=== PATIENT | female | born 1980 | race Caucasian/White ===

== ENCOUNTER 2020-05-01 10:23 | Outpatient (REF) | payer OTHER, SELFPAY ==
[2020-05-01 11:05] LABS: Hematocrit 40.5 % (37-47); Hemoglobin 14.1 g/dl (12.0-16.0); Mean Corpuscular HGB Conc 34.8 g/dl (31.0-35.0); Mean Corpuscular Hemoglobin 31.5 pg (27.0-33.0); Mean Corpuscular Volume 90.4 fL (80-98); Mean Platelet Volume 9.5 fL (9.4-12.3); Platelet Count 272 X10*3/uL (160-400); Red Blood Count 4.48 X10*6/uL (4.20-5.50); Red Cell Distribution Width 12.5 % (11.0-16.0)
[2020-05-01 11:28] LABS: Anion Gap 12 (12-20); Blood Urea Nitrogen 13 mg/dL (9-16); Carbon Dioxide 26 mmol/L (22-29); Chloride 104 mmol/L (96-108); Cholesterol 209 mg/dL; Estimated Glomerular Filt Rate > 60; Glucose Fasting 100 mg/dL (60-99); HDL Cholesterol 49 mg/dL; LDL Cholesterol Calculated 112 mg/dl; Potassium 4.9 mmol/l (3.3-5.1); Sodium 137 mmol/L (135-145); Triglycerides 243 mg/dL
[2020-05-01 11:50] LABS: Free T4 (Free Thyroxine) 0.77 ng/dL (0.71-1.85); Thyroid Stimulating Hormone 3.79 mIU/mL (0.32-4.0)
[2020-05-03 09:00] LABS: Folate 16.2 ng/mL (> or = 4.0); Vitamin B12 476 pg/mL (200-900)
[2020-05-03 22:42] LABS: Thyroid Peroxidase Antibodies 368 IU/mL (<9)
== END 2020-05-01 10:24 | disposition home or self-care (01) ==
LOC: HO.LAB 10:23
PROVIDERS: PCP Internal Medicine; Visit Provider Internal Medicine
DX: R53.83 Other fatigue (principal); E03.9 Hypothyroidism, unspecified; E78.00 Pure hypercholesterolemia, unspecified; Z86.32 Personal history of gestational diabetes
CPT/HCPCS: 36415; 80048; 80061; 82607; 82746; 84439; 84443; 85027; 86376

== ENCOUNTER → 2020-07-07 07:26 | Outpatient (BNVA) | payer OTHER, SELFPAY | PROVIDERS: PCP Internal Medicine; Referring Provider Internal Medicine; Visit Provider Internal Medicine | DX: Z76.89 Persons encountering health services in other specified circumstances (principal) ==

== ENCOUNTER 2020-07-08 09:07 | Outpatient (REF) | payer OTHER, SELFPAY ==
[2020-07-08 16:45] LABS: Free T4 (Free Thyroxine) 0.87 ng/dL (0.71-1.85); Thyroid Stimulating Hormone 6.42 uIU/mL (0.32-4.0); Vitamin D 25-OH Total 32.4 ng/mL (>30)
[2020-07-09 07:26] LABS: Triiodothyronine T3 Total 136 ng/dL (76-181)
[2020-07-09 09:22] LABS: Thyroglobulin Antibodies 1 IU/mL (< or = 1); Thyroid Peroxidase Antibodies 535 IU/mL (<9)
[2020-07-13 15:23] LABS: Thyroid Stimulating Immunoglob <89 % baseline (<140)
[2020-07-14 19:48] LABS: Thyrotropin Receptor Antibody <1.00 IU/L (<=2.00)
== END 2020-07-08 09:08 | disposition home or self-care (01) ==
LOC: HO.LAB 09:07
PROVIDERS: PCP Internal Medicine; Referring Provider Internal Medicine; Visit Provider Internal Medicine
DX: E03.9 Hypothyroidism, unspecified (principal); E55.9 Vitamin D deficiency, unspecified
CPT/HCPCS: 36415; 82306; 83520; 84439; 84443; 84445; 84480; 86376; 86800

== ENCOUNTER 2020-07-22 15:26 | Outpatient (REF) | payer OTHER, SELFPAY ==
--- NOTE | 2020-07-22 15:29 | US_ITS ---
EXAMINATION: US THYROID CLINICAL INFORMATION: Hypothyroidism. COMPARISON: None TECHNIQUE: Linear transducer mosquera-scale and color Doppler examination with attention to the region of the thyroid. FINDINGS: SIZE: Measurements of the thyroid lobes and nodules are given in sagittal, anteroposterior and transverse dimensions respectively. Right Thyroid Lobe: 4.7 x 2.1 x 1.8 cm, volume 9.3 mL. Parenchyma: The gland echotexture is heterogeneous. Thyroid vascularity is mildly increased. Left Thyroid Lobe: 4.6 x 1.4 x 1.5 cm, volume 5.1 mL. Parenchyma: The gland echotexture is heterogeneous. Thyroid vascularity is normal. Isthmus: 0.5 cm in maximum AP dimension. RIGHT THYROID LOBE: No nodules. ISTHMUS: No nodules. LEFT THYROID LOBE: No nodules. NODES: Right neck lymph node measures 0.8 x 1.8 x 0.4 cm. Left neck lymph node measures 0.7 x 0.9 x 0.4 cm. US/US thyroid IMPRESSION: Diffusely heterogeneous lobulated thyroid gland with no obvious nodules visualized. There is mild thyromegaly, right slightly larger than left.
== END 2020-07-22 15:27 | disposition home or self-care (01) ==
LOC: HO.HMGCX 15:26
PROVIDERS: PCP Internal Medicine; Visit Provider Internal Medicine
DX: E03.9 Hypothyroidism, unspecified (principal)
CPT/HCPCS: 76536

== ENCOUNTER → 2020-08-11 11:53 | Outpatient (BNVA) | payer OTHER, SELFPAY | PROVIDERS: PCP Internal Medicine; Visit Provider Internal Medicine ==

== ENCOUNTER 2020-09-02 17:16 | Outpatient (REF) | payer OTHER, SELFPAY ==
[2020-09-02 18:37] LABS: Free T4 (Free Thyroxine) 0.92 ng/dL (0.71-1.85); Thyroid Stimulating Hormone 3.32 uIU/mL (0.32-4.0)
== END 2020-09-02 17:17 | disposition home or self-care (01) ==
LOC: HO.LAB 17:16
PROVIDERS: PCP Internal Medicine; Visit Provider Internal Medicine
DX: E03.9 Hypothyroidism, unspecified (principal)
CPT/HCPCS: 36415; 84439; 84443

== ENCOUNTER → 2020-09-29 13:15 | Outpatient (BNVA) | payer OTHER, SELFPAY | PROVIDERS: PCP Internal Medicine; Visit Provider Internal Medicine ==

== ENCOUNTER 2020-10-20 16:15 | Outpatient (REF) | payer OTHER, SELFPAY ==
[2020-10-20 17:31] LABS: Free T4 (Free Thyroxine) 0.95 ng/dL (0.71-1.85); Thyroid Stimulating Hormone 3.22 uIU/mL (0.32-4.0)
== END 2020-10-20 16:16 | disposition home or self-care (01) ==
LOC: HO.LAB 16:15
PROVIDERS: PCP Internal Medicine; Visit Provider Internal Medicine
DX: E03.9 Hypothyroidism, unspecified (principal)
CPT/HCPCS: 36415; 84439; 84443

== ENCOUNTER → 2020-12-20 12:00 | Outpatient (BNVA) | payer OTHER, SELFPAY | PROVIDERS: PCP Internal Medicine; Visit Provider Internal Medicine ==

== ENCOUNTER 2020-12-30 08:12 | Outpatient (REF) | payer OTHER, SELFPAY ==
--- NOTE | ~2020-12-30 | XR_ITS ---
EXAMINATION: XR AP KNEES STANDING XR RIGHT KNEE CLINICAL INFORMATION: Right knee pain. COMPARISON: None. TECHNIQUE: AP bilateral knees standing. Right knee 2 views. FINDINGS: AP Bilateral Knees: There is mild reduction in the medial compartment right knee joint space with periarticular spurring. The lateral compartment right knee and medial and lateral compartment left knee joint spaces are somewhat maintained. There is evidence of right ACL repair right knee with 2 screws along the medial tibia, likely stabilizing the graft. Right Knee: Lateral and sunrise view right knee reveals no fracture, bony erosive changes or loose bodies. The soft tissues are normal. XR/XR knee standing BI IMPRESSION: Mild degenerative changes medial compartment right knee. Evidence of right ACL repair with 2 medial screws along the proximal tibia. No visible acute fracture or dislocation right knee. No joint effusion. AP view left knee is unremarkable.
--- NOTE | ~2020-12-30 | XR_ITS ---
EXAMINATION: XR AP KNEES STANDING XR RIGHT KNEE CLINICAL INFORMATION: Right knee pain. COMPARISON: None. TECHNIQUE: AP bilateral knees standing. Right knee 2 views. FINDINGS: AP Bilateral Knees: There is mild reduction in the medial compartment right knee joint space with periarticular spurring. The lateral compartment right knee and medial and lateral compartment left knee joint spaces are somewhat maintained. There is evidence of right ACL repair right knee with 2 screws along the medial tibia, likely stabilizing the graft. Right Knee: Lateral and sunrise view right knee reveals no fracture, bony erosive changes or loose bodies. The soft tissues are normal. XR/XR knee RT 2V IMPRESSION: Mild degenerative changes medial compartment right knee. Evidence of right ACL repair with 2 medial screws along the proximal tibia. No visible acute fracture or dislocation right knee. No joint effusion. AP view left knee is unremarkable.
== END 2020-12-30 08:13 | disposition home or self-care (01) ==
LOC: HO.HOSX 08:12
PROVIDERS: Visit Provider Orthopaedic Surgery
DX: M25.561 Pain in right knee (principal)
CPT/HCPCS: 73560; 73565; 99202

== ENCOUNTER 2020-12-30 11:06 | Outpatient (REF) | payer OTHER, SELFPAY ==
[2020-12-30 11:52] LABS: MANUAL DIFF FLAG NO
[2020-12-30 11:55] LABS: Basophils Percent Auto 0.4 % (0-2); Eosinophils Absolute Auto 0.1 X10*3/uL (0.0-0.4); Eosinophils Percent Auto 1.9 % (0-4); Hematocrit 41.9 % (37-47); Hemoglobin 14.3 g/dl (12.0-16.0); Imm Gran Abs Auto 0.02 X10*3/uL (0.00-0.03); Imm Gran Pct Auto 0.3 % (0.0-0.4); Lymphocytes Absolute Auto 2.2 X10*3/uL (1.2-4.9); Lymphocytes Percent Auto 32.5 % (20-40); Mean Corpuscular HGB Conc 34.1 g/dl (31.0-35.0); Mean Corpuscular Hemoglobin 30.6 pg (27.0-33.0); Mean Corpuscular Volume 89.5 fL (80-98); Mean Platelet Volume 9.6 fL (9.4-12.3); Monocytes Absolute Auto 0.4 X10*3/uL (0.1-1.2); Monocytes Percent Auto 6.1 % (2-11); Neutrophils Percent Auto 58.8 % (45-73); Platelet Count 279 X10*3/uL (160-400); Red Blood Count 4.68 X10*6/uL (4.20-5.50); Red Cell Distribution Width 12.5 % (11.0-16.0); White Blood Count 6.8 X10*3/uL (4.8-10.8)
[2020-12-30 12:20] LABS: Cholesterol 188 mg/dL; Glucose Fasting 108 mg/dL (60-99); HDL Cholesterol 43 mg/dL; Iron 137 mcg/dL (30-160); LDL Cholesterol Calculated 72 mg/dl; Percent Iron Saturation 34 % (15-50); Total Iron Binding Capacity 401 mcg/dL (228-428); Triglycerides 369 mg/dL; Unsaturated Iron Binding 264 ug/dL
[2020-12-30 12:34] LABS: Thyroid Stimulating Hormone 2.76 uIU/mL (0.32-4.0); Vitamin D 25-OH Total 36.2 ng/mL (>30)
[2020-12-30 12:36] LABS: Free T4 (Free Thyroxine) 0.89 ng/dL (0.71-1.85)
== END 2020-12-30 11:07 | disposition home or self-care (01) ==
LOC: HO.LAB 11:06
PROVIDERS: Absent Provider Internal Medicine; PCP Internal Medicine; Visit Provider Internal Medicine
DX: E03.9 Hypothyroidism, unspecified (principal); E06.3 Autoimmune thyroiditis; E55.9 Vitamin D deficiency, unspecified; E66.9 Obesity, unspecified
CPT/HCPCS: 36415; 80061; 82306; 82947; 83540; 84439; 84443; 85025

== ENCOUNTER → 2021-03-07 11:21 | Outpatient (BNVA) | payer OTHER, SELFPAY | PROVIDERS: PCP Internal Medicine; Visit Provider Internal Medicine ==

== ENCOUNTER → 2021-03-28 12:45 | Outpatient (BNVA) | payer OTHER, SELFPAY | PROVIDERS: Visit Provider Orthopaedic Surgery | DX: M17.11 Unilateral primary osteoarthritis, right knee (principal); E03.9 Hypothyroidism, unspecified; E06.3 Autoimmune thyroiditis; E55.9 Vitamin D deficiency, unspecified; E66.9 Obesity, unspecified; Z68.37 Body mass index [BMI] 37.0-37.9, adult; Z98.890 Other specified postprocedural states; Z88.6 Allergy status to analgesic agent; Z88.8 Allergy status to other drugs, medicaments and biological substances | CPT/HCPCS: 20610; 99212; J1100 ==

== ENCOUNTER 2021-04-04 08:03 | Outpatient (REF) | payer OTHER, SELFPAY ==
[2021-04-04 11:44] LABS: Free T4 (Free Thyroxine) 1.02 ng/dL (0.71-1.85); Thyroid Stimulating Hormone 2.87 uIU/mL (0.32-4.0); Vitamin D 25-OH Total 38.5 ng/mL (>30)
== END 2021-04-04 08:04 | disposition home or self-care (01) ==
LOC: HO.LAB 08:03
PROVIDERS: PCP Internal Medicine; Visit Provider Internal Medicine
DX: E03.9 Hypothyroidism, unspecified (principal); E55.9 Vitamin D deficiency, unspecified; R76.8 Other specified abnormal immunological findings in serum
CPT/HCPCS: 36415; 82306; 84439; 84443

== ENCOUNTER → 2021-09-08 15:12 | Outpatient (BNVA) | payer OTHER, SELFPAY | PROVIDERS: PCP Internal Medicine; Visit Provider Orthopaedic Surgery | DX: M17.11 Unilateral primary osteoarthritis, right knee (principal); Z98.890 Other specified postprocedural states | CPT/HCPCS: 20610; 99212; J1100 ==

== ENCOUNTER 2021-12-02 11:13 | Outpatient (REF) | payer OTHER, SELFPAY ==
[2021-12-02 13:26] LABS: Free T4 (Free Thyroxine) 0.93 ng/dL (0.71-1.85); Vitamin D 25-OH Total 31.6 ng/mL (>30)
== END 2021-12-02 11:14 | disposition home or self-care (01) ==
LOC: HO.LAB 11:13
PROVIDERS: PCP Internal Medicine; Visit Provider Internal Medicine
DX: E03.9 Hypothyroidism, unspecified (principal); E55.9 Vitamin D deficiency, unspecified
CPT/HCPCS: 36415; 82306; 84439; 84443

== ENCOUNTER 2022-03-08 07:25 | Outpatient (REF) | payer OTHER, SELFPAY | END 2022-03-08 07:26 | disposition home or self-care (01) | LOC: HO.HOSX 07:25 | PROVIDERS: Visit Provider Physician Assistant | DX: S52.501A Unspecified fracture of the lower end of right radius, initial encounter for closed fracture (principal) | CPT/HCPCS: 29085; 99202 ==

== ENCOUNTER 2022-03-16 07:59 | Outpatient (REF) | payer OTHER, SELFPAY ==
--- NOTE | ~2022-03-16 | XR_ITS ---
EXAMINATION: XR WRIST, RIGHT CLINICAL INFORMATION: Right wrist pain. COMPARISON: No relevant images available for comparison at the time of interpretation. TECHNIQUE: PA, lateral, and oblique views of the right wrist. FINDINGS: The bones and soft tissues are normal. No fracture. Alignment is anatomic with normal joint spaces. No erosions or abnormal soft tissue calcifications. XR/XR wrist RT min 3V IMPRESSION: Unremarkable examination.
== END 2022-03-16 08:00 | disposition home or self-care (01) ==
LOC: HO.HOSX 07:59
PROVIDERS: Visit Provider Physician Assistant
DX: S52.501D Unspecified fracture of the lower end of right radius, subsequent encounter for closed fracture with routine healing (principal)
CPT/HCPCS: 29085; 73110; 99212

== ENCOUNTER → 2022-03-17 14:45 | Outpatient (BNVA) | payer OTHER, SELFPAY | PROVIDERS: PCP Internal Medicine; Visit Provider Physician Assistant | DX: S52.501D Unspecified fracture of the lower end of right radius, subsequent encounter for closed fracture with routine healing (principal) | CPT/HCPCS: 29085; 99212 ==

== ENCOUNTER 2022-04-13 07:54 | Outpatient (REF) | payer OTHER, SELFPAY ==
--- NOTE | ~2022-04-13 | XR_ITS ---
EXAMINATION: XR WRIST, RIGHT CLINICAL INFORMATION: Pain COMPARISON: Previous x-ray 03/16/2022 TECHNIQUE: PA, lateral, and oblique views of the right wrist. FINDINGS: There is increased transverse sclerosis of the distal radius questionable for healing nondisplaced fracture. Joint spaces are normal. Carpal bones are normal. Soft tissues are normal. XR/XR wrist RT min 3V IMPRESSION: Increased transverse sclerosis of the distal radius questionable for healing fracture.
== END 2022-04-13 07:55 | disposition home or self-care (01) ==
LOC: HO.HOSX 07:54
PROVIDERS: Visit Provider Physician Assistant
DX: S52.501A Unspecified fracture of the lower end of right radius, initial encounter for closed fracture (principal)
CPT/HCPCS: 73110; 99212

== ENCOUNTER 2022-05-09 08:30 | Outpatient (RCR) | payer OTHER, SELFPAY ==
--- NOTE | 2022-05-02 09:14 | MHC.OT.EP ---
[address] [phone] Occupational Therapy Plan of Care Date of Evaluation: 05/02/22 Diagnosis: Right distal radius fx Assessment: Tonia is a 41 yo female 8 wks s/p right DR fx due to a fall roller skating Her she is wearing a pre carrie wrist support and removing for Ther ex and light activity Today she presents with impairments in pain, wrist ROM and hand strength Her goal is to regain full use for daily activities and training for a fitness test at work Frequency and Duration: The patient will be seen 2x wk x 4 wks Short Term Goals: Inc wrist flexion to > 60 deg Inc ulnar dev to >25 deg Inc pot maker strength to >45 lb Quick DASH score to < 30 pts Assisted Goals: Inc wrist flex to >65 deg Wrist ulnar dev to 30 deg Tolerate partial wt bearing on right hand Right pot maker to >50 lb Quick DASH score to <15 pts Treatment Plan: Therapeutic Exercise Therapeutic Activity Home Exercise Program Patient Education Fluidotherapy MHP Electronically Signed By: Raven Bashir OT CHT CLT Please Sign and return to therapist. Thank you once again for your referral.
--- NOTE | 2022-06-05 15:20 | MHC.OT.DC ---
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
== END 2022-06-05 15:21 | disposition home or self-care (01) ==
LOC: HO.OT 08:30
PROVIDERS: PCP Internal Medicine; Visit Provider Physician Assistant
DX: S52.501A Unspecified fracture of the lower end of right radius, initial encounter for closed fracture (principal)
CPT/HCPCS: 97110; 97165

== ENCOUNTER 2022-06-13 | Outpatient (REF) | payer OTHER, SELFPAY ==
--- NOTE | ~2022-06-13 | XR_ITS ---
EXAMINATION: XR WRIST, RIGHT CLINICAL INFORMATION: M25.539 - Pain in unspecified wrist COMPARISON: Radiographs right wrist 04/13/2022, 03/16/2022 TECHNIQUE: Right wrist is imaged in 3 views. FINDINGS: There is no acute or healing fracture, dislocation, destructive process. The ulnar variance is neutral. The pronator quadratus fat pad appears normal. No callus formation or periostitis. No arthropathy. Small cortical cyst medial base fifth medical carpal stable. XR/XR wrist RT min 3V IMPRESSION: No acute or healing fracture, dislocation, or destructive process.
== END 2022-06-13 00:01 | disposition home or self-care (01) ==
LOC: HO.HOSX
PROVIDERS: Visit Provider Physician Assistant
DX: S52.501A Unspecified fracture of the lower end of right radius, initial encounter for closed fracture (principal)
CPT/HCPCS: 73110; 99212

== ENCOUNTER 2022-08-09 07:50 | Outpatient (REF) | payer OTHER, SELFPAY ==
[2022-08-09 08:02] LABS: MANUAL DIFF FLAG NO
[2022-08-09 08:36] LABS: Basophils Percent Auto 0.6 % (0-2); Eosinophils Absolute Auto 0.1 X10*3/uL (0.0-0.4); Eosinophils Percent Auto 2.2 % (0-4); Hematocrit 41.4 % (37.0-47.0); Hemoglobin 13.9 g/dl (12.0-16.0); Imm Gran Abs Auto 0.02 X10*3/uL (0.00-0.03); Imm Gran Pct Auto 0.3 % (0.0-0.4); Lymphocytes Absolute Auto 2.2 X10*3/uL (1.2-4.9); Lymphocytes Percent Auto 34.4 % (20-40); Mean Corpuscular HGB Conc 33.6 g/dl (31.0-35.0); Mean Corpuscular Hemoglobin 29.6 pg (27.0-33.0); Mean Corpuscular Volume 88.3 fL (80.0-98.0); Mean Platelet Volume 9.2 fL (9.4-12.3); Monocytes Absolute Auto 0.5 X10*3/uL (0.1-1.2); Monocytes Percent Auto 7.1 % (2-11); Neutrophils Absolute Auto 3.5 x10*3/uL (2.0-8.3); Neutrophils Percent Auto 55.4 % (45-73); Platelet Count 317 X10*3/uL (160-400); Red Blood Count 4.69 X10*6/uL (4.20-5.50); Red Cell Distribution Width 13.1 % (11.0-16.0); White Blood Count 6.3 X10*3/uL (4.8-10.8)
[2022-08-09 08:37] LABS: Estimated Average Glucose 154 mg/dL
[2022-08-09 08:55] LABS: Alanine Aminotransferase 153 U/L (0-31); Anion Gap 17 (12-20); Aspartate Amino Transferase 180 U/L (5-31); Blood Urea Nitrogen 9 mg/dL (9-16); Calcium 9.7 mg/dL (8.4-10.2); Carbon Dioxide 23 mmol/L (22-29); Chloride 104 mmol/L (96-108); Cholesterol 236 mg/dL; Estimated Glomerular Filt Rate > 60; Glucose Fasting 151 mg/dL (60-99); HDL Cholesterol 33 mg/dL; LDL Cholesterol Calculated 167 mg/dl; Potassium 4.5 mmol/L (3.3-5.1); Sodium 139 mmol/L (135-145); Triglycerides 184 mg/dL
== END 2022-08-09 07:51 | disposition home or self-care (01) ==
LOC: HO.LAB 07:50
PROVIDERS: Absent Provider Internal Medicine; PCP Internal Medicine; Visit Provider Internal Medicine
DX: Z00.01 Encounter for general adult medical examination with abnormal findings (principal); E78.1 Pure hyperglyceridemia; R73.01 Impaired fasting glucose; E66.9 Obesity, unspecified
CPT/HCPCS: 36415; 80048; 80061; 83036; 84450; 84460; 85025

== ENCOUNTER → 2022-09-15 10:25 | Outpatient (BNVA) | payer OTHER, SELFPAY | PROVIDERS: PCP Internal Medicine; Visit Provider Physician Assistant | DX: M17.11 Unilateral primary osteoarthritis, right knee (principal); Z98.890 Other specified postprocedural states | CPT/HCPCS: 20610; 99212; J1040 ==

== ENCOUNTER 2022-10-19 11:48 | Outpatient (REF) | payer OTHER, SELFPAY ==
--- NOTE | ~2022-10-19 | MR_ITS ---
EXAMINATION: MR KNEE WITHOUT CONTRAST, LEFT CLINICAL INFORMATION: Left knee pain. COMPARISON: Left knee radiograph dated 12/30/2020. TECHNIQUE: MRI of the knee without contrast was performed using routine sequences on a high-field scanner. FINDINGS: MENISCI: Medial Meniscus: Intact Lateral Meniscus: Intact LIGAMENTS: Cruciate: Complete tear of the anterior cruciate ligament with diffuse thickening and edema of the torn ligament fibers. Adjacent soft tissue edema. Intact posterior cruciate ligament. Collateral: Mild edema along the periphery of the posterior medial collateral ligament consistent with a grade 1 sprain. Intact fibular collateral ligament. EXTENSOR MECHANISM: Intact ARTICULAR CARTILAGE/BONE: Patellofemoral Compartment: Patellar median ridge articular cartilage signal heterogeneity and partial-thickness fissuring. Central trochlea signal heterogeneity. Tiny marginal osteophytes. Medial Compartment: Intact articular cartilage. Minimal cortical depression with subchondral linear low T1/low T2 signal and prominent adjacent marrow edema at the posterior aspect of the medial tibial plateau measuring 1.4 cm in AP dimension, consistent with a minimally depressed impaction fracture. Lateral Compartment: Intact articular cartilage. JOINT FLUID AND BURSAE: Small joint effusion and small Live's cyst. MR/MR knee LT wo con IMPRESSION: 1. Acute, complete tear of the anterior cruciate ligament. 2. Grade 1 sprain of the medial collateral ligament. 3. Minimally depressed impaction fracture at the posterior aspect of the medial tibial plateau with prominent adjacent marrow edema. 4. Mild patellofemoral arthrosis. Small joint effusion and small Live's cyst.
[2022-10-19 14:02] LABS: Free T4 (Free Thyroxine) 1.13 ng/dL (0.71-1.85); Vitamin D 25-OH Total 45.8 ng/mL (>30)
== END 2022-10-19 11:49 | disposition home or self-care (01) ==
LOC: HO.MRI 11:48
PROVIDERS: Internal Medicine; PCP Internal Medicine; Visit Provider Internal Medicine
DX: M25.562 Pain in left knee (principal); M25.362 Other instability, left knee; E03.9 Hypothyroidism, unspecified; E55.9 Vitamin D deficiency, unspecified
CPT/HCPCS: 36415; 73721; 82306; 84439; 84443

== ENCOUNTER → 2022-10-30 10:31 | Outpatient (BNVA) | payer OTHER, SELFPAY | PROVIDERS: PCP Internal Medicine; Visit Provider Physician Assistant | DX: S83.512A Sprain of anterior cruciate ligament of left knee, initial encounter (principal); S82.132A Displaced fracture of medial condyle of left tibia, initial encounter for closed fracture | CPT/HCPCS: 99212 ==

== ENCOUNTER → 2022-11-30 09:28 | Outpatient (BNVA) | payer OTHER, SELFPAY | PROVIDERS: Visit Provider Physician Assistant | DX: S83.512D Sprain of anterior cruciate ligament of left knee, subsequent encounter (principal); S82.132D Displaced fracture of medial condyle of left tibia, subsequent encounter for closed fracture with routine healing | CPT/HCPCS: 99212 ==

== ENCOUNTER 2022-12-18 08:14 | Outpatient (REF) | payer OTHER, SELFPAY ==
--- NOTE | ~2022-12-18 | XR_ITS ---
EXAMINATION: XR KNEE, RIGHT XR KNEE AP STANDING CLINICAL INFORMATION: Pain. COMPARISON: Radiographs dated 12/30/2020. TECHNIQUE: Lateral and axial views of the right knee are submitted. AP bilateral standing view of the knees was obtained. FINDINGS: There is mild asymmetric narrowing of the medial joint space compartment of the right knee, with peripheral osteophyte formation. The lateral and patellofemoral joint space compartment are well-maintained. There is trace peripheral osteophyte formation of the right patellofemoral compartment. There are postoperative changes consistent with a prior right ACL repair. No right knee fracture, dislocation or joint effusion is seen. The lateral and medial joint space compartments of the left knee are well-maintained. There is minimal peripheral osteophyte formation of the medial joint space compartment of the left knee. No left knee fracture or dislocation is seen. No significant varus or valgus configuration is seen bilaterally. XR/XR knee standing BI IMPRESSION: 1. There is mild osteoarthritic change of the medial joint space compartment of the right knee, and minimal osteoarthritic change is seen of the patellofemoral compartment. 2. There are postoperative changes consistent with a prior right ACL repair. 3. There is minimal osteoarthritic change of the medial joint space compartment of the left knee.
--- NOTE | ~2022-12-18 | XR_ITS ---
EXAMINATION: XR KNEE, RIGHT XR KNEE AP STANDING CLINICAL INFORMATION: Pain. COMPARISON: Radiographs dated 12/30/2020. TECHNIQUE: Lateral and axial views of the right knee are submitted. AP bilateral standing view of the knees was obtained. FINDINGS: There is mild asymmetric narrowing of the medial joint space compartment of the right knee, with peripheral osteophyte formation. The lateral and patellofemoral joint space compartment are well-maintained. There is trace peripheral osteophyte formation of the right patellofemoral compartment. There are postoperative changes consistent with a prior right ACL repair. No right knee fracture, dislocation or joint effusion is seen. The lateral and medial joint space compartments of the left knee are well-maintained. There is minimal peripheral osteophyte formation of the medial joint space compartment of the left knee. No left knee fracture or dislocation is seen. No significant varus or valgus configuration is seen bilaterally. XR/XR knee RT 2V IMPRESSION: 1. There is mild osteoarthritic change of the medial joint space compartment of the right knee, and minimal osteoarthritic change is seen of the patellofemoral compartment. 2. There are postoperative changes consistent with a prior right ACL repair. 3. There is minimal osteoarthritic change of the medial joint space compartment of the left knee.
== END 2022-12-18 08:15 | disposition home or self-care (01) ==
LOC: HO.HOSX 08:14
PROVIDERS: Visit Provider Physician Assistant
DX: M17.11 Unilateral primary osteoarthritis, right knee (principal); Z98.890 Other specified postprocedural states
CPT/HCPCS: 20610; 73560; 73565; 99212; J1040

== ENCOUNTER 2023-01-02 10:00 | Outpatient (RCR) | payer OTHER, SELFPAY ==
--- NOTE | 2022-12-06 15:11 | MHC.PT.EP ---
[facility] [place] Office [place] Office [place] Office [address] [phone] F: [phone] F: [phone] F: [phone] F: [phone] Physical Therapy Plan of Care Date of Evaluation: Date of Surgery: PRE-OP 01/24/23..L ACL RECONSTRUCTION Diagnosis: DISPLACED FX MEDIAL CONDYLE L TIBIA Assessment: Pt IS 42 YO F REFERRED TO PT FROM [facility] ([facility]) WITH TORN L ACL AND FX OF MEDIAL CONDYLE L TIBIA. TO HAVE ACL RECONSTRUCTION (ALLOGRAFT FROM CADAVER PER Pt) ON January. PRESENTS WITH GOOD OVERALL KNEE ROM L AND LE STRENGTH. Pt HAD R ACL SURGERY WHEN SHE WAS 16 YO. 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 REPORTS SWELLING HAS BEEN MINIMAL. SHOULD BENEFIT FROM SHORT TERM PT FOR ED RE PO PT AND ENSURE MAINTENANCE OF ROM AND STRENGTH PRE-OPERATIVELY Frequency and Duration: The patient will be seen 1X/WK X 4 WKS Short Term Goals: 1. INCREASED AWARENESS KNEE CARE AND POST OP ACL PROTOCOL Detention Goals: 1. I HEP WITH DC EX PLAN Treatment Plan: Modalities to reduce pain, spasms and effusion. Manual therapy to restore motion and function. Therapeutic exercise to improve strength and flexibility. Neuromuscular re-education for posture and balance. Therapeutic activities to return to functional activities of daily living. Electronically signed by: CAITY GUEVARA PT Please sign and return to therapist. Thank you for your referral.
--- NOTE | 2023-01-30 08:21 | MHC.PT.DC ---
[facility] [place] Office [place] Office [place] Office [address] Lizbet Paulino [address] [phone] F: [phone] F: [phone] F: [phone] F: [phone] Physical Therapy Discharge Report Diagnosis: DISPLACED FX MEDIAL CONDYLE L TIBIA Date of Surgery: PRE-OP 01/24/23..L ACL RECONSTRUCTION Date of Evaluation: 12/06/22 Date of Discharge: 01/30/23 Treatments to Date: 3 Cancellations to Date: No Shows to Date: Discharge Status: Achieved Goals Independent with HEP Discharge Summary: PER ASSESSMENT ON 01/02/23 BY ONEIL SHEFFIELD PT,DPT: 'AROM 0 degrees to 140 degrees of flexion. SLR into flexion good<>fair strength. Pt has met all prehab STG/LTG to date. Pt is scheduled for ACL surgery on 12/25/22.' 12/26/22 : Pt presents to PT after having not come since eval on 12/06/22. Today presents with full AROM of the L knee 0-130 degrees. Fair<>strength with SL. Pt issued 4 way SLR for home program today. Pt is booked for ACL reconstruction. We Pt IS 42 YO F REFERRED TO PT FROM [facility] ([facility]) WITH TORN L ACL AND FX OF MEDIAL CONDYLE L TIBIA. TO HAVE ACL RECONSTRUCTION (ALLOGRAFT FROM [facility] PER Pt) ON January. PRESENTS WITH GOOD OVERALL KNEE ROM L AND LE STRENGTH. Pt HAD R ACL SURGERY WHEN SHE WAS 16 YO. 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 REPORTS SWELLING HAS BEEN MINIMAL. SHOULD BENEFIT FROM SHORT TERM PT FOR ED RE PO PT AND ENSURE MAINTENANCE OF ROM AND STRENGTH PRE-OPERATIVELY Electronically signed by: CAITY GUEVARA PT Please sign and return to therapist. Thank you for your referral.
== END 2023-01-30 08:21 | disposition home or self-care (01) ==
LOC: HO.PTWFD 10:00
PROVIDERS: PCP Physician Assistant; Visit Provider Internal Medicine
DX: S82.132A Displaced fracture of medial condyle of left tibia, initial encounter for closed fracture (principal); S83.512A Sprain of anterior cruciate ligament of left knee, initial encounter
CPT/HCPCS: 97110; 97150; 97161; 97535

== ENCOUNTER → 2023-01-04 09:35 | Outpatient (BNVA) | payer OTHER, SELFPAY | PROVIDERS: Visit Provider Orthopaedic Surgery ==

== ENCOUNTER 2023-01-24 05:54 | Day surgery (SDC) | payer OTHER, SELFPAY ==
[2023-01-19 15:02] VITALS: BMI 36.8
--- NOTE | 2023-01-23 09:13 | HO.ANESPROP2 ---
Documented by User: Eryn Hudson NP 01/23/23 09:15 HPI - Anesthesia Eval Consult details Narrative: 42yo F for Left Knee ACL Allograft PMFSH Active Problems Active Problems: All Active Problems (Updated 12/22/22 @ 01:54 by Peggy Mcknight MD) Elevated liver enzymes (Acute) Dyslipidemia (Acute) Upper respiratory tract infection (Acute) Left medial tibial plateau fracture (Acute) Left ACL tear (Acute) Instability of left knee joint (Acute) Left knee pain (Acute) Chronic lower back pain (Acute) Impaired fasting glucose (Acute) Hypertriglyceridemia (Acute) Annual visit for general adult medical examination with abnormal findings (Acute) Tendinitis of ankle (Acute) Arthritis of right knee (Acute) Obesity (Acute) Hx of anterior cruciate ligament tear reconstruction (Acute) Chronic pain of right knee (Acute) Vitamin D deficiency (Acute) Hypothyroidism (Acute) 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) Past Medical History Medical History Annual visit for general adult medical examination with abnormal findings Anti-TPO antibodies present Chronic pain of right knee Concussion Dyslipidemia Elevated liver enzymes Jessica's disease History of gestational diabetes Hypertriglyceridemia Hypothyroidism Impaired fasting glucose Instability of left knee joint Left knee pain Obesity Vitamin D deficiency Family History Family History Father Unknown family medical history Mother Breast cancer Substance use disorder Sister Substance use disorder Maternal Aunt Substance use disorder Maternal Uncle Substance use disorder Paternal Uncle Substance use disorder Surgical History Surgical History Hx of anterior cruciate ligament tear reconstruction Hx of section Hx of cholecystectomy Hx of knee surgery Tubal ligation status Social History Social History Household Members: Children Housing: Condominium Alcohol intake: never Patient Tobacco Use Status: Never used Tobacco e-Cigarette/Vaping Use: Never Used Use of substances other than those prescribed or required for medical reasons: No Are you DNR?: No Advance Directives: No Advance Directives Information Provided: Yes Patient : No (Tubal ligation) service: Yes Current occupational status: employed 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 Cognitive needs: No Hearing needs: No Vision needs: Yes Meds Allergies Allergy/AdvReac Type Severity Reaction Status Date / Time acetaminophen [Percocet] Allergy Unknown cant see Verified 12/22/22 02:10 up close oxycodone [Percocet] Allergy Unknown blurred Verified 12/22/22 02:10 vision Pitocin Allergy Unknown Unknown Uncoded 12/22/22 02:10 Exam Exam Date and Time: January 23, [id number] Height,Weight and Vital Signs: Height 5 ft 7 in Weight 106.594 kg Pertinent Lab Results Pertinent Lab Results: Laboratory Tests 08/09/22 08/09/22 08:01 08:01 WBC 6.3 Hgb 13.9 Hct 41.4 Plt Count 317 Sodium 139 Potassium 4.5 Chloride 104 Carbon Dioxide 23 BUN 9 Creatinine 0.92 Assessment and Plan Assessment Anesthesia Assessment: Chart Reviewed Documented by User: Med Sagastume MD 01/24/23 07:17 PMFSH Past Medical History Medical History Annual visit for general adult medical examination with abnormal findings Anti-TPO antibodies present Chronic pain of right knee Concussion Dyslipidemia Elevated liver enzymes Jessica's disease History of gestational diabetes Hypertriglyceridemia Hypothyroidism Impaired fasting glucose Instability of left knee joint Left knee pain Obesity Vitamin D deficiency Family History Family History Father Unknown family medical history Mother Breast cancer Substance use disorder Sister Substance use disorder Maternal Aunt Substance use disorder Maternal Uncle Substance use disorder Paternal Uncle Substance use disorder Family history of problems with anesthesia: No Surgical History Surgical History Hx of anterior cruciate ligament tear reconstruction Hx of section Hx of cholecystectomy Hx of knee surgery Tubal ligation status History of Problems with Anesthesia: No Social History Social History Household Members: Children Housing: Condominium Alcohol intake: never Patient Tobacco Use Status: Never used Tobacco e-Cigarette/Vaping Use: Never Used Use of substances other than those prescribed or required for medical reasons: No Are you DNR?: No Advance Directives: No Advance Directives Information Provided: Yes Patient : No (Tubal ligation) service: Yes Current occupational status: employed 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 Cognitive needs: No Hearing needs: No Vision needs: Yes Meds Allergies Allergy/AdvReac Type Severity Reaction Status Date / Time acetaminophen [Percocet] Allergy Unknown cant see Verified 12/22/22 02:10 up close oxycodone [Percocet] Allergy Unknown blurred Verified 12/22/22 02:10 vision Pitocin Allergy Unknown Unknown Uncoded 12/22/22 02:10 Exam Airway Mallampati Class: II TM Dist: >3cm Neck ROM: Limited Heart: rrr Lungs: cta Assessment and Plan Assessment Anesthesia Assessment: Anesthesia Plan Discussed Final Anesthetic Review Family History of Problems with Anesthesia: No History of Problems with Anesthesia: No NPO: Yes ASA Class: II Final Preanesthetic Review: No Changes in Pt Med Stat, Meds/Allgs Chart Reviewed, Consent Obtained/Reviewed and Anes Risks/Benef Reviewed Patient Risk: Intermediate Procedure Risk: Intermediate Anesthetic Plan Anesthetic Plan: GA and Regional Block Disposition: Standard PACU
[2023-01-24] VITALS (10 sets, daily range): BP systolic 108–136; BP diastolic 59–76; PULSE 61–74; RESP 16–18; TEMP 36.4–36.7; O2SAT 97–100; BMI 37.6
[2023-01-24] MEDS: Lactated Ringers 1,000 ML 100 ML IVCONT (06:47)
--- NOTE | 2023-01-24 09:14 | P.BOP_ITS ---
Brief Operative Note Date of Service: 01/24/23 Pre-op diagnosis: ACL tear Post-op diagnosis: other (1)acl tear 2) MMT) Procedure: ACL reconstruction with allograft and partial medial meniscectomy Implants: House and Nephew ACL button with 10x25 Biocomposite interference screw Surgeon: Fran Arndt MD Anesthesia: GETA and regional Was an Stripping And Booking Machine Operator used for this Procedure?: Yes Stripping And Booking Machine Operator: Michelle Palacios Estimated blood loss (mL): 25 Tourniquet time (min): 45 IV fluids (mL): 1,000 Pathology: none sent Condition: stable Disposition: PACU
--- NOTE | 2023-01-24 09:14 | MHC.SHP ---
Pre-Procedural Eval Section A Date of Service: 01/24/23 The patient is an INPATIENT: No Changes since office visit: No Cold of Flu in the past 2 weeks, No New Medical Problems, No Changes in Medication and No Patient answered all questions The History & Physical has been completed within 30 days and I have reviewed it.: Yes Section B Chief Complaint: Sprain of anterior cruciate ligament of left knee Allergies: Allergies Allergy/AdvReac Type Severity Reaction Status Date / Time acetaminophen [Percocet] Allergy Unknown cant see Verified 12/22/22 02:10 up close oxycodone [Percocet] Allergy Unknown blurred Verified 12/22/22 02:10 vision Pitocin Allergy Unknown Unknown Uncoded 12/22/22 02:10 Plan I have reviewed the history and physical and performed a pertinent physical examination on my patient. No changes have occurred unless specified. Time Spent With Patient Time: Total time managing care of this patient today ____ minutes.
[2023-01-24] MEDS: ondansetron HCL 4 MG/2 ML VIAL IVPUSH (10:06)
[2023-01-24] MEDS: Ketorolac Tromethamine 30 MG/ML VIAL IVPUSH (10:06)
[2023-01-24] MEDS: oxyCODONE HCl Immed Release 5 MG TABLET PO (10:11)
[2023-01-24] MEDS: fentaNYL citrate/PF 100 MCG/2 ML VIAL 25 MCG IVPUSH (10:15)
--- NOTE | 2023-01-26 15:34 | P.OP_ITS ---
Operative Note Operative Note Date of Service: 01/24/23 Narrative: Date of Service: 01/24/23 Pre-op diagnosis: Left ACL tear Post-op diagnosis: other (1)left acl tear 2) left MMT) Procedure: ACL reconstruction with allograft and partial medial meniscectomy Implants: House and Nephew ACL button with 10x25 Biocomposite interference screw Surgeon: Fran Arndt MD Anesthesia: GETA and regional Was an Sound Engineering Technician used for this Procedure?: Yes Sound Engineering Technician: Michelle Palacios Estimated blood loss (mL): 25 Tourniquet time (min): 45 IV fluids (mL): 1,000 Pathology: none sent Condition: stable Disposition: PACU Procedure in detail: Patient was brought to the operating room placed supine on the arthroscopic table and prepped and draped in standard sterile fashion. A time-out was called to identify proper site proper procedure proper surgeon and IV antibiotics per weight were administered. Under anesthesia she had a + pivot shift. I began by exsanguinating the limb and insufflating tourniquet to 300 mm Hg. Then made a standard anterolateral stab incision. The knee was insufflated with water and 30 degree arthroscope was placed. There was grade 0 fibrillations of the patella but overall suprapatellar pouch and the gutters were clean. I descended into the medial compartment where I made my far medial portal under direct visualization. There was horizontal medial meniscus tear in the white zone. The root was intact and there were grade 1 changes of the MFC. I debrided the meniscus down to stable edges. The lateral compartment was examined and the meniscus and articular cartilage were normal. . I then examined the notch where there was a + empty wall sign and an intact PCL. I debrided the stump and acl footprint and performed a limited notchplasty. I then, through a far AM portal and a 7mm behind the back guide, drilled a k-wire through the LFC with the knee in hyper-flexion. I measured the tunnel as a 33 and then after sizing the allograft on the back table drilled a 25 mm tunnel with a 10 mm reamer. The final 8 mm was drilled iwth a 4.5 reamer. I then pulled a suture through the femoral tunnel and turned my attention to the tibia. I did examine the femoral tunnel and was satisfied with the posterior wall and its location low and medial at the anatomic footprint. I placed my tibial drill guide in 55 deg and, through a anteromedial inc just lateral to the tibial tubercle placed a k-wire into the notch exiting just medial to the anterior horn insertion of the lateral meniscus. I then over-reamed with a 10 reamer. I cleaned the tunnels up with a shaver. On the back table I whip-stitched the allograft to fit through an 10 aperture and attached the femoral button to the looped end. I placed the graft on 15lbs of tension for 10 minutes. I then passed the allograft through the tibial tunnel and femoral tunnel and flipped the button. I cycled the knee about 10-15 cycles and then placed a tibial interference screw (10x25) with the knee in hyper-extension while holding the graft taught. Once I was satisfied that the interference screw was buried I examined the ACL and the medial meniscus repair. The repair was stable and the ACL was not impinging and there was a negative pivot shift. I then removed all instrumentation and closed the incisions with nylon. Patient was then placed in sterile dressings and a hinged knee brace. She was then extubated brought recovery room stable condition. There were no known complications.
== END 2023-01-24 11:58 | disposition home or self-care (01) ==
PROVIDERS: PCP Internal Medicine; Visit Provider Orthopaedic Surgery
PROC: (CPT 27428; principal; 2023-01-24 07:30)
DX: S83.512A Sprain of anterior cruciate ligament of left knee, initial encounter (principal); S83.242A Other tear of medial meniscus, current injury, left knee, initial encounter; X58.XXXA Exposure to other specified factors, initial encounter; Y93.9 Activity, unspecified; Y92.9 Unspecified place or not applicable; Y99.9 Unspecified external cause status; Z88.5 Allergy status to narcotic agent
CPT/HCPCS: 29888; 29881; C1713; C1769; J0171; J0690; J1100; J1885; J2405; J2795; J3010

== ENCOUNTER → 2023-01-24 05:54 | Outpatient (BNV) | payer OTHER, SELFPAY | PROVIDERS: PCP Internal Medicine; Visit Provider Orthopaedic Surgery | DX: S83.232A Complex tear of medial meniscus, current injury, left knee, initial encounter (principal); S83.512A Sprain of anterior cruciate ligament of left knee, initial encounter | CPT/HCPCS: 29881; 29888 ==

== ENCOUNTER 2023-01-29 11:53 | Outpatient (AMB) | payer OTHER, SELFPAY ==
--- NOTE | 2023-01-29 11:54 | A.OFFVIS_ITS ---
Intake Intake Visit Reasons: PO LT ACL tear 01/24/23NE Intake Note: Tonia is a 42 year old female who presents today for a post operatiuve appointment s/p Left ACL repair 01/24/23. Pateint reports that she is doing well overall. She is no longer taking the percocet, she is taking Tylenol or motrin prn pain. She has not yet received Cryotherapy device Allergies acetaminophen [Percocet] Allergy (Unknown, Verified 12/22/22 02:10) cant see up close oxycodone [Percocet] Allergy (Unknown, Verified 12/22/22 02:10) blurred vision Pitocin Allergy (Unknown, Uncoded 12/22/22 02:10) Unknown HPI PO LT ACL tear 01/24/23NE HPI Details 42-year-old female who presents in the office today for 5 days status post left ACL reconstruction with allograft and partial medial meniscectomy, which was performed on 01/24/[address] Arndt. The patient reports she is doing well overall. She confirms that she is no longer taking the Percocet. She has been taking Tylenol or Motrin PRN for pain. Patient confirms she has not received a cryotherapy device. [facility] Medical History Annual visit for general adult medical examination with abnormal findings Anti-TPO antibodies present Chronic pain of right knee Concussion Dyslipidemia Elevated liver enzymes Jessica's disease History of gestational diabetes Hypertriglyceridemia Hypothyroidism Impaired fasting glucose Instability of left knee joint Left knee pain Obesity Vitamin D deficiency Surgical History (Updated 01/26/23 @ 08:26 by Michelle Palacios PA-C) Hx of anterior cruciate ligament tear reconstruction Hx of section Hx of cholecystectomy Hx of knee surgery Tubal ligation status Family History Father Unknown family medical history Mother Breast cancer Substance use disorder Sister Substance use disorder Maternal Aunt Substance use disorder Maternal Uncle Substance use disorder Paternal Uncle Substance use disorder Social History Household Members: Children Housing: Condominium Alcohol intake: never Patient Tobacco Use Status: Never used Tobacco e-Cigarette/Vaping Use: Never Used service: Yes Current occupational status: employed 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 Sutures intact. No signs of infection. Able to reach full extension. NVI. Psych Mental Status: mental status grossly normal Assessment & Plan Assessment & Plan (1) S/P reconstruction of anterior cruciate ligament: Code(s): Z98.890 - Other specified postprocedural states Plan Ms. Rush is a 42-year-old female who presents in the office today for 5 days status post left ACL reconstruction with allograft and partial medial meniscectomy, which was performed on 01/24/[address] Arndt. The patient reports she is doing well overall. She confirms that she is no longer taking the Percocet. She has been taking Tylenol or Motrin PRN for pain. Patient confirms she has not received a cryotherapy device. Sutures were removed and steri-stripes were applied. The patient will remain in the brace at all times. She will continue to work with physical therapy. She will remain out of work until her follow up. Follow up will be in 4 weeks, or sooner if needed. Patient Instructions: Scribed for Michelle Palacios PA-C by Roxann Jason medical driver, on 01/29/2023 at 11:55 am, EST. Your attestation Coding Level of Care Code Global (47100) Diagnoses S/P reconstruction of anterior cruciate ligament Z98.890
== END 2023-01-29 12:24 | disposition home or self-care (01) ==
PROVIDERS: Visit Provider Physician Assistant
DX: Z98.890 Other specified postprocedural states (principal)
CPT/HCPCS: 99024

== ENCOUNTER → 2023-01-29 11:53 | Outpatient (BNVA) | payer OTHER, SELFPAY | PROVIDERS: Visit Provider Physician Assistant ==

== ENCOUNTER 2023-02-26 08:39 | Outpatient (REF) | payer OTHER, SELFPAY ==
--- NOTE | ~2023-02-26 | XR_ITS ---
EXAMINATION: XR KNEE, LEFT XR KNEE AP STANDING CLINICAL INFORMATION: Pain. COMPARISON: 12/18/2022 radiographs of the knee. TECHNIQUE: Lateral and axial views of the left knee. AP bilateral standing view of the knees. FINDINGS: RIGHT KNEE: Mild medial joint space narrowing with medial marginal osteophytes. Redemonstration of postoperative changes characteristic of right ACL repair with 2 screws traversing the proximal tibia. LEFT KNEE: Small joint effusion. Interval surgery with expected changes characteristic of interval ACL repair. XR/XR knee LT 2V IMPRESSION: 1. Small joint effusion. Interval surgery with expected changes characteristic of interval ACL repair. 2. Redemonstration of postoperative changes characteristic of right ACL repair.
--- NOTE | ~2023-02-26 | XR_ITS ---
EXAMINATION: XR KNEE, LEFT XR KNEE AP STANDING CLINICAL INFORMATION: Pain. COMPARISON: 12/18/2022 radiographs of the knee. TECHNIQUE: Lateral and axial views of the left knee. AP bilateral standing view of the knees. FINDINGS: RIGHT KNEE: Mild medial joint space narrowing with medial marginal osteophytes. Redemonstration of postoperative changes characteristic of right ACL repair with 2 screws traversing the proximal tibia. LEFT KNEE: Small joint effusion. Interval surgery with expected changes characteristic of interval ACL repair. XR/XR knee standing BI IMPRESSION: 1. Small joint effusion. Interval surgery with expected changes characteristic of interval ACL repair. 2. Redemonstration of postoperative changes characteristic of right ACL repair.
== END 2023-02-26 08:40 | disposition home or self-care (01) ==
LOC: HO.HOSX 08:39
PROVIDERS: Visit Provider Orthopaedic Surgery
DX: M25.562 Pain in left knee (principal); Z98.890 Other specified postprocedural states
CPT/HCPCS: 73560; 73565

== ENCOUNTER 2023-02-26 11:36 | Outpatient (AMB) | payer OTHER, SELFPAY ==
--- NOTE | 2023-02-26 11:52 | MHC.OFFVIS ---
Intake Intake Visit Reasons: PO-LT ACL tear 01/24/23NE Intake Note: Tonia is a 43 year old female who presents today for a post operative appointment s/p Left ACL Repair 01/24/23. Patient reports that she is doing well, making improvements day by day. She has some mild instability. Continues to work with physical therapy. She is asking is she can go swimming. Allergies acetaminophen [Percocet] Allergy (Unknown, Verified 02/26/23 11:55) cant see up close oxycodone [Percocet] Allergy (Unknown, Verified 02/26/23 11:55) blurred vision Pitocin Allergy (Unknown, Uncoded 02/26/23 11:55) Unknown HPI PO-LT ACL tear 01/24/23NE HPI Details Celestino is a 42 year old woman ~4 weeks S/P ACL reconstruction with allograft and partial medial meniscectomy. She says she is doing well and has been working with PT. She feels she is making improvements but she complains of some mild instability. She continues to wear her knee brace. She would like to know if she can go swimming. [facility] Medical History Annual visit for general adult medical examination with abnormal findings Anti-TPO antibodies present Chronic pain of right knee Concussion Dyslipidemia Elevated liver enzymes Jessica's disease History of gestational diabetes Hypertriglyceridemia Hypothyroidism Impaired fasting glucose Instability of left knee joint Left knee pain Obesity Vitamin D deficiency Surgical History (Updated 01/26/23 @ 08:26 by Michelle Palacios PA-C) Hx of anterior cruciate ligament tear reconstruction Hx of section Hx of cholecystectomy Hx of knee surgery Tubal ligation status Family History Father Unknown family medical history Mother Breast cancer Substance use disorder Sister Substance use disorder Maternal Aunt Substance use disorder Maternal Uncle Substance use disorder Paternal Uncle Substance use disorder Social History Household Members: Children Housing: Condominium Alcohol intake: never Patient Tobacco Use Status: Never used Tobacco e-Cigarette/Vaping Use: Never Used service: Yes Current occupational status: employed 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 Cognitive needs: No Hearing needs: No Vision needs: Yes Review of Systems Const All systems reviewed & are unremarkable except as noted in HPI and below Physical Exam Const General: no acute distress, alert and awake Orientation/consciousness: patient oriented x3 HEENT Head: Yes normocephalic and Yes atraumatic Eyes EOM: EOMs intact bilaterally Resp Effort & Inspection: normal respiratory effort and able to speak in complete sentences Cardio Jugular venous distension: no JVD Skin General skin exam: turgor normal Rashes: no rashes Neuro General: patient oriented x3 Extrem Other: Left Knee: Well-healed incision 0-125 degrees ROM Stable Tonie's No effusion Psych Appearance: grossly normal Affect: normal affect Attitude: cooperative Results Reviewed Results Reviewed: I personally reviewed relevant radiographs. Tunnel alignement and femoral button in satisfactory position. Assessment & Plan Assessment & Plan (1) S/P reconstruction of anterior cruciate ligament: Code(s): Z98.890 - Other specified postprocedural states Plan: This is a 42 year old woman S/P ACL reconstruction with allograft and partial medial meniscectomy, DOS: 01/24/23. She is doing well, within expectation, with mild instability. She continues to work with PT and feels she is making improvement. I recommend she continue with PT and continue to wear her brace for at least the next 2 weeks. She will follow up in 2 months. She is able to resume swimming at this time. Plan Scribed for Fran Arndt MD by Aroldo García, durable medical equipment repairer, on 02/26/23 at 12:00 PM, EST. Orders: Orders XR knee LT 2V 02/26/23 M25.569 - Pain in unspecified knee XR knee standing BI 02/26/23 M25.569 - Pain in unspecified knee Coding Level of Care Code Global (04976) Diagnoses S/P reconstruction of anterior cruciate ligament Z98.890
== END 2023-02-26 12:08 | disposition home or self-care (01) ==
PROVIDERS: PCP Internal Medicine; Visit Provider Orthopaedic Surgery
DX: Z98.890 Other specified postprocedural states (principal)
CPT/HCPCS: 99024

== ENCOUNTER 2023-03-20 13:40 | Outpatient (AMB) | payer OTHER, SELFPAY ==
--- NOTE | 2023-03-20 13:43 | A.OFFVIS_ITS ---
Intake Intake Visit Reasons: OV-Right knee injection-last injection 12/18/22 Intake Note: Tonia is a 43 year old female who presents today for a post operative appointment s/p Left ACL Repair 01/24/23. Patient reports she would like to repeat the injection. She states that her last injection gave her about 2 months of relief. Allergies acetaminophen [Percocet] Allergy (Unknown, Verified 03/20/23 13:46) cant see up close oxycodone [Percocet] Allergy (Unknown, Verified 03/20/23 13:46) blurred vision Pitocin Allergy (Unknown, Uncoded 02/26/23 11:55) Unknown HPI OV-Right knee injection-last injection 12/18/22 HPI Details 42-year-old female who presents in the o ice today for a follow up of right knee pain. The patient had a cortisone injection in the right knee on 12/18/2022. She claims she has about 2 months of relief from the injection. She would like to repeat the injection in the office today. Patient is 2 months status post left ACL repair which was performed on 01/24/[address] Arndt. [facility] Medical History Elevated liver enzymes Dyslipidemia Instability of left knee joint Left knee pain Impaired fasting glucose Hypertriglyceridemia Annual visit for general adult medical examination with abnormal findings Concussion History of gestational diabetes Obesity Chronic pain of right knee Vitamin D deficiency Hypothyroidism Jessica's disease Anti-TPO antibodies present Surgical History (Updated 03/20/23 @ 13:58 by Roxann Jason) Tubal ligation status Hx of anterior cruciate ligament tear reconstruction Hx of section Hx of cholecystectomy Hx of knee surgery Family History Father Unknown family medical history Mother Breast cancer Substance use disorder Sister Substance use disorder Maternal Aunt Substance use disorder Maternal Uncle Substance use disorder Paternal Uncle Substance use disorder Social History Household Members: Children Housing: Condominium Alcohol intake: never Patient Tobacco Use Status: Never used Tobacco e-Cigarette/Vaping Use: Never Used service: Yes Current occupational status: employed 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 Laxity with anterior drawer. Negative Spencer's. Creptius felt with ROM. Able to perform full ROM. NVI. Office Procedures Joint Injection/Drain Joint Injection/Drain Primary Site: right knee Prep: site was prepped using aseptic technique, ethochloride spray was applied and injection warnings given Injected: 80 mg of, DepoMedrol, with 8 mL of (2% plain lido) and in the joint Approach Used: anterolateral Procedure: The patient tolerated the procedure well, but had some pain with the injection and there was some relief with the local anesthesia Coding 77691 - Large joint Procedure code (CPT) selection complete Results Reviewed Results Reviewed: 03/20/23 13:52 Lidocaine HCl 2 % MPF [Xylocaine 2 % MPF] 5 ml .ROUTE .STK-MED ONE methylPREDNISolone acetate [DEPO-MedroL] 80 mg .ROUTE .STK-MED ONE Assessment & Plan Assessment & Plan (1) Arthritis of right knee: Code(s): M17.11 - Unilateral primary osteoarthritis, right knee (2) Hx of anterior cruciate ligament tear reconstruction: Comment: Left knee 01/24/2023 DC Code(s): Z98.890 - Other specified postprocedural states Plan Ms. Rush is a 42-year-old female who presents in the office today for a follow up of right knee pain. The patient had a cortisone injection in the right knee on 12/18/2022. She claims she has about 2 months of relief from the injection. She would like to repeat the injection in the office today. Patient is 2 months status post left ACL repair which was performed on 01/24/[address] Arndt. The patient was offered a cortisone injection in the right knee with 80 mg of DepoMedrol. The patient was explained the risk, benefits, and alternatives to receiving this injection. After receiving consent for the injection, the patient had the procedure done while in office today. The patient tolerated the procedure well with no complications. Follow up will be PRN, or sooner if needed. Patient Instructions: Scribed for Michelle Palacios PA-C by shelly Cm scribe, on 03/20/2023 at 1:48 pm, EST. Coding Level of Care Code Est Pt Level 3 (14770) Diagnoses Arthritis of right knee M17.11 Hx of anterior cruciate ligament tear reconstruction Z98.890 CPT Codes Coding - 48215 Large joint: 31774 - Large joint ([id number])
== END 2023-03-20 14:22 | disposition home or self-care (01) ==
PROVIDERS: PCP Internal Medicine; Visit Provider Physician Assistant
DX: M17.11 Unilateral primary osteoarthritis, right knee (principal)
CPT/HCPCS: 20610

== ENCOUNTER → 2023-03-20 13:40 | Outpatient (BNVA) | payer OTHER, SELFPAY | PROVIDERS: PCP Internal Medicine; Visit Provider Physician Assistant | DX: Z47.89 Encounter for other orthopedic aftercare (principal); M17.11 Unilateral primary osteoarthritis, right knee | CPT/HCPCS: 20610; 99212; J1040 ==

== ENCOUNTER 2023-06-04 15:10 | Outpatient (AMB) | payer OTHER, SELFPAY ==
--- NOTE | 2023-06-04 15:12 | MHC.OFFVIS ---
Intake Intake Visit Reasons: OV-LT ACL tear 01/24/23NE-F/U Intake Note: Tonia is a 43 year old female who presents today for a follow up of her left knee s/p Left ACL Repair 01/24/23 Allergies acetaminophen [Percocet] Allergy (Unknown, Verified 03/20/23 13:46) cant see up close oxycodone [Percocet] Allergy (Unknown, Verified 03/20/23 13:46) blurred vision Pitocin Allergy (Unknown, Uncoded 02/26/23 11:55) Unknown HPI OV-LT ACL tear 01/24/23NE-F/U HPI Details Celestino is a 42 year old woman ~4 months S/P ACL reconstruction with allograft and partial medial meniscectomy. She says she is doing well and has been working with PT. She feels she is making improvements but she complains of some mild instability. She continues to wear her knee brace. She feels frustrated by her physical limitations as she wants to be more active and is not able to be. She is supposed to do a timed physical fitness test for the [employer] and wants to know when she can be expected to be cleared for her assessment. [facility] Medical History Elevated liver enzymes Dyslipidemia Instability of left knee joint Left knee pain Impaired fasting glucose Hypertriglyceridemia Annual visit for general adult medical examination with abnormal findings Concussion History of gestational diabetes Obesity Chronic pain of right knee Vitamin D deficiency Hypothyroidism Jessica's disease Anti-TPO antibodies present Surgical History (Updated 03/20/23 @ 13:58 by Roxann Jason) Tubal ligation status Hx of anterior cruciate ligament tear reconstruction Hx of section Hx of cholecystectomy Hx of knee surgery Family History Father Unknown family medical history Mother Breast cancer Substance use disorder Sister Substance use disorder Maternal Aunt Substance use disorder Maternal Uncle Substance use disorder Paternal Uncle Substance use disorder Household Members: Children Housing: Condominium Alcohol intake: never Patient Tobacco Use Status: Never used Tobacco e-Cigarette/Vaping Use: Never Used service: Yes Current occupational status: employed 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 Cognitive needs: No Hearing needs: No Vision needs: Yes Review of Systems Const All systems reviewed & are unremarkable except as noted in HPI and below Physical Exam Const General: no acute distress, alert and awake Orientation/consciousness: patient oriented x3 HEENT Head: Yes normocephalic and Yes atraumatic Eyes EOM: EOMs intact bilaterally Resp Effort & Inspection: normal respiratory effort and able to speak in complete sentences Cardio Jugular venous distension: no JVD Skin General skin exam: turgor normal Rashes: no rashes Neuro General: patient oriented x3 Extrem Other: Left Knee: Well-healed incision Full Range of motion Improving quad strength but still weak compared to the contralateral quad Stable Tonie's/anterior drawer Psych Appearance: grossly normal Affect: normal affect Attitude: cooperative Assessment & Plan Assessment & Plan (1) S/P reconstruction of anterior cruciate ligament: Code(s): Z98.890 - Other specified postprocedural states Plan: This is a 42 year old woman S/P ACL reconstruction with allograft and partial medial meniscectomy, DOS: 01/24/23. She is doing well, within expectation, with mild instability. She continues to work with PT and feels she is making improvement. She is frustrated by her limitations in physical activity and is eager to return to running and other exercises, as well as any physical fitness tests done by the [employer]. I explained that this would be at least another ~5 months before she can begin to return to more intense physical activities. I recommend she continue with PT and her at-home exercises. I completed a note for her and I will see her back in 2 months approximately at the 6 month time point. Plan Scribed for Fran Arndt MD by Aroldo García medical scientific officer, on 06/04/23 at 3:30 PM, EST. Coding Level of Care Code Est Pt Level 3 (83481) Diagnoses S/P reconstruction of anterior cruciate ligament Z98.890
== END 2023-06-04 15:31 | disposition home or self-care (01) ==
PROVIDERS: PCP Internal Medicine; Visit Provider Orthopaedic Surgery
DX: S83.512D Sprain of anterior cruciate ligament of left knee, subsequent encounter (principal)
CPT/HCPCS: 99213

== ENCOUNTER → 2023-06-04 15:10 | Outpatient (BNVA) | payer OTHER, SELFPAY | PROVIDERS: PCP Internal Medicine; Visit Provider Orthopaedic Surgery | DX: Z98.890 Other specified postprocedural states (principal) | CPT/HCPCS: 99212 ==

== ENCOUNTER 2023-06-18 08:00 | Outpatient (RCR) | payer OTHER, SELFPAY ==
--- NOTE | 2023-02-01 08:55 | MHC.PT.EP ---
[facility] [place] Office [place] Office [place] Office [address] Lizbet Paulino [address] [phone] F: [phone] F: [phone] F: [phone] F: [phone] Physical Therapy Plan of Care Date of Evaluation: Date of Surgery: 01/24/2023 Diagnosis: L ACL reconstruction with partial medial meniscectomy. Assessment: Pt is a 42 female employee with Hx of Jessica's is referred to PT s/p L ACL reconstruction with medial meniscectomy performed on 01/24/23 following traumatic mechanical injury resulting in decreased tolerance for walking, standing, performing HH chores, performing work tasks, fitness activities, and negotiating stairs secondary to decreased L knee and hips strength, decreased L knee ROM, impaired gait, surgical and traumatic haling process, and pain. Pt is deemed an appropriate candidate to receive skilled PT services to address their physical impairments in order to improve their functional ability. Frequency and Duration: The patient will be seen 2 x / wk x 12 wks. Short Term Goals: Initiate home program. DC brace as appropriate. > 124 degrees knee flexion AROM achieved. 0 degrees knee extension achieved; initial 2 degrees flexion. SLR w/o lag achieved. Circular Sawyer Stone Goals: Pt will be able to negotiate a fl of stairs with reciprocal fashion and good tolerance. Pt will be able to walk 1 mile with at most a little bit of difficulty. Pt will improve LEFI outcome measure by at least 20 points. L knee extension MMT to at least 4+/5. I with Home program. Treatment Plan: Modalities to reduce pain, spasms and effusion. Manual therapy to restore motion and function. Therapeutic exercise to improve strength and flexibility. Neuromuscular re-education for posture and balance. Therapeutic activities to return to functional activities of daily living. Electronically signed by: Tim Lee PT. Please sign and return to therapist. Thank you for your referral.
--- NOTE | 2023-06-18 12:53 | MHC.PT.RE ---
[facility] [place] Office [place] Office [place] Office [address] Lizbet Paulino [address] [phone] F: [phone] F: [phone] F: [phone] F: [phone] Physical Therapy Re-evaluation Diagnosis: L ACL reconstruction with partial medial meniscectomy. Date of Surgery: 01/24/2023 Date of Evaluation: 01/31/23 Treatments to Date: 25 Cancellations to Date: 0 No Shows to Date: 0 Subjective: Reports she has been sick this past week so hasn't done as much. Previously, she was walking 2-3x/week for 2 miles, working on balance exercises and single limb heel raises. SHe also saw ortho and he said no running for one year. Pain Score: 0-3 Pain Location: L knee ACL Objective Measures: 06/18: LE strength R LE grossly 5/5, L quad 4+/5, HS 4+/5, glut med 4/5, gastroc 4/5 (unable to move as high as double limb heel raise). Knee ROM 0-125. single limb balance R 48seconds, L 35 seconds. Eyes closed single limb balance R 9 seconds, L 2 seconds. (-) Lachmans and (-) Anterior drawer, no edema L knee ROM: 0-125 Gait: when she gets up from prolonged sitting, noted limp but dissapates after 5=10 steps. LEFI: 50/80 Assessment: Pt demonstrates improved knee ROM, strength and stability since ACL reconstruction, however L quad is still not as strong as R quad. Gait pattern has improved, however when she first stands up, she limps initially. Unable to perform hop test, as pt with poor power decreasing ability to perform single limb hop. At this time, pt demonstrates decreased power, decreased deceleration control, decreased endurance, and decreased jumping/ hopping mechanics and she would benefit from continued PT 1x/month for 3 more months. This would allow for monthly check-ins on HEP and we would be able to progress strength, plyometrics, and running in a safe, controlled manner that would allow for time for strength and power gains and progress safely with ACL protocol. Short Term Goals: Previous goals met. 1. Pt will demonstrate proper plyometric mechanics with double limb hopping side to side and forward-backward. 2. Pt will demonstrate proper single limb hop without valgus or pain 3. Pt will be able to complete hop test Quality Control Head Goals: New goals: Pt will be able to perform 10 8 step downs with good L knee control - still demonstrate valgus and poor eccentric control Pt will be able to jog on even ground >10minutes with good mechanics Pt will be able to demonstrate 3x30 single limb hops with proper mechanics Improve LEFS to 60/80 Frequency and Duration: The patient will be seen 1x/month for 3 months Treatment Plan: Therapeutic Exercise Dynamic Therapeutic Activities Neuromuscular Re-ed Taping Gait Home Exercise Program Patient Education Reviewed/ Agreed with Student Documentation: N/A Therapist: Tim Lee PT. Electronically signed by: Celestina Bowen PT Please sign and return to therapist. Thank you for your referral.
--- NOTE | 2023-10-12 13:38 | MHC.PT.DC ---
[facility] [place] Office [address] Lizbet Paulino 140 [facility] [phone] F: [phone] F: [phone] F: [phone] F: [phone] Physical Therapy Discharge Report Diagnosis: L ACL reconstruction with partial medial meniscectomy. Date of Surgery: 01/24/2023 Date of Evaluation: 01/31/23 Date of Discharge: 10/12/23 Treatments to Date: 25 Cancellations to Date: 0 No Shows to Date: 0 Discharge Status: Improved Function Independent with HEP Discharge Summary: Pt was re-assessed and recommend 1x/month for 3 additional month to focus on HEP and power progression, however pt did not f/u with appointments and is now d/c. Electronically signed by: Celestina Bowen PT Please sign and return to therapist. Thank you for your referral.
== END 2023-10-12 13:38 | disposition home or self-care (01) ==
LOC: HO.PTCHIC 08:00
PROVIDERS: PCP Internal Medicine; Visit Provider Orthopaedic Surgery
DX: Z98.890 Other specified postprocedural states (principal)
CPT/HCPCS: 97110; 97112; 97116; 97140; 97161; 97164; 97530

== ENCOUNTER 2023-08-13 08:48 | Outpatient (AMB) | payer OTHER, SELFPAY ==
--- NOTE | 2023-08-13 07:55 | MHC.OFFVIS ---
Intake Intake Visit Reasons: OV-LT ACL tear 01/24/23NE-F/U Intake Note: Tonia is a 43 year old female who presents today for a follow up of her left knee S/P Left ACL reconstruction with allograft and partial medial meniscectomy, DOS: 01/24/23. Patient reprots that she is doing well with some soreness. She is interested in having the right knee injected today, it was last injected on 03/20/23 Allergies acetaminophen [Percocet] Allergy (Unknown, Verified 03/20/23 13:46) cant see up close oxycodone [Percocet] Allergy (Unknown, Verified 03/20/23 13:46) blurred vision Pitocin Allergy (Unknown, Uncoded 02/26/23 11:55) Unknown HPI OV-LT ACL tear 01/24/23NE-F/U HPI Details 6 months s/p left ACL reconstruction with allograft She says she is doing well overall and is happy with the results of her surgery. She reports some mild soreness after prolonged activity. She also has right knee pain 2/2 OA and has received injections in the past with good relief. Last injection was ~4 months ago. [facility] Medical History Elevated liver enzymes Dyslipidemia Instability of left knee joint Left knee pain Impaired fasting glucose Hypertriglyceridemia Annual visit for general adult medical examination with abnormal findings Concussion History of gestational diabetes Obesity Chronic pain of right knee Vitamin D deficiency Hypothyroidism Jessica's disease Anti-TPO antibodies present Surgical History (Updated 03/20/23 @ 13:58 by Roxann Jason) Tubal ligation status Hx of anterior cruciate ligament tear reconstruction Hx of section Hx of cholecystectomy Hx of knee surgery Family History Father Unknown family medical history Mother Breast cancer Substance use disorder Sister Substance use disorder Maternal Aunt Substance use disorder Maternal Uncle Substance use disorder Paternal Uncle Substance use disorder Social History Household Members: Children Housing: Condominium Alcohol intake: never Patient Tobacco Use Status: Never used Tobacco e-Cigarette/Vaping Use: Never Used service: Yes Current occupational status: employed 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 Cognitive needs: No Hearing needs: No Vision needs: Yes Review of Systems Const All systems reviewed & are unremarkable except as noted in HPI and below Physical Exam Const General: no acute distress, alert and awake Orientation/consciousness: patient oriented x3 HEENT Head: Yes normocephalic and Yes atraumatic Eyes EOM: EOMs intact bilaterally Resp Effort & Inspection: normal respiratory effort and able to speak in complete sentences Cardio Jugular venous distension: no JVD Skin General skin exam: turgor normal Rashes: no rashes Neuro General: patient oriented x3 Extrem Other: Right knee: retropatellar TTP. No effusion. Mild medial comaprtment ttp. Left knee: Portals c/d/i stable alexey/ant drawer. full rom. good quad strength Psych Appearance: grossly normal Affect: normal affect Attitude: cooperative Office Procedures Joint Injection/Drain Joint Injection/Drain Details: Injected 1 mL of Decadron and 3 mL 1% lidocaine and 3 mL of 0.25% Marcaine. Site was prepped using aseptic technique. Patient tolerated the procedure well. Primary Site: right knee Approach Used: anterolateral Coding - Large joint Procedure code (CPT) selection complete Assessment & Plan Assessment & Plan (1) S/P reconstruction of anterior cruciate ligament: Code(s): Z98.890 - Other specified postprocedural states Plan: PT for dynamic exercises (2) Arthritis of right knee: Code(s): M17.11 - Unilateral primary osteoarthritis, right knee Plan: Injected right knee Plan Prepared for Fran Arndt MD by Aroldo García, medical claims manager, on 08/13/23 at 9:02 AM, EST. Orders: Orders PT Evaluation and Treatment Today Z98.890 - Other specified postprocedural states Coding Level of Care Code Est Pt Level 3 (97149) Diagnoses S/P reconstruction of anterior cruciate ligament Z98.890 Arthritis of right knee M17.11 CPT Codes Coding - Large joint: - Large joint ([id number])
== END 2023-08-13 09:08 | disposition home or self-care (01) ==
PROVIDERS: PCP Internal Medicine; Visit Provider Orthopaedic Surgery
DX: S83.512D Sprain of anterior cruciate ligament of left knee, subsequent encounter (principal); M17.11 Unilateral primary osteoarthritis, right knee
CPT/HCPCS: 20610; 99213

== ENCOUNTER → 2023-08-13 08:48 | Outpatient (BNVA) | payer OTHER, SELFPAY | PROVIDERS: PCP Internal Medicine; Visit Provider Orthopaedic Surgery | DX: Z47.89 Encounter for other orthopedic aftercare (principal); M17.11 Unilateral primary osteoarthritis, right knee | CPT/HCPCS: 20610; 99212; J0665; J1100 ==

== ENCOUNTER 2023-11-16 13:01 | Outpatient (AMB) | payer OTHER, SELFPAY ==
--- NOTE | 2023-11-16 13:03 | MHC.PC.OV ---
Vital Signs 11/16/23 13:04 Height 5 ft 6.5 in Weight 243 lb BMI 38.6 BP 122/80 Blood Pressure Location Rt brachial Position Sitting Pulse 80 Pulse Source Pulse Oximeter Pulse Oximetry (%) 98 Oxygen Delivery Method Room Air Intake Visit Reasons: lab review Intake Note: Pt is here today for her lab results Allergies acetaminophen [Percocet] Allergy (Unknown, Verified 12/07/23 09:14) cant see up close oxycodone [Percocet] Allergy (Unknown, Verified 12/07/23 09:14) blurred vision Pitocin Allergy (Unknown, Uncoded 12/07/23 08:30) Unknown Medication List - Last Reconciled 11/16/23 by Peggy Mcknight MD [Knee cooling device As directed Breg: Vpulse with Knee Pad Prod numbers #[id number], #[id number]] levothyroxine 75 mcg PO DAILY 30 days Tobacco use date assessed: 11/16/23 Dental Screening Dental Screen Date: 11/16/23 Did you have a dental visit in the last 12 months?: Yes Did you have a dental problem in the last 6 months where you did not have access to dental care?: Yes Was dental information given to patient?: Patient has dentist HPI lab review HPI Details 43-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 She has not been following healthy diet, no regular exercise, and has not been taking medications as directed, has not taken thyroid medicine now for the last several months. Last labs showed marked elevations in her liver enzymes, and her hemoglobin A1c has gone up to the diabetic range now at 7% [facility] Medical History (Updated 12/22/23 @ 01:18 by Peggy Mcknight MD) Diabetes mellitus with hyperglycemia, with long-term current use of insulin Arthritis of right knee Left ACL tear Elevated liver enzymes Dyslipidemia Hypertriglyceridemia Annual visit for general adult medical examination with abnormal findings History of gestational diabetes Obesity Vitamin D deficiency Hypothyroidism Jessica's disease Anti-TPO antibodies present Surgical History (Updated 11/16/23 @ 13:18 by Peggy Mcknight MD) Tubal ligation status Hx of anterior cruciate ligament tear reconstruction Hx of section Hx of cholecystectomy Hx of knee surgery Family History (Updated 12/07/23 @ 14:56 by Peggy Mcknight MD) Father Colon cancer Mother Breast cancer Substance use disorder Sister Substance use disorder Maternal Aunt Substance use disorder Maternal Uncle Substance use disorder Paternal Uncle Substance use disorder Social History Household Members: Children Housing: Condominium Alcohol intake: never Patient Tobacco Use Status: Never used Tobacco e-Cigarette/Vaping Use: Never Used service: Yes Current occupational status: employed 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 1. Little interest or pleasure in doing things: not at all 2. Feeling down, depressed, or hopeless: not at all 3. Trouble falling or staying asleep, or sleeping too much: not at all 4. Feeling tired or having little energy: not at all 5. Poor appetite or overeating: not at all 6. Feeling bad about yourself - or that you are a failure or have let yourself or your family down: not at all 7. Trouble concentrating on things, such as reading the newspaper or watching television: not at all 8. Moving or speaking so slowly that other people could have noticed. Or the opposite - being so fidgety or restless that you have been moving around a lot more than usual: not at all 9. Thoughts that you would be better off or of hurting yourself in some way: not at all Total score: 0 Depression Screening Interpretation: Negative Depression Screening Done: Yes 79313 - PHQ-9 Billing: Yes Source: Developed by Drs. Blayne Wilks, Maddi Laws, Tom Hobson and colleagues, with an educational erika from [employer]. Thrive Questionnaire Date Thrive assessed: 11/16/23 I am a: Patient What is your living situation today?: I have a steady place to live Within the past 12 months, did the food you bought not last and you didn't have the money to get more?: Never true Within the past 12 months, did you worry whether your food would run out before you got money to buy more?: Never true Do you have trouble paying for medicines?: No Do you have trouble getting transportation to medical appointments?: No Do you have trouble paying your heating and electricity bill?: No Do you have trouble taking care of your child, family member or friend?: No Do you have trouble with day-to-day activities such as bathing, preparing meals, shopping, managing finances, etc.?: No Are you currently unemployed and looking for a job?: No Are you interested in more education?: No THRIVE Score: 0 AUDIT C Alcohol Use Questionnaire (AUDIT-C) 1. How often do you have a drink containing alcohol?: Monthly or less 2. How many drinks containing alcohol do you have on a typical day when you are drinking?: 1 or 2 3. How often do you have six or more drinks on one occasion?: Never Total Score: 1 KANCHAN-7 AMB Questionnaire KANCHAN-7 Date KANCHAN - 7 assessed: 11/16/23 Feeling nervous, anxious, or on edge: 0 = Not at all Not being able to stop or control worryin = Not at all Worrying too much about different things: 0 = Not at all Trouble relaxin = Not at all Being so restless that it is hard to sit still: 0 = Not at all Becoming easily annoyed or irritable: 0 = Not at all Feeling afraid as if something awful might happen: 0 = Not at all Total KANCHAN-7 score (0-4 normal; 5-9 mild; 10-14 moderate; 15-21 severe): 0 Source: Developed by Drs. Blayne Wilks, Maddi Laws, Tom Hobson and colleagues, with an educational erika from [employer]. KANCHAN-7 Assessment Billing KANCHAN-7 Assessment Tool: KANCHAN-7 Assessment 19274 Review of Systems Const Denies fever(s), Denies headache(s) and Denies weakness Eyes Denies change in vision ENT Denies dizziness, Denies headache(s) and Denies nasal congestion Card Denies chest pain, Denies lightheadedness, Denies palpitations and Denies dyspnea Resp Denies chest congestion, Denies cough, Denies dyspnea and Denies wheezing GI Denies abdominal pain, Denies change in bowel habits and Denies heartburn Denies hematuria, Denies urinary frequency, Denies dysuria and Denies urinary urgency Musc Reports no additional complaints Skin/Breast Denies breast pain, Denies breast mass, Denies lesions and Denies rash Neuro Denies dizziness, Denies headache(s) and Denies weakness Psych Reports no additional complaints Endo Denies polydipsia, Denies polyuria and Denies palpitations Brian/Lymph Denies easy bruising Aller/Immun Denies seasonal rhinorrhea and Denies wheezing Physical exam (Primary Care) Vital Signs: Last Vital Signs Pulse 80 11/16/23 13:04 BP 122/80 11/16/23 13:04 Pulse Ox 98 11/16/23 13:04 Oxygen Delivery Method Room Air 11/16/23 13:04 BMI result Body Mass Index 38.6 Tobacco/Smoking Status: Tobacco use Status Tobacco use date assessed 11/16/23 11/16/23 13:11 Patient Tobacco Use Status Never used Tobacco 11/16/23 13:05 e-Cigarette/Vaping Use Never Used 11/16/23 13:05 PHQ-9: PHQ-9 Score PHQ-9: Total score 0 12/22/23 01:10 Depression Screening Interpretation: Negative Thrive Assessment: Date of Thrive Assessment Date Thrive assessed 11/16/23 11/16/23 13:11 Const Other: Alert oriented x3, no acute cardiorespiratory distress noted ambulatory with normal gait HENMT Head: Yes normocephalic Ears: external ears normal, TM's normal bilaterally and EAC's normal General nose exam: Normal external nose present Face and sinus: Yes face symmetric Mouth: Normal oral and palatal mucosa present and moist mucous membranes Eyes General: appearance normal, both eyes and all related structures Pupils: Equal, round and reactive pupils present EOM: EOMs intact bilaterally Neck Neck: Yes full ROM, Yes no lymphadenopathy, Yes no meningeal signs and Yes supple Chest Breast/axilla palpation: normal palpation of the breasts Resp Auscultation: clear to auscultation bilaterally Cardio Other: S1-S2 present regular rate and rhythm GI Palpation (GI): Soft to palpation, nontender, no guarding and no masses Auscultation: normal bowel sounds General: Yes deferred (Sees OBGYN at [facility],) Back/Spine/Pelvis Back: No back tenderness Skin General skin exam: no rashes or lesions noted Neuro General: gait normal, moves all extremities, Normal light touch and pain sensation, no meningeal signs, no focal motor deficits and CN's II-XI intact bilaterally Cranial nerves: Yes Equal, round and reactive pupils present Gait exam (Neuro): Normal gait present Extrem General: Yes full ROM, Yes no joint enlargement, Yes no clubbing, cyanosis or edema, Yes no calf tenderness and Yes normal gait Psych Appearance: grossly normal Mental Status: mental status grossly normal Speech and movement: Normal speech and movement present Affect: normal affect Attitude: cooperative Thought process: Normal thought process present Assessment and Plan Assessment & Plan (1) Elevated liver enzymes: Code(s): R74.8 - Abnormal levels of other serum enzymes Plan: Previous labs showed elevated liver transaminase, will check GGT, basic metabolic panel (2) Hypertriglyceridemia: Code(s): E78.1 - Pure hyperglyceridemia Plan: Patient education given regarding ways to lower triglycerides levels. (3) Dyslipidemia: Code(s): E78.5 - Hyperlipidemia, unspecified Plan: Reviewed recent fasting lipid profile with patient with levels . Continue with , in addition to adherence to low-cholesterol diet and regular exercise, at least 30 minutes 3 to 4 times a week. Advised patient to make healthy food choices, eat more fruits, vegetables, whole grains, wild caught fish and low-fat dairy. Limit amount of meat and fried or fatty food products, as well as processed foods and fast foods. Follow-up scheduled with repeat fasting lipid panel in months. (4) Diabetes mellitus with hyperglycemia, with long-term current use of insulin: Code(s): E11.65 - Type 2 diabetes mellitus with hyperglycemia; Z79.4 - bed bug exterminator (current) use of insulin Plan: Patient would like to try lowering blood sugar level through diet and exercise. Reinforced importance of following recommended diet, getting at least 30 minutes of regular exercise daily. Needs yearly diabetes retinopathy screening, will repeat another hemoglobin A1c Orders: Orders Gamma Glutamyl Transpeptidase 11/16/23 R74.8 - Abnormal levels of other serum enzymes Hemoglobin A1c 11/16/23 E78.1 - Pure hyperglyceridemia, R73.01 - Impaired fasting glucose, E78.5 - Hyperlipidemia, unspecified, R74.8 - Abnormal levels of other serum enzymes Basic Metabolic Panel Fasting 11/16/23 E78.1 - Pure hyperglyceridemia, R73.01 - Impaired fasting glucose, E78.5 - Hyperlipidemia, unspecified, R74.8 - Abnormal levels of other serum enzymes Coding Level of Care Code Est Pt Level 4 (83201) Complex EM visit Add On G2211 Diagnoses Elevated liver enzymes R74.8 Hypertriglyceridemia E78.1 Dyslipidemia E78.5 Diabetes mellitus with hyperglycemia, with long-term current use of insulin E11.65; Z79.4 Additional Codes KANCHAN-7 Assessment Billing - KANCHAN-7 Assessment Tool: KANCHAN-7 Assessment 60290 ([id number])
[2023-11-16 13:04] VITALS: BP 122/80; PULSE 80; O2SAT 98; BMI 38.6
== END 2023-11-16 15:38 | disposition home or self-care (01) ==
PROVIDERS: PCP Internal Medicine; Visit Provider Internal Medicine
DX: E11.65 Type 2 diabetes mellitus with hyperglycemia (principal); Z79.4 Long term (current) use of insulin; R74.8 Abnormal levels of other serum enzymes; E78.1 Pure hyperglyceridemia; E78.5 Hyperlipidemia, unspecified
CPT/HCPCS: 99214; G2211

== ENCOUNTER 2023-11-26 09:21 | Outpatient (REF) | payer OTHER, SELFPAY ==
[2023-11-26 10:49] LABS: Estimated Average Glucose 237 mg/dL; Hemoglobin A1c % 9.9 % (<6.0)
[2023-11-26 11:05] LABS: Alanine Aminotransferase 142 U/L (0-31); Albumin Level 4.2 g/dL (3.5-5.0); Alkaline Phosphatase 100 U/L (39-117); Anion Gap 16 (12-20); Aspartate Amino Transferase 205 U/L (5-31); Bilirubin Direct 0.3 mg/dL (0.0-0.5); Bilirubin Total 0.8 mg/dL (0.0-1.0); Blood Urea Nitrogen 7 mg/dL (9-16); Calcium 9.5 mg/dL (8.4-10.2); Carbon Dioxide 25 mmol/L (22-29); Chloride 100 mmol/L (96-108); Cholesterol 207 mg/dL (<200); Estimated Glomerular Filt Rate > 60; Gamma Glutamyl Transpeptidase 120 U/L (7-33); Glucose Fasting 277 mg/dL (60-99); HDL Cholesterol 33 mg/dL (>40); LDL Cholesterol Calculated 110 mg/dL (<100); Potassium 5.2 mmol/L (3.3-5.1); Sodium 136 mmol/L (135-145); Total Protein 7.3 g/dL (6.5-8.0); Triglycerides 322 mg/dL (<150)
[2023-11-26 11:18] LABS: HBS Num1 418.05 mIU/mL (0-7.99); HBc Num1 0.27 S/CO (0.00-0.79); Hepatitis B Core Antibody Nonreactive (Nonreactive); ~HepC Num1 2.14 S/CO (0.00-0.79); ~Hepatitis B Surface Antibody REACTIVE (Nonreactive); ~Hepatitis C Antibody Reactive (Nonreactive)
[2023-11-26 11:19] LABS: Hepatitis B Surface Antigen Negative (Negative)
== END 2023-11-26 09:22 | disposition home or self-care (01) ==
LOC: HO.HMGCLDS 09:21
PROVIDERS: PCP Internal Medicine; Visit Provider Internal Medicine
DX: R74.8 Abnormal levels of other serum enzymes (principal); E06.3 Autoimmune thyroiditis; E66.9 Obesity, unspecified; E78.5 Hyperlipidemia, unspecified; E78.1 Pure hyperglyceridemia; R73.01 Impaired fasting glucose
CPT/HCPCS: 36415; 80048; 80061; 80076; 82977; 83036; 86704; 86706; 86803; 87340

== ENCOUNTER 2023-12-07 06:56 | Outpatient (AMB) | payer OTHER, SELFPAY ==
--- NOTE | 2023-12-07 08:30 | A.OFFPC_ITS ---
Intake Visit Reasons: f/u labs Intake Note: Pt is having a TH visit to discuss recent lab results Allergies acetaminophen [Percocet] Allergy (Unknown, Verified 12/07/23 09:14) cant see up close oxycodone [Percocet] Allergy (Unknown, Verified 12/07/23 09:14) blurred vision Pitocin Allergy (Unknown, Uncoded 12/07/23 08:30) Unknown Medication List - Last Reconciled 12/07/23 by Peggy Mcknight MD [Knee cooling device As directed Breg: Vpulse with Knee Pad Prod numbers #[id number], #[id number]] Tobacco use date assessed: 12/07/23 Dental Screening Dental Screen Date: 12/07/23 Did you have a dental visit in the last 12 months?: Yes Did you have a dental problem in the last 6 months where you did not have access to dental care?: No Was dental information given to patient?: Patient has dentist HPI f/u labs HPI Details 43-year-old lady with dyslipidemia, diab etes mellitus, elevated liver transaminases, Jessica's disease with hypothyroidism, and hypertriglyceridemia, here today for follow-up. She has been poorly compliant with her medication, stopped taking her thyroid medicine approximately 5 months ago , has not been paying attention to her health, skipping meals and eating the wrong kind of food. She states that she still stressed out working 2 jobs that she has neglected herself. Latest fasting labs showed elevated liver enzymes, and a hemoglobin A1c at 9.9%, up from 7% on last visit, elevated GGT and reactive hepatitis-C antibody and reactive hepatitis-B surface antibody. Marked elevation in triglycerides noted on latest labs as compared to last check. Complains of feeling tired all the time but denies any jaundice, no abdominal pain, no nausea vomiting. [facility] Medical History (Updated 12/07/23 @ 14:57 by Peggy Mcknight MD) Diabetes mellitus with hyperglycemia, with long-term current use of insulin Elevated serum GGT level Hepatitis C antibody test positive Arthritis of right knee Left ACL tear Elevated liver enzymes Dyslipidemia Hypertriglyceridemia Annual visit for general adult medical examination with abnormal findings History of gestational diabetes Obesity Vitamin D deficiency Hypothyroidism Jessica's disease Anti-TPO antibodies present Surgical History (Updated 11/16/23 @ 13:18 by Peggy Mcknight MD) Tubal ligation status Hx of anterior cruciate ligament tear reconstruction Hx of section Hx of cholecystectomy Hx of knee surgery Family History (Updated 12/07/23 @ 14:56 by Peggy Mcknight MD) Father Colon cancer Mother Breast cancer Substance use disorder Sister Substance use disorder Maternal Aunt Substance use disorder Maternal Uncle Substance use disorder Paternal Uncle Substance use disorder Social History Household Members: Children Housing: Condominium Alcohol intake: never Patient Tobacco Use Status: Never used Tobacco e-Cigarette/Vaping Use: Never Used service: Yes Current occupational status: employed 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 Blayne Wilks, Maddi Laws, Tom Hobson and colleagues, with an educational erika from [employer]. Review of Systems Const Denies fever(s), Denies headache(s) and Denies weakness Eyes Denies change in vision ENT Denies dizziness, Denies headache(s), Denies nasal congestion and Denies sore throat Card Denies chest pain, Denies lightheadedness, Denies palpitations and Denies dyspnea Resp Denies chest congestion, Denies cough, Denies dyspnea and Denies wheezing GI Denies abdominal pain, Denies change in bowel habits and Denies heartburn Denies hematuria, Denies urinary frequency, Denies dysuria and Denies urinary urgency Musc Reports no additional complaints Skin/Breast Denies breast pain, Denies breast mass, Denies lesions and Denies rash Neuro Denies dizziness, Denies headache(s) and Denies weakness Psych Reports no additional complaints Endo Denies polydipsia, Denies polyuria and Denies palpitations Brian/Lymph Denies easy bruising Aller/Immun Denies seasonal rhinorrhea and Denies wheezing Physical exam (Primary Care) Tobacco/Smoking Status: Tobacco use Status Tobacco use date assessed 12/07/23 12/07/23 08:31 Patient Tobacco Use Status Never used Tobacco 12/07/23 08:31 e-Cigarette/Vaping Use Never Used 12/07/23 08:31 Thrive Assessment: Date of Thrive Assessment Date Thrive assessed 11/16/23 12/07/23 08:31 Telehealth Telehealth Telehealth Platform: [employer] Location of provider rendering services: practice address Location of patient: address on file Patient Identification confirmed using: Name, : Yes Telehealth method: video Patient verbally consented to treatment: Yes Patient verbally consented to billing insurance company: Yes Patient informed of any privacy concerns related to visit: Yes Minutes spent on Phone/Video with Pt.: 15 Results Reviewed Results Reviewed: Laboratory Tests 11/26/23 09:27 Estimat Average Glucose 237 Hemoglobin A1c % 9.9 H jessica: Celestino Rushn Age/Sex: 43/F : 1980 Unit#: [id number] Attend Dr: Peggy Mcknight MD Re11/26/23 Status: DEP REF Location: [facility] Disch: SPEC : [id number] MAEVE: 11/26/23 STATUS: COMP REQ : [id number] RECD: 11/26/23-[address]: Peggy Mcknight MD COMP: 11/26/23-5 ENTERED: 11/26/[address]: ORDERED: Liver Panel, Met Prof Fast, GGT, Lipid Panel Test Result Flag Reference Sodium 136 135-145 mmol/L Potassium 5.2 H 3.3-5.1 mmol/L CL 100 96-108 mmol/L CO2 25 22-29 mmol/L Gap 16 12-20 BUN 7 L 9-16 mg/dL Creat 0.78 0.5-1.4 mg/dL EGFR > 60 NOTE: For -Burmese individuals, multiply the result by 1.210. Chronic Kidney Disease: Estimated GFR < 60 mL/min/1.73m2 Severe Kidney Disease: Estimated GFR < 15 mL/min/1.73m2 FBS 277 H 60-99 mg/dL A fasting glucose of 126 mg/dl or greater on more than one occasion is considered diagnostic of diabetes. CA 9.5 8.4-10.2 mg/dL Total Bili 0.8 0.0-1.0 mg/dL Direct Bili 0.3 0.0-0.5 mg/dL GGT 120 H 7-33 U/L AST (GOT) 205 H 5-31 U/L ALT (GPT) 142 H 0-31 U/L Protein, Total 7.3 6.5-8.0 g/dL Alb 4.2 3.5-5.0 g/dL Triglyceride 322 H <150 mg/dL Desirable Triglyceride: less than 150 mg/dL Borderline High Triglyceride 150-199 mg/dL High Triglyceride: 200-499 mg/dL Very High Triglyceride: greater than or equal to 5OO mg/dL Cholesterol 207 H <200 mg/dL Desirable Cholesterol: less than 200 mg/dL Borderline High Cholesterol: 200-239 mg/dL High Cholesterol: greater than 239 mg/dL LDL Calculated 110 H <100 mg/dL Desirable LDL: less than 100 mg/dL Near Optimal/Above Optimal LDL: 110-129 mg/dL Borderline High LDL: 130-159 mg/dL High LDL: 160-189 mg/dL Very High LDL: greater than or equal to 190 mg/dL HDL 33 L >40 mg/dL Desirable HDL: greater than 40 mg/dL Note: This HDL assay may give artificially low results in patients with liver disease. Alk Phos 100 39-117 U/L Laboratory Tests 11/26/23 09:27 Hep Bs Antigen Negative Hep Bs Antibody REACTIVE Hep B Core Total Ab Nonreactive Hepatitis C Ab (EIA) Reactive H Laboratory Tests 11/26/23 09:27 Estimat Average Glucose 237 Hemoglobin A1c % 9.9 H reactive hepatitis-C antibody Assessment and Plan Assessment & Plan (1) Elevated liver enzymes: Code(s): R74.8 - Abnormal levels of other serum enzymes Plan: Ordered abdominal ultrasound complete. 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 Prescription also sent for Zootcard Karl and reader so as to be able to monitor blood sugar better. Referred to wellness educator for further teaching. Will see her back for follow-up in a month Orders: Orders US abdomen complete 12/07/23 R74.8 - Abnormal levels of other serum enzymes, R76.8 - Other specified abnormal immunological findings in serum Thyroid Peroxidase Antibodies 12/07/23 E03.9 - Hypothyroidism, unspecified, E06.3 - Autoimmune thyroiditis Potassium 12/07/23 E03.9 - Hypothyroidism, unspecified, E06.3 - Autoimmune thyroiditis, E87.5 - Hyperkalemia, K75.2 - Nonspecific reactive hepatitis Hepatitis C Viral Load 12/07/23 R76.8 - Other specified abnormal immunological findings in serum Thyroid Stimulating Hormone 12/07/23 E03.9 - Hypothyroidism, unspecified, E06.3 - Autoimmune thyroiditis, E87.5 - Hyperkalemia, K75.2 - Nonspecific reactive hepatitis Free T4 (Free Thyroxine) 12/07/23 E03.9 - Hypothyroidism, unspecified, E06.3 - Autoimmune thyroiditis, E87.5 - Hyperkalemia, K75.2 - Nonspecific reactive hepatitis Referrals Gastroenterology Referral R74.8 - Abnormal levels of other serum enzymes, R76.8 - Other specified abnormal immunological findings in serum Medications: New insulin glargine (Lantus Solostar U-100 Insulin) In checked subcutaneously 10 units at bedtime, and increase dose by 1 unit every 2 days until you get a get a fasting blood sugar less than 130 mg in the morning 10 units (0.1 mL) subcut QPM 3 mL 1RF 30 days FreeStyle Karl 3 Sensor (blood-glucose sensor) As directed 1 ea 0RF NS E11.65 - Type 2 diabetes mellitus with hyperglycemia, 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
== END 2023-12-07 12:23 | disposition home or self-care (01) ==
PROVIDERS: PCP Internal Medicine; Visit Provider Internal Medicine
DX: R74.8 Abnormal levels of other serum enzymes (principal); R76.8 Other specified abnormal immunological findings in serum; E11.65 Type 2 diabetes mellitus with hyperglycemia; Z79.4 Long term (current) use of insulin
CPT/HCPCS: 99214; G2211

== ENCOUNTER 2023-12-12 10:00 | Outpatient (REF) | payer OTHER, SELFPAY ==
--- NOTE | ~2023-12-12 | US_ITS ---
EXAMINATION: US ABDOMEN COMPLETE CLINICAL INFORMATION: Reactive hepatitis. COMPARISON: None available. TECHNIQUE: Real-time imaging of the abdominal viscera. FINDINGS: PANCREAS: Normal. ABDOMINAL AORTA: The proximal, mid, and distal segments are normal in caliber. INFERIOR VENA CAVA: Visualized portions are normal. LIVER: The liver is normal in size. The liver contour is normal. Increased parenchymal echogenicity. No focal hepatic lesion. There is no intrahepatic biliary duct dilatation seen. GALLBLADDER: Cholecystectomy. COMMON BILE DUCT: Normal in caliber measuring 0.5 cm in diameter. RIGHT KIDNEY: Normal. No hydronephrosis. No renal calculi or focal parenchymal lesions. The kidney measures 12.2 cm in maximum dimension. LEFT KIDNEY: Simple appearing cyst in the upper pole measuring 1 cm for which no imaging follow-up is recommended. No hydronephrosis or renal calculi. The kidney measures 13.4 cm in maximum dimension. SPLEEN: Upper limits of normal in size measuring 12.4 cm in length. FREE FLUID: None. US/US abdomen complete IMPRESSION: 1. Increased parenchymal echogenicity of the liver which is nonspecific but most commonly on the basis of diffuse hepatocellular disease such as hepatic steatosis. 2. Spleen is at the upper limits of normal in size. 3. Simple appearing cyst in the upper pole of the left kidney for which no imaging follow-up is recommended.
[2023-12-12 12:11] LABS: Potassium 4.8 mmol/L (3.3-5.1)
[2023-12-12 12:39] LABS: Free T4 (Free Thyroxine) 1.04 ng/dL (0.71-1.85); Thyroid Stimulating Hormone 4.12 uIU/mL (0.32-4.0)
[2023-12-13 18:44] LABS: Thyroid Peroxidase Antibodies 480 IU/mL (<9)
[2023-12-14 14:28] LABS: HCV Log PCR <1.18 NOT DETECTED Log IU/mL (NOT DETECTED); HepC Viral Load <15 NOT DETECTED IU/mL (NOT DETECTED)
== END 2023-12-12 10:01 | disposition home or self-care (01) ==
LOC: HO.US 10:00
PROVIDERS: Visit Provider Internal Medicine
DX: R76.8 Other specified abnormal immunological findings in serum (principal); R74.8 Abnormal levels of other serum enzymes; E06.3 Autoimmune thyroiditis; E03.9 Hypothyroidism, unspecified; K75.2 Nonspecific reactive hepatitis; E87.5 Hyperkalemia
CPT/HCPCS: 36415; 76700; 84132; 84439; 84443; 86376; 87522

== ENCOUNTER 2024-01-07 15:19 | Outpatient (AMB) | payer OTHER, SELFPAY ==
--- NOTE | 2024-01-07 15:20 | MHC.OFFVIS ---
Intake Visit Reasons: OV-LT ACL tear 01/24/23NE-F/U LVM Intake Note: Tonia is a 43 year old male who presents today for a follow up s/p Left ACL tear 01/26/23. Patient would like to be cleared. Allergies acetaminophen [Percocet] Allergy (Unknown, Verified 01/07/24 15:21) cant see up close oxycodone [Percocet] Allergy (Unknown, Verified 01/07/24 15:21) blurred vision Pitocin Allergy (Unknown, Uncoded 01/07/24 15:21) Unknown HPI HPI OV-LT ACL tear 01/24/23NE-F/U LVM: Details: Tonia is a 43 year old male who presents today for a follow up s/p Left ACL tear 01/26/23. Patient would like to be cleared to return to work. SHe has had no giving way or mechanical symptoms. She has not been going to the gym regularly. [facility] Medical History Diabetes mellitus with hyperglycemia, with long-term current use of insulin Arthritis of right knee Left ACL tear Elevated liver enzymes Dyslipidemia Hypertriglyceridemia Annual visit for general adult medical examination with abnormal findings History of gestational diabetes Obesity Vitamin D deficiency Hypothyroidism Jessica's disease Anti-TPO antibodies present Surgical History (Updated 01/11/24 @ 06:52 by Fran Arndt MD) Hx of anterior cruciate ligament tear reconstruction Tubal ligation status Hx of section Hx of cholecystectomy Hx of knee surgery Family History Father Colon cancer Mother Breast cancer Substance use disorder Sister Substance use disorder Maternal Aunt Substance use disorder Maternal Uncle Substance use disorder Paternal Uncle Substance use disorder Social History Household Members: Children Housing: Condominium Alcohol intake: never Patient Tobacco Use Status: Never used Tobacco e-Cigarette/Vaping Use: Never Used service: Yes Current occupational status: employed 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 No ttp. Stable alexey's with no pivot shift. No effusion. Full ROM. Assessment & Plan Assessment & Plan (1) Hx of anterior cruciate ligament tear reconstruction: Comment: Left knee 01/24/2023 NE Code(s): Z98.890 - Other specified postprocedural states Category: Surgical Plan: 43 yo F with left knee ACL reconstruction almost 12 months ago. She is doing well. She is able to return to regular duties. I encouraged her to start her training regimen back up. I reviewed exercises and cautions,. I ordered a functional ACL brace. Coding Level of Care Code Est Pt Level 3 (10647) Diagnoses Hx of anterior cruciate ligament tear reconstruction Z98.890
== END 2024-01-07 15:35 | disposition home or self-care (01) ==
LOC: HO.HOS 15:19
PROVIDERS: PCP Internal Medicine; Visit Provider Orthopaedic Surgery
DX: S83.512D Sprain of anterior cruciate ligament of left knee, subsequent encounter (principal)
CPT/HCPCS: 99212

== ENCOUNTER → 2024-01-07 15:19 | Outpatient (BNVA) | payer OTHER, SELFPAY | PROVIDERS: PCP Internal Medicine; Visit Provider Orthopaedic Surgery | DX: Z09 Encounter for follow-up examination after completed treatment for conditions other than malignant neoplasm (principal) | CPT/HCPCS: 99212 ==

== ENCOUNTER 2024-01-28 11:38 | Outpatient (REF) | payer OTHER, SELFPAY ==
[2024-01-28 13:26] LABS: Bilirubin Direct 0.2 mg/dL (0.0-0.5); Bilirubin Total 0.6 mg/dL (0.0-1.0); C Reactive Protein 0.57 mg/dL (< or = 0.50); Iron 94 mcg/dL (30-160); Percent Iron Saturation 27 % (15-50); Total Iron Binding Capacity 342 mcg/dL (228-428); Unsaturated Iron Binding 248 ug/dL
[2024-01-28 13:40] LABS: Ferritin 78 ng/mL (10-250)
[2024-01-28 20:37] LABS: Alanine Aminotransferase 85 U/L (0-31); Albumin Level 4.4 g/dL (3.5-5.0); Alkaline Phosphatase 85 U/L (39-117); Aspartate Amino Transferase 59 U/L (5-31); Total Protein 7.4 g/dL (6.5-8.0)
[2024-01-29 09:34] LABS: Ceruloplasmin 27 mg/dL (14-48)
[2024-01-29 12:47] LABS: Alpha Fetoprotein 3.9 ng/mL
[2024-01-30 13:07] LABS: Mitochondrial Antibodies NEGATIVE (NEGATIVE)
[2024-02-04 04:33] LABS: Smooth Muscle Antibody <20 U (<20)
== END 2024-01-28 11:39 | disposition home or self-care (01) ==
LOC: HO.LAB 11:38
PROVIDERS: PCP Internal Medicine; Visit Provider Nurse Practitioner Family
DX: D64.9 Anemia, unspecified (principal); R79.89 Other specified abnormal findings of blood chemistry; K58.9 Irritable bowel syndrome, unspecified; R74.8 Abnormal levels of other serum enzymes; E78.1 Pure hyperglyceridemia; E78.5 Hyperlipidemia, unspecified; Z86.19 Personal history of other infectious and parasitic diseases
CPT/HCPCS: 36415; 80076; 81256; 82105; 82247; 82248; 82390; 82728; 83540; 86015; 86140; 86381; 99202

== ENCOUNTER 2024-01-28 11:38 | Outpatient (AMB) | payer OTHER, SELFPAY ==
--- NOTE | 2024-01-28 11:42 | MHC.OFFVIS ---
Vital Signs 01/28/24 11:44 Height 5 ft 6.5 in Weight 238 lb 8.642 oz BMI 37.9 BP 128/74 Blood Pressure Location Rt brachial Position Sitting Pulse 64 Pulse Source Pulse Oximeter Pulse Oximetry (%) 98 Oxygen Delivery Method Room Air Intake Visit Reasons: Elevated LFTs Intake Note: Tonia presents in office today for an initial assessment. CC; Pt is here per their PCP based on elevated lab values. Pt reports that they also have digestion related concerns, including but not limited to; bloating, diarrhea, GERD related sx. Prepared Foods Associate Required: No Allergies acetaminophen [Percocet] Allergy (Unknown, Verified 01/28/24 11:49) cant see up close oxycodone [Percocet] Allergy (Unknown, Verified 01/28/24 11:49) blurred vision Pitocin Allergy (Unknown, Uncoded 01/07/24 15:21) Unknown HPI HPI Elevated LFTs: Details: 43-year-old female with past medical history of diabetes anterior cruciate ligament tear reconstruction, chronic back pain, elevated enzymes, dyslipidemia, hypertriglyceridemia, hypothyroid dose, Jessica disease, transaminitis is here today for initial consultation. Patient had elevated liver enzymes back in November of 2023, patient also had positive hep C antibody with negative viral load. Patient does not remember ever being tested or ever being treated for hep C. Patient admits to family history of liver cirrhosis. Patient reports that for the most part is due to alcoholism. However patient reports that herself she does not drink any alcohol. Patient also tries to eat better. She did gain quite a bit of weight in the last couple years. Patient denies any abdominal pain or discomfort. Reports occasional abdominal bloating depending on what she eats. Reports that she is moving her bowels well without any issues. Patient denies any dyspepsia, dysphagia or odynophagia. It [facility] Medical History Diabetes mellitus with hyperglycemia, with long-term current use of insulin Arthritis of right knee Left ACL tear Elevated liver enzymes Dyslipidemia Hypertriglyceridemia Annual visit for general adult medical examination with abnormal findings History of gestational diabetes Obesity Vitamin D deficiency Hypothyroidism Jessica's disease Anti-TPO antibodies present Surgical History Hx of anterior cruciate ligament tear reconstruction Tubal ligation status Hx of section Hx of cholecystectomy Hx of knee surgery Family History Father Colon cancer Mother Breast cancer Substance use disorder Sister Substance use disorder Maternal Aunt Substance use disorder Maternal Uncle Substance use disorder Paternal Uncle Substance use disorder Social History Household Members: Children Housing: Condominium Alcohol intake: never Patient Tobacco Use Status: Never used Tobacco e-Cigarette/Vaping Use: Never Used service: Yes Current occupational status: employed 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 Cognitive needs: No Hearing needs: No Vision needs: Yes Review of Systems Const Denies weight gain and Denies weight loss ENT Reports no additional complaints, Denies dysphagia and Denies odynophagia Card Reports no additional complaints Resp Reports no additional complaints GI Denies abdominal pain, Denies belching, Denies melena, Reports bloating, Denies change in bowel habits, Denies dysphagia, Denies excessive flatus, Denies dyspepsia, Denies heartburn, Denies diarrhea, Reports loose stools (Postprandial), Denies nausea, Denies odynophagia and Denies vomiting Musc Reports no additional complaints Neuro Reports no additional complaints Psych Reports no additional complaints Endo Reports no additional complaints Physical Exam Vital Signs: Last Vital Signs Pulse 64 01/28/24 11:44 BP 128/74 01/28/24 11:44 Pulse Ox 98 01/28/24 11:44 Oxygen Delivery Method Room Air 01/28/24 11:44 BMI result Body Mass Index 37.9 Const General: healthy appearing and no acute distress Nutritional Appearance: obese Orientation/consciousness: patient oriented x3 Resp Effort & Inspection: normal respiratory effort, able to speak in complete sentences, no tracheal deviation and symmetric chest movement Auscultation: clear to auscultation bilaterally Cardio Rate: regular rate GI Inspection: Yes normal to inspection, No distended and Yes obesity Palpation (GI): Soft to palpation, not firm, nontender and No hepatosplenomegaly present Auscultation: normal bowel sounds General: Yes no CVA tenderness Back/Spine/Pelvis Back: no CVA tenderness Skin General skin exam: elasticity normal, turgor normal and dry skin Neuro General: patient oriented x3 Psych Appearance: grossly normal Mental Status: mental status grossly normal Results Reviewed Results Reviewed: Laboratory Tests 11/26/23 12/12/23 09:29 10:57 GGT 120 H AST 205 H ALT 142 H Alkaline Phosphatase 100 Triglycerides 322 H Cholesterol 207 H LDL Cholesterol, Calc 110 H HDL Cholesterol 33 L TSH 4.12 H Free T4 1.04 Laboratory Tests 11/26/23 12/12/23 09:27 10:57 Hep Bs Antigen Negative Hep Bs Antibody REACTIVE Hep B Core Total Ab Nonreactive Hepatitis C Ab (EIA) Reactive H Hep C Viral Load <15 NOT DETECTED Hep C Viral Load Log <1.18 NOT DETECTED ABDOMINAL ULTRASOUND LIVER: The liver is normal in size. The liver contour is normal. Increased parenchymal echogenicity. No focal hepatic lesion. There is no intrahepatic biliary duct dilatation seen. IMPRESSION: 1. Increased parenchymal echogenicity of the liver which is nonspecific but most commonly on the basis of diffuse hepatocellular disease such as hepatic steatosis. 2. Spleen is at the upper limits of normal in size. 3. Simple appearing cyst in the upper pole of the left kidney for which no imaging follow-up is recommended. Assessment & Plan Assessment & Plan (1) Elevated liver enzymes: Code(s): R74.8 - Abnormal levels of other serum enzymes Category: Medical (2) Hypertriglyceridemia: Code(s): E78.1 - Pure hyperglyceridemia Category: Medical (3) Dyslipidemia: Code(s): E78.5 - Hyperlipidemia, unspecified Category: Medical (4) History of hepatitis C: Code(s): Z86.19 - Personal history of other infectious and parasitic diseases Plan Patient was very shocked when she was told by her PCP that she had hep C in the past. Patient was never treated for hep C. Patient never used drugs and was always in monogamous relationship. Patient reports having surgery last year where they had to use a cadaver replacing ligament in her knee. Will send patient for more blood work to rule out any autoimmune disorders. Will send patient for abdominal ultrasound with elastography. Discussed with patient avoiding certain food. Patient has a history of cholecystectomy and might have occasional postprandial loose stools if eating food that is high in fat. Patient will try to eat food high in protein and low-salt, low carb diet. Patient will return to the office in 3 months, sooner on as needed basis. Patient is agreeable to this plan and verbalizes understanding of instructions. She was given the opportunity to ask questions and all questions answered. Thank you for allowing me to participate in her care Orders: Orders C Reactive Protein Today K58.9 - Irritable bowel syndrome without diarrhea Bilirubin Total Today R10.9 - Unspecified abdominal pain Smooth Muscle Antibody Today R79.89 - Other specified abnormal findings of blood chemistry IRON PROFILE Today D64.9 - Anemia, unspecified Ferritin Today R74.8 - Abnormal levels of other serum enzymes US abdomen esquivel w elastography Today R74.01 - Elevation of levels of liver transaminase levels Liver Panel Today R74.01 - Elevation of levels of liver transaminase levels Alpha Fetoprotein Today R79.89 - Other specified abnormal findings of blood chemistry Bilirubin Direct Today R17 - Unspecified jaundice Ceruloplasmin Today R79.89 - Other specified abnormal findings of blood chemistry Mitochondrial Antibody Today R79.89 - Other specified abnormal findings of blood chemistry DNA Analysis Hemochromatosis Today R79.89 - Other specified abnormal findings of blood chemistry Add Laboratory Test Today R74.8 - Abnormal levels of other serum enzymes Coding Level of Care Code New Pt Level 4 (50336) Diagnoses Elevated liver enzymes R74.8 Hypertriglyceridemia E78.1 Dyslipidemia E78.5 History of hepatitis C Z86.19 Time Spent (min) 45 Comment 30 minutes spent with patient and additional 15 minutes spent reviewing her records
[2024-01-28 11:44] VITALS: BP 128/74; PULSE 64; O2SAT 98; BMI 37.9
== END 2024-01-28 12:42 | disposition home or self-care (01) ==
PROVIDERS: PCP Internal Medicine; Visit Provider Nurse Practitioner Family
DX: R74.8 Abnormal levels of other serum enzymes (principal); E78.1 Pure hyperglyceridemia; E78.5 Hyperlipidemia, unspecified; Z86.19 Personal history of other infectious and parasitic diseases
CPT/HCPCS: 99204

== ENCOUNTER 2024-02-15 10:01 | Outpatient (REF) | payer OTHER, SELFPAY ==
--- NOTE | ~2024-02-15 | US_ITS ---
EXAMINATION: US ABDOMEN LIMITED WITH LIVER ELASTOGRAPHY CLINICAL INFORMATION: Elevated serum AST and ALT levels. COMPARISON: None available. TECHNIQUE: Real-time imaging of the abdominal viscera. Noninvasive ultrasound liver fibrosis assessment is performed using Syd ElastPQ point quantification shear wave elastography (pSWE) with a 5 MHz transducer. Multiple elastography samples are obtained. FINDINGS: PANCREAS: Normal. The visualized pancreatic head and body are normal in appearance. The remainder of the pancreas is obscured from visualization by the overlying bowel gas. LIVER: The liver demonstrates increased size, normal contour and increased echogenicity. No focal lesion or intrahepatic biliary duct dilatation. The right lobe measures 19.0 cm in length. The left lobe measures 15.5 cm in length. There is hepatopedal portal venous flow. Shear wave elastography provides a median stiffness of 1.96 m/s (reference: normal median stiffness is 0.81 - 1.22 m/s). The IQR/median stiffness to assess sampling precision is 0.05 (reference: optimal IQR/median stiffness is under 0.3). GALLBLADDER: Surgically absent. COMMON BILE DUCT: Normal in caliber measuring 0.5 cm in diameter. RIGHT KIDNEY: Normal. No hydronephrosis. No renal calculi or focal parenchymal lesions. The kidney measures 12.9 cm in maximum dimension. FREE FLUID: None. US/US abdomen esquivel w elastography IMPRESSION: 1. There is generalized increase in hepatic echotexture, consistent with fatty infiltration or hepatocellular disease. Please correlate clinically. No focal hepatic mass or intrahepatic biliary dilatation is seen. 2. There is hepatomegaly, and the spleen is upper normal in size. 3. Elastography: Liver elastography measurements are consistent with a moderate risk for clinically significant liver fibrosis (METAVIR Stage F2-F3). 4. The gallbladder is surgically absent. Electronically signed by: Rik Batista MD 03/06/2024 09:36 AM EDT
== END 2024-02-15 10:02 | disposition home or self-care (01) ==
LOC: HO.US 10:01
PROVIDERS: PCP Internal Medicine; Visit Provider Nurse Practitioner Family
DX: R74.01 Elevation of levels of liver transaminase levels (principal)
CPT/HCPCS: 76705; 76981

== ENCOUNTER 2024-04-16 15:21 | Outpatient (AMB) | payer OTHER, SELFPAY ==
--- NOTE | 2024-04-16 15:23 | MHC.OFFVIS ---
Vital Signs 04/16/24 15:24 Height 5 ft 6 in Weight 227 lb BMI 36.6 BP 130/72 Blood Pressure Location Rt brachial Position Sitting Pulse 78 Pulse Source Pulse Oximeter Pulse Oximetry (%) 98 Oxygen Delivery Method Room Air Intake Visit Reasons: zee requested this appointment Intake Note: Tonia presents in office today for a requested FUV to discuss recent imaging results. CC; Pt reports that she is also looking to speak with Zee regarding ordering more lab work. [employer] Required: No Allergies acetaminophen [Percocet] Allergy (Unknown, Verified 04/28/24 12:41) cant see up close oxycodone [Percocet] Allergy (Unknown, Verified 04/28/24 12:41) blurred vision Pitocin Allergy (Unknown, Uncoded 04/28/24 12:41) Unknown HPI HPI zee requested this appointment: Details: LAST VISIT: Elevated liver enzymes Hypertriglyceridemia Dyslipidemia History of hepatitis C Plan Patient was very shocked when she was told by her PCP that she had hep C in the past. Patient was never treated for hep C. Patient never used drugs and was always in monogamous relationship. Patient reports having surgery last year where they had to use a cadaver replacing ligament in her knee. Will send patient for more blood work to rule out any autoimmune disorders. Will send patient for abdominal ultrasound with elastography. Discussed with patient avoiding certain food. Patient has a history of cholecystectomy and might have occasional postprandial loose stools if eating food that is high in fat. Patient will try to eat food high in protein and low-salt, low carb diet. Patient will return to the office in 3 months, sooner on as needed basis. Patient is agreeable to this plan and verbalizes understanding of instructions. She was given the opportunity to ask questions and all questions answered. ? Thank you for allowing me to participate in her care Orders Orders C Reactive Protein Today K58.9 Bilirubin Total Today R10.9 Smooth Muscle Antibody Today R79.89 IRON PROFILE Today D64.9 Ferritin Today R74.8 US abdomen esquivel w elastography Today R74.01 Liver Panel Today R74.01 Alpha Fetoprotein Today R79.89 Bilirubin Direct Today R17 Ceruloplasmin Today R79.89 Mitochondrial Antibody Today R79.89 DNA Analysis Hemochromatosis Today R79.89 Add Laboratory Test Today R74.8 TODAY'S VISIT Patient is here today for follow-up and to discuss lab results. Lab results discussed with patient. All results negative except for still elevated liver enzymes. Ultrasound done and elastography showed increased echogenicity with possible Metavir score F2 to F3. Unsure if this is correct so we will do liver fibrosis panel. Patient is nervous as she has a sister who develop liver cancer. Patient reports that her sister was drinking alcohol heavy and continues to drink alcohol. Patient does not drink any alcohol. She is trying to lose weight and eat healthier. Patient denies any abdominal pain or discomfort. Occasional postprandial loose stools. Denies any dyspepsia, dysphagia or odynophagia. Denies melena, hematochezia, unintentional weight loss or ribbon like stools. [facility] Medical History Arthritis of right knee Diabetes mellitus with hyperglycemia, without long-term current use of insulin Mixed dyslipidemia Left ACL tear Elevated liver enzymes Annual visit for general adult medical examination with abnormal findings History of gestational diabetes Obesity Vitamin D deficiency Hypothyroidism Jessica's disease Anti-TPO antibodies present Surgical History Hx of anterior cruciate ligament tear reconstruction Tubal ligation status Hx of section Hx of cholecystectomy Hx of knee surgery Family History Father Colon cancer Mother Breast cancer Substance use disorder Sister Substance use disorder Maternal Aunt Substance use disorder Maternal Uncle Substance use disorder Paternal Uncle Substance use disorder Social History Household Members: Children Housing: Condominium Alcohol intake: never Patient Tobacco Use Status: Never used Tobacco e-Cigarette/Vaping Use: Never Used service: Yes Current occupational status: employed 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 Cognitive needs: No Hearing needs: No Vision needs: Yes Review of Systems Const Denies weight gain and Denies weight loss ENT Reports no additional complaints, Denies dysphagia and Denies odynophagia Card Reports no additional complaints Resp Reports no additional complaints GI Denies abdominal pain, Denies belching, Denies melena, Reports bloating, Denies change in bowel habits, Denies dysphagia, Denies excessive flatus, Denies dyspepsia, Denies heartburn, Denies diarrhea, Reports loose stools (Postprandial), Denies nausea, Denies odynophagia and Denies vomiting Reports no additional complaints Musc Reports no additional complaints Neuro Reports no additional complaints Psych Reports no additional complaints Endo Reports no additional complaints Physical Exam Vital Signs: Last Vital Signs Pulse 78 04/16/24 15:24 BP 130/72 04/16/24 15:24 Pulse Ox 98 04/16/24 15:24 Oxygen Delivery Method Room Air 04/16/24 15:24 BMI result Body Mass Index 36.6 Const General: healthy appearing and no acute distress Nutritional Appearance: obese Orientation/consciousness: patient oriented x3 Resp Effort & Inspection: normal respiratory effort, able to speak in complete sentences, no tracheal deviation and symmetric chest movement Auscultation: clear to auscultation bilaterally Cardio Rate: regular rate GI Inspection: Yes normal to inspection, No distended and Yes obesity Palpation (GI): Soft to palpation, not firm, nontender and No hepatosplenomegaly present Auscultation: normal bowel sounds General: Yes no CVA tenderness Back/Spine/Pelvis Back: no CVA tenderness Skin General skin exam: elasticity normal, turgor normal and dry skin Neuro General: patient oriented x3 Psych Appearance: grossly normal Mental Status: mental status grossly normal Results Reviewed Results Reviewed: LIVER ULTRASOUND WITH ELASTOGRAPHY FINDINGS: PANCREAS: Normal. The visualized pancreatic head and body are normal in appearance. The remainder of the pancreas is obscured from visualization by the overlying bowel gas. LIVER: The liver demonstrates increased size, normal contour and increased echogenicity. No focal lesion or intrahepatic biliary duct dilatation. The right lobe measures 19.0 cm in length. The left lobe measures 15.5 cm in length. There is hepatopedal portal venous flow. Shear wave elastography provides a median stiffness of 1.96 m/s (reference: normal median stiffness is 0.81 - 1.22 m/s). The IQR/median stiffness to assess sampling precision is 0.05 (reference: optimal IQR/median stiffness is under 0.3). GALLBLADDER: Surgically absent. COMMON BILE DUCT: Normal in caliber measuring 0.5 cm in diameter. RIGHT KIDNEY: Normal. No hydronephrosis. No renal calculi or focal parenchymal lesions. The kidney measures 12.9 cm in maximum dimension. FREE FLUID: None. US/US abdomen esquivel w elastography IMPRESSION: 1. There is generalized increase in hepatic echotexture, consistent with fatty infiltration or hepatocellular disease. Please correlate clinically. No focal hepatic mass or intrahepatic biliary dilatation is seen. 2. There is hepatomegaly, and the spleen is upper normal in size. 3. Elastography: Liver elastography measurements are consistent with a moderate risk for clinically significant liver fibrosis (METAVIR Stage F2-F3). 4. The gallbladder is surgically absent. Laboratory Tests 01/28/24 12:32 Iron 94 TIBC 342 AST 59 H ALT 85 H C-Reactive Protein 0.57 H Alpha Fetoprotein 3.9 Anti-Mitochondrial Ab NEGATIVE Anti-Smooth Muscle Ab <20 Assessment & Plan Assessment & Plan (1) Elevated liver enzymes: Code(s): R74.8 - Abnormal levels of other serum enzymes Category: Medical (2) Hypertriglyceridemia: Code(s): E78.1 - Pure hyperglyceridemia Category: Medical (3) Dyslipidemia: Code(s): E78.5 - Hyperlipidemia, unspecified Category: Medical (4) History of hepatitis C: Code(s): Z86.19 - Personal history of other infectious and parasitic diseases Plan Will repeat lipid profile, liver enzymes and will add fibrosis panel. Will repeat thyroid study. Patient will follow-up in the office in 6 months, sooner on as needed basis. Encouraged patient to follow low fat, low salt, low carb and high-protein diet. Patient will follow-up in the office in 6 months, sooner on as needed basis. She is agreeable to this plan and verbalizes understanding of instructions. She was given the opportunity to ask questions and all questions answered. Thank you for allowing me to participate in her care Orders: Orders TSH reflex Free T4 04/17/24 E06.3 - Autoimmune thyroiditis Lipid Panel 04/17/24 E78.1 - Pure hyperglyceridemia Liver Fibrosis Pnl 04/17/24 K76.0 - Fatty (change of) liver, not elsewhere classified Liver Panel 04/17/24 R74.01 - Elevation of levels of liver transaminase levels Coding Level of Care Code Est Pt Level 4 (08087) Diagnoses Elevated liver enzymes R74.8 Hypertriglyceridemia E78.1 Dyslipidemia E78.5 History of hepatitis C Z86.19 Time Spent (min) 35 Comment 20 minutes spent with patient and additional 15 minutes spent reviewing her records
[2024-04-16 15:24] VITALS: BP 130/72; PULSE 78; O2SAT 98; BMI 36.6
== END 2024-04-16 15:56 | disposition home or self-care (01) ==
PROVIDERS: PCP Internal Medicine; Visit Provider Nurse Practitioner Family
DX: R74.8 Abnormal levels of other serum enzymes (principal); E78.1 Pure hyperglyceridemia; E78.5 Hyperlipidemia, unspecified; Z86.19 Personal history of other infectious and parasitic diseases
CPT/HCPCS: 99214

== ENCOUNTER → 2024-04-16 15:21 | Outpatient (BNVA) | payer OTHER, SELFPAY | PROVIDERS: PCP Internal Medicine; Visit Provider Nurse Practitioner Family | DX: R74.8 Abnormal levels of other serum enzymes (principal); E78.5 Hyperlipidemia, unspecified; E06.3 Autoimmune thyroiditis; E78.1 Pure hyperglyceridemia; K76.0 Fatty (change of) liver, not elsewhere classified; R74.01 Elevation of levels of liver transaminase levels; Z71.2 Person consulting for explanation of examination or test findings; Z86.19 Personal history of other infectious and parasitic diseases | CPT/HCPCS: 99212 ==

== ENCOUNTER 2024-04-17 08:03 | Outpatient (REF) | payer OTHER, SELFPAY ==
[2024-04-17 09:36] LABS: TSH reflex Free T4 2.65 uIU/mL (0.32-4.0)
[2024-04-17 09:41] LABS: Alanine Aminotransferase 73 U/L (0-31); Albumin Level 4.2 g/dL (3.5-5.0); Alkaline Phosphatase 82 U/L (39-117); Aspartate Amino Transferase 52 U/L (5-31); Bilirubin Direct 0.2 mg/dL (0.0-0.5); Bilirubin Total 0.7 mg/dL (0.0-1.0); Cholesterol 184 mg/dL (<200); HDL Cholesterol 39 mg/dL (>40); LDL Cholesterol Calculated 104 mg/dL (<100); Total Protein 7.3 g/dL (6.5-8.0); Triglycerides 209 mg/dL (<150)
[2024-04-23 17:09] LABS: FIB-ALT 64 U/L (6-29); FIB-Alpha-2-Macroglobulin 119 mg/dL (106-279); FIB-Apolipoprotein A1 144 mg/dL (101-198); FIB-GGT 44 U/L (3-55); FIB-Haptoglobin 77 mg/dL (43-212); FIB-Total Bilirubin 0.6 mg/dL (0.2-1.2); Liver Fibrosis Score 0.11; Liver Fibrosis Stage F0; Nec Inflam Act Grade A1; Nec Inflam Act Score 0.32; Reference ID 5155496
== END 2024-04-17 08:04 | disposition home or self-care (01) ==
LOC: HO.LAB 08:03
PROVIDERS: PCP Internal Medicine; Visit Provider Nurse Practitioner Family
DX: R74.01 Elevation of levels of liver transaminase levels (principal); E78.1 Pure hyperglyceridemia; E06.3 Autoimmune thyroiditis; K76.0 Fatty (change of) liver, not elsewhere classified
CPT/HCPCS: 36415; 80061; 80076; 81596; 84443

== ENCOUNTER 2024-04-26 10:36 | Outpatient (REF) | payer OTHER, SELFPAY ==
[2024-04-26 11:11] LABS: Estimated Average Glucose 160 mg/dL; Hemoglobin A1C 185.9367 umol/L; Hemoglobin A1c % 7.2 % (<6.0); Total Hemoglobin (HGBA1C) 3374.4182 umol/L
[2024-04-26 11:26] LABS: Alanine Aminotransferase 76 U/L (0-31); Albumin Level 4.5 g/dL (3.5-5.0); Alkaline Phosphatase 81 U/L (39-117); Anion Gap 13 (12-20); Aspartate Amino Transferase 52 U/L (5-31); Bilirubin Direct 0.2 mg/dL (0.0-0.5); Bilirubin Total 0.8 mg/dL (0.0-1.0); Blood Urea Nitrogen 10 mg/dL (9-16); Carbon Dioxide 27 mmol/L (22-29); Chloride 103 mmol/L (96-108); Cholesterol 204 mg/dL (<200); Estimated Glomerular Filt Rate > 60; Glucose Fasting 146 mg/dL (60-99); HDL Cholesterol 40 mg/dL (>40); LDL Cholesterol Calculated 119 mg/dL (<100); Potassium 4.5 mmol/L (3.3-5.1); Sodium 138 mmol/L (135-145); Total Protein 7.6 g/dL (6.5-8.0); Triglycerides 228 mg/dL (<150)
[2024-04-26 11:40] LABS: Free T4 (Free Thyroxine) 1.22 ng/dL (0.71-1.85)
[2024-04-28 18:08] LABS: Thyroid Peroxidase Antibodies 489 IU/mL (<9)
== END 2024-04-26 10:37 | disposition home or self-care (01) ==
LOC: HO.LAB 10:36
PROVIDERS: PCP Internal Medicine; Visit Provider Internal Medicine
DX: E11.65 Type 2 diabetes mellitus with hyperglycemia (principal); Z79.4 Long term (current) use of insulin; E78.5 Hyperlipidemia, unspecified; E78.1 Pure hyperglyceridemia; E66.9 Obesity, unspecified; E03.9 Hypothyroidism, unspecified; E06.3 Autoimmune thyroiditis; R74.01 Elevation of levels of liver transaminase levels
CPT/HCPCS: 36415; 80053; 80061; 80076; 82248; 83036; 84439; 84443; 86376

== ENCOUNTER 2024-04-28 12:19 | Outpatient (AMB) | payer OTHER, SELFPAY ==
[2024-04-28 12:24] VITALS: BP 130/88; PULSE 71; BMI 37.9
--- NOTE | 2024-04-28 12:24 | MHC.PC.OV ---
Vital Signs 04/28/24 12:24 Height 5 ft 6 in Weight 235 lb BMI 37.9 BP 130/88 Blood Pressure Location Lt brachial Position Sitting Pulse 71 Pulse Source Pulse Oximeter Intake Visit Reasons: f/u labs Intake Note: Pt is here today to f/u labs Allergies acetaminophen [Percocet] Allergy (Unknown, Verified 04/28/24 12:41) cant see up close oxycodone [Percocet] Allergy (Unknown, Verified 04/28/24 12:41) blurred vision Pitocin Allergy (Unknown, Uncoded 04/28/24 12:41) Unknown Medication List - Last Reconciled 04/28/24 by Peggy Mcknight MD blood sugar diagnostic (FreeStyle Lite Strips) Test blood sugar once per day blood-glucose meter (FreeStyle Lite Meter kit) Check blood sugar daily FreeStyle Karl 3 [place] (blood-glucose meter,continuous) As directed NS FreeStyle Karl 3 Sensor (blood-glucose sensor) As directed NS [Knee cooling device As directed Breg: Vpulse with Knee Pad Prod numbers #[id number], #[id number]] lancets (FreeStyle Lancets) Test blood sugar once per day levothyroxine 75 mcg PO DAILY 30 days Tobacco use date assessed: 04/28/24 Dental Screening Dental Screen Date: 04/28/24 Did you have a dental visit in the last 12 months?: Yes Did you have a dental problem in the last 6 months where you did not have access to dental care?: No Was dental information given to patient?: Patient has dentist HPI f/u labs HPI Details 43-year-old lady with dyslipidemia, diabetes mellitus, elevated liver transaminases, Jessica's disease with hypothyroidism, and hypertriglyceridemia, here today for follow-up. He has been compliant with taking her medications as directed and has been trying to follow recommended diet. Latest hemoglobin A1c now has dropped to 7.2%, and fasting lipids showed some improvement in her triglycerides but LDL cholesterol still not at goal of less than 100 mg/dL, HDL cholesterol however has improved to 40 mg/dL. Latest thyroid levels are within normal limits [facility] Medical History Arthritis of right knee Diabetes mellitus with hyperglycemia, without long-term current use of insulin Mixed dyslipidemia Left ACL tear Elevated liver enzymes Annual visit for general adult medical examination with abnormal findings History of gestational diabetes Obesity Vitamin D deficiency Hypothyroidism Jessica's disease Anti-TPO antibodies present Surgical History Hx of anterior cruciate ligament tear reconstruction Tubal ligation status Hx of section Hx of cholecystectomy Hx of knee surgery Family History Father Colon cancer Mother Breast cancer Substance use disorder Sister Substance use disorder Maternal Aunt Substance use disorder Maternal Uncle Substance use disorder Paternal Uncle Substance use disorder Social History Household Members: Children Housing: Condominium Alcohol intake: never Patient Tobacco Use Status: Never used Tobacco e-Cigarette/Vaping Use: Never Used service: Yes Current occupational status: employed 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 Depression Screening Interpretation: Negative Depression Screening Done: Yes Source: Developed by Drs. Blayne Wilks, Maddi Laws, Tom Hobson and colleagues, with an educational erika from [employer]. Thrive Questionnaire Date Thrive assessed: 11/16/23 I am a: Patient What is your living situation today?: I have a steady place to live Within the past 12 months, did the food you bought not last and you didn't have the money to get more?: Never true Within the past 12 months, did you worry whether your food would run out before you got money to buy more?: Never true Do you have trouble paying for medicines?: No Do you have trouble getting transportation to medical appointments?: No Do you have trouble paying your heating and electricity bill?: No Do you have trouble taking care of your child, family member or friend?: No Do you have trouble with day-to-day activities such as bathing, preparing meals, shopping, managing finances, etc.?: No Are you currently unemployed and looking for a job?: No Are you interested in more education?: No Please select the resources that you would like help with: None Currently or been in a relationship where the following occur: I choose not to answer THRIVE Score: 0 AUDIT C Alcohol Use Questionnaire (AUDIT-C) 1. How often do you have a drink containing alcohol?: Never Total Score: 0 KANCHAN-7 AMB Questionnaire KANCHAN-7 Date KANCHAN - 7 assessed: 11/16/23 Feeling nervous, anxious, or on edge: 0 = Not at all Not being able to stop or control worryin = Not at all Worrying too much about different things: 0 = Not at all Trouble relaxin = Not at all Being so restless that it is hard to sit still: 0 = Not at all Becoming easily annoyed or irritable: 0 = Not at all Feeling afraid as if something awful might happen: 0 = Not at all Total KANCHAN-7 score (0-4 normal; 5-9 mild; 10-14 moderate; 15-21 severe): 0 Source: Developed by Drs. Blayne Wilks, Maddi Laws, Tom Hobson and colleagues, with an educational erika from [employer]. Review of Systems Const Denies headache(s), Denies weight gain and Denies weight loss Eyes Reports no additional complaints ENT Reports no additional complaints, Denies dysphagia, Denies headache(s) and Denies odynophagia Card Denies chest pain, Denies rapid heart rate, Denies irregular heart rhythm, Denies lightheadedness and Denies dyspnea Resp Denies dyspnea GI Denies abdominal pain, Denies belching, Denies melena, Reports bloating, Denies change in bowel habits, Denies dysphagia, Denies heartburn, Reports loose stools (Postprandial), Denies nausea, Denies odynophagia and Denies vomiting Reports no additional complaints Musc Reports no additional complaints Skin/Breast Denies rash Neuro Reports no additional complaints and Denies headache(s) Psych Reports no additional complaints Endo Reports no additional complaints Brian/Lymph Reports no additional complaints Aller/Immun Reports no additional complaints Physical exam (Primary Care) Vital Signs: Last Vital Signs Pulse 71 04/28/24 12:24 BP 130/88 04/28/24 12:24 BMI result Body Mass Index 37.9 Tobacco/Smoking Status: Tobacco use Status Tobacco use date assessed 04/28/24 04/28/24 12:29 Patient Tobacco Use Status Never used Tobacco 04/28/24 12:27 e-Cigarette/Vaping Use Never Used 04/28/24 12:27 Depression Screening Interpretation: Negative Thrive Assessment: Date of Thrive Assessment Date Thrive assessed 11/16/23 04/28/24 12:27 Currently or been in a relationship where the following occur: I choose not to answer Const Other: Alert oriented x3, no acute cardiorespiratory distress noted ambulatory with normal gait HENMT Head: Yes normocephalic Ears: external ears normal, TM's normal bilaterally and EAC's normal General nose exam: Normal external nose present Face and sinus: Yes face symmetric Mouth: Normal oral and palatal mucosa present and moist mucous membranes Eyes General: appearance normal, both eyes and all related structures Pupils: Equal, round and reactive pupils present EOM: EOMs intact bilaterally Neck Neck: Yes full ROM, Yes no lymphadenopathy, Yes no meningeal signs and Yes supple Resp Auscultation: clear to auscultation bilaterally Cardio Other: S1-S2 present regular rate and rhythm GI Palpation (GI): Soft to palpation, nontender, no guarding and no masses Auscultation: normal bowel sounds General: Yes deferred (Sees OBGYN at [facility],) Back/Spine/Pelvis Back: No back tenderness Skin General skin exam: no rashes or lesions noted Neuro General: gait normal, moves all extremities, Normal light touch and pain sensation, no meningeal signs, no focal motor deficits and CN's II-XI intact bilaterally Cranial nerves: Yes Equal, round and reactive pupils present Gait exam (Neuro): Normal gait present Extrem General: Yes full ROM, Yes no joint enlargement, Yes no clubbing, cyanosis or edema, Yes no calf tenderness and Yes normal gait Immunizations pneumoc 20-aji conj-dip cr(PF) 0.5 mL IM syringe Performing Provider: Peggy Mcknight MD Performing Location: [facility] Administered by: Linda Arevalo CMA on 04/28/24 13:10 Dose Route Admin Location Dispensed Lot Number Expiration Date [facility] [place] Satellite Installation Technician 0.5 mL IM Left Deltoid 0.5 mL [id number] 07/08/25 7904-8637-15 [employer] VIS Given Date VIS Provided VIS Publication Date 04/28/24 Single Vaccine 21 Eligibility Eligibility Date Funding Source Not [facility] Eligible 04/28/24 Private Results Reviewed Results Reviewed: Laboratory Tests 11/26/23 04/26/24 09:27 10:48 Estimat Average Glucose 237 160 Hemoglobin A1c % 9.9 H 7.2 H Name: Tonia Rush Age/Sex: 43/F : 1980 Unit#: [id number] Attend Dr: Peggy Mcknight MD Re04/26/24 Status: DEP [facility] SPEC : [id number] MAEVE: 04/26/24 STATUS: COMP REQ : [id number] RECD: 04/26/[address]: Peggy Mcknight MD COMP: 04/26/24 ENTERED: 04/26/[address]: Frieda Matthews [employer]- ORDERED: CMP Fast, Liver Panel, Lipid Panel, Free T4, TSH Test Result Flag Reference Sodium 138 135-145 mmol/L Potassium 4.5 3.3-5.1 mmol/L CL 103 96-108 mmol/L CO2 27 22-29 mmol/L Gap 13 12-20 BUN 10 9-16 mg/dL Creat 0.72 0.5-1.4 mg/dL EGFR > 60 NOTE: For -Dominican individuals, multiply the result by 1.210. Chronic Kidney Disease: Estimated GFR < 60 mL/min/1.73m2 Severe Kidney Disease: Estimated GFR < 15 mL/min/1.73m2 FBS 146 H 60-99 mg/dL A fasting glucose of 126 mg/dl or greater on more than one occasion is considered diagnostic of diabetes. CA 9.0 8.4-10.2 mg/dL Total Bili 0.8 0.0-1.0 mg/dL Direct Bili 0.2 0.0-0.5 mg/dL AST (GOT) 52 H 5-31 U/L ALT (GPT) 76 H 0-31 U/L Protein, Total 7.6 6.5-8.0 g/dL Alb 4.5 3.5-5.0 g/dL Triglyceride 228 H <150 mg/dL Desirable Triglyceride: less than 150 mg/dL Borderline High Triglyceride 150-199 mg/dL High Triglyceride: 200-499 mg/dL Very High Triglyceride: greater than or equal to 5OO mg/dL Cholesterol 204 H <200 mg/dL Desirable Cholesterol: less than 200 mg/dL Borderline High Cholesterol: 200-239 mg/dL High Cholesterol: greater than 239 mg/dL LDL Calculated 119 H <100 mg/dL Desirable LDL: less than 100 mg/dL Near Optimal/Above Optimal LDL: 110-129 mg/dL Borderline High LDL: 130-159 mg/dL High LDL: 160-189 mg/dL Very High LDL: greater than or equal to 190 mg/dL HDL 40 L >40 mg/dL Desirable HDL: greater than 40 mg/dL Note: This HDL assay may give artificially low results in patients with liver disease. Alk Phos 81 39-117 U/L Free T4 1.22 0.71-1.85 ng/dL TSH 3rd Gen. 1.80 0.32-4.0 uIU/mL TSH 3rd Generation ([facility]) Coding Level of Care Code Est Pt Level 4 (85144) Complex EM visit Add On G2211 Diagnoses Diabetes mellitus with hyperglycemia, with long-term current use of insulin E11.65; Z79.4 Dyslipidemia E78.5 Hypothyroidism, unspecified type E03.9 Hypothyroidism type: unspecified Mixed dyslipidemia E78.2 Need for pneumococcal 20-valent conjugate vaccination Z23 Assessment & Plan Assessment & Plan (1) Diabetes mellitus with hyperglycemia, with long-term current use of insulin: Code(s): E11.65 - Type 2 diabetes mellitus with hyperglycemia; Z79.4 - director long term care (current) use of insulin Category: Medical Plan: Marked improvement in diabetes control, but A1c in still not at goal of less than 6.5%. Patient still does not want to start on any medication, advised to continue with adherence to diabetic diet and getting regular exercise, Counseled regarding importance of yearly diabetes retinopathy screening. Patient advised to inspect feet daily, for any signs of injury, callus or infection. Compliance with diet and regular exercise again stressed. Blood pressure goal is less than 130/80, goal LDL is less than 100 and goal hemoglobin A1c is less than 7% follow-up appointment made in---months, after fasting labs done. (2) Dyslipidemia: Code(s): E78.5 - Hyperlipidemia, unspecified Category: Medical Plan: Discuss recent lipid results with patient still with elevated triglycerides, and LDL cholesterol not at goal, reinforced importance of following low-cholesterol diet and getting regular exercise, does not want to be started on a statin at this point in time, wants to try lowering cholesterol levels all through lifestyle changes. Prevnar 20 given today. Reminded to get her flu vaccine and COVID booster (3) Hypothyroidism: Code(s): E03.9 - Hypothyroidism, unspecified Category: Medical Qualifiers: Hypothyroidism type: unspecified Qualified Code(s): E03.9 - Hypothyroidism, unspecified Plan: Currently on levothyroxine 75 mcg daily patient requesting referral to endocrine for further evaluation, of her Jessica's thyroiditis, here (4) Mixed dyslipidemia: Code(s): E78.2 - Mixed hyperlipidemia Category: Medical Plan: Discussed recent lipid results with patient still with elevated triglycerides, and LDL cholesterol not at goal, reinforced importance of following low-cholesterol diet and getting regular exercise, does not want to be started on a statin at this point in time, wants to try lowering cholesterol levels all through lifestyle changes. (5) Need for pneumococcal 20-valent conjugate vaccination: Code(s): Z23 - Encounter for immunization Plan: Prevnar 20 given today Orders: Orders Pneumococcal 20 Immunization 04/28/24 Z23 - Encounter for immunization Referrals Endocrinology Referral E03.9 - Hypothyroidism, unspecified, E06.3 - Autoimmune thyroiditis, E11.65 - Type 2 diabetes mellitus with hyperglycemia, E78.2 - Mixed hyperlipidemia, Z79.4 - director long term care (current) use of insulin
== END 2024-04-28 13:16 | disposition home or self-care (01) ==
PROVIDERS: PCP Internal Medicine; Visit Provider Internal Medicine
DX: E11.65 Type 2 diabetes mellitus with hyperglycemia (principal); Z79.4 Long term (current) use of insulin; E78.5 Hyperlipidemia, unspecified; E03.9 Hypothyroidism, unspecified; E78.2 Mixed hyperlipidemia; Z23 Encounter for immunization

== ENCOUNTER → 2024-04-28 12:19 | Outpatient (BNVA) | payer OTHER, SELFPAY | PROVIDERS: PCP Internal Medicine; Visit Provider Internal Medicine | DX: E11.65 Type 2 diabetes mellitus with hyperglycemia (principal); E78.5 Hyperlipidemia, unspecified; E03.9 Hypothyroidism, unspecified; E78.2 Mixed hyperlipidemia; Z79.4 Long term (current) use of insulin; Z79.899 Other long term (current) drug therapy; Z23 Encounter for immunization | CPT/HCPCS: 90471; 90677; 99212 ==

== ENCOUNTER 2024-05-01 11:16 | Outpatient (AMB) | payer OTHER, SELFPAY ==
--- NOTE | 2024-05-01 11:17 | A.OFFVIS_ITS ---
Intake Visit Reasons: Right Knee Injection Intake Note: Tonia is a 43 year old female who presents today for a follow up her Right Knee OA. Hx of Right knee injection 08/13/23. She reports that she continues to get adequate relief with the injections. She has started to run again which is causing a significant abount of pain and inflammation. Hx of Left ACL Reconstruction 01/26/23 Allergies acetaminophen [Percocet] Allergy (Unknown, Verified 04/28/24 12:41) cant see up close oxycodone [Percocet] Allergy (Unknown, Verified 04/28/24 12:41) blurred vision Pitocin Allergy (Unknown, Uncoded 04/28/24 12:41) Unknown HPI HPI Right Knee Injection: Details: Tonia is a 43 year old female who presents today for a follow up her Right Knee OA. Hx of Right knee injection 08/13/23. She reports that she continues to get adequate relief with the injections. She has started to run again which is causing a significant amount of pain and inflammation. Hx of Left ACL Reconstruction 01/26/23 [facility] Medical History (Updated 05/01/24 @ 11:55 by Fran Arndt MD) Arthritis of right knee Diabetes mellitus with hyperglycemia, without long-term current use of insulin Mixed dyslipidemia Left ACL tear Elevated liver enzymes Annual visit for general adult medical examination with abnormal findings History of gestational diabetes Obesity Vitamin D deficiency Hypothyroidism Jessica's disease Anti-TPO antibodies present Surgical History Hx of anterior cruciate ligament tear reconstruction Tubal ligation status Hx of section Hx of cholecystectomy Hx of knee surgery Family History Father Colon cancer Mother Breast cancer Substance use disorder Sister Substance use disorder Maternal Aunt Substance use disorder Maternal Uncle Substance use disorder Paternal Uncle Substance use disorder Social History Household Members: Children Housing: Condominium Alcohol intake: never Patient Tobacco Use Status: Never used Tobacco e-Cigarette/Vaping Use: Never Used service: Yes Current occupational status: employed 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 No ttp. Stable alexey's with no pivot shift. No effusion. Full ROM. Office Procedures Joint Injection/Aspiration Joint Injection/Aspiration Details: Injected 1 mL of Decadron and 3 mL 1% lidocaine and 3 mL of 0.25% Marcaine. Site was prepped using aseptic technique. Patient tolerated the procedure well. Primary Site: right knee Approach Used: anterolateral Coding - Large joint Procedure code (CPT) selection complete Assessment & Plan Assessment & Plan (1) Diabetes mellitus with hyperglycemia, without long-term current use of insulin: Code(s): E11.65 - Type 2 diabetes mellitus with hyperglycemia Category: Medical Plan: Informed her of the hyperglycemic effects of steroids. (2) Arthritis of right knee: Code(s): M17.11 - Unilateral primary osteoarthritis, right knee Category: Medical Plan: I injected her right knee. I recommend she does walking for her physical f itness test. Coding Level of Care Code Est Pt Level 4 (65950) Diagnoses Diabetes mellitus with hyperglycemia, without long-term current use of insulin E11.65 Arthritis of right knee M17.11 CPT Codes Coding - Large joint: 92295 - Large joint ([id number])
== END 2024-05-01 11:42 | disposition home or self-care (01) ==
PROVIDERS: PCP Internal Medicine; Visit Provider Orthopaedic Surgery
DX: M17.11 Unilateral primary osteoarthritis, right knee (principal); E11.65 Type 2 diabetes mellitus with hyperglycemia
CPT/HCPCS: 20610; 99214

== ENCOUNTER → 2024-05-01 11:16 | Outpatient (BNVA) | payer OTHER, SELFPAY | PROVIDERS: PCP Internal Medicine; Visit Provider Orthopaedic Surgery | DX: M17.11 Unilateral primary osteoarthritis, right knee (principal); E11.65 Type 2 diabetes mellitus with hyperglycemia | CPT/HCPCS: 20610; 99212; J0665; J1100; J2003 ==

== ENCOUNTER 2024-05-12 09:00 | Outpatient (AMB) | payer OTHER, SELFPAY ==
[2024-05-12 09:06] VITALS: BP 120/76; PULSE 67; BMI 37.5
--- NOTE | 2024-05-12 09:06 | A.OFFVIS_ITS ---
Vital Signs 05/12/24 09:06 Height 5 ft 6 in Weight 232 lb 9.403 oz BMI 37.5 BP 120/76 Blood Pressure Location Lt brachial Position Sitting Pulse 67 Pulse Source Pulse Oximeter Intake Visit Reasons: Hypothyroidism, T2DM, autoimmune thyroiditis Intake Note: New patient presents today for D2MT, Hypothyroidism and autoimmune thyroiditis office visit. Last Diabetic Eye exam: 01/2024 Last Podiatry Visit: Doesn't have one Random Glucose: 151 mg/dl HgA1c: 7.2% 04/26/24 Senior Environmental Engineer Required: No Accompanied by: Self / Same As Patient Allergies acetaminophen [Percocet] Allergy (Unknown, Verified 05/12/24 09:10) cant see up close oxycodone [Percocet] Allergy (Unknown, Verified 05/12/24 09:10) blurred vision Pitocin Allergy (Unknown, Uncoded 05/12/24 09:10) Unknown Medication List - Last Reconciled 05/12/24 by Nano Knapp MD blood sugar diagnostic (FreeStyle Lite Strips) Test blood sugar once per day blood-glucose meter (FreeStyle Lite Meter kit) Check blood sugar daily FreeStyle Karl 3 [place] (blood-glucose meter,continuous) As directed NS FreeStyle Karl 3 Sensor (blood-glucose sensor) As directed NS [Knee cooling device As directed Breg: Vpulse with Knee Pad Prod numbers #[id number], #[id number]] lancets (FreeStyle Lancets) Test blood sugar once per day levothyroxine 75 mcg PO DAILY 30 days HPI Comments Details: 43-year-old female coming in today for initial evaluation of type 2 diabetes mellitus and reestablishing care for hypothyroidism/Jessica's thyroiditis. She has been seen at our practice back in 2020 when she was seeing Dr. Gloria for hypothyroidism. Type 2 diabetes mellitus History of diabetes 2 pregnancies 2012 and 2015 both had GDM controlled with diet A1c 7 % Aug 2022 diagnosed with DM type 2 Prior therapy: none Current regimen: none she brought down a1c 9.15 Nov 2023 to 7.2 % in Apr 2024 with diet chnages Denies any symptoms of hyperglycemia including polyphagia, polyuria, polydipsia. Denies any hypoglycemic symptoms. SMBGs Fasting 150s when she checks, checks one a week Random glucose today 151 mg/dl Random Glucose: mg/dl HgA1c: 7.2% 04/26/24 Maternal side : lots of relatives uncles and aunts had Type 1 DM Paternal aunt had type 2 DM Complications Last Diabetic Eye exam: 01/2024, no retinopathy Last Podiatry Visit: Doesn't have one, neuropathy : none Kidney disease: no history of kidney disease Macrovascular complications: No history of macrovascular complications. Statin: none FRIDA/ARB: none Exercise: walks 3 or 4 times a week , 40 mins to 1 hr brisk walking , at a desk otherwise Diet control: eats from outside on days she is working too much Meals yesterday Breakfast : breakfast sandwich from [employer] Lunch:6 inch rotissier chicken from [employer] Dinner: wrap from outside and beans Saw a instant print operator virtually but she would like to see our instant print operator. s/p cholecystectomy no episodes of pancreatitis, no alcohol use No family history of thyroid cancer has never had any hospitalizations for hyperglycemia/hypoglycemia. Hypothyroidism diagnosed with hypothyroidism during her and was on Levothyroxine during her pregnancies and continued on this for a few months , but then this was stopped. She then remained off levothyroxine for approximately 3 years. She had labs checked by her PCP 05/01/2020 which revealed a TSH high normal, and positive TPO antibodies. She was subsequently referred to Endocrinology. Labs were repeated, confirming Jessica's hypothyroidism with elevated TPO antibodies and elevated TSH. She was started on Levothyroxine again, and is on Levothyroxine 50 mcg PO daily at this time. She takes this correctly and reports good compliance. She does report persistent fatigue. She did have a tubal-ligation. She does mention fatigue. She denies any swelling in the neck or difficulty swallowing. 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 Paternal aunt has thyroid disease but no family history of thyroid cancer. Review of systems Constitutional: no fevers, chills or weight loss HEENT: no changes in vision Cardiac: No chest pain, discomfort or palpitations. Pulmonary: No SOB GI:No abdominal pain, no nausea or vomiting, no anorexia, no blood in stool : no burning micturition, dysuria or increase in urinary frequency Physical exam General: sitting comfortably in no acute distress HEENT: normocephalic/atraumatic, moist oral mucosa Neck: supple, symmetrical, no thyromegaly , no dorsocervical or supraclavicular fat pads Cardiac: normal heart sounds Pulm: normal breath sounds B/L, no added breath sounds Abd: not distended, no tenderness Extremities: no edema, no signs of myxedema Neuro: AAO x3, Speech: normal, no facial droop, moving all 4 extremities Skin: no rash Foot exam: intact sensation to monofilament, intact pulses, intact vibration Laboratory Tests 07/08/20 08/09/22 11/26/23 15:40 08:01 09:27 Plt Count 317 Creatinine Estimated GFR Hemoglobin A1c % 7.0 9.9 H AST ALT Triglycerides Cholesterol LDL Cholesterol, Calc HDL Cholesterol TSH Free T4 TSH Receptor Ab <1.00 Thyroid Peroxidase Ab 11/26/23 12/12/23 04/17/24 09:29 10:57 08:16 Plt Count Creatinine Estimated GFR Hemoglobin A1c % AST ALT Triglycerides 322 H 209 H Cholesterol 207 H 184 LDL Cholesterol, Calc 110 H 104 H HDL Cholesterol 33 L 39 L TSH 4.12 H 2.65 Free T4 1.04 TSH Receptor Ab Thyroid Peroxidase Ab 04/26/24 10:48 Plt Count Creatinine 0.72 Estimated GFR > 60 Hemoglobin A1c % 7.2 H AST 52 H ALT 76 H Triglycerides 228 H Cholesterol 204 H LDL Cholesterol, Calc 119 H HDL Cholesterol 40 L TSH 1.80 Free T4 1.22 TSH Receptor Ab Thyroid Peroxidase Ab 489 H Imaging Thyroid US: 07/22/2020 Right Thyroid Lobe: 4.7 x 2.1 x 1.8 cm, volume 9.3 mL. Parenchyma: The gland echotexture is heterogeneous. Thyroid vascularity is mildly increased. Left Thyroid Lobe: 4.6 x 1.4 x 1.5 cm, volume 5.1 mL. Parenchyma: The gland echotexture is heterogeneous. Thyroid vascularity is normal. Isthmus: 0.5 cm in maximum AP dimension. RIGHT THYROID LOBE: No nodules. ISTHMUS: No nodules. LEFT THYROID LOBE: No nodules. NODES: Right neck lymph node measures 0.8 x 1.8 x 0.4 cm. Left neck lymph node measures 0.7 x 0.9 x 0.4 cm. [facility] Medical History (Updated 05/12/24 @ 10:07 by Nano Knapp MD) Obesity (BMI 30-39.9) Arthritis of right knee Diabetes mellitus with hyperglycemia, without long-term current use of insulin Mixed dyslipidemia Left ACL tear Elevated liver enzymes Annual visit for general adult medical examination with abnormal findings History of gestational diabetes Obesity Vitamin D deficiency Hypothyroidism Jessica's disease Anti-TPO antibodies present Surgical History Hx of anterior cruciate ligament tear reconstruction Tubal ligation status Hx of section Hx of cholecystectomy Hx of knee surgery Family History Father Colon cancer Mother Breast cancer Substance use disorder Sister Substance use disorder Maternal Aunt Substance use disorder Maternal Uncle Substance use disorder Paternal Uncle Substance use disorder Social History Household Members: Children Housing: Condominium Alcohol intake: never Patient Tobacco Use Status: Never used Tobacco e-Cigarette/Vaping Use: Never Used service: Yes Current occupational status: employed 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 Cognitive needs: No Hearing needs: No Vision needs: Yes Physical Exam Vital Signs: Last Vital Signs Pulse 67 05/12/24 09:06 BP 120/76 05/12/24 09:06 BMI result Body Mass Index 37.5 Results Reviewed Results Reviewed: Laboratory Last Values Glucose (Clinic) 151 mg/dL (60-115) H 05/12/24 09:12 Assessment & Plan Assessment & Plan (1) Hypothyroidism: Code(s): E03.9 - Hypothyroidism, unspecified Category: Medical Qualifiers: Hypothyroidism type: unspecified Qualified Code(s): E03.9 - Hypothyroidism, unspecified Plan: Patient with a history of hypothyroidism, biochemically euthyroid from labs in April 2024. Continue levothyroxine 75 mcg daily. Plan: -continue levothyroxine 75 mcg (2) Diabetes mellitus with hyperglycemia, without long-term current use of insulin: Code(s): E11.65 - Type 2 diabetes mellitus with hyperglycemia Category: Medical Qualifiers: Diabetes mellitus type: type 2 Qualified Code(s): E11.65 - Type 2 diabetes mellitus with hyperglycemia Plan: Patient diagnosed with type 2 diabetes in November of 2022, she has not been on any medications. Her A1c was at 9.9% from November 2023, she has brought it down to 7.2% with lifestyle modifications most recently checked on April 2024. She checks her blood sugars fasting once a week and mostly they have been around 140s. Her A1c still above target of 7%. Her BMI is 37.5 kg per m2. She would be a good candidate for GLP 1 agonist. No family history of thyroid cancer. No history of pancreatitis, she does not drink alcohol, is status post cholecystectomy. Plan: -start Trulicity 0.75 mg weekly -monitor blood sugars fasting 2 to 3 times a week -up-to-date with eye visit, no history of retinopathy -foot exam done today, unremarkable -lifestyle modification advised with 150 minutes of exercise in a week, 500 calorie deficit daily -follow up in 3 months with repeat labs (3) Mixed dyslipidemia: Code(s): E78.2 - Mixed hyperlipidemia Category: Medical Plan: LDL at 119 mg/dL. Goal LDL less than 90 mg/dL Plan: -start atorvastatin 40 mg daily -discussed side effects of muscle aches and to let us know if that happens. Also discussed possible elevation of liver enzymes, especially given transaminitis, however likely we will have improvement in liver function due to improvement in metabolic liver disease, we will have her repeat lipid panel in 3 months (4) Obesity (BMI 30-39.9): Code(s): E66.9 - Obesity, unspecified Category: Medical Plan: BMI 37.5 kg per m2. She has lost 10 lb over the past year due to lifestyle modification. Lifestyle modification advised with 150 minutes exercise of per week, 500 calorie deficit daily. We will also start Trulicity 0.75 mg weekly. We will plan to titrate up in the near future. Plan: -start Trulicity 0.75 mg weekly. Plan I spent 45 minutes in reviewing the record, seeing the patient and documenting in the medical record. Orders: Orders Lipid Panel 3 Months E03.9 - Hypothyroidism, unspecified, E11.65 - Type 2 diabetes mellitus with hyperglycemia, E78.2 - Mixed hyperlipidemia C Peptide 3 Months E03.9 - Hypothyroidism, unspecified, E11.65 - Type 2 diabetes mellitus with hyperglycemia, E78.2 - Mixed hyperlipidemia Microalbumin, Random (w Creat) 3 Months E03.9 - Hypothyroidism, unspecified, E11.65 - Type 2 diabetes mellitus with hyperglycemia, E78.2 - Mixed hyperlipidemia Glutamic acid decarboxylase Ab 3 Months E03.9 - Hypothyroidism, unspecified, E11.65 - Type 2 diabetes mellitus with hyperglycemia, E78.2 - Mixed hyperlipidemia Hemoglobin A1c 3 Months E03.9 - Hypothyroidism, unspecified, E11.65 - Type 2 diabetes mellitus with hyperglycemia, E78.2 - Mixed hyperlipidemia Islet Cell Antibody Scrn/Titer 3 Months E03.9 - Hypothyroidism, unspecified, E11.65 - Type 2 diabetes mellitus with hyperglycemia, E78.2 - Mixed hyperlipidemia Basic Metabolic Panel 3 Months E03.9 - Hypothyroidism, unspecified, E11.65 - Type 2 diabetes mellitus with hyperglycemia, E78.2 - Mixed hyperlipidemia Liver Panel 3 Months E03.9 - Hypothyroidism, unspecified, E11.65 - Type 2 diabetes mellitus with hyperglycemia, E78.2 - Mixed hyperlipidemia Referrals Printing Plate Clerk Nutrition Referral E11.65 - Type 2 diabetes mellitus with hyperglyce sahara Medications: New dulaglutide (Trulicity) 0.75 mg (0.5 mL) subcut QWEEK 2 mL 4RF atorvastatin 40 mg PO BEDTIME 30 tabs 6RF Refilled levothyroxine 75 mcg PO DAILY 30 days 30 tabs 3RF Patient Instructions: Start atorvastatin 40 mg daily at bedtime Start Trulicity 0.75 mg weekly Do labs prior to next appointment in 3 months Weight loss counselling ? Limit added sugars to less than 25 grams daily. There are 4.2 grams of sugar per teaspoon of sugar. A teaspoon of honey has 6 grams of sugar! Bread also can have more sugar than you think-check labels ? No soda or juices. Drink water, unsweetened iced tea or seltzer ? Limit eating out/take out or prepared meals to twice weekly at most ? Avoid red meat, hot dogs, jernigan and deli meat. Substitute plant protein for animal protein as much as you can. Beans, nuts, tofu, soy milk ? Limit cheese to 1 ounce a few times weekly ? Eat high fiber foods like beans, apples and green veggies, salsa is a great snack with whole grain cracker like [place]a ? Look for the whole grain stamp when choosing bread etc. Aim for 48 grams of whole grains daily. Whole wheat does not equal whole grains! ? Don't keep tempting treats in the house. Go out once in a while for a treat. ? Don't eat anything deep fried or cream based-no sour cream Coding Level of Care Code New Pt Level 4 (38289) Diagnoses Hypothyroidism, unspecified type E03.9 Hypothyroidism type: unspecified Type 2 diabetes mellitus with hyperglycemia, without long-term current use of insulin E11.65 Diabetes mellitus type: type 2 Mixed dyslipidemia E78.2 Obesity (BMI 30-39.9) E66.9 Time Spent (min) 45
[2024-05-12 09:16] LABS: Glucose, Whole Blood 151 mg/dL (60-115)
== END 2024-05-12 10:00 | disposition home or self-care (01) ==
LOC: HO.ENCR 09:01
PROVIDERS: PCP Internal Medicine; Visit Provider Student in an Organized Health Care Education/Training Program
DX: E03.9 Hypothyroidism, unspecified (principal); E11.65 Type 2 diabetes mellitus with hyperglycemia; E78.2 Mixed hyperlipidemia; E66.9 Obesity, unspecified
CPT/HCPCS: 99204

== ENCOUNTER → 2024-05-12 09:00 | Outpatient (BNVA) | payer OTHER, SELFPAY | PROVIDERS: PCP Internal Medicine; Visit Provider Student in an Organized Health Care Education/Training Program | DX: E11.65 Type 2 diabetes mellitus with hyperglycemia (principal); E03.9 Hypothyroidism, unspecified; E06.3 Autoimmune thyroiditis; E78.2 Mixed hyperlipidemia; E66.9 Obesity, unspecified; Z68.37 Body mass index [BMI] 37.0-37.9, adult | CPT/HCPCS: 82947; 99202 ==

== ENCOUNTER 2024-05-27 10:29 | Outpatient (AMB) | payer OTHER, SELFPAY ==
--- NOTE | 2024-05-27 10:40 | A.OFFVIS_ITS ---
VS Expanded 05/27/24 10:42 05/27/24 10:56 Height 5 ft 6 in 5 ft 6 in Weight 228 lb 2.855 oz 228 lb BMI 36.8 36.8 Intake Visit Reasons: Hypothyroidism/CONFIRMED Allergies acetaminophen [Percocet] Allergy (Unknown, Verified 05/12/24 09:10) cant see up close oxycodone [Percocet] Allergy (Unknown, Verified 05/12/24 09:10) blurred vision Pitocin Allergy (Unknown, Uncoded 05/12/24 09:10) Unknown Nutrition Presentation Details: Pt presents for MNT for T2DM. BS Monitoring Most Recent Diabetes Results: Cholesterol 204 mg/dL (<200) H 04/26/24 HDL Cholesterol 40 mg/dL (>40) L 04/26/24 Triglycerides 228 mg/dL (<150) H 04/26/24 Creatinine 0.72 mg/dL (0.5-1.4) 04/26/24 Blood Urea Nitrogen 10 mg/dL (9-16) 04/26/24 Sodium 138 mmol/L (135-145) 04/26/24 Potassium 4.5 mmol/L (3.3-5.1) 04/26/24 Chloride 103 mmol/L (96-108) 04/26/24 Carbon Dioxide 27 mmol/L (22-29) 04/26/24 Calcium 9.0 mg/dL (8.4-10.2) 04/26/24 AST 52 U/L (5-31) H 04/26/24 ALT 76 U/L (0-31) H 04/26/24 Total Protein 7.6 g/dL (6.5-8.0) 04/26/24 Albumin 4.5 g/dL (3.5-5.0) 04/26/24 RCU-[id number]-Ec.Jeor Equation Height: 5 ft 6 in Weight: 228 lb Resting Metabolic Rate: 1708.35 Calculated Activity Level: Sedentary Calories Needed to Maintain Weight: 2049.02 Diagnosis Nutrition problem #1: food nutri know defi As related to (etiology) #1: diagnosis As evidenced by (sign/symptom) #1: knowledge deficit of diet [facility] Medical History (Updated 05/12/24 @ 10:07 by Nano Knapp MD) Obesity (BMI 30-39.9) Arthritis of right knee Diabetes mellitus with hyperglycemia, without long-term current use of insulin Mixed dyslipidemia Left ACL tear Elevated liver enzymes Annual visit for general adult medical examination with abnormal findings History of gestational diabetes Obesity Vitamin D deficiency Hypothyroidism Jessica's disease Anti-TPO antibodies present Surgical History Hx of anterior cruciate ligament tear reconstruction Tubal ligation status Hx of section Hx of cholecystectomy Hx of knee surgery Family History Father Colon cancer Mother Breast cancer Substance use disorder Sister Substance use disorder Maternal Aunt Substance use disorder Maternal Uncle Substance use disorder Paternal Uncle Substance use disorder Social History Household Members: Children Housing: Condominium Alcohol intake: never Patient Tobacco Use Status: Never used Tobacco e-Cigarette/Vaping Use: Never Used service: Yes Current occupational status: employed 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 Cognitive needs: No Hearing needs: No Vision needs: Yes Assessment & Plan Assessment & Plan (1) Diabetes mellitus with hyperglycemia, without long-term current use of insulin: Code(s): E11.65 - Type 2 diabetes mellitus with hyperglycemia Category: Medical Qualifiers: Diabetes mellitus type: type 2 Qualified Code(s): E11.65 - Type 2 diabetes mellitus with hyperglycemia Plan: Wt: 104 Kg (06/01 ) Est kcal needs as per MSJ: 2100 (40% carb, 30% protein/fat) Est fluid needs as per 25-30 ml/d: 3100 Est prot per day as per 1 g/kg bw: 104 Recommend fiber intake : 8-10 g per day and gradually increase to 25-28 g per day for women and 35-38 g for men or as tolerated Recommend sodium intake per day : less than 2300 mg Educated patient on: ( R = reviewed V = verbalizes understanding N/R = needs review N/A = not applicable * Food sources of carbohydrate, adequate serving sizes and its role in various health conditions: R * Differences between complex carbohydrates a simple carbohydrates, role of fiber in diet: R * Lean protein sources of foods: R V NR * Differences between types of fats and role in diet (mono on saturated fat fatty acids, saturated fatty acids, trans fats): R V N/R * Food sources of sodium in salt and healthy modifications for heart health in kidney health: R V R/V * Vitamins and minerals: R V N/R * Healthy plate method concept: R * Physical activity: Benefits a precaution: R V N/R * Hypoglycemia protocol (rule of 15): R * Dietary prevention of Hyperglycemia: R Patient Instructions: Continue working on diet modifications, reducing total carb to 70 g or less per meal Work on choosing high fiber low fat snacks (carrots, celery as example) Coding Level of Care Code Nutr Indiv Intake (76431) Diagnoses Type 2 diabetes mellitus with hyperglycemia, without long-term current use of insulin E11.65 Diabetes mellitus type: type 2 Time Spent (min) 30
[2024-05-27 10:42] VITALS: BMI 36.8
[2024-05-27 10:56] VITALS: BMI 36.8
== END 2024-05-27 11:18 | disposition home or self-care (01) ==
PROVIDERS: PCP Internal Medicine; Visit Provider Dietitian, Registered
DX: E11.65 Type 2 diabetes mellitus with hyperglycemia (principal)

== ENCOUNTER → 2024-05-27 10:29 | Outpatient (BNVA) | payer OTHER, SELFPAY | PROVIDERS: PCP Internal Medicine; Visit Provider Dietitian, Registered | DX: E11.65 Type 2 diabetes mellitus with hyperglycemia (principal) | CPT/HCPCS: 97802 ==

== ENCOUNTER 2024-05-30 09:34 | Outpatient (AMB) | payer OTHER, SELFPAY ==
[2024-05-30 09:35] VITALS: BP 130/76; PULSE 64; BMI 37.5
--- NOTE | 2024-05-30 09:35 | A.OFFVIS_ITS ---
Vital Signs 05/30/24 09:35 Height 5 ft 6 in Weight 232 lb 9.403 oz BMI 37.5 BP 130/76 Blood Pressure Location Rt brachial Position Sitting Pulse 64 Pulse Source Pulse Oximeter Intake Visit Reasons: T2DM/Hypothyroidism-lvm Intake Note: Patient presents today for D2MT/ Hypothyroidism follow up visit. Last Diabetic Eye exam: 12/2023 Last Podiatry Visit: Doesn't have one Random Glucose: 133 mg/dl HgA1c: 7.2% 04/26/24 Buggyman Required: No Accompanied by: Self / Same As Patient Allergies acetaminophen [Percocet] Allergy (Unknown, Verified 05/30/24 09:43) cant see up close oxycodone [Percocet] Allergy (Unknown, Verified 05/30/24 09:43) blurred vision Pitocin Allergy (Unknown, Uncoded 05/30/24 09:43) Unknown Medication List - Last Reconciled 05/30/24 by Nano Knapp MD atorvastatin 40 mg PO BEDTIME blood sugar diagnostic (FreeStyle Lite Strips) Test blood sugar once per day blood-glucose meter (FreeStyle Lite Meter kit) Check blood sugar daily FreeStyle Karl 3 Plus Sensor (blood-glucose sensor) Check blood sugar 3 times per day, change sensor every 14 days NS FreeStyle Karl 3 [place] (blood-glucose meter,continuous) As directed NS [Knee cooling device As directed Breg: Vpulse with Knee Pad Prod numbers #[id number], #[id number]] lancets (FreeStyle Lancets) Test blood sugar once per day levothyroxine 75 mcg PO DAILY 30 days metformin ER 500 mg PO BID HPI Comments Details: 43-year-old female coming in today for follow up of type 2 diabetes mellitus and hypothyroidism/Jessica's thyroiditis. Type 2 diabetes mellitus History of diabetes 2 pregnancies 2012 and 2015 both had GDM controlled with diet A1c 7 % Aug 2022 diagnosed with DM type 2 Prior therapy: none Current regimen: none she brought down a1c 9.15 Nov 2023 to 7.2 % in Apr 2024 with diet chnages Denies any symptoms of hyperglycemia including polyphagia, polyuria, polydipsia. Denies any hypoglycemic symptoms. SMBGs Fasting 100-130 Post meals 140s Dropped to 50s and 60s, feels symptoms Random Glucose: mg/dl HgA1c: 7.2% 04/26/24 Maternal side : lots of relatives uncles and aunts had Type 1 DM Paternal aunt had type 2 DM Complications Last Diabetic Eye exam: 01/2024, no retinopathy Last Podiatry Visit: Doesn't have one, neuropathy : none Kidney disease: no history of kidney disease Macrovascular complications: No history of macrovascular complications. Statin: none FRIDA/ARB: none Exercise: walks 3 or 4 times a week , 40 mins to 1 hr brisk walking , at a desk otherwise Diet control: eats from outside on days she is working too much Meals discussed last visit Breakfast : breakfast sandwich from [employer] Lunch:6 inch rotissier chicken from [employer] Dinner: wrap from outside and beans s/p cholecystectomy no episodes of pancreatitis, no alcohol use No family history of thyroid cancer has never had any hospitalizations for hyperglycemia/hypoglycemia. Interval history Saw nutirtionist 05/27/24, endorses she is eating low carb, high-fiber meals avoiding fats. Started metformin 500 mg BID Start atrovastatin 40 mg daily, reporting some muscle aches Dropped to 50s and 60s, feels symptoms Hypothyroidism diagnosed with hypothyroidism during her and was on Levothyroxine during her pregnancies and continued on this for a few months , but then this was stopped. She then remained off levothyroxine for approximately 3 years. She had labs checked by her PCP 05/01/2020 which revealed a TSH high normal, and positive TPO antibodies. She was subsequently referred to Endocrinology. Labs were repeated, confirming Jessica's hypothyroidism with elevated TPO antibodies and elevated TSH. She was started on Levothyroxine again, and is on Levothyroxine 50 mcg PO daily at this time. She takes this correctly and reports good compliance. She does report persistent fatigue. She did have a tubal-ligation. She does mention fatigue. She denies any swelling in the neck or difficulty swallowing. 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 Paternal aunt has thyroid disease but no family history of thyroid cancer. Review of systems Constitutional: no fevers, chills or weight loss HEENT: no changes in vision Cardiac: No chest pain, discomfort or palpitations. Pulmonary: No SOB GI:No abdominal pain, no nausea or vomiting, no anorexia, no blood in stool : no burning micturition, dysuria or increase in urinary frequency Physical exam General: sitting comfortably in no acute distress HEENT: normocephalic/atraumatic, moist oral mucosa Neck: supple, symmetrical, no thyromegaly , no dorsocervical or supraclavicular fat pads Cardiac: normal heart sounds Pulm: normal breath sounds B/L, no added breath sounds Abd: not distended, no tenderness Extremities: no edema, no signs of myxedema Neuro: AAO x3, Speech: normal, no facial droop, moving all 4 extremities Skin: no rash Foot exam: intact sensation to monofilament, intact pulses, intact vibration Laboratory Tests 07/08/20 08/09/22 11/26/23 15:40 08:01 09:27 Plt Count 317 Creatinine Estimated GFR Hemoglobin A1c % 7.0 9.9 H AST ALT Triglycerides Cholesterol LDL Cholesterol, Calc HDL Cholesterol TSH Free T4 TSH Receptor Ab <1.00 Thyroid Peroxidase Ab 11/26/23 12/12/23 04/17/24 09:29 10:57 08:16 Plt Count Creatinine Estimated GFR Hemoglobin A1c % AST ALT Triglycerides 322 H 209 H Cholesterol 207 H 184 LDL Cholesterol, Calc 110 H 104 H HDL Cholesterol 33 L 39 L TSH 4.12 H 2.65 Free T4 1.04 TSH Receptor Ab Thyroid Peroxidase Ab 04/26/24 10:48 Plt Count Creatinine 0.72 Estimated GFR > 60 Hemoglobin A1c % 7.2 H AST 52 H ALT 76 H Triglycerides 228 H Cholesterol 204 H LDL Cholesterol, Calc 119 H HDL Cholesterol 40 L TSH 1.80 Free T4 1.22 TSH Receptor Ab Thyroid Peroxidase Ab 489 H Imaging Thyroid US: 07/22/2020 Right Thyroid Lobe: 4.7 x 2.1 x 1.8 cm, volume 9.3 mL. Parenchyma: The gland echotexture is heterogeneous. Thyroid vascularity is mildly increased. Left Thyroid Lobe: 4.6 x 1.4 x 1.5 cm, volume 5.1 mL. Parenchyma: The gland echotexture is heterogeneous. Thyroid vascularity is normal. Isthmus: 0.5 cm in maximum AP dimension. RIGHT THYROID LOBE: No nodules. ISTHMUS: No nodules. LEFT THYROID LOBE: No nodules. NODES: Right neck lymph node measures 0.8 x 1.8 x 0.4 cm. Left neck lymph node measures 0.7 x 0.9 x 0.4 cm. [facility] Medical History (Updated 05/12/24 @ 10:07 by Nano Knapp MD) Obesity (BMI 30-39.9) Arthritis of right knee Diabetes mellitus with hyperglycemia, without long-term current use of insulin Mixed dyslipidemia Left ACL tear Elevated liver enzymes Annual visit for general adult medical examination with abnormal findings History of gestational diabetes Obesity Vitamin D deficiency Hypothyroidism Jessica's disease Anti-TPO antibodies present Surgical History Hx of anterior cruciate ligament tear reconstruction Tubal ligation status Hx of section Hx of cholecystectomy Hx of knee surgery Family History Father Colon cancer Mother Breast cancer Substance use disorder Sister Substance use disorder Maternal Aunt Substance use disorder Maternal Uncle Substance use disorder Paternal Uncle Substance use disorder Social History Household Members: Children Housing: Condominium Alcohol intake: never Patient Tobacco Use Status: Never used Tobacco e-Cigarette/Vaping Use: Never Used service: Yes Current occupational status: employed 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 Continue levothyroxine 75 mcg daily. Plan: -continue levothyroxine 75 mcg (2) Diabetes mellitus with hyperglycemia, without long-term current use of insulin: Code(s): E11.65 - Type 2 diabetes mellitus with hyperglycemia Category: Medical Qualifiers: Diabetes mellitus type: type 2 Qualified Code(s): E11.65 - Type 2 diabetes mellitus with hyperglycemia Plan: Patient diagnosed with type 2 diabetes in November of 2022, she has not been on any medications. Her A1c was at 9.9% from November 2023, she has brought it down to 7.2% with lifestyle modifications most recently checked on April 2024. Last visit I had plan to start Trulicity in her given BMI of 37.5 kg per m2 as she would benefit from weight loss in addition to diabetes management. However unfortunately her insurance did not cover Trulicity before trying metformin. Started metformin 500 mg b.i.d. 05/20/2024. She is checking blood sugars more frequently, fastings have been anywhere from 100-130. Post meals 150s. Her A1c still above target of 7%. We will plan to recheck in 3 months. Her BMI is 37.5 kg per m2. She would be a good candidate for GLP 1 agonist. No family history of thyroid cancer. No history of pancreatitis, she does not drink alcohol, is status post cholecystectomy. I will plan to start her on a GLP 1 agonist next visit. She does report 2 episodes where her blood sugars dropped to 50s and 60s, metformin does not cause hypoglycemia but if she continues to have these episodes I might reduce her metformin to 500 mg once a day. Plan: -continue metformin 500 mg b.i.d. -monitor blood sugars fasting 2 to 3 times a week -up-to-date with eye visit, no history of retinopathy -foot exam done may 01 -lifestyle modification advised with 150 minutes of exercise in a week, 500 calorie deficit daily -follow up in 3 months with repeat labs (3) Mixed dyslipidemia: Code(s): E78.2 - Mixed hyperlipidemia Category: Medical Plan: LDL at 119 mg/dL. Goal LDL less than 90 mg/dL Started atorvastatin 40 mg daily. She is reporting some intermittent muscle aches. I have asked her to monitor these and if they get worse to let us know to consider switching atorvastatin to rosuvastatin or making atorvastatin every other day. Plan: -continue atorvastatin 40 mg daily we will have her repeat lipid panel in 3 months (4) Obesity (BMI 30-39.9): Code(s): E66.9 - Obesity, unspecified Category: Medical Plan: BMI 37.5 kg per m2. She has lost 10 lb over the past year due to lifestyle modification. Lifestyle modification advised with 150 minutes exercise of per week, 500 calorie deficit daily. We will plan to start her on a GLP 1 agonist for weight loss at next visit. Trulicity was prescribed previously for diabetes management plus weight loss however was refused by insurance unless she was started on metformin. Now she has been on metformin for 2 weeks. Plan: -lifestyle modification advised -plan to start GLP 1 agonist in the near future -we also briefly talked about bariatric surgery today, that she would qualify for bariatric surgery with her current BMI, she is more interested in possibly pursuing a tummy tuck/liposuction. She is going to think about it and let me k now but I have let her know that we can refer her to bariatric surgery if she is interested. Briefly discussed resolution of diabetes seen in bariatric surgery. Plan I spent 30 minutes in reviewing the record, seeing the patient and documenting in the medical record. Patient Instructions: Continue metformin 500 mg twice daily If you notice more episodes of blood sugars less than 70, please let us know through portal and we will decrease metformin If you have muscle aches , inform me Rule of 15 Treatment for Hypoglycemia (Low blood sugar) If your blood glucose is low (70 and below)*, follow the steps below to treat: Eat or drink something from the list below equal to 15 grams of carbohydrate (carb). Rest for 15 minutes Re-check your blood glucose. If it is still low, (below 70), repeat step 1 above. ? If your next meal is more than an hour away, you will need to eat one carbohydrate choice as a snack to keep your blood glucose from going low again. ?If you can't figure out why you have low blood glucose, call your healthcare provider, as your medicine may need to be adjusted. ?Always carry something with you to treat an insulin reaction. Use food from the list below. ? Foods equal to One Carbohydrate Choice (15 grams of carbohydrate): 3 Glucose ?tablets or 4 Dextrose tablets 4 ounces of fruit juice 5-6 ounces (about 1/2 can) of regular soda such as Coke or Pepsi ? 7-8 gummy or regular Life Savers ? 1 Tbsp. of sugar or jelly NOTE: If your blood sugar is less than 50, double the portion above for a total of 30 gm. ?Carbohydrate. ? Follow meal plan of 45-60 g of consistent carbohydrates at 3 meals each day and 15 g of carbohydrate at 1-2 snacks each day. Do labs a week prior to your visit with me fasting blood and urine Weight loss counselling ? Limit added sugars to less than 25 grams daily. There are 4.2 grams of sugar per teaspoon of sugar. A teaspoon of honey has 6 grams of sugar! Bread also can have more sugar than you think-check labels ? No soda or juices. Drink water, unsweetened iced tea or seltzer ? Limit eating out/take out or prepared meals to twice weekly at most ? Avoid red meat, hot dogs, jernigan and deli meat. Substitute plant protein for animal protein as much as you can. Beans, nuts, tofu, soy milk ? Limit cheese to 1 ounce a few times weekly ? Eat high fiber foods like beans, apples and green veggies, salsa is a great snack with whole grain cracker like Wasa ? Look for the whole grain stamp when choosing bread etc. Aim for 48 grams of whole grains daily. Whole wheat does not equal whole grains! ? Don't keep tempting treats in the house. Go out once in a while for a treat. ? Don't eat anything deep fried or cream based-no sour cream Coding Level of Care Code Est Pt Level 4 (09153) Complex EM visit Add On G2211 Diagnoses Hypothyroidism, unspecified type E03.9 Hypothyroidism type: unspecified Type 2 diabetes mellitus with hyperglycemia, without long-term current use of insulin E11.65 Diabetes mellitus type: type 2 Mixed dyslipidemia E78.2 Obesity (BMI 30-39.9) E66.9 Time Spent (min) 30
[2024-05-30 09:49] LABS: Glucose, Whole Blood 133 mg/dL (60-115)
== END 2024-05-30 10:05 | disposition home or self-care (01) ==
PROVIDERS: PCP Internal Medicine; Visit Provider Student in an Organized Health Care Education/Training Program
DX: E03.9 Hypothyroidism, unspecified (principal); E11.65 Type 2 diabetes mellitus with hyperglycemia; E78.2 Mixed hyperlipidemia; E66.9 Obesity, unspecified
CPT/HCPCS: 99214; G2211

== ENCOUNTER → 2024-05-30 09:34 | Outpatient (BNVA) | payer OTHER, SELFPAY | PROVIDERS: PCP Internal Medicine; Visit Provider Student in an Organized Health Care Education/Training Program | DX: E11.65 Type 2 diabetes mellitus with hyperglycemia (principal); E03.9 Hypothyroidism, unspecified; E78.2 Mixed hyperlipidemia; E66.9 Obesity, unspecified; Z79.84 Long term (current) use of oral hypoglycemic drugs; Z68.37 Body mass index [BMI] 37.0-37.9, adult | CPT/HCPCS: 82947; 99212 ==

== ENCOUNTER 2024-07-17 10:18 | Outpatient (REF) | payer OTHER, SELFPAY ==
--- OUTSIDE RECORDS SUMMARY | 2024-07-17 10:53 | XMS_ITS | Continuity of Care Document ---
Author Name [facility] Organization [facility] Care Team Providers Care Quality Director Name Role Phone [facility] Unavailable Unavailable Problems Combined list of problems from Department of Defense and Veterans Affairs facilities. It does not include entries that were removed or entered in error. Problem Status Onset Date Problem Type Date of Resolution Comments Source visit for: administrative purpose Inactive 12/22/2010 Condition DoD foot pain (soft tissue) Active Condition [facility] Brace Inactive Condition [facility] visit for: services physical accession Active Condition DoD Medications Combined list of outpatient medications from Department of Defense and Veterans Affairs facilities.Medications provided include 1) outpatient medications from the last 15 months, and 2) patient-reported medications. Medication Details Route Status Patient Instructions Prescription Expires Prescription Number Last Dispense Date Ordering Provider Order Date Order Qty Source diclofenac 1% topical gel diclofen ac 1% topical gel Start Date: 12/09/20 Status: Ordered Ordered No Facilit y Access FREESTYLE LANCETS (lancets), 28 GAUGE, EACH, MISCELL, HERRERA DIABETES, 100 ea. PACKET Cancele d [id number] : 2023 0 Pharmac y Data Transac tion Service Facilit y FREESTYLE LANCETS (lancets), 28 GAUGE, EACH, MISCELL, HERRERA DIABETES, 100 ea. PACKET Active [id number] 4 2023 100 Pharmac y Data Transac tion Service Facilit y FREESTYLE LITE TEST STRIP (blood sugar diagnostic) , STRIP, MISCELL, HERRERA DIABETES, 100 ea. BOX Cancele d [id number] : 2023 0 Pharmac y Data Transac tion Service Facilit y FREESTYLE LITE TEST STRIP (blood sugar diagnostic) , STRIP, MISCELL, HERRERA DIABETES, 100 ea. BOX Active [id number] 12/12/19 2 4 2023 100 Pharmac y Data Transac tion Service Facilit y levothyroxi ne 50 mcg oral tablet levothyr oxine 50 mcg oral tablet Start Date: 02/28/21 Status: Ordered Ordered No Facilit y Access levothyroxi ne 75 mcg oral tablet levothyr oxine 75 mcg oral tablet Start Date: 04/06/21 Status: Ordered Ordered No Facilit y Access LEVOTHYROXI NE SODIUM (levothyrox ine sodium), 75 MCG, TABLET, ORAL, AMNEAL PHARMACE, 1000 ea. BOTTLE Active [id number] 4 2023 90 Pharmac y Data Transac tion Service Facilit y LEVOTHYROXI NE SODIUM (levothyrox ine sodium), 75 MCG, TABLET, ORAL, AMNEAL PHARMACE, 1000 ea. BOTTLE Cancele d [id number] : 2023 0 Pharmac y Data Transac tion Service Facilit y lidocaine 2% topical gel with applicator lidocain e 2% topical gel with applicat or Start Date: 05/29/21 Status: Ordered Ordered No Facilit y Access Allergies, Adverse Reactions, Alerts Combined list of allergies from Department of Defense and Veterans Affairs facilities. It does not include entries that were removed or entered in error. Substance Category Reaction Severity Reaction type Status Date Reported Comments Source No Known Allergies Drug allergy (disorder) active 12/22/2010 [place] [address] Immunizations Combined list of available immunizations from the Department of Defense and Veterans Affairs facilities. Immunization Series Date Given Administered By Site Reaction Lot Number CVX Code Drug Vegetable Buncher Status Comments Source influenza virus vaccine, inactivated 2023 MEIR Cardenas tammi, left (delt oid) [id number] [facility] [employer] complet ed influenza virus vaccine, inactivat ed 05/11/24 Given 8203R-1 04 MDG influenza, injectable, quadrivalent- pf 2020 [id number] 150 GlaxoSmithKli ne complet ed influenza , injectabl e, quadrival ent-pf 04/01/21 Given Ambulat ory Pharmac y Influenza, injectable, quadrivalent, preservative free 1 2020 [id number] 150 SmithKline (SKB) complet ed Influenza , injectabl e, quadrival ent, preservat stuart free DoD tetanus, diphtheria, acellular pertu is 2020 [id number] sanofi pasteur complet ed tetanus, diphtheri a, acellular pertussis 03/24/21 Given Ambulat ory Pharmac y tetanus toxoid, reduced diphtheria toxoid, and acellular pertu is vaccine, adsorbed 1 2020 [id number] 115 Sanofi Pasteur ([facility]) complet ed tetanus toxoid, reduced diphtheri a toxoid, and acellular pertussis vaccine, adsorbed DoD COVID Vaccine Moderna 2020 [id number] complet ed COVID Vaccine Moderna 10/16/20 Given Ambulat ory Pharmac y SARS-COV-2 (COVID-19) vaccine, mRNA, spike protein, LNP, preservative free, 100 mcg or 50 mcg dose 2 2020 [id number] 207 Moderna Mobeon, Inc. (MOD) complet ed SARS-COV- 2 (COVID-19 ) vaccine, mRNA, spike protein, LNP, preservat stuart free, 100 mcg or 50 mcg dose DoD COVID Vaccine Moderna 2020 [id number] complet ed COVID Vaccine Moderna 09/18/20 Given Ambulat ory Pharmac y SARS-COV-2 (COVID-19) vaccine, mRNA, spike protein, LNP, preservative free, 100 mcg or 50 mcg dose 1 2020 [id number] 207 Moderna Mobeon, Inc. (MOD) complet ed SARS-COV- 2 (COVID-19 ) vaccine, mRNA, spike protein, LNP, preservat stuart free, 100 mcg or 50 mcg dose DoD influenza, injectable, quadrivalent- pf 2019 [id number] 150 Seqirus complet ed influenza , injectabl e, quadrival ent-pf 06/19/20 Given Ambulat ory Pharmac y Influenza, injectable, quadrivalent, preservative free 1 2019 [id number] 150 Seqirus (SEQ) complet ed Influenza , injectabl e, quadrival ent, preservat stuart free DoD influenza, injectable, quadrivalent- pf 2018 150 complet ed influenza , injectabl e, quadrival ent-pf 05/07/19 Given Ambulat ory Pharmac y influenza, injectable, quadrivalent, preservative free 2018 ANGELICA, () Not Given influenza , injectabl e, quadrival ent, preservat stuart free DoD Influenza, injectable, quadrivalent, preservative free 0 2018 150 (MVX) complet ed Influenza , injectabl e, quadrival ent, preservat stuart free DoD influenza, injectable, quadrivalent- pf 2017 150 complet ed influenza , injectabl e, quadrival ent-pf 06/28/18 Given Ambulat ory Pharmac y Influenza, injectable, quadrivalent, preservative free 0 2017 150 (MVX) complet ed Influenza , injectabl e, quadrival ent, preservat stuart free DoD Influenza, inj, MDCK, quadrivalent- pf [id number] 171 Seqirus complet ed Influenza , inj, MDCK, quadrival ent-pf 05/13/17 Given Ambulat ory Pharmac y Influenza, injectable, Madin [place] Canine Kidney, preservative free, quadrivalent 9 [id number] 171 Seqirus (SEQ) comple t ed Influenza , injectabl e, Madin [place] Canine Kidney, preservat stuart free, quadrival ent DoD influenza, seasonal, injectable-pf 2015 [id number] 140 GlaxoSmithKli ne complet ed influenza , seasonal, injectabl e-pf 04/22/16 Given Ambulat ory Pharmac y Influenza, seasonal, injectable, preservative free 1 2015 [id number] 140 SmithKline (SKB) complet ed Influenza , seasonal, injectabl e, preservat stuart free DoD influenza, seasonal, injectable-pf 2014 [id number] 140 GlaxoSmithKli ne complet ed influenza , seasonal, injectabl e-pf 06/22/15 Given Ambulat ory Pharmac y Influenza, seasonal, injectable, preservative free 1 2014 140 SmithKline (SKB) complet ed Influenza , seasonal, injectabl e, preservat stuart free DoD influenza, live, intranasal,qu adrivalent 2013 [id number] 149 Medimmune Inc comple t ed influenza , live, intranasa l,quadriv alent 04/12/14 Given Ambulat ory Pharmac y influenza, live, intranasal, quadrivalent 7 2013 [id number] 149 MedImmune, Inc. (MED) complet ed influenza , live, intranasa l, quadrival ent DoD influenza, seasonal, injectable-pf 2012 140 complet ed influenza , seasonal, injectabl e-pf 04/26/13 Given Ambulat ory Pharmac y influenza, seasonal, injectable 2012 [id number] 141 Unknown complet ed influenza , seasonal, injectabl e 04/26/13 Given Ambulat ory Pharmac y Influenza, seasonal, injectable, preservative free 0 2012 140 (MVX) complet ed Influenza , seasonal, injectabl e, preservat stuart free DoD Influenza, seasonal, injectable 1 2012 [id number] 141 Unknown (UNK) comple t ed Influenza , seasonal, injectabl e DoD measles virus vaccine 0 2012 05 () Not Given measles virus vaccine DoD rubella virus vaccine 0 2012 06 () Not Given rubella virus vaccine DoD influenza, seasonal, injectable 2011 [id number] 1A 141 CSL Behring complet ed influenza , seasonal, injectabl e 04/20/12 Given Ambulat ory Pharmac y hepatitis B adult vaccine 2011 [id number] [id number] 43 GlaxoSmithKli ne complet ed hepatitis B adult vaccine 04/20/12 Given Ambulat ory Pharmac y hepatitis A adult vaccine 2011 [id number] 2AA 52 GlaxoSmithKli ne complet ed hepatitis A adult vaccine 04/20/12 Given Ambulat ory Pharmac y hepatitis B vaccine, adult dosage 3 2011 [id number] 0AB 43 SmithKline (SKB) complet ed hepatitis B vaccine, adult dosage DoD hepatitis A vaccine, adult dosage 3 2011 [id number] 2AA 52 SmithKline (SKB) complet ed hepatitis A vaccine, adult dosage DoD Influenza, seasonal, injectable 4 2011 [id number] 1A 141 CSMaximum Balance FoundationaptheRightAPI, Inc. (CSL) complet ed Influenza , seasonal, injectabl e DoD influenza virus vaccine, live 2010 [id number] 111 Drikune Inc comple t ed influenza virus vaccine, live 04/13/11 Given Ambulat ory Pharmac y influenza virus vaccine, live, attenuated, for intranasal use 1 2010 [id number] 111 Codenomicon, Inc. (MED) complet ed influenza virus vaccine, live, attenuate d, for intranasa l use DoD hepatitis A-hepatitis B vaccine 2010 [id number] 3CA 104 GlaxoSmithKli ne complet ed hepatitis A-hepatit is B vaccine 02/07/11 Given Ambulat ory Pharmac y hepatitis A and hepatitis B vaccine 2 2010 [id number] 3CA 104 SmithKline (SKB) complet ed hepatitis A and hepatitis B vaccine DoD hepatitis A-hepatitis B vaccine 2010 [id number] 1BA 104 GlaxoSmithKli ne complet ed hepatitis A-hepatit is B vaccine 12/21/10 Given Ambulat ory Pharmac y measles, mumps and rubella virus vaccine 1 2010 03 () Not Given measles, mumps and rubella virus vaccine DoD varicella virus vaccine 1 2010 21 () Not Given varicella virus vaccine DoD hepatitis A and hepatitis B vaccine 1 2010 [id number] 1BA 104 SmithKline (SKB) complet ed hepatitis A and hepatitis B vaccine DoD tuberculin purified protein derivative 2010 [id number] 96 sanofi pasteur complet ed tuberculi n purified protein derivativ e 12/18/10 Given Ambulat ory Pharmac y influenza virus vaccine,split 2010 [id number] 15 CSL Behring complet ed influenza virus vaccine,s plit 12/15/10 Given Ambulat ory Pharmac y tetanus, diphtheria, acellular pertu is 2010 [id number] 115 GlaxoSmithKli ne complet ed tetanus, diphtheri a, acellular pertussis 12/15/10 Given Ambulat ory Pharmac y meningococcal A,C,Y,W-135 (MCV4P) 2010 [id number] 114 sanofi pasteur complet ed meningoco ccal A,C,Y,W-1 35 (MCV4P) 12/15/10 Given Ambulat ory Pharmac y poliovirus vaccine, inactivated 2010 [id number] 10 sanofi pasteur complet ed polioviru s vaccine, inactivat ed 12/15/10 Given Ambulat ory Pharmac y poliovirus vaccine, inactivated 1 2010 [id number] 10 Sanofi Pasteur ([facility]) complet ed polioviru s vaccine, inactivat ed DoD influenza virus vaccine, split virus (incl. purified surface antigen)-reti red CODE 1 2010 [id number] 15 CSMaximum Balance Foundationapies, Inc. (CSL) complet ed influenza virus vaccine, split virus (incl. purified surface antigen)- retired CODE DoD meningococcal polysaccharid e (groups A, C, Y and W-135) diphtheria toxoid conjugate vaccine (MCV4P) 1 2010 [id number] 114 Sanofi Pasteur ([facility]) complet ed meningoco ccal polysacch aride (groups A, C, Y and W-135) diphtheri a toxoid conjugate vaccine (MCV4P) DoD tetanus toxoid, reduced diphtheria toxoid, and acellular pertu is vaccine, adsorbed 1 2010 [id number] [id number] 115 [employer] (SKB) complet ed tetanus toxoid, reduced diphtheri a toxoid, and acellular pertussis vaccine, adsorbed DoD influenza, seasonal, injectable 2010 141 Novartis Pharmaceutica ls complet ed influenza , seasonal, injectabl e 07/13/10 Given Ambulat ory Pharmac y Influenza, seasonal, injectable 0 2010 141 Novartis Palatin [employer] Julio. (NOV) complet ed Influenza , seasonal, injectabl e DoD Results Combined list of recent chemistry, hematology and other laboratory results from Department of Defense and Veterans Affairs, ranging from 15 months to all on record, depending upon the facility. Order Name Results Value Reference Range Date Interpretation Specimen Comments Source Infectio us Disease HIV-1/O/2 Non-Reac tive 1 (09/20/23 10:32 AM) 09/19 N Interpretiv e Data: INTERPRETAT ION: This method is a screening procedure for the detection of HIV p24 Antigen and Antibodies to HIV-1, including Group O, and/or HIV-2. NON-REACTIV E: HIV-1 antigen and HIV-1 / HIV-2 antibodies were not detected. No laboratory evidence of HIV infection. A negative test result does not exclude the possibility of exposure to or infection with HIV. HIV antibodies and/or p24 antigen may be undetectabl e in some stages of the infection and in some clinical conditions. If acute HIV infection is suspected, consider submitting another specimen to a reference laboratory for HIV-1 RNA. SCREEN REACTIVE - CONFIRMATIO N TO FOLLOW: Possible presence of HIV-1antibo dies, HIV-2 antibodies and/or HIV-1 p24 antigen. Specimen will reflex to the confirmatio n testing that fulfills the Center for Disease Control and Prevention' s HIV diagnostic algorithm. Refer to [facility] Lab Guide for additional information : [email or web address]/ [email or web address] x Testing performed by Clint reilly. [facility] Rafael gonzalez [facility] Repository Sample Received (09/20/23 10:32 AM) 09/19 N [facility] Vital Signs Combined list of inpatient and outpatient Vital Signs from Department of Defense and Veterans [facility], ranging from 12 months to all on record, depending upon the facility. Vital Sign Value Date Comments Source No data available for this section Ambulatory Pharmacy Encounters Combined list of: 1) Encounters from Department of Veterans Affairs facilities going back up to thelast 18 months. 2) Encounters from the Department of [employer] facilities going back up to 280 months. Location Location Details Encounter Type Encounter Number Reason For Visit Attending Provider ADM Date DC Date Status Disposition Source [facility] [address](Opt ometry Clinic [facility]) OUTPATIENT [id number] JOANN MARTINEZ 12/19 Released w/o Limitations [facility] [place] [address](O ptometr y Clinic [facility]MT [facility]) [facility] [address](MAS Norris) OUTPATIENT [id number] pain pack SHERWIN CLIFTON 12/21 Released w/o Limitations [facility] [place] [address](M Norris) [place] [address](MAS [facility]) OUTPATIENT [id number] pain pack YESSENIA MIRAMONTES 01/04 Released w/o Limitations [facility] [place] [address](M [place]) [place] [address](Ort hotic Svcs, [facility]) OUTPATIENT [id number] HERBER WOODS 01/05 Released w/o Limitations [facility] [place] [address](O rthotic Svcs, [facility]) [place] [address](MAS Norris) OUTPATIENT [id number] Pain Pack SUSIE NUNEZ 01/13 Released w/o Limitations [facility] [place] [address](M [place]) [place] [address](MAS [facility]) OUTPATIENT [id number] pain/bl ister OMER Mckeon 01/19 Released w/o Limitations [facility] [place] [address](M Norris) [place] [address](MAS Beast) OUTPATIENT [id number] Cold Pk/Pain Pk ROSE MARIE HAMILTON Marylin 01/25 Released w/o Limitations [facility] [place] [address](M Beast) [facility] [address](MAS Norris) OUTPATIENT [id number] pain KULWINDER YESSENIA Héctor 01/31 Released w/o Limitations [facility] [place] [address](M Norris) [facility] [address](MAS Norris) OUTPATIENT [id number] pain hang CLIFTONTRISTANKatie Wilson 02/09 Released w/o Limitations [facility] [place] [address](M [place]) [facility] [address](AFN G 104 Med Sq-FM) OUTPATIENT [id number] Notes Entered by: JUAN M GODFREY 07 Aug 2017 0823 ------- ------- ------- ------- -- JUAN M SULLIVAN 08/07 Released w/o Limitations [facility] [place] [address](A FNG 104 Med Sq-FM) [facility] [address](AFN G 104 Med Sq-FM) OUTPATIENT [id number] Notes Entered by: JUAN M GODFREY 10 Jul 2019 0847 ------- ------- ------- ------- -- JUAN M SULLIVAN 07/10 Released w/o Limitations [facility] [place] [address](A FNG 104 Med Sq-FM) [place] [address](AFN G 104 Med Sq-FM) OUTPATIENT [id number] Notes Entered by: EPIFANIOJUAN M CARNES ARELIS 25 Aug 2020 1559 ------- ------- ------- ------- -- DORINDA GODFREYMANUELJUAN MENDER INFANTE 08/25 Released w/o Limitations [facility] [place] [address](A FNG 104 Med Sq-FM) [address] [place] [address](Opt ometry [facility] [place]) OUTPATIENT [id number] Pre-PRK appt ELENA SIBLEY 04/22 Released w/o Limitations [address] [place] [address](O ptometr y [facility] [place]) [place] [address](AFN G 104 Med Sq-FM) TELE CONSULT [id number] EPIFANIOMANUELJUAN MENDER INFANTE 05/17 [facility] [place] [address](A FNG 104 Med Sq-FM) [place] [address](AFN G 104 Med Sq-FM) OUTPATIENT [id number] Notes Entered by: Maurice LYON 22 Sep 2021 1607 ------- ------- ------- ------- -- SANTO MILLAN 09/22 Released w/o Limitations [facility] [place] [address](A FNG 104 Med Sq-FM) [address] [place] [address](Opt ometry Cl [place]) OUTPATIENT [id number] PRK consult ELENA SIBLEY 11/24 Released w/o Limitations [address] [place] [address](O ptometr y [facility] [place]) [facility] [address](AFN G 104 Med Sq-FM) TELE CONSULT [id number] EPIFANIOMANUEL CARNESENDER INFANTE 03/17 [facility] [place] [address](A FNG 104 Med Sq-FM) [facility], [facility](AFN G 104 Med Sq-FM) TELE CONSULT [id number] JUAN M GODFREY [facility] [address](A FNG 104 Med Sq-FM) 8203R-104 MDG Care Not Rendered [id number] 01/31 Discharge Disposition: Home or Self Care 8203R-1 04 MDG 8203R-104 MDG Mass Vaccine [id number] 05/11 Discharge Disposition: Home or Self Care 8203R-1 04 MDG 8203R-104 MDG Mass Vaccine [id number] 05/13 8203R-1 04 MDG 8203R-104 MDG Care Not Rendered [id number] 05/16 Discharge Disposition: Home or Self Care 8203R-1 04 MDG 8203R-104 MDG Care Not Rendered [id number] 06/10 Discharge Disposition: Home or Self Care 8203R-1 04 MDG Procedures Combined list of: 1) Procedures from Department of Veterans Affairs facilities going back up to thelast 18 months, not all VA non-surgical procedures are included; 2) All procedures from the Department of Defense facilities. Procedure Procedure Type Code Date Perfomer Comments Sourc e No data available for this section Ambulato ry Pharmacy Physical Therapy Education Orthotics Training Initial 15 Min 011 HERBER WOODS DoD Foot, arch support, removable, premolded, longitudinal, each 011 HERBER WOODS Screening Test Of Visual Acuity, Quantitative, Bilateral Screening Test Of Visual Acuity, Quantitative, Bilateral [id number] 011 ELONU, FRANCISCO U DoD Spectacles Services Fitting Monofocal Except For Aphakia Spectacles Services Fitting Monofocal Except For Aphakia 09329 011 ELONU, FRANCISCO U DoD Ophthalmological New Patient Start Comprehensive Care Ophthalmological New Patient Start Comprehensive Care [address] ELENA SIBLEY Determination Of Refractive State Determination Of Refractive State [address] ELENA SIBLEY Spectacles Services Fitting Monofocal Except For Aphakia Spectacles Services Fitting Monofocal Except For Aphakia 82359 ELENA SIBLEY. [facility] Ophthalmological Prior Patient Start Comprehensive Care Ophthalmological Prior Patient Start Comprehensive Care 51996 ELENA SIBLEY. Lydia Computerized Corneal Topography Computerized Corneal Topography 88208 ELENA SIBLEY Corneal Pachymetry Corneal Pachymetry 15953 ELENA SIBLEY OPHTHALMIC ULTRASOUND, ECHOGRAPHY, DIAGNOSTIC; CORNEAL PACHYMETRY, UNILATERAL OR BILATERAL (DETERMINATION OF CORNEAL THICKNESS) 022 [facility] FITTING OF SPECTACLES, EXCEPT FOR APHAKIA; MONOFOCAL 021 [facility] ORTHOTIC(S) MANAGEMENT AND TRAINING (INCLUDING ASSESSMENT AND FITTING WHEN NOT OTHERWISE REPORTED),UPPER EXTREMITY(IES),LOWER EXTREMITY(IES) AND/OR TRUNK,INITIAL ORTHOTIC(S) ENCOUNTER,EACH 15 MINUTES 011 [facility] THERAPEUTIC, PROPHYLACTIC, OR DIAGNOSTIC INJECTION (SPECIFY SUBSTANCE OR DRUG); SUBCUTANEOUS OR INTRAMUSCULAR 011 [facility] SCREENING TEST OF VISUAL ACUITY, QUANTITATIVE, BILATERAL 011 [facility] Social History Combined list of available smoking, tobacco, and other social history from Department of Defense and Veterans Affairs facilities. Social History Type Response Date Comment Sourc e This section is an empty social history section. DoD Assessment and Plan Combined list of future care activities from Department of Defense and Veterans Affairs facilities (e.g., assessment and plan notes, appointments, orders, and referrals). Additional future care activities may be listed in the Plan of Care section. Result Assessment and Plan Date Source Assessment and Plan No data available for this section 07/17/2024 Ambulatory Pharmacy Functional Status Combined list of recent functional and cognitive assessments recorded at Department of Defense and Veterans Affairs ([place] Functional Whitney Measurement (FIM) Scale: 1 = Total Assistance (Subject = 0% +), 2 = Maximal Assistance (Subject = 25% +), 3 = Moderate Assistance (Subject = 50% +), 4 = Minimal Assistance (Subject = 75% +), 5 = Supervision, 6 = Modified Whitney (Device), 7 = Complete Whitney (Timely, Safely). Assessment Date/Time Source Assessment Type Assessment Skill Assessment Score Assessment Details No data available for this section
[2024-07-17 10:59] LABS: Estimated Average Glucose 126 mg/dL; Hemoglobin A1C 151.6962 umol/L
[2024-07-17 11:33] LABS: Creatinine Urine 239.42 mg/dL; Microalbum/Creatinine Ratio Ur 10.8 ug/mg cr (<30)
[2024-07-17 11:39] LABS: Alanine Aminotransferase 23 U/L (0-31); Albumin Level 4.2 g/dL (3.5-5.0); Anion Gap 11 (12-20); Aspartate Amino Transferase 26 U/L (5-31); Bilirubin Direct 0.4 mg/dL (0.0-0.5); Bilirubin Total 1.1 mg/dL (0.0-1.0); Blood Urea Nitrogen 11 mg/dL (9-16); Calcium 9.3 mg/dL (8.4-10.2); Carbon Dioxide 24 mmol/L (22-29); Chloride 108 mmol/L (96-108); Cholesterol 123 mg/dL (<200); Estimated Glomerular Filt Rate > 60; Glucose Random 147 mg/dL (60-115); HDL Cholesterol 38 mg/dL (>40); LDL Cholesterol Calculated 56 mg/dL (<100); Potassium 4.3 mmol/L (3.3-5.1); Sodium 139 mmol/L (135-145); Total Protein 7.3 g/dL (6.5-8.0); Triglycerides 145 mg/dL (<150)
[2024-07-17 12:27] LABS: Alkaline Phosphatase 70 U/L (39-117)
[2024-07-19 08:27] LABS: C Peptide 3.92 ng/mL (0.80-3.85)
[2024-07-21 20:37] LABS: Glutamic acid decarboxylase Ab <5 IU/mL (<5)
[2024-07-21 22:03] LABS: Islet Cell Antibody Screen NEGATIVE (NEGATIVE)
== END 2024-07-17 10:19 | disposition home or self-care (01) ==
LOC: HO.LAB 10:18
PROVIDERS: PCP Internal Medicine; Visit Provider Student in an Organized Health Care Education/Training Program
DX: E11.65 Type 2 diabetes mellitus with hyperglycemia (principal); E78.2 Mixed hyperlipidemia; E03.9 Hypothyroidism, unspecified
CPT/HCPCS: 36415; 80048; 80061; 80076; 82043; 82570; 83036; 84681; 86341

== ENCOUNTER 2024-07-21 09:00 | Outpatient (AMB) | payer OTHER, SELFPAY ==
[2024-07-21 09:10] VITALS: BMI 35.7
--- NOTE | 2024-07-21 09:10 | A.OFFVIS_ITS ---
VS Expanded 07/21/24 09:10 Height 5 ft 6 in Weight 220 lb 14.451 oz BMI 35.7 Intake Visit Reasons: T2DM/Confirmed Allergies acetaminophen [Percocet] Allergy (Unknown, Verified 05/30/24 09:43) cant see up close oxycodone [Percocet] Allergy (Unknown, Verified 05/30/24 09:43) blurred vision Pitocin Allergy (Unknown, Uncoded 05/30/24 09:43) Unknown Nutrition Presentation Details: Pt presents for MMT f/u for T2DM Pt reports doing well, working on diet modifications BS Monitoring Most Recent Diabetes Results: Microalb/Creat Ratio 10.8 ug/mg cr (<30) 07/17/24 Cholesterol 123 mg/dL (<200) 07/17/24 HDL Cholesterol 38 mg/dL (>40) L 07/17/24 Triglycerides 145 mg/dL (<150) 07/17/24 Creatinine 0.79 mg/dL (0.5-1.4) 07/17/24 Blood Urea Nitrogen 11 mg/dL (9-16) 07/17/24 Sodium 139 mmol/L (135-145) 07/17/24 Potassium 4.3 mmol/L (3.3-5.1) 07/17/24 Chloride 108 mmol/L (96-108) 07/17/24 Carbon Dioxide 24 mmol/L (22-29) 07/17/24 Calcium 9.3 mg/dL (8.4-10.2) 07/17/24 AST 26 U/L (5-31) 07/17/24 ALT 23 U/L (0-31) 07/17/24 Total Protein 7.3 g/dL (6.5-8.0) 07/17/24 Albumin 4.2 g/dL (3.5-5.0) 07/17/24 [facility] [place] Medical History (Updated 05/12/24 @ 10:07 by Nano Knapp MD) Obesity (BMI 30-39.9) Arthritis of right knee Diabetes mellitus with hyperglycemia, without long-term current use of insulin Mixed dyslipidemia Left ACL tear Elevated liver enzymes Annual visit for general adult medical examination with abnormal findings History of gestational diabetes Obesity Vitamin D deficiency Hypothyroidism Jessica's disease Anti-TPO antibodies present Surgical History Hx of anterior cruciate ligament tear reconstruction Tubal ligation status Hx of section Hx of cholecystectomy Hx of knee surgery Family History Father Colon cancer Mother Breast cancer Substance use disorder Sister Substance use disorder Maternal Aunt Substance use disorder Maternal Uncle Substance use disorder Paternal Uncle Substance use disorder Social History Household Members: Children Housing: Condominium Alcohol intake: never Patient Tobacco Use Status: Never used Tobacco e-Cigarette/Vaping Use: Never Used service: Yes Current occupational status: employed 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 Cognitive needs: No Hearing needs: No Vision needs: Yes Assessment & Plan Assessment & Plan (1) Diabetes mellitus with hyperglycemia, without long-term current use of insulin: Code(s): E11.65 - Type 2 diabetes mellitus with hyperglycemia Category: Medical Qualifiers: Diabetes mellitus type: type 2 Qualified Code(s): E11.65 - Type 2 diabetes mellitus with hyperglycemia Plan: Wt: 104 Kg (06/01 ), 100 kg (07/2024) Est kcal needs as per MSJ: 2100 (40% carb, 30% protein/fat) Est fluid needs as per 25-30 ml/d: 3100 Est prot per day as per 1 g/kg bw: 104 Recommend fiber intake : 8-10 g per day and gradually increase to 25-28 g per day for women and 35-38 g for men or as tolerated Recommend sodium intake per day : less than 2300 mg Educated patient on: ( R = reviewed V = verbalizes understanding N/R = needs review N/A = not applicable * Food sources of carbohydrate, adequate serving sizes and its role in various health conditions: R * Differences between complex carbohydrates a simple carbohydrates, role of fiber in diet: R * Lean protein sources of foods: R V NR * Differences between types of fats and role in diet (mono on saturated fat fatty acids, saturated fatty acids, trans fats): R * Food sources of sodium in salt and healthy modifications for heart health in kidney health: R V R/V * Healthy plate method concept: R * Physical activity: Benefits a precaution: R * Hypoglycemia protocol (rule of 15): R * Dietary prevention of Hyperglycemia: R Patient Instructions: Continue working on choosing fiber rich foods/whole grains and less refined carbohydrates include omega 3 source sof foods (fish oil, flaxseed as example) Keep physically active goal 150 minues per week or as tolerated Coding Level of Care Code Nutr Indiv Subseq (83679) Diagnoses Type 2 diabetes mellitus with hyperglycemia, without long-term current use of insulin E11.65 Diabetes mellitus type: type 2 Time Spent (min) 25
== END 2024-07-21 11:27 | disposition home or self-care (01) ==
PROVIDERS: PCP Internal Medicine; Visit Provider Dietitian, Registered
DX: E11.65 Type 2 diabetes mellitus with hyperglycemia (principal)

== ENCOUNTER → 2024-07-21 09:00 | Outpatient (BNVA) | payer OTHER, SELFPAY | PROVIDERS: PCP Internal Medicine; Visit Provider Dietitian, Registered | DX: E11.65 Type 2 diabetes mellitus with hyperglycemia (principal) | CPT/HCPCS: 97803 ==

== ENCOUNTER 2024-07-31 08:21 | Outpatient (AMB) | payer OTHER, SELFPAY ==
--- NOTE | 2024-07-31 09:37 | AM.OFFWIN_ITS ---
Intake Vital Signs 3 07/31/24 09:39 Weight 220 lb BP 130/84 Blood Pressure Location Lt brachial Position Sitting Pulse 72 Pulse Source Pulse Oximeter Pulse Oximetry (%) 98 Oxygen Delivery Method Room Air Intake Visit Reasons: EP-lower back rt side lump Intake Note: Patient here for lower right sided quad lump that has been present for a couple of weeks. Patient Tobacco Use Status: Never used Tobacco Allergies acetaminophen [Percocet] Allergy (Unknown, Verified 07/31/24 09:40) cant see up close oxycodone [Percocet] Allergy (Unknown, Verified 07/31/24 09:40) blurred vision Pitocin Allergy (Unknown, Uncoded 07/31/24 09:40) Unknown Do you need a note to return to daycare/school/sports/work: No HPI HPI Comments 2 History of Present Illness0 Details 44 y/o female patient who presents to [facility] walk in clinic with c/o right sided torso/back lump for weeks now. Reports tenderness with palpation. Denies any other symptoms. She does endorse some weight loss. [facility] Medical History (Updated 07/31/24 @ 10:33 by Sherry Alvarez NP) Lump of skin of back Obesity (BMI 30-39.9) Arthritis of right knee Diabetes mellitus with hyperglycemia, without long-term current use of insulin Mixed dyslipidemia Left ACL tear Elevated liver enzymes Annual visit for general adult medical examination with abnormal findings History of gestational diabetes Obesity Vitamin D deficiency Hypothyroidism Jessica's disease Anti-TPO antibodies present Surgical History Hx of anterior cruciate ligament tear reconstruction Tubal ligation status Hx of section Hx of cholecystectomy Hx of knee surgery Family History Father Colon cancer Mother Breast cancer Substance use disorder Sister Substance use disorder Maternal Aunt Substance use disorder Maternal Uncle Substance use disorder Paternal Uncle Substance use disorder Social History Household Members: Children Housing: Condominium Alcohol intake: never Patient Tobacco Use Status: Never used Tobacco e-Cigarette/Vaping Use: Never Used service: Yes Current occupational status: employed 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 Small lump size of Grape fruit, round and soft, non mobile. Mild tenderness. Lump superficial. Neuro General: patient oriented x3, gait normal and moves all extremities Psych Speech and movement: Normal speech and movement present Assessment & Plan Assessment & Plan (1) Lump of skin of back: Code(s): R22.2 - Localized swelling, mass and lump, trunk Plan: Suspect Lipoma vs Cyst. Advised to f/u with PCP for Soft tissue U/S Coding Level of Care Code Est Pt Level 3 (57805) Diagnoses Lump of skin of back R22.2 Time Spent (min) 15
[2024-07-31 09:39] VITALS: BP 130/84; PULSE 72; O2SAT 98
== END 2024-07-31 10:36 | disposition home or self-care (01) ==
PROVIDERS: PCP Internal Medicine; Visit Provider Nurse Practitioner Family
DX: R22.2 Localized swelling, mass and lump, trunk (principal)

== ENCOUNTER → 2024-07-31 08:21 | Outpatient (BNVA) | payer OTHER, SELFPAY | PROVIDERS: PCP Internal Medicine; Visit Provider Nurse Practitioner Family | DX: R22.2 Localized swelling, mass and lump, trunk (principal) | CPT/HCPCS: 99212 ==

== ENCOUNTER 2024-08-12 08:25 | Outpatient (AMB) | payer OTHER, SELFPAY ==
[2024-08-12 08:31] VITALS: BP 130/68; PULSE 53; O2SAT 94; BMI 35.7
--- NOTE | 2024-08-12 08:31 | A.OFFVIS_ITS ---
Vital Signs 08/12/24 08:31 Height 5 ft 6 in Weight 221 lb 5.506 oz BMI 35.7 BP 130/68 Blood Pressure Location Rt brachial Position Sitting Pulse 53 Pulse Source Pulse Oximeter Pulse Oximetry (%) 94 Oxygen Delivery Method Room Air Intake Visit Reasons: Hypothyroidism, T2DM, autoimmune thyroiditis Intake Note: Patient present today for Type 2 Diabetes Mellitus, Hypothyroidism and autoimmune thyroiditis. Last Diabetic eye exam: 12/2023 Last Podiatry Visit: Doesn't have one Random Glucose: 153 mg/dl HgA1C: 6.0% 07/17/24 [employer] Required: No Accompanied by: Self / Same As Patient Allergies acetaminophen [Percocet] Allergy (Unknown, Verified 08/12/24 08:38) cant see up close oxycodone [Percocet] Allergy (Unknown, Verified 08/12/24 08:38) blurred vision Pitocin Allergy (Unknown, Uncoded 08/12/24 08:38) Unknown Medication List - Last Reconciled 08/12/24 by Nano Knapp MD atorvastatin 40 mg PO BEDTIME blood sugar diagnostic (FreeStyle Lite Strips) Test blood sugar once per day blood-glucose meter (FreeStyle Lite Meter kit) Check blood sugar daily diclofenac sodium 1% (Arthritis Pain (diclofenac)) 2 grams topical QID FreeStyle Karl 3 Plus Sensor (blood-glucose sensor) Check blood sugar 3 times per day, change sensor every 14 days NS FreeStyle Karl 3 Sultana (blood-glucose meter,continuous) As directed NS [Knee cooling device As directed Breg: Vpulse with Knee Pad Prod numbers #[id number], #[id number]] lancets (FreeStyle Lancets) Test blood sugar once per day levothyroxine 75 mcg PO DAILY 30 days metformin ER 500 mg PO BID HPI Comments Details: 43-year-old female coming in today for follow up of type 2 diabetes mellitus and hypothyroidism/Jessica's thyroiditis. Type 2 diabetes mellitus History of diabetes 2 pregnancies 2012 and 2015 both had GDM controlled with diet A1c 7 % Aug 2022 diagnosed with DM type 2 Prior therapy: none Current regimen: none she brought down a1c 9.15 Nov 2023 to 7.2 % in Apr 2024 with diet chnages Denies any symptoms of hyperglycemia including polyphagia, polyuria, polydipsia. Denies any hypoglycemic symptoms. HgA1c: 7.2% 04/26/24 HgA1C: 6.0% 07/17/24 SMBGs Fasting 90 to 150 mg/dl didnt bring meter today but this from recall post meals never above 190 , mostly 160s Random Glucose: 153 mg/dl just had almonds this morning Maternal side : lots of relatives uncles and aunts had Type 1 DM Paternal aunt had type 2 DM Complications Last Diabetic Eye exam: 01/2024, no retinopathy Last Podiatry Visit: Doesn't have one, neuropathy : none Kidney disease: no history of kidney disease Macrovascular complications: No history of macrovascular complications. Statin: atorvastatin 40 mg daily started May 2024, tolerating it better FRIDA/ARB: none Exercise: walks 3 or 4 times a week , 40 mins to 1 hr brisk walking , at a desk otherwise Diet control: eats from outside on days she is working too much s/p cholecystectomy no episodes of pancreatitis, no alcohol use No family history of thyroid cancer has never had any hospitalizations for hyperglycemia/hypoglycemia. Interval history no more hypoglycemic episdoes Eating better somewhat Hypothyroidism diagnosed with hypothyroidism during her and was on Levothyroxine during her pregnancies and continued on this for a few months , but then this was stopped. She then remained off levothyroxine for approximately 3 years. She had labs checked by her PCP 05/01/2020 which revealed a TSH high normal, and positive TPO antibodies. She was subsequently referred to Endocrinology. Labs were repeated, confirming Jessica's hypothyroidism with elevated TPO antibodies and elevated TSH. She was started on Levothyroxine again, and is on Levothyroxine 75 mcg PO daily at this time. She takes this correctly and reports good compliance. She does report persistent fatigue. She did have a tubal-ligation. She does mention fatigue. She denies any swelling in the neck or difficulty swallowing. 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 Paternal aunt has thyroid disease but no family history of thyroid cancer. Review of systems Constitutional: no fevers, chills or weight loss HEENT: no changes in vision Cardiac: No chest pain, discomfort or palpitations. Pulmonary: No SOB GI:No abdominal pain, no nausea or vomiting, no anorexia, no blood in stool : no burning micturition, dysuria or increase in urinary frequency Physical exam General: sitting comfortably in no acute distress HEENT: normocephalic/atraumatic, moist oral mucosa Neck: supple, symmetrical, no thyromegaly , no dorsocervical or supraclavicular fat pads Cardiac: normal heart sounds Pulm: normal breath sounds B/L, no added breath sounds Abd: not distended, no tenderness Extremities: no edema, no signs of myxedema Neuro: AAO x3, Speech: normal, no facial droop, moving all 4 extremities Skin: no rash Foot exam: Warm and well-perfused, intact sensation to monofilament, intact DP pulses, intact vibration Laboratory Tests 07/08/20 08/09/22 11/26/23 15:40 08:01 09:27 Plt Count 317 Creatinine Estimated GFR Hemoglobin A1c % 7.0 9.9 H AST ALT Triglycerides Cholesterol LDL Cholesterol, Calc HDL Cholesterol TSH Free T4 TSH Receptor Ab <1.00 Thyroid Peroxidase Ab 11/26/23 12/12/23 04/17/24 09:29 10:57 08:16 Plt Count Creatinine Estimated GFR Hemoglobin A1c % AST ALT Triglycerides 322 H 209 H Cholesterol 207 H 184 LDL Cholesterol, Calc 110 H 104 H HDL Cholesterol 33 L 39 L TSH 4.12 H 2.65 Free T4 1.04 TSH Receptor Ab Thyroid Peroxidase Ab 04/26/24 10:48 Plt Count Creatinine 0.72 Estimated GFR > 60 Hemoglobin A1c % 7.2 H AST 52 H ALT 76 H Triglycerides 228 H Cholesterol 204 H LDL Cholesterol, Calc 119 H HDL Cholesterol 40 L TSH 1.80 Free T4 1.22 TSH Receptor Ab Thyroid Peroxidase Ab 489 H Laboratory Tests 07/17/24 07/17/24 08/12/24 10:27 10:30 08:40 Creatinine 0.79 Estimated GFR > 60 Glucose (Clinic) 153 H C-Peptide 3.92 H Triglycerides 145 Cholesterol 123 LDL Cholesterol, Calc 56 HDL Cholesterol 38 L Urine Creatinine 239.42 Urine Microalbumin 26.0 Microalb/Creat Ratio 10.8 Imaging Thyroid US: 07/22/2020 Right Thyroid Lobe: 4.7 x 2.1 x 1.8 cm, volume 9.3 mL. Parenchyma: The gland echotexture is heterogeneous. Thyroid vascularity is mildly increased. Left Thyroid Lobe: 4.6 x 1.4 x 1.5 cm, volume 5.1 mL. Parenchyma: The gland echotexture is heterogeneous. Thyroid vascularity is normal. Isthmus: 0.5 cm in maximum AP dimension. RIGHT THYROID LOBE: No nodules. ISTHMUS: No nodules. LEFT THYROID LOBE: No nodules. NODES: Right neck lymph node measures 0.8 x 1.8 x 0.4 cm. Left neck lymph node measures 0.7 x 0.9 x 0.4 cm. [facility] Medical History (Updated 07/31/24 @ 10:33 by Sherry Alvarez NP) Lump of skin of back Obesity (BMI 30-39.9) Arthritis of right knee Diabetes mellitus with hyperglycemia, without long-term current use of insulin Mixed dyslipidemia Left ACL tear Elevated liver enzymes Annual visit for general adult medical examination with abnormal findings History of gestational diabetes Obesity Vitamin D deficiency Hypothyroidism Jessica's disease Anti-TPO antibodies present Surgical History Hx of anterior cruciate ligament tear reconstruction Tubal ligation status Hx of section Hx of cholecystectomy Hx of knee surgery Family History Father Colon cancer Mother Breast cancer Substance use disorder Sister Substance use disorder Maternal Aunt Substance use disorder Maternal Uncle Substance use disorder Paternal Uncle Substance use disorder Social History Household Members: Children Housing: Condominium Alcohol intake: never Patient Tobacco Use Status: Never used Tobacco e-Cigarette/Vaping Use: Never Used service: Yes Current occupational status: employed 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 Cognitive needs: No Hearing needs: No Vision needs: Yes Physical Exam Vital Signs: Last Vital Signs Pulse 53 08/12/24 08:31 BP 130/68 08/12/24 08:31 Pulse Ox 94 08/12/24 08:31 Oxygen Delivery Method Room Air 08/12/24 08:31 BMI result Body Mass Index 35.7 Results Reviewed Results Reviewed: Laboratory Last Values Glucose (Clinic) 153 mg/dL (60-115) H 08/12/24 08:40 Assessment & Plan Assessment & Plan (1) Hypothyroidism: Code(s): E03.9 - Hypothyroidism, unspecified Category: Medical Qualifiers: Hypothyroidism type: unspecified Qualified Code(s): E03.9 - Hypothyroidism, unspecified Plan: Patient with a history of hypothyroidism, biochemically euthyroid from labs in April 2024. Continue levothyroxine 75 mcg daily. Plan: -continue levothyroxine 75 mcg (2) Diabetes mellitus with hyperglycemia, without long-term current use of insulin: Code(s): E11.65 - Type 2 diabetes mellitus with hyperglycemia Category: Medical Qualifiers: Diabetes mellitus type: type 2 Qualified Code(s): E11.65 - Type 2 diabetes mellitus with hyperglycemia Plan: Patient diagnosed with type 2 diabetes in November of 2022, Her A1c was at 9.9% from November 2023, now down to 6% August 2024, however she is still having fasting blood sugars up to 150s.. Given her BMI is 35.7 kg per m2, Trulicity we will also help with a weight loss and sensitizing her to her own insulin. No family history of thyroid cancer. No history of pancreatitis, she does not drink alcohol, is status post cholecystectomy. I will plan to start her on a GLP 1 agonist Plan: -continue metformin 500 mg b.i.d. -monitor blood sugars fasting 2 to 3 times a week -up-to-date with eye visit, no history of retinopathy -foot exam done today, unremarkable -lifestyle modification advised with 150 minutes of exercise in a week, 500 calorie deficit daily -follow up in 3 months with repeat labs (3) Mixed dyslipidemia: Code(s): E78.2 - Mixed hyperlipidemia Category: Medical Plan: LDL down to 56 in July 2024 from 119 mg/dL. At goal Goal LDL less than 90 mg/dL . Plan: -continue atorvastatin 40 mg daily (4) Obesity (BMI 30-39.9): Code(s): E66.9 - Obesity, unspecified Category: Medical Plan: BMI 35. 7 kg per m2. She had lost 10 lb over the past year due to lifestyle modification. We will start her on a GLP 1 agonist she is also having some elevated fasting blood sugar readings, this will also help with blood sugar control for her diabetes. Plan: -lifestyle modification advised -start Trulicity 0.75 mg weekly injection, side effects discussed- Plan I spent 30 minutes in reviewing the record, seeing the patient and documenting in the medical record. Medications: New dulaglutide (Trulicity) 0.75 mg (0.25 mL) subcut QWEEK 6 mL 3RF Patient Instructions: Start Tulicity 0.75 mg weekly injection Continue metformin Continue atorvastatin Coding Level of Care Code Est Pt Level 4 (59820) Diagnoses Hypothyroidism, unspecified type E03.9 Hypothyroidism type: unspecified Type 2 diabetes mellitus with hyperglycemia, without long-term current use of insulin E11.65 Diabetes mellitus type: type 2 Mixed dyslipidemia E78.2 Obesity (BMI 30-39.9) E66.9 Time Spent (min) 30
--- OUTSIDE RECORDS SUMMARY | 2024-08-12 08:41 | XMS_ITS | Continuity of Care Document ---
Author Name [facility] Organization [facility] Care Team Providers Care Visitor Services Technician Name Role Phone [facility] Unavailable Unavailable Problems Combined list of problems from Department of Defense and Veterans Affairs facilities. It does not include entries that were removed or entered in error. Problem Status Onset Date Problem Type Date of Resolution Comments Source visit for: administrative purpose Inactive 12/22/2010 Condition DoD foot pain (soft tissue) Active Condition [facility] Brace Inactive Condition [facility] visit for: services physical accession Active Condition [...] HERRERA DIABETES, 100 ea. PACKET Cancele d [id number] : 2023 0 Pharmac y Data Transac tion Service Facilit y FREESTYLE LANCETS (lancets), 28 GAUGE, EACH, MISCELL, HERRERA DIABETES, 100 ea. PACKET Active [id number] 4 2023 100 Pharmac y Data Transac tion Service Facilit y FREESTYLE LITE TEST STRIP (blood sugar diagnostic) , STRIP, MISCELL, HERRERA DIABETES, 100 ea. BOX Cancele d [id number] : 2023 0 Pharmac y Data Transac tion Service Facilit y FREESTYLE LITE TEST STRIP (blood sugar diagnostic) , STRIP, MISCELL, HERRERA DIABETES, 100 ea. BOX Active [id number] 12/12/19 2 4 2023 100 Pharmac y [...] ORAL, AMNEAL PHARMACE, 1000 ea. BOTTLE Active [id number] 4 2023 90 Pharmac y Data Transac tion Service Facilit y LEVOTHYROXI NE SODIUM (levothyrox ine sodium), 75 MCG, TABLET, ORAL, AMNEAL PHARMACE, 1000 ea. BOTTLE Cancele d [id number] : 2023 0 Pharmac y Data Transac [...] Known Allergies Drug allergy (disorder) active 12/22/2010 [place] [address] Immunizations Combined list of available immunizations from the Department of Defense and Veterans Affairs facilities. Immunization Series Date Given Administered By Site Reaction Lot Number CVX Code Drug Skid Road Man Status Comments Source influenza virus vaccine, inactivated 2023 MEIR Cardenas tammi, left (delt oid) [id number] [employer] complet ed influenza virus vaccine, inactivat [...] DoD tetanus, diphtheria, acellular pertu is 2020 [id number] sanofi pasteur complet ed tetanus, diphtheri a, acellular pertussis 03/24/21 Given Ambulat ory Pharmac y tetanus toxoid, reduced diphtheria toxoid, and acellular pertu is vaccine, adsorbed 1 2020 [id number] 115 Sanofi Pasteur ([facility]) complet ed tetanus toxoid, reduced diphtheri a toxoid, and acellular pertussis vaccine, adsorbed DoD COVID Vaccine Moderna 2020 [id number] complet ed COVID Vaccine Moderna 10/16/20 Given Ambulat ory Pharmac y SARS-COV-2 (COVID-19) vaccine, mRNA, spike protein, LNP, preservative free, 100 mcg or 50 mcg dose 2 2020 [id number] 207 Moderna Oncoscope, Inc. (MOD) complet ed SARS-COV- 2 (COVID-19 ) vaccine, mRNA, spike protein, LNP, preservat stuart free, 100 mcg or 50 mcg dose DoD COVID Vaccine Moderna 2020 [id number] 207 complet ed COVID Vaccine Moderna 09/18/20 Given Ambulat ory Pharmac y SARS-COV-2 (COVID-19) vaccine, mRNA, spike protein, LNP, preservative free, 100 mcg or 50 mcg dose 1 2020 [id number] 207 Moderna [employer]cos[employer], Inc. (MOD) complet ed SARS-COV- 2 (COVID-19 ) vaccine, mRNA, spike protein, LNP, preservat stuart free, 100 mcg or 50 mcg dose DoD influenza, injectable, quadrivalent- pf 2019 [id number] 077 150 Seqirus complet ed influenza , injectabl e, quadrival ent-pf 06/19/20 Given Ambulat ory Pharmac y Influenza, injectable, quadrivalent, preservative free 1 2019 [id number] 077 150 Seqirus (SEQ) complet ed Influenza [...] Ambulat ory Pharmac y Influenza, injectable, Madin [place] Canine Kidney, preservative free, quadrivalent 9 [id number] 171 Seqirus (SEQ) comple t ed Influenza , injectabl e, Madin Milagros Canine Kidney, preservat stuart free, quadrival ent [...] free DoD influenza, live, intranasal,qu adrivalent 2013 [id number] 149 Medimmune Inc comple t ed influenza , live, intranasa l,quadriv alent 04/12/14 Given Ambulat ory Pharmac y influenza, live, intranasal, quadrivalent 7 2013 [id number] 149 MedImmune, Inc. (MED) complet ed influenza , live, intranasa l, quadrival ent DoD influenza, seasonal, injectable-pf 2012 140 complet ed influenza , seasonal, injectabl e-pf 04/26/13 Given Ambulat ory Pharmac y influenza, seasonal, injectable 2012 [id number] 141 Unknown complet ed influenza , seasonal, injectabl e 04/26/13 Given Ambulat ory Pharmac y Influenza, seasonal, injectable, preservative free 0 2012 140 (MVX) complet ed Influenza , seasonal, injectabl e, preservat stuart free DoD Influenza, seasonal, injectable 1 2012 [id number] 141 Unknown (UNK) comple t ed Influenza , seasonal, injectabl e DoD measles virus vaccine 0 2012 05 () Not Given measles virus vaccine DoD rubella virus vaccine 0 2012 06 () Not Given rubella virus vaccine DoD influenza, seasonal, injectable 2011 [id number] 141 CSL Behring complet ed influenza [...] dosage DoD Influenza, seasonal, injectable 4 2011 [id number] 141 CSNanoStatics CorporationapTrue Sol Innovations, Inc. (CSL) complet ed Influenza , seasonal, injectabl e DoD influenza virus vaccine, live 2010 [id number] 111 [employer] Inc comple t ed influenza virus vaccine, live 04/13/11 Given Ambulat ory Pharmac y influenza virus vaccine, live, attenuated, for intranasal use 1 2010 [id number] 111 [employer] Inc. (MED) complet ed influenza virus vaccine, [...] vaccine DoD tuberculin purified protein derivative 2010 [id number] 96 sanofi pasteur complet ed tuberculi n purified protein derivativ e 12/18/10 Given Ambulat ory Pharmac y influenza virus vaccine,split 2010 [id number] 15 CSL Behring complet ed influenza virus vaccine,s plit 12/15/10 Given Ambulat ory Pharmac y tetanus, diphtheria, acellular pertu is 2010 [id number] 115 GlaxoSmithKli ne complet ed tetanus, diphtheri a, acellular pertussis 12/15/10 Given Ambulat ory Pharmac y meningococcal A,C,Y,W-135 (MCV4P) 2010 [id number] 114 sanofi pasteur complet ed meningoco ccal A,C,Y,W-1 35 (MCV4P) 12/15/10 Given Ambulat ory Pharmac y poliovirus vaccine, inactivated 2010 [id number] 10 sanofi pasteur complet ed polioviru s vaccine, inactivat ed 12/15/10 Given Ambulat ory Pharmac y poliovirus vaccine, inactivated 1 2010 [id number] 10 Sanofi Pasteur ([facility]) complet ed polioviru s vaccine, inactivat ed DoD influenza virus vaccine, split virus (incl. purified surface antigen)-reti red CODE 1 2010 [id number] 15 CSNanoStatics Corporationapies, Inc. (CSL) complet ed influenza virus vaccine, split virus (incl. purified surface antigen)- retired CODE DoD meningococcal polysaccharid e (groups A, C, Y and W-135) diphtheria toxoid conjugate vaccine (MCV4P) 1 2010 [id number] 114 Sanofi Pasteur ([facility]) complet ed meningoco ccal polysacch aride (groups A, C, Y and W-135) diphtheri a toxoid conjugate vaccine (MCV4P) DoD tetanus toxoid, reduced diphtheria toxoid, and acellular pertu is vaccine, adsorbed 1 2010 [id number] 115 Sabesim (SKB) complet ed tetanus toxoid, reduced diphtheri a toxoid, and acellular pertussis vaccine, adsorbed DoD influenza, seasonal, injectable 2010 141 Novartis Pharmaceutica ls complet ed influenza , seasonal, injectabl e 07/13/10 Given Ambulat ory Pharmac y Influenza, seasonal, injectable 0 2010 141 Novartis CAD [employer] Julio. (NOV) complet ed Influenza , seasonal, [...] Prevention' s HIV diagnostic algorithm. Refer to [facility] Lab Guide for additional information : [email or web address] x Testing performed by Clint reilly. [facility] aRfael gonzalez [facility] Repository Sample Received (09/20/23 10:32 AM) 09/19 N [facility] Vital Signs Combined list of inpatient and outpatient Vital Signs from Department of Defense and Veterans [facility], ranging from 12 months to all on record, depending upon the facility. Vital Sign Value Date Comments Source No data available for this section Ambulatory Pharmacy Encounters Combined list of: 1) Encounters from Department of Veterans Affairs facilities going back up to thelast 18 months. 2) Encounters from the Department of [facility] facilities going back up to 280 months. Location Location Details Encounter Type Encounter Number Reason For Visit Attending Provider ADM Date DC Date Status Disposition [place] [address](Opt ometry Clinic [facility]MT [facility]) OUTPATIENT [id number] JOANN MARTINEZ 12/19 Released w/o Limitations [facility] [place] [address](O ptometr y Clinic [facility]) [place] [address](MAS Norris) OUTPATIENT [id number] pain pack SHERWIN CLIFTON 12/21 Released w/o Limitations [facility] [place] [address](M Norris) [place] [address](MAS Norris) OUTPATIENT [id number] pain pack YESSENIA MIRAMONTES 01/04 Released w/o Limitations [facility] [place] [address](M Norris) [place] [address](Ort hotic Svcs, [facility]) OUTPATIENT [id number] HERBER WOODS 01/05 Released w/o Limitations [facility] [place] [address](O rthotic Svcs, [facility]) [place] [address](MAS Norris) OUTPATIENT [id number] Pain Pack SUSIE NUNEZ 01/13 Released w/o Limitations [facility] [place] [address](M [place]) [place] [address](MAS Norris) OUTPATIENT [id number] pain/bl ister OMER Mckeon 01/19 Released w/o Limitations [facility] [place] [address](M Norris) [place] [address](MAS Beast) OUTPATIENT [id number] Cold Pk/Pain Pk ROSE MARIE HAMILTON Marylin 01/25 Released w/o Limitations [facility] [place] [address](M Beast) [place] [address](MAS Norris) OUTPATIENT [id number] pain KULWINDER YESSENIA Héctor 01/31 Released w/o Limitations [facility] [place] [address](M Norris) [place] [address](MAS Norris) OUTPATIENT [id number] pain hang CLIFTONTRISTANKatie Wilson 02/09 Released w/o Limitations [facility] [place] [address](M Norris) [place] [address](AFN G 104 Med Sq-FM) OUTPATIENT [id number] Notes Entered by: JUAN M GODFREY 07 Aug 2017 0823 ------- ------- ------- ------- -- JUAN M SULLIVAN 08/07 Released w/o Limitations [facility] [place] [address](A FNG 104 Med Sq-FM) [place] [address](AFN G 104 Med Sq-FM) OUTPATIENT [id number] Notes Entered by: JUAN M GODFREY 10 Jul 2019 0847 ------- ------- ------- ------- -- JUAN M SULLIVAN 07/10 Released w/o Limitations [facility] [place] [address](A FNG 104 Med Sq-FM) [place] [address](AFN G 104 Med Sq-FM) OUTPATIENT [id number] Notes Entered by: EPIFANIOJUAN M CARNES ARELIS 25 Aug 2020 1559 ------- ------- ------- ------- -- DORINDA GODFREYMANUELJUAN MENDER INFANTE 08/25 Released w/o Limitations [facility] [place] [address](A FNG 104 Med Sq-FM) [address] [place] [address](Opt ometry Cl [place]) OUTPATIENT [id number] Pre-PRK appt ELENA SIBLEY 04/22 Released w/o Limitations [address] [place] [address](O ptometr y [facility] [place]) [place] [address](AFN G 104 Med Sq-FM) TELE CONSULT [id number] EPIFANIOMANUELJUAN MENDER INFANTE 05/17 [facility] [place] [address](A FNG 104 Med Sq-FM) [place] [address](AFN G 104 Med Sq-FM) OUTPATIENT [id number] Notes Entered by: Maurice LYON 22 Sep 2021 1607 ------- ------- ------- ------- -- SANTO MILLAN 09/22 Released w/o Limitations [facility] [place] [address](A FNG 104 Med Sq-FM) [address] [place] [address](Opt ometry Cl [place]) OUTPATIENT [id number] PRK consult ELENA SIBLEY 11/24 Released w/o Limitations [address] [place] [address](O ptometr y [facility] [place]) [place] [address](AFN G 104 Med Sq-FM) TELE CONSULT [id number] EPIFANIOMANUEL CARNESENDER INFANTE 03/17 [facility] [place] [address](A FNG 104 Med Sq-FM) [facility], [facility](AFN G 104 Med Sq-FM) TELE CONSULT [id number] JUAN M GODFREY 05[facility] [place] [address](A FNG 104 Med Sq-FM) 8203R-104 MDG Care Not Rendered [id number] 01/31 Discharge Disposition: Home or Self Care 8203R-1 04 MDG 8203R-104 MDG Mass Vaccine [id number] 05/11 Discharge Disposition: Home or Self Care 8203R-1 04 MDG 8203R-104 MDG Mass Vaccine [id number] 05/13 8203R-1 04 MDG 8203R-104 MDG Care Not Rendered [id number] 05/16 Discharge Disposition: Home or Self Care 8203R-1 04 MDG 8203R-104 MDG Care Not Rendered [id number] 06/10 Discharge Disposition: Home or Self Care 8203R-1 04 MDG Procedures Combined list of: 1) Procedures from Department of Veterans Affairs facilities going back up to thelast 18 months, not all VA non-surgical procedures are included; 2) All procedures from the Department of Defense facilities. Procedure Procedure Type Code Date Perfomer Comments Sourc e No data available for this section [facility] OPHTHALMIC ULTRASOUND, ECHOGRAPHY, DIAGNOSTIC; CORNEAL PACHYMETRY, UNILATERAL OR BILATERAL (DETERMINATION OF CORNEAL THICKNESS) 022 [facility] FITTING OF SPECTACLES, EXCEPT FOR APHAKIA; MONOFOCAL 021 [facility] ORTHOTIC(S) MANAGEMENT AND TRAINING (INCLUDING ASSESSMENT AND FITTING WHEN NOT OTHERWISE REPORTED),UPPER EXTREMITY(IES),LOWER EXTREMITY(IES) AND/OR TRUNK,INITIAL ORTHOTIC(S) ENCOUNTER,EACH 15 MINUTES 011 [facility] THERAPEUTIC, PROPHYLACTIC, OR DIAGNOSTIC INJECTION (SPECIFY SUBSTANCE OR DRUG); SUBCUTANEOUS OR INTRAMUSCULAR 011 [facility] SCREENING TEST OF VISUAL ACUITY, QUANTITATIVE, BILATERAL 011 [facility] Physical Therapy Education Orthotics Training Initial 15 Min 011 HERBER WOODS [facility] Foot, arch support, removable, premolded, longitudinal, each 011 HERBER WOODS [facility] Screening Test Of Visual Acuity, Quantitative, Bilateral Screening Test Of Visual Acuity, Quantitative, Bilateral [id number] 011 ELONU FRANCISCO U [facility] Spectacles Services Fitting Monofocal Except For Aphakia Spectacles Services Fitting Monofocal Except For Aphakia 46213 011 ELONU, FRANCISCO U [facility] Ophthalmological New Patient Start Comprehensive Care Ophthalmological New Patient Start Comprehensive Care 05209 ELENA SIBLEY Determination Of Refractive State Determination Of Refractive State [address]1242 ELENA SIBLEY Spectacles Services Fitting Monofocal Except For Aphakia Spectacles Services Fitting Monofocal Except For Aphakia 02875 ELENA SIBLYE Ophthalmological Prior Patient Start Comprehensive Care Ophthalmological Prior Patient Start Comprehensive Care 94994 ELENA SIBLEY Computerized Corneal Topography Computerized Corneal Topography 59956 ELENA SIBLEY Corneal Pachymetry Corneal Pachymetry 32495 ELENA SIBLEY Social History Combined list of available smoking, tobacco, and other social history from Department of Defense and Veterans Affairs facilities. Social History Type Response Date Comment Sourc e This section is an empty social history section. [facility] Assessment and Plan Combined list of future care activities from Department of Defense and Veterans Affairs facilities (e.g., assessment and plan notes, appointments, orders, and referrals). Additional future care activities may be listed in the Plan of Care section. Result Assessment and Plan Date Source Assessment and Plan No data available for this section 08/12/2024 Ambulatory Pharmacy Functional Status Combined list of recent functional and cognitive assessments recorded at Department of Defense and Veterans Affairs (VA).VA Functional [place] Measurement (FIM) Scale: 1 = Total Assistance (Subject = 0% +), 2 = Maximal Assistance (Subject = 25% +), 3 = Moderate Assistance (Subject = 50% +), 4 = Minimal Assistance (Subject = 75% +), 5 = Supervision, 6 = Modified [place] (Device), 7 = Complete [place] (Timely, Safely). Assessment Date/Time Source Assessment Type Assessment Skill Assessment Score Assessment Details No data available for this section
[2024-08-12 08:45] LABS: Glucose, Whole Blood 153 mg/dL (60-115)
== END 2024-08-12 09:12 | disposition home or self-care (01) ==
PROVIDERS: PCP Internal Medicine; Visit Provider Student in an Organized Health Care Education/Training Program
DX: E03.9 Hypothyroidism, unspecified (principal); E11.65 Type 2 diabetes mellitus with hyperglycemia; E78.2 Mixed hyperlipidemia; E66.9 Obesity, unspecified
CPT/HCPCS: 99214

== ENCOUNTER → 2024-08-12 08:25 | Outpatient (BNVA) | payer OTHER, SELFPAY | PROVIDERS: PCP Internal Medicine; Visit Provider Student in an Organized Health Care Education/Training Program | DX: E03.9 Hypothyroidism, unspecified (principal); E11.65 Type 2 diabetes mellitus with hyperglycemia; E78.2 Mixed hyperlipidemia; E66.9 Obesity, unspecified; Z68.35 Body mass index [BMI] 35.0-35.9, adult | CPT/HCPCS: 82947; 99212 ==

== ENCOUNTER 2024-10-13 11:08 | Outpatient (REF) | payer OTHER, SELFPAY ==
--- OUTSIDE RECORDS SUMMARY | 2024-10-13 13:22 | XMS_ITS | Continuity of Care Document ---
Author Name [facility] Organization [facility] Care Team Providers Care Communications Manager Name Role Phone [facility] Unavailable Unavailable Medications Combined list of outpatient medications from Department of Defense and Veterans Affairs facilities.Medications provided include 1) outpatient medications from the last 15 months, and 2) patient-reported medications. Medication Details Route Status Patient Instructions Prescription Expires Prescription Number Last Dispense Date Ordering Provider Order Date Order Qty Source diclofenac 1% topical gel diclofen ac 1% topical gel Start Date: 12/09/20 Status: Ordered Repeat number: 1 Ordered 2021 No Facilit y Access diclofenac 1% topical gel diclofen ac 1% topical gel Start Date: 12/11/20 Status: Ordered Repeat number: 1 Ordered 2021 No Facilit y Access levothyroxi ne 50 mcg oral tablet levothyr oxine 50 mcg oral tablet Start Date: 02/28/21 Status: Ordered Repeat number: 1 Ordered 2021 No Facilit y Access levothyroxi ne 50 mcg oral tablet levothyr oxine 50 mcg oral tablet Start Date: 11/24/20 Status: Ordered Repeat number: 1 Ordered 2021 No Facilit y Access levothyroxi ne 50 mcg oral tablet levothyr oxine 50 mcg oral tablet Start Date: 12/19/20 Status: Ordered Repeat number: 1 Ordered 2021 No Facilit y Access levothyroxi ne 75 mcg oral tablet levothyr oxine 75 mcg oral tablet Start Date: 04/06/21 Status: Ordered Repeat number: 1 Ordered 2021 No Facilit y Access levothyroxi ne 75 mcg oral tablet levothyr oxine 75 mcg oral tablet Start Date: 08/23/21 Status: Ordered Repeat number: 1 Ordered 2021 No Facilit y Access lidocaine 2% topical gel with applicator lidocain e 2% topical gel with applicat or Start Date: 05/29/21 Status: Ordered Repeat number: 1 Ordered 2021 No Facilit y Access Immunizations Combined list of available immunizations from the Department of Defense and Veterans Affairs facilities. Immunization Series Date Given Administered By Site Reaction Lot Number CVX Code Drug Wallpaperer Status Comments Source influenza virus vaccine, inactivated 2023 MEIR cadena, left (delt oid) [id number] Seqirus, A [employer] complet ed influenza virus vaccine, inactivat ed 05/11/24 Given 8203R-1 04 MDG influenza, injectable, quadrivalent- pf 2020 [id number] 150 GlaxoSmithKli ne complet ed influenza , injectabl e, quadrival ent-pf 04/01/21 Given Ambulat ory Pharmac y tetanus, diphtheria, acellular pertu is 2020 [id number] 115 sanofi pasteur complet ed tetanus, diphtheri a, acellular pertussis 03/24/21 Given Ambulat ory Pharmac y COVID Vaccine Moderna 2020 [id number] 207 complet ed COVID Vaccine Moderna 10/16/20 Given Ambulat ory Pharmac y COVID Vaccine Moderna 2020 [id number] 207 complet ed COVID Vaccine Moderna 09/18/20 Given Ambulat ory Pharmac y influenza, injectable, quadrivalent- pf 2019 [id number] 150 Seqirus complet ed influenza , injectabl e, quadrival ent-pf 06/19/20 Given Ambulat ory Pharmac y influenza, injectable, quadrivalent- pf 2018 150 complet ed influenza , injectabl e, quadrival ent-pf 05/07/19 Given Ambulat ory Pharmac y influenza, injectable, quadrivalent- pf 2017 150 complet ed influenza , injectabl e, quadrival ent-pf 06/28/18 Given Ambulat ory Pharmac y Influenza, inj, MDCK, quadrivalent- pf 2016 [id number] Seqirus complet ed Influenza , inj, MDCK, quadrival ent-pf 05/13/17 Given Ambulat ory Pharmac y influenza, seasonal, injectable-pf 2015 [id number] GlaxoSmithKli ne complet ed influenza , seasonal, injectabl e-pf 04/22/16 Given Ambulat ory Pharmac y influenza, seasonal, injectable-pf 2014 [id number] 140 GlaxoSmithKli ne complet ed influenza , seasonal, injectabl e-pf 06/22/15 Given Ambulat ory Pharmac y influenza, live, intranasal,qu adrivalent 2013 [id number] 149 Mediune Inc comple t ed influenza , live, intranasa l,quadriv alent 04/12/14 Given Ambulat ory Pharmac y influenza, seasonal, injectable-pf 2012 140 complet ed influenza , seasonal, injectabl e-pf 04/26/13 Given Ambulat ory Pharmac y influenza, seasonal, injectable 2012 [id number] 141 Unknown complet ed influenza , seasonal, injectabl e 04/26/13 Given Ambulat ory Pharmac y influenza, seasonal, injectable 2011 [id number] 141 CSL Behring complet ed influenza , seasonal, injectabl e 04/20/12 Given Ambulat ory Pharmac y hepatitis B adult vaccine 2011 [id number] 43 GlaxoSmithKli ne complet ed hepatitis B adult vaccine 04/20/12 Given Ambulat ory Pharmac y hepatitis A adult vaccine 2011 [id number] 52 GlaxoSmithKli ne complet ed hepatitis A adult vaccine 04/20/12 Given Ambulat ory Pharmac y influenza virus vaccine, live 2010 [id number] MedimmModoPay[employer] Inc comple t ed influenza virus vaccine, live 04/13/11 Given Ambulat ory Pharmac y hepatitis A-hepatitis B vaccine 2010 [id number] 104 GlaxoSmithKli ne complet ed hepatitis A-hepatit is B vaccine 02/07/11 Given Ambulat ory Pharmac y hepatitis A-hepatitis B vaccine 2010 [id number] 104 GlaxoSmithKli ne complet ed hepatitis A-hepatit is B vaccine 12/21/10 Given Ambulat ory Pharmac y tuberculin purified protein derivative 2010 [id number] 96 sanofi pasteur complet ed tuberculi n purified protein derivativ e 12/18/10 Given Ambulat ory Pharmac y influenza virus vaccine,split 2010 [id number] 15 CSL Behring complet ed influenza virus vaccine,s plit 12/15/10 Given Ambulat ory Pharmac y tetanus, diphtheria, acellular pertu is 2010 [id number] 115 GlaxoSmithKli ne complet ed tetanus, diphtheri a, acellular pertussis 12/15/10 Given Ambulat ory Pharmac y meningococcal A,C,Y,W-135 (MCV4P) 2010 [id number] 114 sanofi pasteur complet ed meningoco ccal A,C,Y,W-1 35 (MCV4P) 12/15/10 Given Ambulat ory Pharmac y poliovirus vaccine, inactivated 2010 [id number] 10 sanofi pasteur complet ed polioviru s vaccine, inactivat ed 12/15/10 Given Ambulat ory Pharmac y influenza, seasonal, injectable 2010 141 Novartis Pharmaceutica ls complet ed influenza , seasonal, injectabl e 07/13/10 Given Ambulat ory Pharmac y Results Combined list of recent chemistry, hematology and other laboratory results from Department of Defense and Veterans Affairs, ranging from 15 months to all on record, depending upon the facility. Order Name Results Value Reference Range Date Interpretation Specimen Comments Source Infectiou s Disease HIV-1/O/2 Non-Reac tive 1 (09/20/23 10:32 [...] Prevention' s HIV diagnostic algorithm. Refer to [facility] Lab Guide for additional information : [email or web address]/ [email or web address] x Testing performed by [employer] Rob[employer] ce. [employer]U [employer] [facility] Sendouts Repository Sample Received (09/20/23 10:32 AM) 09/19 N 5600A-U JERRODM EPILAB Encounters Combined list of: 1) Encounters from Department of [facility] facilities going backup to the last 18 months, not all [place] inpatient encounters are included; 2) Encounters from the Department [facility] facilities going backup to 280 months. Location Location Details Encounter Type Encounter Number Reason For Visit Attending Provider ADM Date DC Date Status Disposition Source 8203R-104 MDG Mass Vaccine [id number] 05/11 Discharge Disposition: Home or Self Care 8203R-1 04 MDG 8203R-104 MDG Mass Vaccine [id number] 05/13 8203R-1 04 MDG 8203R-104 MDG Care Not Rendered [id number] 05/16 Discharge Disposition: Home or Self Care 8203R-1 04 MDG 8203R-104 MDG Care Not Rendered [id number] 06/10 Discharge Disposition: Home or Self Care 8203R-1 04 MDG 8203R-104 MDG Care Not Rendered [id number] 09/10 Discharge Disposition: Home or Self Care 8203R-1 04 MDG Procedures Combined list of: 1) Procedures from [facility] facilities going back up to thelast 18 months, not all [place] non-surgical procedures are included; 2) All procedures from the Department [facility] facilities. Procedure Procedure Type Code Date Perfomer Comments Sourc e No data available for this section Ambulatory P harmacy Assessment and Plan Combined list of future care activities from Department of [facility] and Veterans Affairs facilities (e.g., assessment and plan notes, appointments, orders, and referrals). Additional future care activities may be listed in the Plan of Care section. Result Assessment and Plan Date Source Assessment and Plan No data available for this section 10/13/2024 Ambulatory Pharmacy Functional Status Combined list of recent functional and cognitive assessments recorded at [facility] ([place] Functional [place] Measurement (FIM) Scale: 1 = Total Assistance (Subject = 0% +), 2 = Maximal Assistance (Subject = 25% +), 3 = Moderate Assistance (Subject = 50% +), 4 = Minimal Assistance (Subject = 75% +), 5 = Supervision, 6 = Modified [place] (Device), 7 = Complete [place] (Timely, Safely). Assessment Date/Time Source Assessment Type Assessment Skill Assessment Score Assessment Details No data available for this section
== END 2024-10-13 11:09 | disposition home or self-care (01) ==
LOC: HO.LAB 11:08
PROVIDERS: PCP Internal Medicine; Visit Provider Nurse Practitioner Family
DX: Z13.89 Encounter for screening for other disorder (principal)

== ENCOUNTER 2024-10-15 09:55 | Outpatient (AMB) | payer OTHER, SELFPAY ==
--- NOTE | 2024-10-15 09:58 | MHC.OFFVIS ---
Vital Signs 10/15/24 09:59 Height 5 ft 6 in Weight 216 lb 7.903 oz BMI 34.9 BP 114/68 Blood Pressure Location Rt brachial Position Sitting Pulse 68 Pulse Source Pulse Oximeter Pulse Oximetry (%) 97 Oxygen Delivery Method Room Air Intake Visit Reasons: 6 month follow up Intake Note: ESTABLISHED PATIENT for mgmt abn LFTs. Chief Complaint; Pt denies any GI sx or concerns at this time. Pt does have a question regarding revisit/discuss colo. Pt reports pertinent FMHx. Initial colo [place] [employer] Technician Required: No Accompanied by: Self / Same As Patient Allergies acetaminophen [Percocet] Allergy (Unknown, Verified 10/15/24 10:12) cant see up close oxycodone [Percocet] Allergy (Unknown, Verified 10/15/24 10:12) blurred vision oxytocin [From Pitocin] Adverse Reaction (Severe, Verified 10/15/24 10:12) Blurry Vision HPI HPI 6 month follow up: Details: LAST VISIT: Elevated liver enzymes Hypertriglyceridemia Dyslipidemia History of hepatitis C Plan Will repeat lipid profile, liver enzymes and will add fibrosis panel. Will repeat thyroid study. Patient will follow-up in the office in 6 months, sooner on as needed basis. Encouraged patient to follow low fat, low salt, low carb and high-protein diet. Patient will follow-up in the office in 6 months, sooner on as needed basis. She is agreeable to this plan and verbalizes understanding of instructions. She was given the opportunity to ask questions and all questions answered. ? Thank you for allowing me to participate in her care Orders Orders TSH reflex Free T4 04/17/24 E06.3 Lipid Panel 04/17/24 E78.1 Liver Fibrosis Pnl 04/17/24 K76.0 Liver Panel 04/17/24 R74.01 TODAY'S VISIT: Patient is here today for follow-up. Patient reports that she has been feeling fairly well. Diagnosed with diabetes back in April and started Trulicity. Reports to be tolerating it well. Lost few lb not as much as she would like. Patient was also started on statin and her cholesterol improved as well as her A1c. Patient overall is feeling quite well. Discussed with her lab results. Liver fibrosis panel F0. Normal liver enzymes. Patient will be sent for colonoscopy. Family history of CRC. Patient denies any melena, hematochezia, unintentional weight loss or ribbon like stools. Denies any dyspepsia, dysphagia or odynophagia. No issues with anesthesia in the past. No history of sleep apnea. Not on any anticoagulation medication. [facility] Medical History (Updated 10/15/24 @ 19:34 by Frieda Matthews [facility]) Family history of colon cancer Lump of skin of back Obesity (BMI 30-39.9) Arthritis of right knee Diabetes mellitus with hyperglycemia, without long-term current use of insulin Mixed dyslipidemia Left ACL tear Elevated liver enzymes Annual visit for general adult medical examination with abnormal findings History of gestational diabetes Obesity Vitamin D deficiency Hypothyroidism Jessica's disease Anti-TPO antibodies present Surgical History Hx of anterior cruciate ligament tear reconstruction Tubal ligation status Hx of section Hx of cholecystectomy Hx of knee surgery Family History Father Colon cancer Mother Breast cancer Substance use disorder Sister Substance use disorder Maternal Aunt Substance use disorder Maternal Uncle Substance use disorder Paternal Uncle Substance use disorder Social History Household Members: Children Housing: Condominium Alcohol intake: never Patient Tobacco Use Status: Never used Tobacco e-Cigarette/Vaping Use: Never Used service: Yes Current occupational status: employed 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 Cognitive needs: No Hearing needs: No Vision needs: Yes Review of Systems Const Denies weight gain and Denies weight loss ENT Reports no additional complaints, Denies dysphagia and Denies odynophagia Card Reports no additional complaints Resp Reports no additional complaints GI Denies abdominal pain, Denies belching, Denies melena, Reports bloating, Denies change in bowel habits, Denies dysphagia, Denies excessive flatus, Denies dyspepsia, Denies heartburn, Denies diarrhea, Reports loose stools (Postprandial), Denies nausea, Denies odynophagia and Denies vomiting Reports no additional complaints Musc Reports no additional complaints Neuro Reports no additional complaints Psych Reports no additional complaints Endo Reports no additional complaints Physical Exam Vital Signs: Last Vital Signs Pulse 68 10/15/24 09:59 BP 114/68 10/15/24 09:59 Pulse Ox 97 10/15/24 09:59 Oxygen Delivery Method Room Air 10/15/24 09:59 BMI result Body Mass Index 34.9 Const General: healthy appearing and no acute distress Nutritional Appearance: obese Orientation/consciousness: patient oriented x3 Resp Effort & Inspection: normal respiratory effort, able to speak in complete sentences, no tracheal deviation and symmetric chest movement Auscultation: clear to auscultation bilaterally Cardio Rate: regular rate GI Inspection: Yes normal to inspection, No distended and Yes obesity Palpation (GI): Soft to palpation, not firm, nontender and No hepatosplenomegaly present Auscultation: normal bowel sounds General: Yes no CVA tenderness Back/Spine/Pelvis Back: no CVA tenderness Skin General skin exam: elasticity normal, turgor normal and dry skin Neuro General: patient oriented x3 Psych Appearance: grossly normal Mental Status: mental status grossly normal Assessment & Plan Assessment & Plan (1) Elevated liver enzymes: Code(s): R74.8 - Abnormal levels of other serum enzymes Category: Medical (2) Hypertriglyceridemia: Code(s): E78.1 - Pure hyperglyceridemia Category: Medical (3) Dyslipidemia: Code(s): E78.5 - Hyperlipidemia, unspecified Category: Medical (4) Family history of colon cancer: Code(s): Z80.0 - Family history of malignant neoplasm of digestive organs Category: Medical (5) History of hepatitis C: Code(s): Z86.19 - Personal history of other infectious and parasitic diseases (6) Screen for colon cancer: Code(s): Z12.11 - Encounter for screening for malignant neoplasm of colon Plan Patient will continue weight loss. Avoid dietary triggers in late night snacking. So far her liver enzymes have normalized. Great improvement in her cholesterol and triglycerides. Continue low-fat diet. Increase exercise. Patient currently has a athletic trainer that she is exercising with. Will repeat ultrasound. Labs will be repeat again in a few months. With expect before during and after procedure discussed with patient. She is stressed the importance of clear liquid diet as well as good bowel prep day before procedure. No issues with anesthesia in the past. No history of sleep apnea. Not on any anticoagulation medication. I will see her after the procedure, sooner on as needed basis. She is agreeable to this plan and verbalizes understanding of instructions. She was given the opportunity to ask questions and all questions answered. 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 Referral N92.0 - Excessive and frequent menstruation with regular cycle Medications: New bisacodyl (Dulcolax (bisacodyl)) take 4 tabs at noon the day before your colonoscopy 20 mg (4 x 5 mg) PO ONCE 1 day 4 tabs 0RF Z12.11 - Encounter for screening for malignant neoplasm of colon polyethylene glycol 3350 (Miralax) As directed by gastroenterology department at [facility] 238 grams PO ONCE 238 grams 0RF Z12.11 - Encounter for screening for malignant neoplasm of colon Coding Level of Care Code Est Pt Level 4 (71459) Complex EM visit Add On G2211 Diagnoses Elevated liver enzymes R74.8 Hypertriglyceridemia E78.1 Dyslipidemia E78.5 Family history of colon cancer Z80.0 History of hepatitis C Z86.19 Screen for colon cancer Z12.11 Time Spent (min) 35 Comment 25 minutes spent with patient and additional 10 minutes spent reviewing her records
[2024-10-15 09:59] VITALS: BP 114/68; PULSE 68; O2SAT 97; BMI 34.9
--- OUTSIDE RECORDS SUMMARY | 2024-10-15 10:59 | XMS_ITS | Continuity of Care Document ---
Author Name [facility] Organization [facility] Care Team Providers Care Juvenile Court Liaison Name Role Phone [facility] Unavailable Unavailable Medications Combined list of outpatient [...] Site Reaction Lot Number CVX Code Drug Manager Business Intelligence Status Comments Source influenza virus vaccine, inactivated 2023 MEIR cadena, left (delt oid) [id number] 140 Seqirus, A [employer] complet ed influenza virus vaccine, inactivat ed 05/11/24 Given 8203R-1 04 MDG influenza, injectable, quadrivalent- pf 2020 [id number] 150 GlaxoSmithKli ne complet ed influenza , injectabl e, quadrival ent-pf 04/01/21 Given Ambulat ory Pharmac y tetanus, diphtheria, acellular pertu is 2020 [id number] 115 sanofi pasteur complet ed tetanus, diphtheri a, acellular pertussis 03/24/21 Given Ambulat ory Pharmac y COVID Vaccine Moderna 2020 [id number] 207 complet ed COVID Vaccine Moderna 10/16/20 Given Ambulat ory Pharmac y COVID Vaccine Moderna 2020 [id number] 207 complet ed COVID Vaccine Moderna 09/18/20 Given Ambulat ory Pharmac y influenza, injectable, quadrivalent- pf 2019 [id number] 150 Seqirus complet ed influenza , injectabl e, quadrival ent-pf 06/19/20 Given Ambulat ory Pharmac y influenza, injectable, quadrivalent- pf 2018 150 complet ed influenza , injectabl e, quadrival ent-pf 05/07/19 Given Ambulat ory Pharmac y influenza, injectable, quadrivalent- pf 2017 150 complet ed influenza , injectabl e, quadrival ent-pf 06/28/18 Given Ambulat ory Pharmac y Influenza, inj, MDCK, quadrivalent- pf 2016 [id number] 171 Seqirus complet ed Influenza , inj, [...] Pharmac y influenza, live, intranasal,qu adrivalent 2013 [id number] 149 Mediune Inc comple t ed influenza , live, intranasa l,quadriv alent 04/12/14 Given Ambulat ory Pharmac y influenza, seasonal, injectable-pf 2012 140 complet ed influenza , seasonal, injectabl e-pf 04/26/13 Given Ambulat ory Pharmac y influenza, seasonal, injectable 2012 [id number] 141 Unknown complet ed influenza , seasonal, injectabl e 04/26/13 Given Ambulat ory Pharmac y influenza, seasonal, injectable 2011 [id number] 141 CSL Behring complet ed influenza [...] Pharmac y influenza virus vaccine, live 2010 [id number] 111 MedimmSing[employer] Inc comple t ed influenza virus vaccine, [...] Pharmac y tuberculin purified protein derivative 2010 [id number] 96 sanofi pasteur complet ed tuberculi n purified protein derivativ e 12/18/10 Given Ambulat ory Pharmac y influenza virus vaccine,split 2010 [id number] 15 CSL Behring complet ed influenza virus vaccine,s plit 12/15/10 Given Ambulat ory Pharmac y tetanus, diphtheria, acellular pertu is 2010 [id number] 115 GlaxoSmithKli ne complet ed tetanus, diphtheri a, acellular pertussis 12/15/10 Given Ambulat ory Pharmac y meningococcal A,C,Y,W-135 (MCV4P) 2010 [id number] 114 sanofi pasteur complet ed meningoco ccal [...] Prevention' s HIV diagnostic algorithm. Refer to [facility] Lab Guide for additional information : [email or web address]/ [email or web address] x Testing performed by [employer] pattJelastickanwal ce. 5600A[facility]U [facility] Sendouts Repository Sample Received (09/20/23 10:32 AM) 09/19 N 5600A-U JERRODM EPILAB Encounters Combined list of: 1) Encounters from Department of [facility] facilities going backup to the last 18 months, not all [place] inpatient encounters are included; 2) Encounters from the Department [facility] facilities going backup to 280 months. Location Location Details Encounter Type Encounter Number Reason For Visit Attending Provider ADM Date DC Date Status Disposition Source 8203R-104 MDG Mass Vaccine [id number] 05/11 Discharge Disposition: Home or Self Care 8203R-1 04 MDG 8203R-104 MDG Mass Vaccine [id number] 05/13 8203R-1 04 MDG 8203R-104 MDG Care Not Rendered [id number] 05/16 Discharge Disposition: Home or Self Care 8203R-1 04 MDG 8203R-104 MDG Care Not Rendered [id number] 06/10 Discharge Disposition: Home or Self Care 8203R-1 04 MDG 8203R-104 MDG Care Not Rendered [id number] 09/10 Discharge Disposition: Home or Self Care 8203R-1 04 MDG Procedures Combined list of: 1) Procedures from [facility] facilities going back up to thelast 18 months, not all [place] non-surgical procedures are included; 2) All procedures from the Department [facility] facilities. Procedure Procedure Type Code Date Perfomer Comments Sourc e No data available for this section Ambulatory P harmacy Assessment and Plan Combined list of future care activities from Department of [facility] and Veterans Affairs facilities (e.g., assessment and plan notes, appointments, orders, and referrals). Additional future care activities may be listed in the Plan of Care section. Result Assessment and Plan Date Source Assessment and Plan No data available for this section 10/15/2024 Ambulatory Pharmacy Functional Status Combined list of recent functional and cognitive assessments recorded at [facility] [place] Functional [place] Measurement (FIM) Scale: 1 = Total Assistance (Subject = 0% +), 2 = Maximal Assistance (Subject = 25% +), 3 = Moderate Assistance (Subject = 50% +), 4 = Minimal Assistance (Subject = 75% +), 5 = Supervision, 6 = Modified [place] (Device), 7 = Complete [place] (Timely, Safely). Assessment Date/Time Source Assessment Type Assessment Skill Assessment Score Assessment Details No data available for this section
== END 2024-10-15 11:01 | disposition home or self-care (01) ==
LOC: HO.HGI 09:56
PROVIDERS: PCP Internal Medicine; Visit Provider Nurse Practitioner Family
DX: R74.01 Elevation of levels of liver transaminase levels (principal); Z80.0 Family history of malignant neoplasm of digestive organs; Z86.19 Personal history of other infectious and parasitic diseases; E78.5 Hyperlipidemia, unspecified; E78.1 Pure hyperglyceridemia
CPT/HCPCS: 99214; G2211

== ENCOUNTER → 2024-10-15 09:55 | Outpatient (BNVA) | payer OTHER, SELFPAY | PROVIDERS: PCP Internal Medicine; Visit Provider Nurse Practitioner Family | DX: Z01.818 Encounter for other preprocedural examination (principal); R74.8 Abnormal levels of other serum enzymes; E78.1 Pure hyperglyceridemia; E78.5 Hyperlipidemia, unspecified; Z80.0 Family history of malignant neoplasm of digestive organs; Z86.19 Personal history of other infectious and parasitic diseases | CPT/HCPCS: 99212 ==

== ENCOUNTER 2024-11-10 09:02 | Outpatient (AMB) | payer OTHER, SELFPAY ==
[2024-11-10 09:06] VITALS: BP 120/84; PULSE 55; O2SAT 98; BMI 35.8
--- NOTE | 2024-11-10 09:06 | A.OFFVIS_ITS ---
Vital Signs 11/10/24 09:06 Height 5 ft 6 in Weight 221 lb 12.56 oz BMI 35.8 BP 120/84 Blood Pressure Location Lt brachial Position Sitting Pulse 55 Pulse Source Pulse Oximeter Pulse Oximetry (%) 98 Oxygen Delivery Method Room Air Intake Visit Reasons: Hypothyroidism, T2DM, autoimmune thyroiditis Intake Note: Patient present today for Type 2 Diabetes Mellitus, Hypothyroidism and autoimmune thyroiditis. Last Diabetic eye exam: 01/2024 Last Podiatry Visit: Doesn't have one Random Glucose: 90 mg/dl HgA1C: 5.3% Marketing Communications Associate Required: No Accompanied by: Self / Same As Patient Allergies acetaminophen [Percocet] Allergy (Unknown, Verified 11/10/24 09:12) cant see up close oxycodone [Percocet] Allergy (Unknown, Verified 11/10/24 09:12) blurred vision oxytocin [From Pitocin] Adverse Reaction (Severe, Verified 11/10/24 09:12) Blurry Vision Medication List - Last Reconciled 11/10/24 by Nano Knapp MD atorvastatin 40 mg PO BEDTIME bisacodyl (Dulcolax (bisacodyl)) 20 mg (4 x 5 mg) PO ONCE 1 day blood sugar diagnostic (FreeStyle Lite Strips) Test blood sugar once per day blood-glucose meter (FreeStyle Lite Meter kit) Check blood sugar daily diclofenac sodium 1% (Arthritis Pain (diclofenac)) 2 grams topical QID dulaglutide (Trulicity) 0.75 mg (0.5 mL) subcut QWEEK FreeStyle Karl 3 Plus Sensor (blood-glucose sensor) Check blood sugar 3 times per day, change sensor every 14 days NS FreeStyle Karl 3 [place] (blood-glucose,patternmaker plastics,cont) As directed NS [Knee cooling device As directed Breg: Vpulse with Knee Pad Prod numbers #[id number], #[id number]] lancets (FreeStyle Lancets) Test blood sugar once per day levothyroxine 75 mcg PO DAILY 30 days metformin ER 500 mg PO BID polyethylene glycol 3350 (Miralax) 238 grams PO ONCE HPI Comments Details: 43-year-old female coming in today for follow up of type 2 diabetes mellitus and hypothyroidism/Jessica's thyroiditis. Type 2 diabetes mellitus History of diabetes 2 pregnancies 2012 and 2015 both had GDM controlled with diet A1c 7 % Aug 2022 diagnosed with DM type 2 Prior therapy: none Current regimen: metformin 500 BID Trulicity 0.75 mg weekly Denies any symptoms of hyperglycemia including polyphagia, polyuria, polydipsia. Denies any hypoglycemic symptoms. HgA1c: 7.2% 04/26/24 HgA1C: 6.0% 07/17/24 hba1c: 5.3% 11/10/24 SMBGs Fasting 90 to 130 mg/dl didnt bring meter today but this from recall cant recall post meal fasting Glucose: 90 mg/dl Maternal side : lots of relatives uncles and aunts had Type 1 DM Paternal aunt had type 2 DM Complications Last Diabetic Eye exam: 01/2024, no retinopathy Last Podiatry Visit: Doesn't have one, neuropathy : none Kidney disease: no history of kidney disease Macrovascular complications: No history of macrovascular complications. Statin: atorvastatin 40 mg daily started May 2024, tolerating it better FRIDA/ARB: none Exercise: walks 3 or 4 times a week , 40 mins to 1 hr brisk walking , at a desk otherwise Diet control: eats from outside on days she is working too much s/p cholecystectomy no episodes of pancreatitis, no alcohol use No family history of thyroid cancer has never had any hospitalizations for hyperglycemia/hypoglycemia. Interval history Eating better in terms of whole foods and nutritional component and working with a application trainer. Hypothyroidism diagnosed with hypothyroidism during her and was on Levothyroxine during her pregnancies and continued on this for a few months , but then this was stopped. She then remained off levothyroxine for approximately 3 years. She had labs checked by her PCP 05/01/2020 which revealed a TSH high normal, and positive TPO antibodies. She was subsequently referred to Endocrinology. Labs were repeated, confirming Jessica's hypothyroidism with elevated TPO antibodies and elevated TSH. She was started on Levothyroxine again, and is on Levothyroxine 75 mcg PO daily at this time. She takes this correctly and reports good compliance. She does report persistent fatigue. She did have a tubal-ligation. She does mention fatigue. She denies any swelling in the neck or difficulty swallowing. 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 Paternal aunt has thyroid disease but no family history of thyroid cancer. Physical exam General: sitting comfortably in no acute distress HEENT: normocephalic/atraumatic, moist oral mucosa Neck: supple, symmetrical, no thyromegaly , no dorsocervical or supraclavicular fat pads Cardiac: normal heart sounds Pulm: normal breath sounds B/L, no added breath sounds Abd: not distended, no tenderness Extremities: no edema, no signs of myxedema Neuro: AAO x3, Speech: normal, no facial droop, moving all 4 extremities Skin: no rash Foot exam: Check last visit in August 2024: Warm and well-perfused, intact sensation to monofilament, intact DP pulses, intact vibration Laboratory Tests 07/08/20 08/09/22 11/26/23 15:40 08:01 09:27 Plt Count 317 Creatinine Estimated GFR Hemoglobin A1c % 7.0 9.9 H AST ALT Triglycerides Cholesterol LDL Cholesterol, Calc HDL Cholesterol TSH Free T4 TSH Receptor Ab <1.00 Thyroid Peroxidase Ab 11/26/23 12/12/23 04/17/24 09:29 10:57 08:16 Plt Count Creatinine Estimated GFR Hemoglobin A1c % AST ALT Triglycerides 322 H 209 H Cholesterol 207 H 184 LDL Cholesterol, Calc 110 H 104 H HDL Cholesterol 33 L 39 L TSH 4.12 H 2.65 Free T4 1.04 TSH Receptor Ab Thyroid Peroxidase Ab 04/26/24 10:48 Plt Count Creatinine 0.72 Estimated GFR > 60 Hemoglobin A1c % 7.2 H AST 52 H ALT 76 H Triglycerides 228 H Cholesterol 204 H LDL Cholesterol, Calc 119 H HDL Cholesterol 40 L TSH 1.80 Free T4 1.22 TSH Receptor Ab Thyroid Peroxidase Ab 489 H Laboratory Tests 07/17/24 07/17/24 08/12/24 10:27 10:30 08:40 Creatinine 0.79 Estimated GFR > 60 Glucose (Clinic) 153 H C-Peptide 3.92 H Triglycerides 145 Cholesterol 123 LDL Cholesterol, Calc 56 HDL Cholesterol 38 L Urine Creatinine 239.42 Urine Microalbumin 26.0 Microalb/Creat Ratio 10.8 Imaging Thyroid US: 07/22/2020 Right Thyroid Lobe: 4.7 x 2.1 x 1.8 cm, volume 9.3 mL. Parenchyma: The gland echotexture is heterogeneous. Thyroid vascularity is mildly increased. Left Thyroid Lobe: 4.6 x 1.4 x 1.5 cm, volume 5.1 mL. Parenchyma: The gland echotexture is heterogeneous. Thyroid vascularity is normal. Isthmus: 0.5 cm in maximum AP dimension. RIGHT THYROID LOBE: No nodules. ISTHMUS: No nodules. LEFT THYROID LOBE: No nodules. NODES: Right neck lymph node measures 0.8 x 1.8 x 0.4 cm. Left neck lymph node measures 0.7 x 0.9 x 0.4 cm. [facility] Medical History (Updated 10/15/24 @ 19:34 by Frieda Matthews, [facility]) Family history of colon cancer Lump of skin of back Obesity (BMI 30-39.9) Arthritis of right knee Diabetes mellitus with hyperglycemia, without long-term current use of insulin Mixed dyslipidemia Left ACL tear Elevated liver enzymes Annual visit for general adult medical examination with abnormal findings History of gestational diabetes Obesity Vitamin D deficiency Hypothyroidism Jessica's disease Anti-TPO antibodies present Surgical History Hx of anterior cruciate ligament tear reconstruction Tubal ligation status Hx of section Hx of cholecystectomy Hx of knee surgery Family History Father Colon cancer Mother Breast cancer Substance use disorder Sister Substance use disorder Maternal Aunt Substance use disorder Maternal Uncle Substance use disorder Paternal Uncle Substance use disorder Social History Household Members: Children Housing: Condominium Alcohol intake: never Patient Tobacco Use Status: Never used Tobacco e-Cigarette/Vaping Use: Never Used service: Yes Current occupational status: employed 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 Cognitive needs: No Hearing needs: No Vision needs: Yes Physical Exam Vital Signs: Last Vital Signs Pulse 55 11/10/24 09:06 BP 120/84 11/10/24 09:06 Pulse Ox 98 11/10/24 09:06 Oxygen Delivery Method Room Air 11/10/24 09:06 BMI result Body Mass Index 35.8 Results AMB Hemoglobin A1c AMB Hemoglobin A1c 5.3 % Last Edit by NORA Greco on 11/10/24 09:32 Results Reviewed Results Reviewed: Laboratory Last Values Glucose (Clinic) 90 mg/dL (60-115) 11/10/24 09:14 Assessment & Plan Assessment & Plan (1) Hypothyroidism: Code(s): E03.9 - Hypothyroidism, unspecified Category: Medical Qualifiers: Hypothyroidism type: unspecified Qualified Code(s): E03.9 - Hypothyroidism, unspecified Plan: Patient with a history of hypothyroidism, biochemically euthyroid from labs in April 2024. Continue levothyroxine 75 mcg daily. Plan: -continue levothyroxine 75 mcg -TSH and free T4 to be done prior to follow up in 6 months (2) Diabetes mellitus with hyperglycemia, without long-term current use of insulin: Code(s): E11.65 - Type 2 diabetes mellitus with hyperglycemia Category: Medical Qualifiers: Diabetes mellitus type: type 2 Qualified Code(s): E11.65 - Type 2 diabetes mellitus with hyperglycemia Plan: Patient diagnosed with type 2 diabetes in November of 2022, Her A1c was at 9.9% from November 2023, now down to 5.3% in November 2024 and was 6 % August 2024, she did not bring her meter, however fasting glucose today was 90. I am pretty happy with her numbers and her diabetic control. I encouraged her to continue working out with her head athletic trainer/strength coach. Her BMI is still 35.8 kg per m2 and she has not lost any weight despite starting the Trulicity. I am going to increase her Trulicity to help with weight management and NAFLD. In addition to diabetes.. Plan: -continue metformin 500 mg b.i.d. -increase Trulicity to 1.5 mg weekly -monitor blood sugars fasting 2 to 3 times a week -up-to-date with eye visit, no history of retinopathy -lifestyle modification advised with 150 minutes of exercise in a week, 500 calorie deficit daily -follow up in 3 months with repeat labs (3) Mixed dyslipidemia: Code(s): E78.2 - Mixed hyperlipidemia Category: Medical Plan: LDL down to 56 in July 2024 from 119 mg/dL. At goal Goal LDL less than 90 mg/dL . Plan: -continue atorvastatin 40 mg daily -repeat lipid panel ordered prior to follow up in 6 months (4) Obesity (BMI 30-39.9): Code(s): E66.9 - Obesity, unspecified Category: Medical Plan: BMI 35. 8 kg per m2. She had lost 10 lb over the past year due to lifestyle modification. However now her weight remained static at 221 lb despite being on Trulicity 0.75 mg weekly. She is working out 3 to 4 times a week with a application trainer, and focusing on her macros and nutritional components, however her weight still remains very high. Plan: -lifestyle modification advised -increase Trulicity to 1.5 mg weekly Plan I spent 30 minutes in reviewing the record, seeing the patient and documenting in the medical record. Orders: Orders Lipid Panel 6 Months E03.9 - Hypothyroidism, unspecified, E11.65 - Type 2 diabetes mellitus with hyperglycemia, E66.9 - Obesity, unspecified, E78.2 - Mixed hyperlipidemia Hemoglobin A1c 6 Months E03.9 - Hypothyroidism, unspecified, E11.65 - Type 2 diabetes mellitus with hyperglycemia, E66.9 - Obesity, unspecified, E78.2 - Mixed hyperlipidemia Free T4 (Free Thyroxine) 6 Months E03.9 - Hypothyroidism, unspecified, E11.65 - Type 2 diabetes mellitus with hyperglycemia, E66.9 - Obesity, unspecified, E78.2 - Mixed hyperlipidemia AMB Hemoglobin A1c Today E11.65 - Type 2 diabetes mellitus with hyperglycemia, Z13.9 - Encounter for screening, unspecified Comprehensive Met. Panel 6 Months E03.9 - Hypothyroidism, unspecified, E11.65 - Type 2 diabetes mellitus with hyperglycemia, E66.9 - Obesity, unspecified, E78.2 - Mixed hyperlipidemia Microalbumin, Random (w Creat) 6 Months E03.9 - Hypothyroidism, unspecified, E11.65 - Type 2 diabetes mellitus with hyperglycemia, E66.9 - Obesity, unspecified, E78.2 - Mixed hyperlipidemia Thyroid Stimulating Hormone 6 Months E03.9 - Hypothyroidism, unspecified, E11.65 - Type 2 diabetes mellitus with hyperglycemia, E66.9 - Obesity, unspecified, E78.2 - Mixed hyperlipidemia Medications: New dulaglutide (Trulicity) 1.5 mg (0.5 mL) subcut QWEEK 6 mL 3RF Refilled levothyroxine 75 mcg PO DAILY 30 days 30 tabs 7RF Discontinued dulaglutide (Trulicity) Discontinued Reason: Doctor's Order 0.75 mg (0.5 mL) subcut QWEEK 6 mL 3RF Patient Instructions: Continue metformin 500 twice daily Increase Trulicity to 1.5 mg weekly Weight loss counselling ? Limit added sugars to less than 25 grams daily. There are 4.2 grams of sugar per teaspoon of sugar. A teaspoon of honey has 6 grams of sugar! Bread also can have more sugar than you think-check labels ? No soda or juices. Drink water, unsweetened iced tea or seltzer ? Limit eating out/take out or prepared meals to twice weekly at most ? Avoid red meat, hot dogs, jernigan and deli meat. Substitute plant protein for animal protein as much as you can. Beans, nuts, tofu, soy milk ? Limit cheese to 1 ounce a few times weekly ? Eat high fiber foods like beans, apples and green veggies, salsa is a great snack with whole grain cracker like Wasa ? Look for the whole grain stamp when choosing bread etc. Aim for 48 grams of whole grains daily. Whole wheat does not equal whole grains! ? Don't keep tempting treats in the house. Go out once in a while for a treat. ? Don't eat anything deep fried or cream based-no sour cream aim for 10k steps a day , plus resistance training 2-3 days a week Aim for a calorie deficit of 500 calories oer day, you can use phone apps such as lose it and my fitness pal to count these Do labs a week prior to next visit in 6 months Coding Level of Care Code Est Pt Level 4 (00805) Diagnoses Hypothyroidism, unspecified type E03.9 Hypothyroidism type: unspecified Type 2 diabetes mellitus with hyperglycemia, without long-term current use of insulin E11.65 Diabetes mellitus type: type 2 Mixed dyslipidemia E78.2 Obesity (BMI 30-39.9) E66.9 Time Spent (min) 30
[2024-11-10 09:19] LABS: Glucose, Whole Blood 90 mg/dL (60-115)
--- OUTSIDE RECORDS SUMMARY | 2024-11-10 09:35 | XMS_ITS | Continuity of Care Document ---
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 It does not include entries that were removed or entered in error. Problem Status Onset Date Problem Type Date of Resolution Comments Source visit for: administrative purpose Inactive 12/22/2010 Condition DoD foot pain (soft tissue) Active Condition [facility] Brace Inactive Condition [facility] visit for: services physical accession Active Condition [...] 1 Ordered 2021 No Facilit y Access FREESTYLE LANCETS (lancets), 28 GAUGE, EACH, MISCELL, HERRERA DIABETES, 100 ea. PACKET Cancele d [id number] : 2023 0 Pharmac y Data Transac tion Service Facilit y FREESTYLE LANCETS (lancets), 28 GAUGE, EACH, MISCELL, HERRERA DIABETES, 100 ea. PACKET Active [id number] 4 2023 100 Pharmac y Data Transac tion Service Facilit y FREESTYLE LITE TEST STRIP (blood sugar diagnostic) , STRIP, MISCELL, HERRERA DIABETES, 100 ea. BOX Cancele d [id number] : 2023 0 Pharmac y Data Transac tion Service Facilit y FREESTYLE LITE TEST STRIP (blood sugar diagnostic) , STRIP, MISCELL, HERRERA DIABETES, 100 ea. BOX Active [id number] 12/12/19 2 4 2023 100 Pharmac y [...] 1 Ordered 2021 No Facilit y Access LEVOTHYROXI NE SODIUM (levothyrox ine sodium), 75 MCG, TABLET, ORAL, AMNEAL PHARMACE, 1000 ea. BOTTLE Active [id number] 4 2023 90 Pharmac y Data Transac tion Service Facilit y LEVOTHYROXI NE SODIUM (levothyrox ine sodium), 75 MCG, TABLET, ORAL, AMNEAL PHARMACE, 1000 ea. BOTTLE Cancele d [id number] : 2023 0 Pharmac y Data Transac tion Service Facilit y lidocaine 2% topical gel with applicator lidocain e 2% topical gel with applicat or Start Date: 05/29/21 Status: Ordered Repeat number: 1 Ordered 2021 No Facilit y Access Allergies, Adverse Reactions, Alerts Combined list of allergies from Department of Defense and Veterans Affairs facilities. It does not include entries that were removed or entered in error. Substance Category Reaction Severity Reaction type Status Date Reported Comments Source No Known Allergies Drug allergy (disorder) active 12/22/2010 [facility] [place] [address] Immunizations Combined list of available immunizations from the Department of Defense and Veterans Affairs facilities. Immunization Series Date Given Administered By Site Reaction Lot Number CVX Code Drug [place] [employer] Status Comments Source influenza virus vaccine, inactivated 2023 RANDEEWALT Cardenas tammi, left (delt oid) [id number] SustainX, A [employer] complet ed influenza virus vaccine, inactivat ed 05/11/24 Given 8203R-1 04 MDG influenza, injectable, quadrivalent- pf 2020 [id number] 150 GlaxoSmPlanet BiotechnologyKli ne complet ed influenza , injectabl e, quadrival ent-pf 04/01/21 Given Ambulat ory Pharmac y Influenza, injectable, quadrivalent, preservative free 1 2020 [id number] 150 CartMomo (SKB) complet ed Influenza , injectabl e, quadrival ent, preservat stuart free DoD tetanus, diphtheria, acellular pertu is 2020 [id number] 115 sanofi pasteur complet ed tetanus, diphtheri a, acellular pertussis 03/24/21 Given Ambulat ory Pharmac y tetanus toxoid, reduced diphtheria toxoid, and acellular pertu is vaccine, adsorbed 1 2020 [id number] 115 Sanofi Pasteur (PMC) complet ed tetanus toxoid, reduced diphtheri a toxoid, and acellular pertussis vaccine, adsorbed DoD COVID Vaccine Moderna 2020 [id number] 207 complet ed COVID Vaccine Moderna 10/16/20 Given Ambulat ory Pharmac y SARS-COV-2 (COVID-19) vaccine, mRNA, spike protein, LNP, preservative free, 100 mcg or 50 mcg dose 2 2020 [id number] 207 Moderna US, Inc. (MOD) complet ed SARS-COV- 2 (COVID-19 ) vaccine, mRNA, spike protein, LNP, preservat stuart free, 100 mcg or 50 mcg dose DoD COVID Vaccine Moderna 2020 [id number] 207 complet ed COVID Vaccine Moderna 09/18/20 Given Ambulat ory Pharmac y SARS-COV-2 (COVID-19) vaccine, mRNA, spike protein, LNP, preservative free, 100 mcg or 50 mcg dose 1 2020 [id number] 207 Moderna US, Inc. (MOD) complet ed SARS-COV- 2 (COVID-19 ) vaccine, mRNA, spike protein, LNP, preservat stuart free, 100 mcg or 50 mcg dose DoD influenza, injectable, quadrivalent- pf 2019 [id number] 077 150 Seqirus complet ed influenza , injectabl e, quadrival ent-pf 06/19/20 Given Ambulat ory Pharmac y Influenza, injectable, quadrivalent, preservative free 1 2019 [id number] 077 150 Seqirus (SEQ) complet ed Influenza [...] free DoD Influenza, inj, MDCK, quadrivalent- pf 2016 [id number] 171 Seqirus complet ed Influenza , inj, MDCK, quadrival ent-pf 05/13/17 Given Ambulat ory Pharmac y Influenza, injectable, Madin Milagros Canine Kidney, preservative free, quadrivalent 9 2016 [id number] 171 Seqirus (SEQ) comple t ed Influenza , injectabl e, Madin [place] Canine Kidney, preservat stuart free, quadrival ent DoD influenza, seasonal, injectable-pf 2015 [id number] 140 GlaxoSmithKli ne complet ed influenza , seasonal, injectabl e-pf 04/22/16 Given Ambulat ory Pharmac y Influenza, seasonal, injectable, preservative free 1 2015 [id number] 140 Smithine (SKB) complet ed Influenza , seasonal, injectabl e, preservat stuart free DoD influenza, seasonal, injectable-pf 2014 [id number] 140 GlaxoSmithKli ne complet ed influenza , seasonal, injectabl e-pf 06/22/15 Given Ambulat ory Pharmac y Influenza, seasonal, injectable, preservative free 1 2014 140 SmithKline (SKB) complet ed Influenza , seasonal, injectabl e, preservat stuart free DoD influenza, live, intranasal,qu adrivalent 2013 [id number] 149 Medimmune Inc comple t ed influenza , live, intranasa l,quadriv alent 04/12/14 Given Ambulat ory Pharmac y influenza, live, intranasal, quadrivalent 7 2013 [id number] 149 MedICaption Data, Inc. (MED) complet ed influenza , live, intranasa l, quadrival ent DoD influenza, seasonal, injectable-pf 2012 140 complet ed influenza , seasonal, injectabl e-pf 04/26/13 Given Ambulat ory Pharmac y influenza, seasonal, injectable 2012 [id number] 141 Unknown complet ed influenza , seasonal, injectabl e 04/26/13 Given Ambulat ory Pharmac y Influenza, seasonal, injectable, preservative free 0 2012 140 (MVX) complet ed Influenza , seasonal, injectabl e, preservat stuart free DoD Influenza, seasonal, injectable 1 2012 [id number] 141 Unknown (UNK) comple t ed Influenza , seasonal, injectabl e DoD measles virus vaccine 0 2012 05 () Not Given measles virus vaccine DoD rubella virus vaccine 0 2012 06 () Not Given rubella virus vaccine DoD influenza, seasonal, injectable 2011 [id number] 1A 141 CSL Behring complet ed influenza [...] adult dosage 3 2011 [id number] [id number] 43 [facility] (SKB) complet ed hepatitis B vaccine, adult dosage DoD hepatitis A vaccine, adult dosage 3 2011 [id number] 2AA 52 [facility] ed hepatitis A vaccine, adult dosage DoD Influenza, seasonal, injectable 4 2011 [id number] 1A 141 COLOURlovers, Inc. (CSL) complet ed Influenza , seasonal, injectabl e DoD influenza virus vaccine, live 2010 [id number] 111 POPRAGEOUS Inc comple t ed influenza virus vaccine, live 04/13/11 Given Ambulat ory Pharmac y influenza virus vaccine, live, attenuated, for intranasal use 1 2010 [id number] 111 miLibris, Inc. (MED) complet ed influenza virus vaccine, live, attenuate d, for intranasa l use DoD hepatitis A-hepatitis B vaccine 2010 [id number] 3CA 104 GlaxoSmithKli ne complet ed hepatitis A-hepatit is B vaccine 02/07/11 Given Ambulat ory Pharmac y hepatitis A and hepatitis B vaccine 2 2010 [id number] 3CA 104 Smithine (SKB) complet ed hepatitis A and hepatitis [...] B vaccine 1 2010 [id number] 1BA 104 Smithine (SKB) complet ed hepatitis A and hepatitis B vaccine DoD tuberculin purified protein derivative 2010 [id number] 96 sanofi pasteur complet ed tuberculi n purified protein derivativ e 12/18/10 Given Ambulat ory Pharmac y influenza virus vaccine,split 2010 [id number] 15 CSL Behring complet ed influenza virus vaccine,s plit 12/15/10 Given Ambulat ory Pharmac y tetanus, diphtheria, acellular pertu is 2010 PS91N20 8DA 115 GlaxoSmithKli ne complet ed tetanus, diphtheri a, acellular pertussis 12/15/10 Given Ambulat ory Pharmac y meningococcal A,C,Y,W-135 (MCV4P) 2010 [id number] 114 sanofi pasteur complet ed meningoco ccal A,C,Y,W-1 35 (MCV4P) 12/15/10 Given Ambulat ory Pharmac y poliovirus vaccine, inactivated 2010 E0330 10 sanofi pasteur complet ed polioviru s vaccine, inactivat ed 12/15/10 Given Ambulat ory Pharmac y poliovirus vaccine, inactivated 1 2010 E0330 10 Sanofi Pasteur (PMC) complet ed polioviru s vaccine, inactivat ed DoD influenza virus vaccine, split virus (incl. purified surface antigen)-reti red CODE 1 2010 [id number] 15 COLOURlovers, K[employer] Discoveries. (CSL) complet ed influenza virus vaccine, split virus (incl. purified surface antigen)- retired CODE DoD meningococcal polysaccharid e (groups A, C, Y and W-135) diphtheria toxoid conjugate vaccine (MCV4P) 1 2010 [id number] 114 Sanofi Pasteur (PMC) complet ed meningoco ccal polysacch aride (groups A, C, Y and W-135) diphtheri a toxoid conjugate vaccine (MCV4P) DoD tetanus toxoid, reduced diphtheria toxoid, and acellular pertu is vaccine, adsorbed 1 2010 [id number] 8DA 115 [facility] (SKB[facility] complet ed tetanus toxoid, reduced diphtheri a toxoid, and acellular pertussis vaccine, adsorbed DoD influenza, seasonal, injectable 2010 141 Novartis Pharmaceutica ls complet ed influenza , seasonal, injectabl e 07/13/10 Given Ambulat ory Pharmac y Influenza, seasonal, injectable 0 2010 141 Novartis Pharmaceutica l Julio. (NOV) complet ed Influenza , seasonal, [...] Prevention' s HIV diagnostic algorithm. Refer to [facility] Lab Guide for additional information : [email or web address]. [email or web address]/ [email or web address] x Testing performed by [employer] pattuminaaliyah ce. 5600A-U [employer]SAM EPILAB Miscellan eous Sendouts Repository Sample Received (09/20/23 10:32 AM) 09/19 N 5600A-U SAFSAM EPILAB Encounters Combined list of: 1) Encounters from Department of Veterans Affairs facilities going backup to the last 18 months, not all VA inpatient encounters are included; 2) Encounters from the Department of Defense facilities going backup to 280 months. Location Location Details Encounter Type Encounter Number Reason For Visit Attending Provider ADM Date DC Date Status Disposition Source [facility] [place] [place] [address](Opt ometry Clinic [facility]) OUTPATIENT [id number] JOANN MARTINEZ 12/19 [facility] [place] [address](O ptometr y Clinic [facility]) [place] [address](MAS Norris) OUTPATIENT [id number] pain pack SHERWIN CLIFTON 12/21 Released w/o Limitations [facility] [place] [address](M Norris) [facility] [place] [address](MAS Norris) OUTPATIENT [id number] pain pack YESSENIA MIRAMONTES L 01/04 Released w/o Limitations [facility] [place] [address](M Norris) [facility] [place] [address](Ort hotic Svcs, [facility]) OUTPATIENT [id number] HERBER WOODS P 01/05 Released w/o Limitations [facility] [place] [address](O rthotic Svcs, [facility]) [facility] [place] [address](MAS Norris) OUTPATIENT [id number] Pain Pack SUSIE NUNEZ N 01/13 Released w/o Limitations [facility] [place] [address](M Norris) [facility] [place] [address](MAS Norris) OUTPATIENT [id number] pain/bl ister pack OMER PETTIT N 01/19 Released w/o Limitations [facility] [place] [address](M Norris) [facility] [place] [address](MAS Beast) OUTPATIENT [id number] Cold Pk/Pain Pk ROSE MARIE HAMILTON 01/25 Released w/o Limitations [facility] [place] [address](M Beast) [facility] [place] [address](MAS Norris) OUTPATIENT [id number] pain YESSENIA MIRAMONTES L 01/31 Released w/o Limitations [facility] [place] [address](M Norris) [facility] [place] [address](MAS Norris) OUTPATIENT [id number] pain pack SHERWIN CLIFTON 02/09 Released w/o Limitations [facility] [place] [address](M Norris) [facility] [place] [address](AFN G 104 Med Sq-FM) OUTPATIENT [id number] Notes Entered by: JUAN M GODFREY 07 Aug 2017 0823 ------- ------- ------- ------- -- DORINDA SMITHTRICE JUAN M INFANTE 08/07 Released w/o Limitations [facility] [place] [address](A FNG 104 Med Sq-FM) [facility], [facility](AFN G 104 Med Sq-FM) OUTPATIENT [id number] Notes Entered by: JUAN M GODFREY 10 Jul 2019 0847 ------- ------- ------- ------- -- JUAN M SULLIVAN 07/10 Released w/o Limitations [facility] [place] [address](A FNG 104 Med Sq-FM) [facility], [place] [address](AFN G 104 Med Sq-FM) OUTPATIENT [id number] Notes Entered by: JUAN M GODFREY 25 Aug 2020 1559 ------- ------- ------- ------- -- JUAN M SULLIVAN 08/25 Released w/o Limitations [facility] [place] [address](A FNG 104 Med Sq-FM) [facility](Opt ometry [facility] [place]) OUTPATIENT [id number] Pre-PRK appt ELENA SIBLEY 04/22 Released w/o Limitations [address] [place] [address](O ptometr y [facility] [place]) [facility], [place] [address](AFN G 104 Med Sq-FM) TELE CONSULT [id number] JUAN M GODFREY 05/17 [facility] [place] [address](A FNG 104 Med Sq-FM) [facility], [facility](AFN G 104 Med Sq-FM) OUTPATIENT [id number] Notes Entered by: Maurice LYON 22 Sep 2021 1607 ------- ------- ------- ------- -- SANTO MILLAN 09/22 Released w/o Limitations [facility] [place] [address](A FNG 104 Med Sq-FM) [address] [place] [address](Opt ometry [facility] [place]) OUTPATIENT [id number] PRK consult ELENA SIBLEY 11/24 Released w/o Limitations [address] [place] [address](O ptometr y [place]) [facility] [place] [address](AFN G 104 Med Sq-FM) TELE CONSULT [id number] JUAN M GODFREY 03/17 [facility] [place] [address](A FNG 104 Med Sq-FM) [place] [address](AFN G 104 Med Sq-FM) TELE CONSULT [id number] JUAN M GODFREY NOONE 05/26 [facility] [place] [place] [address](A FNG 104 Med Sq-FM) 8203R-104 MDG Mass Vaccine [id number] 05/11 Discharge Disposition: Home or Self Care 8203R-1 04 MDG 8203R-104 MDG Mass Vaccine [id number] 05/13 8203R-1 04 MDG 8203R-104 MDG Care Not Rendered [id number] 05/16 Discharge Disposition: Home or Self Care 8203R-1 04 MDG 8203R-104 MDG Care Not Rendered [id number] 06/10 Discharge Disposition: Home or Self Care 8203R-1 04 MDG 8203R-104 MDG Care Not Rendered [id number] 09/10 Discharge Disposition: Home or Self Care 8203R-1 04 MDG Procedures Combined list of: 1) Procedures from Department of Veterans Affairs facilities going back up to thelast 18 months, not all VA non-surgical procedures are included; 2) All procedures from the Department of Defense facilities. Procedure Procedure Type Code Date Perfomer Comments Sourc e Physical Therapy Education Orthotics Training Initial 15 Min 011 HERBER WOODS Foot, arch support, removable, premolded, longitudinal, each 011 HERBER WOODS Screening Test Of Visual Acuity, Quantitative, Bilateral Screening Test Of Visual Acuity, Quantitative, Bilateral 97236 011 ELONU, FRANCISCO U [facility] Spectacles Services Fitting Monofocals (Not For Aphakia) Spectacles Services Fitting Monofocals (Not For Aphakia) 14411 011 ELONU, FRANCISCO U [facility] Ophthalmological New Patient Start Comprehensive Care Ophthalmological New Patient Start Comprehensive Care 66607 ELENA SIBLEY Determination Of Refractive State Determination Of Refractive State 80048 ELENA SIBLEY Spectacles Services Fitting Monofocals (Not For Aphakia) Spectacles Services Fitting Monofocals (Not For Aphakia) 24417 ELENA SIBLEY Ophthalmological Prior Patient Start [facility] Care Ophthalmological Prior Patient Start Comprehensive Care 78404 ELENA SIBLEY Computerized Corneal Topography Computerized Corneal Topography 57067 ELENA SIBLEY Corneal Pachymetry Corneal Pachymetry 96400 ELENA SIBLEY OPHTHALMIC ULTRASOUND, ECHOGRAPHY, DIAGNOSTIC; CORNEAL PACHYMETRY, UNILATERAL OR BILATERAL (DETERMINATION OF CORNEAL THICKNESS) 022 [facility] FITTING OF SPECTACLES, EXCEPT FOR APHAKIA; MONOFOCAL 021 [facility] No data available for this section Ambulato ry Pharmacy Social History Combined list of available smoking, tobacco, and other social history from Department of Defense and Veterans Affairs facilities. Social History Type Response Date Comment Sour e This section is an empty social [...] Plan No data available for this section 11/10/2024 Ambulatory Pharmacy Functional Status Combined list of recent functional and cognitive assessments recorded at Department of Defense and Veterans Affairs (VA).VA Functional [place] Measurement (FIM) Scale: 1 = Total Assistance (Subject = 0% +), 2 = Maximal Assistance (Subject = 25% +), 3 = Moderate Assistance (Subject = 50% +), 4 = Minimal Assistance (Subject = 75% +), 5 = Supervision, 6 = Modified [place] (Device), 7 = Complete [place] (Timely, Safely). Assessment Date/Time Source Assessment Type Assessment Skill Assessment Score Assessment Details No data available for this section
== END 2024-11-10 09:34 | disposition home or self-care (01) ==
LOC: HO.ENCR 09:03
PROVIDERS: PCP Internal Medicine; Visit Provider Student in an Organized Health Care Education/Training Program
DX: E03.9 Hypothyroidism, unspecified (principal); E11.65 Type 2 diabetes mellitus with hyperglycemia; E78.2 Mixed hyperlipidemia; E66.9 Obesity, unspecified; Z13.9 Encounter for screening, unspecified
CPT/HCPCS: 99214

== ENCOUNTER → 2024-11-10 09:02 | Outpatient (BNVA) | payer OTHER, SELFPAY | PROVIDERS: PCP Internal Medicine; Visit Provider Student in an Organized Health Care Education/Training Program | DX: E03.9 Hypothyroidism, unspecified (principal); E11.65 Type 2 diabetes mellitus with hyperglycemia; E78.2 Mixed hyperlipidemia; E06.3 Autoimmune thyroiditis; E66.9 Obesity, unspecified; Z68.35 Body mass index [BMI] 35.0-35.9, adult | CPT/HCPCS: 82947; 83036; 99212 ==

== ENCOUNTER 2024-11-17 10:12 | Outpatient (AMB) | payer OTHER, SELFPAY ==
[2024-11-17 10:29] VITALS: BP 108/78; PULSE 60; RESP 16; TEMP 36.7; O2SAT 96; BMI 35.2
--- NOTE | 2024-11-17 10:29 | A.OFFPC_ITS ---
Vital Signs 11/17/24 10:29 Height 5 ft 6 in Weight 218 lb BMI 35.2 BP 108/78 Blood Pressure Location Lt brachial Position Sitting Respiration 16 Pulse 60 Pulse Source Pulse Oximeter Temp 98.0 F Temp Source Oral Pulse Oximetry (%) 96 Oxygen Delivery Method Room Air Intake Visit Reasons: Annual PE~R/S from 09/19 Intake Note: Pt is here today for her PE: Last mammogram 09/06/22, papsmear 11/30/20 Is last menstrual period known: Yes Last menstrual period: 11/12/24 Allergies acetaminophen [Percocet] Allergy (Unknown, Verified 11/17/24 11:34) cant see up close oxycodone [Percocet] Allergy (Unknown, Verified 11/17/24 11:34) blurred vision oxytocin [From Pitocin] Adverse Reaction (Severe, Verified 11/17/24 11:34) Blurry Vision Medication List - Last Reconciled 11/17/24 by Peggy Mcknight MD atorvastatin 40 mg PO BEDTIME bisacodyl (Dulcolax (bisacodyl)) 20 mg (4 x 5 mg) PO ONCE 1 day blood sugar diagnostic (FreeStyle Lite Strips) Test blood sugar once per day blood-glucose meter (FreeStyle Lite Meter kit) Check blood sugar daily diclofenac sodium 1% (Arthritis Pain (diclofenac)) 2 grams topical QID dulaglutide (Trulicity) 1.5 mg (0.5 mL) subcut QWEEK FreeStyle Karl 3 Plus Sensor (blood-glucose sensor) Check blood sugar 3 times per day, change sensor every 14 days NS FreeStyle Karl 3 [place] (blood-glucose,communications engineering technician,cont) As directed NS [Knee cooling device As directed Breg: Vpulse with Knee Pad Prod numbers #[id number], #[id number]] lancets (FreeStyle Lancets) Test blood sugar once per day levothyroxine 75 mcg PO DAILY 30 days metformin ER 500 mg PO BID polyethylene glycol 3350 (Miralax) 238 grams PO ONCE Tobacco use date assessed: 11/17/24 Dental Screening Dental Screen Date: 11/17/24 Did you have a dental visit in the last 12 months?: Yes Did you have a dental problem in the last 6 months where you did not have access to dental care?: No Was dental information given to patient?: Patient has dentist HPI Annual PE~R/S from 09/19 HPI Details 44-year-old lady here today for her phys ical exam. She has diabetes mellitus type 2, currently on Trulicity 1.5 mg subcutaneously given once a week, metformin ER 500 mg twice a day, and takes atorvastatin 40 mg at bedtime for her hyperlipidemia. Her last hemoglobin A1c obtain 11/10/2024 was 5.3% She is overdue for screening mammogram, last done in 2022 at [facility]. Her last cervical cancer screening was done in 2020 also done at [facility] with benign findings. 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 Patient states that she has been feeling well on current dose of levothyroxine 75 mcg taken once a day. [facility] Medical History (Updated 11/24/24 @ 03:07 by Peggy Mcknight MD) Type 2 diabetes mellitus without complication, without long-term current use of insulin Family history of colon cancer Lump of skin of back Obesity (BMI 30-39.9) Arthritis of right knee Mixed dyslipidemia Left ACL tear Elevated liver enzymes Annual visit for general adult medical examination with abnormal findings History of gestational diabetes Vitamin D deficiency Hypothyroidism Jessica's disease Anti-TPO antibodies present Surgical History Hx of anterior cruciate ligament tear reconstruction Tubal ligation status Hx of section Hx of cholecystectomy Hx of knee surgery Family History Father Colon cancer Mother Breast cancer Substance use disorder Sister Substance use disorder Maternal Aunt Substance use disorder Maternal Uncle Substance use disorder Paternal Uncle Substance use disorder Social History Household Members: Children Housing: Condominium Alcohol intake: never Patient Tobacco Use Status: Never used Tobacco e-Cigarette/Vaping Use: Never Used service: Yes Current occupational status: employed 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 1. Little interest or pleasure in doing things: not at all 2. Feeling down, depressed, or hopeless: not at all 3. Trouble falling or staying asleep, or sleeping too much: several days 4. Feeling tired or having little energy: several days 5. Poor appetite or overeating: not at all 6. Feeling bad about yourself - or that you are a failure or have let yourself or your family down: not at all 7. Trouble concentrating on things, such as reading the newspaper or watching television: not at all 8. Moving or speaking so slowly that other people could have noticed. Or the opposite - being so fidgety or restless that you have been moving around a lot more than usual: not at all 9. Thoughts that you would be better off or of hurting yourself in some way: not at all Total score: 2 Depression Screening Interpretation: Negative Depression Screening Done: Yes 64387 - PHQ-9 Billing: Yes Source: Developed by Drs. Blayne Wilks, Maddi Laws, Tom Hobson and colleagues, with an educational erika from [email or web address]. Thrive Questionnaire Date Thrive assessed: 11/17/24 I am a: Patient What is your living situation today?: I have a steady place to live Within the past 12 months, did the food you bought not last and you didn't have the money to get more?: Never true Within the past 12 months, did you worry whether your food would run out before you got money to buy more?: Never true Do you have trouble paying for medicines?: No Do you have trouble getting transportation to medical appointments?: No Do you have trouble paying your heating and electricity bill?: No Do you have trouble taking care of your child, family member or friend?: No Do you have trouble with day-to-day activities such as bathing, preparing meals, shopping, managing finances, etc.?: No Are you currently unemployed and looking for a job?: No Are you interested in more education?: No Please select the resources that you would like help with: None Currently or been in a relationship where the following occur: I choose not to answer THRIVE Score: 0 AUDIT C Alcohol Use Questionnaire (AUDIT-C) 1. How often do you have a drink containing alcohol?: Never Total Score: 0 KANCHAN-7 AMB Questionnaire KANCHAN-7 Date KANCHAN - 7 assessed: 11/17/24 Feeling nervous, anxious, or on edge: 0 = Not at all Not being able to stop or control worryin = Not at all Worrying too much about different things: 0 = Not at all Trouble relaxin = Not at all Being so restless that it is hard to sit still: 0 = Not at all Becoming easily annoyed or irritable: 0 = Not at all Feeling afraid as if something awful might happen: 0 = Not at all Total KANCHAN-7 score (0-4 normal; 5-9 mild; 10-14 moderate; 15-21 severe): 0 Source: Developed by Drs. Blayne Wilks, Maddi Laws, Tom Hobson and colleagues, with an educational erika from [email or web address]. Review of Systems Const Reports no additional complaints and Reports weight gain Eyes Reports no additional complaints ENT Reports no additional complaints and Denies dysphagia Card Reports no additional complaints Resp Reports no additional complaints GI Denies abdominal pain, Denies belching, Denies melena, Reports bloating, Denies change in bowel habits, Denies dysphagia, Denies heartburn, Denies diarrhea, Denies nausea and Denies vomiting Reports no additional complaints Musc Reports no additional complaints Neuro Reports no additional complaints Psych Reports no additional complaints Endo Reports no additional complaints Brian/Lymph Reports no additional complaints Aller/Immun Reports no additional complaints Physical exam (Primary Care) Vital Signs: Last Vital Signs Temp 98.0 F 11/17/24 10:29 Pulse 60 11/17/24 10:29 Resp 16 11/17/24 10:29 BP 108/78 11/17/24 10:29 Pulse Ox 96 11/17/24 10:29 Oxygen Delivery Method Room Air 11/17/24 10:29 BMI result Body Mass Index 35.2 Tobacco/Smoking Status: Tobacco use Status Tobacco use date assessed 11/17/24 11/17/24 10:32 Patient Tobacco Use Status Never used Tobacco 11/17/24 10:32 e-Cigarette/Vaping Use Never Used 11/17/24 10:32 PHQ-9: PHQ-9 Score PHQ-9: Total score 2 11/24/24 02:54 Depression Screening Interpretation: Negative Thrive Assessment: Date of Thrive Assessment Date Thrive assessed 11/17/24 11/17/24 10:32 Currently or been in a relationship where the following occur: I choose not to answer Advance Care Planning discussion: Completed/Scanned Date of discussion: 11/17/24 Who was present: Patient Forms completed: Health Care Proxy Time spent: 16-45 minutes Actual minutes spent: 2 Const Other: Alert oriented x3, no acute cardiorespiratory distress noted ambulatory with normal gait HENMT Head: Yes normocephalic Ears: external ears normal, TM's normal bilaterally and EAC's normal General nose exam: Normal external nose present Face and sinus: Yes face symmetric Mouth: Normal oral and palatal mucosa present and moist mucous membranes Eyes General: appearance normal, both eyes and all related structures Pupils: Equal, round and reactive pupils present EOM: EOMs intact bilaterally Neck Neck: Yes full ROM, Yes no lymphadenopathy, Yes no meningeal signs and Yes supple Chest Breast/axilla palpation: normal palpation of the breasts Resp Auscultation: clear to auscultation bilaterally Cardio Other: S1-S2 present regular rate and rhythm GI Palpation (GI): Soft to palpation, nontender, no guarding and no masses Auscultation: normal bowel sounds General: Yes deferred (Sees OBGYN at [facility],) Back/Spine/Pelvis Back: No back tenderness Skin General skin exam: no rashes or lesions noted Neuro General: gait normal, moves all extremities, Normal light touch and pain sensation, no meningeal signs, no focal motor deficits and CN's II-XI intact bilaterally Cranial nerves: Yes Equal, round and reactive pupils present Gait exam (Neuro): Normal gait present Extrem General: Yes full ROM, Yes no joint enlargement, Yes no clubbing, cyanosis or edema, Yes no calf tenderness and Yes normal gait Psych Appearance: grossly normal and well kempt Mental Status: mental status grossly normal Speech and movement: Normal speech and movement present Affect: normal affect Coding Level of Care Code Est Pt Prev Care 40-64y(56514) Diagnoses Annual visit for general adult medical examination with abnormal findings Z00.01 Type 2 diabetes mellitus without complication, without long-term current use of insulin E11.9 Obesity (BMI 30-39.9) E66.9 Jessica's disease E06.3 Advanced directives, counseling/discussion Z71.89 Additional Codes PHQ-9 - 57219 - PHQ-9 Billing: Yes ([id number]) Vital Signs *Quality* - Advance Care Planning discussion: Completed/Scanned ([id number]) Vital Signs *Quality* - Time spent: 16-45 minutes ([id number]) Assessment & Plan Assessment & Plan (1) Annual visit for general adult medical examination with abnormal findings: Code(s): Z00.01 - Encounter for general adult medical examination with abnormal findings Plan: Will check appropriate labs. Recommended dental visit every 6 months and regular eye exams, every year. Take adequate calcium in diet and vitamin-D 3 at 2000 IU per cap once a day, in addition to weight-bearing exercises to help maintain good muscle tone and weight control. Instructed to do self-breast exam, and recommended to get yearly mammogram, ordered today. Up-to-date with her vaccines. She has been seen at [facility] who will be scheduling an appointment for her initial screening colonoscopy (2) Type 2 diabetes mellitus without complication, without long-term current use of insulin: Code(s): E11.9 - Type 2 diabetes mellitus without complications Category: Medical Plan: Currently followed by [facility] endocrine clinic, diabetes mellitus well controlled with hemoglobin A1c at 5.3% EKG done today showed sinus bradycardia with a heart rate a 56 per minute, no acute ST-T changes seen (3) Obesity (BMI 30-39.9): Code(s): E66.9 - Obesity, unspecified Category: Medical Plan: Reinforced importance of staying active, do at least moderate intensity exercise 30 minutes 3-4 times a week, and adherence to healthy eating habits, avoidance of processed foods, salty and sweet snacks, avoid eating late at night (4) Jessica's disease: Code(s): E06.3 - Autoimmune thyroiditis Category: Medical Plan: Currently on levothyroxine 75 mcg taken once a day (5) Advanced directives, counseling/discussion: Code(s): Z71.89 - Other specified counseling Plan: Initiated the conversation about Advanced Directives. Advanced Directives help patients prepare for current and future decisions about their medical treatment and place of care. Discussed with patient that it is a process where a patients current condition and prognosis are reviewed, their wishes for information regarding their illness are elicited, and likely medical dilemmas are presented and options discussed. Healthcare proxy form completed today. The form can be amended as needed, reviewed yearly and make changes as needed Orders: Orders MM tomosynthesis screening BI 11/17/24 Z12.31 - Encounter for screening mammogram for malignant neoplasm of breast AMB EKG-In Office 11/17/24 E11.65 - Type 2 diabetes mellitus with hyperglycemia, Z13.6 - Encounter for screening for cardiovascular disorders
--- OUTSIDE RECORDS SUMMARY | 2024-11-17 10:41 | XMS_ITS | Continuity of Care Document ---
Author Name [facility] Organization [facility] Care Team Providers Care Keg Header Name Role Phone [facility] Unavailable Unavailable Problems Combined list of problems from Department of Defense and Veterans Affairs facilities. It does not include entries that were removed or entered in error. Problem Status Onset Date Problem Type Date of Resolution Comments Source visit for: administrative purpose Inactive 12/22/2010 Condition DoD foot pain (soft tissue) Active Condition [facility] Brace Inactive Condition [facility] visit for: services physical accession Active Condition [...] HERRERA DIABETES, 100 ea. PACKET Cancele d [id number] : 2023 0 Pharmac y Data Transac tion Service Facilit y FREESTYLE LANCETS (lancets), 28 GAUGE, EACH, MISCELL, HERRERA DIABETES, 100 ea. PACKET Active [id number] 4 2023 100 Pharmac y Data Transac tion Service Facilit y FREESTYLE LITE TEST STRIP (blood sugar diagnostic) , STRIP, MISCELL, HERRERA DIABETES, 100 ea. BOX Cancele d [id number] : 2023 0 Pharmac y Data Transac tion Service Facilit y FREESTYLE LITE TEST STRIP (blood sugar diagnostic) , STRIP, MISCELL, HERRERA DIABETES, 100 ea. BOX Active [id number] 12/12/19 2 4 2023 100 Pharmac y [...] ORAL, AMNEAL PHARMACE, 1000 ea. BOTTLE Active [id number] 4 2023 90 Pharmac y Data Transac tion Service Facilit y LEVOTHYROXI NE SODIUM (levothyrox ine sodium), 75 MCG, TABLET, ORAL, AMNEAL PHARMACE, 1000 ea. BOTTLE Cancele d [id number] : 2023 0 Pharmac y Data Transac [...] Known Allergies Drug allergy (disorder) active 12/22/2010 [place] [address] Immunizations Combined list of available immunizations from the Department of Defense and Veterans Affairs facilities. Immunization Series Date Given Administered By Site Reaction Lot Number CVX Code Drug Clinical Researcher Status Comments Source influenza virus vaccine, inactivated 2023 RANDEEWALT Cardenas tammi, left (delt oid) [id number] SportXast, A [employer] complet ed influenza virus vaccine, inactivat ed 05/11/24 Given 8203R-1 04 MDG influenza, injectable, quadrivalent- pf 2020 [id number] 150 GlaxoSmHome Dialysis PlusKli ne complet ed influenza , injectabl e, quadrival ent-pf 04/01/21 Given Ambulat ory Pharmac y Influenza, injectable, quadrivalent, preservative free 1 2020 [id number] 150 Medprex (SKB) complet ed Influenza , injectabl e, quadrival ent, preservat stuart free DoD tetanus, diphtheria, acellular pertu is 2020 [id number] 115 sanofi pasteur complet ed tetanus, diphtheri a, acellular pertussis 03/24/21 Given Ambulat ory Pharmac y tetanus toxoid, reduced diphtheria toxoid, and acellular pertu is vaccine, adsorbed 1 2020 [id number] 115 Sanofi Pasteur (PMC) complet ed tetanus toxoid, reduced diphtheri a toxoid, and acellular pertussis vaccine, adsorbed DoD COVID Vaccine Moderna 2020 [id number] complet ed COVID Vaccine Moderna 10/16/20 Given Ambulat ory Pharmac y SARS-COV-2 (COVID-19) vaccine, mRNA, spike protein, LNP, preservative free, 100 mcg or 50 mcg dose 2 2020 [id number] 207 Moderna US, Inc. (MOD) complet ed SARS-COV- 2 (COVID-19 ) vaccine, mRNA, spike protein, LNP, preservat stuart free, 100 mcg or 50 mcg dose DoD COVID Vaccine Moderna 2020 [id number] 207 complet ed COVID Vaccine Moderna 09/18/20 Given Ambulat ory Pharmac y SARS-COV-2 (COVID-19) vaccine, mRNA, spike protein, LNP, preservative free, 100 mcg or 50 mcg dose 1 2020 [id number] 207 Moderna US, Inc. (MOD) complet ed SARS-COV- 2 (COVID-19 ) vaccine, mRNA, spike protein, LNP, preservat stuart free, 100 mcg or 50 mcg dose DoD influenza, injectable, quadrivalent- pf 2019 [id number] 150 Seqirus complet ed influenza , injectabl e, quadrival ent-pf 06/19/20 Given Ambulat ory Pharmac y Influenza, injectable, quadrivalent, preservative free 1 2019 [id number] 077 150 Seqirus (SEQ) complet ed Influenza [...] DoD Influenza, inj, MDCK, quadrivalent- pf 2016 [id number] 171 Seqirus complet ed Influenza , inj, MDCK, quadrival ent-pf 05/13/17 Given Ambulat ory Pharmac y Influenza, injectable, Madin Milagros Canine Kidney, preservative free, quadrivalent 9 2016 [id number] 171 Seqirus (SEQ) comple t ed Influenza [...] free DoD influenza, live, intranasal,qu adrivalent 2013 [id number] 149 Medimmune Inc comple t ed influenza , live, intranasa l,quadriv alent 04/12/14 Given Ambulat ory Pharmac y influenza, live, intranasal, quadrivalent 7 2013 [id number] 149 MedIPyramid Analytics, Inc. (MED) complet ed influenza , live, intranasa l, quadrival ent DoD influenza, seasonal, injectable-pf 2012 140 complet ed influenza , seasonal, injectabl e-pf 04/26/13 Given Ambulat ory Pharmac y influenza, seasonal, injectable 2012 [id number] 141 Unknown complet ed influenza , seasonal, injectabl e 04/26/13 Given Ambulat ory Pharmac y Influenza, seasonal, injectable, preservative free 0 2012 140 (MVX) complet ed Influenza , seasonal, injectabl e, preservat stuart free DoD Influenza, seasonal, injectable 1 2012 [id number] 141 Unknown (UNK) comple t ed Influenza , seasonal, injectabl e DoD measles virus vaccine 0 2012 05 () Not Given measles virus vaccine DoD rubella virus vaccine 0 2012 06 () Not Given rubella virus vaccine DoD influenza, seasonal, injectable 2011 [id number] 141 CSL Behring complet ed influenza [...] adult dosage 3 2011 [id number] 43 [facility] (SKB) complet ed hepatitis B vaccine, adult dosage DoD hepatitis A vaccine, adult dosage 3 2011 [id number] 52 [facility] ([facility] hepatitis A vaccine, adult dosage DoD Influenza, seasonal, injectable 4 2011 [id number] 141 LiveLeaf, Inc. (CSL) complet ed Influenza , seasonal, injectabl e DoD influenza virus vaccine, live 2010 [id number] 111 Qewz Inc comple t ed influenza virus vaccine, live 04/13/11 Given Ambulat ory Pharmac y influenza virus vaccine, live, attenuated, for intranasal use 1 2010 [id number] 111 Mix & Meet, Inc. (MED) complet ed influenza virus vaccine, [...] vaccine DoD tuberculin purified protein derivative 2010 [id number] 96 sanofi pasteur complet ed tuberculi n purified protein derivativ e 12/18/10 Given Ambulat ory Pharmac y influenza virus vaccine,split 2010 [id number] 15 CSL Behring complet ed influenza virus vaccine,s plit 12/15/10 Given Ambulat ory Pharmac y tetanus, diphtheria, acellular pertu is 2010 [id number] 115 GlaxoSmithKli ne complet ed tetanus, diphtheri a, acellular pertussis 12/15/10 Given Ambulat ory Pharmac y meningococcal A,C,Y,W-135 (MCV4P) 2010 [id number] 114 sanofi pasteur complet ed meningoco ccal [...] purified surface antigen)-reti red CODE 1 2010 [id number] 15 LiveLeaf, Admitly. (CSL) complet ed influenza virus vaccine, split virus (incl. purified surface antigen)- retired CODE DoD meningococcal polysaccharid e (groups A, C, Y and W-135) diphtheria toxoid conjugate vaccine (MCV4P) 1 2010 [id number] 114 Sanofi Pasteur (PMC) complet ed meningoco ccal polysacch aride (groups A, C, Y and W-135) diphtheri a toxoid conjugate vaccine (MCV4P) DoD tetanus toxoid, reduced diphtheria toxoid, and acellular pertu is vaccine, adsorbed 1 2010 [id number] 115 [facility] (SKB) complet ed tetanus toxoid, reduced [...] Prevention' s HIV diagnostic algorithm. Refer to [facility] Lab Guide for additional information : [email or web address] x Testing performed by [employer] pattuminaaliyah ce. 5600A-U LL[employer] EPILAB Miscellan eous Sendouts Repository Sample Received [...] ADM Date DC Date Status Disposition [place] [address](Opt ometry Clinic [facility]) OUTPATIENT [id number] JOANN MARTINEZ 12/19 [facility] [place] [place] [address](O [facility]ometr y [facility] [place] [address](MAS Norris) OUTPATIENT [id number] pain pack SHERWIN CLIFTON 12/21 [facility]ased w/[facility] Limitations [facility] [place] [address](M Norris) [place] [address](MAS Norris) OUTPATIENT [id number] pain pack YESSENIA MIRAMONTES L 01/04 Released w/o Limitations [facility] [place] [address](M Norris) [place] [address](Ort hotic Svcs, [facility]) OUTPATIENT [id number] HERBER WOODS P 01/05 Released w/o Limitations [facility] [place] [address](O rthotic Svcs, [facility]) [place] [address](MAS Norris) OUTPATIENT [id number] Pain Pack SUSIE NUNEZ N 01/13 Released w/o Limitations [facility] [place] [address](M Norris) [place] [address](MAS Norris) OUTPATIENT [id number] pain/bl ister pack OMER PETTIT N 01/19 Released w/o Limitations [facility] [place] [address](M Norris) [place] [address](MAS Beast) OUTPATIENT [id number] Cold Pk/Pain Pk ROSE MARIE HAMILTON 01/25 Released w/o Limitations [facility] [place] [address](M Beast) [place] [address](MAS Norris) OUTPATIENT [id number] pain YESSENIA MIRAMONTES L 01/31 Released w/o Limitations [facility] [place] [address](M Norris) [place] [address](MAS Norris) OUTPATIENT [id number] pain pack SHERWIN CLIFTON 02/09 Released w/o Limitations [facility] [place] [address](M Norris) [place] [address](AFN G 104 Med Sq-FM) OUTPATIENT [id number] Notes Entered by: JUAN M GODFREY 07 Aug 2017 0823 ------- ------- ------- ------- -- DORINDA SMITHTRICE JUAN M INFANTE 08/07 [facility]ased w/o Limitations [facility] [place] [address](A FNG 104 Med Sq-FM) [facility], [facility](AFN G 104 Med Sq-FM) OUTPATIENT [id number] Notes Entered by: JUAN M GODFREY 10 Jul 2019 0847 ------- ------- ------- ------- -- JUAN M SULLIVAN 07/10 Released w/o Limitations [facility] [place] [address](A FNG 104 Med Sq-FM) [facility], [place] [address](AFN G 104 Med Sq-FM) OUTPATIENT [id number] Notes Entered by: JUAN M GODFREY 25 Aug 2020 1559 ------- ------- ------- ------- -- JUAN M SULLIVAN 08/25 Released w/o Limitations [facility] [place] [address](A FNG 104 Med Sq-FM) [facility](Opt ometry [facility] [place]) OUTPATIENT [id number] Pre-PRK appt ELENA SIBLEY 04/22 Released w/o Limitations [address] [place] [address](O ptometr y [facility] [place]) [facility], [place] [address](AFN G 104 Med Sq-FM) TELE CONSULT [id number] JUAN M GODFREY 05/17 [facility] [place] [address](A FNG 104 Med Sq-FM) [facility], [facility](AFN G 104 Med Sq-FM) OUTPATIENT [id number] Notes Entered by: Maurice LYON 22 Sep 2021 1607 ------- ------- ------- ------- -- SANTO MILLAN 09/22 Released w/o Limitations [facility] [place] [address](A FNG 104 Med Sq-FM) [address] [place] [address](Opt ometry [facility] [place]) OUTPATIENT [id number] PRK consult ELENA SIBLEY 11/24 Released w/o Limitations [address] [place] [address](O ptometr y [facility] [place]) [place] [address](AFN G 104 Med Sq-FM) TELE CONSULT [id number] JUAN M GODFREY 03/17 [facility] [place] [address](A FNG 104 Med Sq-FM) [place] [address](AFN G 104 Med Sq-FM) TELE CONSULT [id number] JUAN M GODFREY NOONE 05/26 [facility] [place] [address](A FNG 104 Med Sq-FM) 8203R-104 MDG Mass Vaccine [id number] 05/11 Discharge Disposition: Home or Self Care 8203R-1 04 MDG 8203R-104 MDG Mass Vaccine [id number] 05/13 8203R-1 04 MDG 8203R-104 MDG Care Not Rendered [id number] 05/16 Discharge Disposition: Home or Self Care 8203R-1 04 MDG 8203R-104 MDG Care Not Rendered [id number] 06/10 Discharge Disposition: Home or Self Care 8203R-1 04 MDG 8203R-104 MDG Care Not Rendered [id number] 09/10 Discharge Disposition: Home or Self Care [...] OR BILATERAL (DETERMINATION OF CORNEAL THICKNESS) 022 [facility] FITTING OF SPECTACLES, EXCEPT FOR APHAKIA; MONOFOCAL 021 [facility] Physical Therapy Education Orthotics Training Initial 15 Min 011 HERBER WOODS Foot, arch support, removable, premolded, longitudinal, each 011 HERBER WOODS Screening Test Of Visual Acuity, Quantitative, Bilateral Screening Test Of Visual Acuity, Quantitative, Bilateral [id number] ELONU, FRANCISCO U [facility] Spectacles Services Fitting Monofocals (Not For Aphakia) Spectacles Services Fitting Monofocals (Not For Aphakia) [id number] 011 ELONU, FRANCISCO U [facility] Ophthalmological New Patient Start Comprehensive Care Ophthalmological New Patient Start Comprehensive Care [address]398 ELENA SIBLEY Determination Of Refractive State Determination Of Refractive State [address] ELENA SIBLEY Spectacles Services Fitting Monofocals (Not For Aphakia) Spectacles Services Fitting Monofocals (Not For Aphakia) 02125 ELENA SIBLEY Ophthalmological Prior Patient Start Comprehensive Care Ophthalmological Prior Patient Start Comprehensive Care 21978 ELENA SIBLEY Computerized Corneal Topography Computerized Corneal Topography 56366 ELENA SIBLEY Corneal Pachymetry Corneal Pachymetry 97984 ELENA SIBLEY Social History Combined list of [...] Plan No data available for this section 11/17/2024 Ambulatory Pharmacy Functional Status Combined list of recent functional and cognitive assessments recorded at Department of Defense and Veterans Affairs (VA).VA Functional Calvert Measurement (FIM) Scale: 1 = Total Assistance (Subject = 0% +), 2 = Maximal Assistance (Subject = 25% +), 3 = Moderate Assistance (Subject = 50% +), 4 = Minimal Assistance (Subject = 75% +), 5 = Supervision, 6 = Modified Calvert (Device), 7 = Complete Calvert (Timely, Safely). Assessment Date/Time Source Assessment Type Assessment Skill Assessment Score Assessment Details No data available for this section
== END 2024-11-17 11:43 | disposition home or self-care (01) ==
LOC: HO.HMCC 10:13
PROVIDERS: PCP Internal Medicine; Visit Provider Internal Medicine
DX: Z00.00 Encounter for general adult medical examination without abnormal findings (principal); E11.9 Type 2 diabetes mellitus without complications; E66.9 Obesity, unspecified; Z68.35 Body mass index [BMI] 35.0-35.9, adult; E06.3 Autoimmune thyroiditis; Z71.89 Other specified counseling

== ENCOUNTER → 2024-11-17 10:12 | Outpatient (BNVA) | payer OTHER, SELFPAY | PROVIDERS: PCP Internal Medicine; Visit Provider Internal Medicine | DX: Z00.01 Encounter for general adult medical examination with abnormal findings (principal); E11.9 Type 2 diabetes mellitus without complications; E66.9 Obesity, unspecified; Z68.35 Body mass index [BMI] 35.0-35.9, adult; E06.3 Autoimmune thyroiditis; Z71.89 Other specified counseling; Z71.3 Dietary counseling and surveillance | CPT/HCPCS: 96127 ==

== ENCOUNTER 2024-11-24 13:11 | Outpatient (AMB) | payer OTHER, SELFPAY ==
--- OUTSIDE RECORDS SUMMARY | 2024-11-24 13:13 | XMS_ITS | Continuity of Care Document ---
Author Name [facility] Organization [facility] Care Team Providers Care Bulb Assembler Name Role Phone [facility] Unavailable Unavailable Problems Combined list of problems from Department of Defense and Veterans Affairs facilities. It does not include entries that were removed or entered in error. Problem Status Onset Date Problem Type Date of Resolution Comments Source visit for: administrative purpose Inactive 12/22/2010 Condition DoD foot pain (soft tissue) Active Condition [facility] Brace Inactive Condition [facility] visit for: services physical accession Active [...] HERRERA DIABETES, 100 ea. PACKET Cancele d [id number] : 2023 0 Pharmac y Data Transac tion Service Facilit y FREESTYLE LANCETS (lancets), 28 GAUGE, EACH, MISCELL, HERRERA DIABETES, 100 ea. PACKET Active [id number] 4 2023 100 Pharmac y Data Transac tion Service Facilit y FREESTYLE LITE TEST STRIP (blood sugar diagnostic) , STRIP, MISCELL, HERRERA DIABETES, 100 ea. BOX Cancele d [id number] : 2023 0 Pharmac y Data Transac tion Service Facilit y FREESTYLE LITE TEST STRIP (blood sugar diagnostic) , STRIP, MISCELL, HERRERA DIABETES, 100 ea. BOX Active [id number] 12/12/19 2 4 2023 100 Pharmac y [...] ORAL, AMNEAL PHARMACE, 1000 ea. BOTTLE Active [id number] 4 2023 90 Pharmac y Data Transac tion Service Facilit y LEVOTHYROXI NE SODIUM (levothyrox ine sodium), 75 MCG, TABLET, ORAL, AMNEAL PHARMACE, 1000 ea. BOTTLE Cancele d [id number] : 2023 0 Pharmac y Data Transac [...] Known Allergies Drug allergy (disorder) active 12/22/2010 [facility] [place] [place] [address] Immunizations Combined list of available immunizations from the Department of Defense and Veterans Affairs facilities. 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 (SKB) complet ed Influenza , injectabl e, quadrival ent, preservat stuart free DoD tetanus, diphtheria, acellular pertu is 2020 [id number] 115 sanofi pasteur complet ed tetanus, diphtheri a, acellular pertussis 03/24/21 Given Ambulat ory Pharmac y tetanus toxoid, reduced diphtheria toxoid, and acellular pertu is vaccine, adsorbed 1 2020 [id number] 115 Sanofi Pasteur (PMC) complet ed tetanus toxoid, reduced diphtheri a toxoid, and acellular pertussis vaccine, adsorbed DoD COVID Vaccine Moderna 2020 [id number] complet ed COVID Vaccine Moderna 10/16/20 Given Ambulat ory Pharmac y SARS-COV-2 (COVID-19) vaccine, mRNA, spike protein, LNP, preservative free, 100 mcg or 50 mcg dose 2 2020 [id number] 207 Moderna US, Inc. (MOD) complet ed SARS-COV- 2 (COVID-19 ) vaccine, mRNA, spike protein, LNP, preservat stuart free, 100 mcg or 50 mcg dose DoD COVID Vaccine Moderna 2020 [id number] complet ed COVID Vaccine Moderna 09/18/20 Given Ambulat ory Pharmac y SARS-COV-2 (COVID-19) vaccine, mRNA, spike protein, LNP, preservative free, 100 mcg or 50 mcg dose 1 2020 [id number] 207 Moderna US, Inc. (MOD) complet ed SARS-COV- 2 (COVID-19 ) vaccine, mRNA, spike protein, LNP, preservat stuart free, 100 mcg or 50 mcg dose DoD influenza, injectable, quadrivalent- pf 2019 [id number] 150 Seqirus complet ed influenza , injectabl e, quadrival ent-pf 06/19/20 Given Ambulat ory Pharmac y Influenza, injectable, quadrivalent, preservative free 1 2019 [id number] 077 150 Seqirus (SEQ) complet ed Influenza [...] DoD Influenza, inj, MDCK, quadrivalent- pf 2016 [id number] 171 Seqirus complet ed Influenza , inj, MDCK, quadrival ent-pf 05/13/17 Given Ambulat ory Pharmac y Influenza, injectable, Madin Milagros Canine Kidney, preservative free, quadrivalent 9 2016 [id number] 171 Seqirus (SEQ) comple t ed Influenza [...] free DoD influenza, live, intranasal,qu adrivalent 2013 [id number] 149 Medimmune Inc comple t ed influenza , live, intranasa l,quadriv alent 04/12/14 Given Ambulat ory Pharmac y influenza, live, intranasal, quadrivalent 7 2013 [id number] 149 MedIAutomated Ins[employer], Inc. (MED) complet ed influenza , live, intranasa l, quadrival ent DoD influenza, seasonal, injectable-pf 2012 140 complet ed influenza , seasonal, injectabl e-pf 04/26/13 Given Ambulat ory Pharmac y influenza, seasonal, injectable 2012 [id number] 141 Unknown complet ed influenza , seasonal, injectabl e 04/26/13 Given Ambulat ory Pharmac y Influenza, seasonal, injectable, preservative free 0 2012 140 (MVX) complet ed Influenza , seasonal, injectabl e, preservat stuart free DoD Influenza, seasonal, injectable 1 2012 [id number] 141 Unknown (UNK) comple t ed Influenza , seasonal, injectabl e DoD measles virus vaccine 0 2012 05 () Not Given measles virus vaccine DoD rubella virus vaccine 0 2012 06 () Not Given rubella virus vaccine DoD influenza, seasonal, injectable 2011 [id number] 141 CSL Behring complet ed influenza [...] adult dosage 3 2011 [id number] 43 [facility] (SKB) complet ed hepatitis B vaccine, adult dosage DoD hepatitis A vaccine, adult dosage 3 2011 [id number] 52 [facility] hepatitis A vaccine, adult dosage DoD Influenza, seasonal, injectable 4 2011 [id number] 141 [employer], Inc. (CSL) complet ed Influenza , seasonal, injectabl e DoD influenza virus vaccine, live 2010 [id number] 111 BioRegenerative Sciences Inc comple t ed influenza virus vaccine, live 04/13/11 Given Ambulat ory Pharmac y influenza virus vaccine, live, attenuated, for intranasal use 1 2010 [id number] 111 HyTrust, Inc. (MED) complet ed influenza virus vaccine, [...] vaccine DoD tuberculin purified protein derivative 2010 [id number] 96 sanofi pasteur complet ed tuberculi n purified protein derivativ e 12/18/10 Given Ambulat ory Pharmac y influenza virus vaccine,split 2010 [id number] 15 CSL Behring complet ed influenza virus vaccine,s plit 12/15/10 Given Ambulat ory Pharmac y tetanus, diphtheria, acellular pertu is 2010 [id number] 115 GlaxoSmithKli ne complet ed tetanus, diphtheri a, acellular pertussis 12/15/10 Given Ambulat ory Pharmac y meningococcal A,C,Y,W-135 (MCV4P) 2010 [id number] 114 sanofi pasteur complet ed meningoco ccal [...] purified surface antigen)-reti red CODE 1 2010 [id number] 15 [email or web address], LEAFER. (CSL) complet ed influenza virus vaccine, split virus (incl. purified surface antigen)- retired CODE DoD meningococcal polysaccharid e (groups A, C, Y and W-135) diphtheria toxoid conjugate vaccine (MCV4P) 1 2010 [id number] 114 Sanofi Pasteur (PMC) complet ed meningoco ccal polysacch aride (groups A, C, Y and W-135) diphtheri a toxoid conjugate vaccine (MCV4P) DoD tetanus toxoid, reduced diphtheria toxoid, and acellular pertu is vaccine, adsorbed 1 2010 [id number] [id number] 115 [facility] (SKB) complet ed tetanus toxoid, reduced diphtheri [...] Prevention' s HIV diagnostic algorithm. Refer to [facility] Lab Guide for additional information : [email or web address] x Testing performed by [employer] pattuminaaliyah ce. 5600A-U [employer] EPILAB Miscellan eous Sendouts Repository Sample Received [...] ADM Date DC Date Status Disposition Source [facility] [place] [address](Opt ometry Clinic BMT [facility]) OUTPATIENT [id number] JOANN MARTINEZ 12/19 [facility] w[facility] [place] [place] [address](O ptometr y Clinic BMT [facility]) [facility] [place] [address](MAS Norris) OUTPATIENT [id number] pain pack SHERWIN CLIFTON 12/21 Released w/o Limitations [facility] [place] [address](M Norris) [facility] [place] [address](MAS Norris) OUTPATIENT [id number] pain pack YESSENIA MIRAMONTES L 01/04 Released w/o Limitations [facility] [place] [address](M Norris) [facility] [place] [address](Ort hotic Svcs, [facility]) OUTPATIENT [id number] HERBER WOODS P 01/05 Released w/o Limitations [facility] [place] [address](O rthotic Svcs, [facility]) [facility] [place] [address](MAS Norris) OUTPATIENT [id number] Pain Pack SUSIE NUNEZ N 01/13 Released w/o Limitations [facility] [place] [address](M Norris) [facility] [place] [address](MAS Norris) OUTPATIENT [id number] pain/bl ister pack OMER PETTIT N 01/19 Released w/o Limitations [facility] [place] [address](M Norris) [facility] [place] [address](MAS Beast) OUTPATIENT [id number] Cold Pk/Pain Pk ROSE MARIE HAMILTON 01/25 Released w/o Limitations [facility] [place] [address](M Beast) [facility] [place] [address](MAS Norris) OUTPATIENT [id number] pain YESSENIA MIRAMONTES L 01/31 Released w/o Limitations [facility] [place] [address](M Norris) [facility] [place] [address](MAS Norris) OUTPATIENT [id number] pain pack SHERWIN CLIFTON 02/09 Released w/o Limitations [facility] [place] [address](M Norris) [facility] [place] [address](AFN G 104 Med Sq-FM) OUTPATIENT [id number] Notes Entered by: JUAN M GODFREY 07 Aug 2017 0823 ------- ------- ------- ------- -- DORINDA SMITHTRICE JUAN M INFANTE 08/07 Released w/o Limitations [facility] [place] [address](A FNG 104 Med Sq-FM) [facility], [facility](AFN G 104 Med Sq-FM) OUTPATIENT [id number] Notes Entered by: JUAN M GODFREY 10 Jul 2019 0847 ------- ------- ------- ------- -- JUAN M SULLIVAN 07/10 Released w/o Limitations [facility] [place] [address](A FNG 104 Med Sq-FM) [facility], [place] [address](AFN G 104 Med Sq-FM) OUTPATIENT [id number] Notes Entered by: JUAN M GODFREY 25 Aug 2020 1559 ------- ------- ------- ------- -- JUAN M SULLIVAN 08/25 Released w/o Limitations [facility] [place] [address](A FNG 104 Med Sq-FM) [facility](Opt ometry [facility] [place]) OUTPATIENT [id number] Pre-PRK appt ELENA SIBLEY 04/22 Released w/o Limitations [address] [place] [address](O ptometr y [facility] [place]) [facility], [place] [address](AFN G 104 Med Sq-FM) TELE CONSULT [id number] JUAN M GODFREY 05/17 [facility] [place] [address](A FNG 104 Med Sq-FM) [facility], [facility](AFN G 104 Med Sq-FM) OUTPATIENT [id number] Notes Entered by: Maurice LYON 22 Sep 2021 1607 ------- ------- ------- ------- -- SANTO MILLAN 09/22 [facility]ased w/o Limitations [facility] [place] [address](A FNG 104 Med Sq-FM) [address] [place] [address](Opt ometry [place]) OUTPATIENT [id number] PRK consult ELENA SIBLEY 11/24 Released w/o Limitations [address] [place] [address](O ptometr y [place]) [facility] [place] [address](AFN G 104 Med Sq-FM) TELE CONSULT [id number] JUAN M GODFREY 03/17 [facility] [place] [address](A FNG 104 Med Sq-FM) [place] [address](AFN G 104 Med Sq-FM) TELE CONSULT [id number] JUAN M GODFREY NOONE 05/26 [facility] [place] [place] [address](A FNG 104 Med Sq-FM) 8203R-104 MDG Care Not Rendered [id number] 05/16 Discharge Disposition: Home or Self Care 8203R-1 04 MDG 8203R-104 MDG Care Not Rendered [id number] 06/10 Discharge Disposition: Home or Self Care 8203R-1 04 MDG 8203R-104 MDG Care Not Rendered [id number] 09/10 Discharge Disposition: Home or Self Care 8203R-1 04 MDG 8203R-104 MDG Preclinic [id number] 11/18 8203R-1 04 MDG 8203R-104 MDG Preclinic [id number] 11/19 8203R-1 04 MDG Procedures Combined list of: 1) Procedures from Department of Veterans Affairs facilities going back up to thelast 18 months, not all VA non-surgical procedures are included; 2) All procedures from the Department of Defense facilities. Procedure Procedure Type Code Date Perfomer Comments Olivier e Physical Therapy Education Orthotics Training Initial 15 Min HERBER VILLARREAL DoD Foot, arch support, removable, premolded, longitudinal, each 011 HERBER WOODS [facility] Screening Test Of Visual Acuity, Quantitative, Bilateral Screening Test Of Visual Acuity, Quantitative, Bilateral [id number] 011 ELONUFRANCISCO U [facility] Spectacles Services Fitting Monofocals (Not For Aphakia) Spectacles Services Fitting Monofocals (Not For Aphakia) 83128 011 LIUONUFRANCISCO U [facility] Ophthalmological New Patient Start Comprehensive Care Ophthalmological New Patient Start Comprehensive Care 18153 ELENA SIBLEY Determination Of Refractive State Determination Of Refractive State [address] ELENA SIBLEY Spectacles Services Fitting Monofocals (Not For Aphakia) Spectacles Services Fitting Monofocals (Not For Aphakia) 49465 ELENA SIBLEY Ophthalmological Prior Patient Start Comprehensive Care Ophthalmological Prior Patient Start Comprehensive Care 88109 ELENA SIBLEY Computerized Corneal Topography Computerized Corneal Topography 52570 ELENA SIBLEY Corneal Pachymetry Corneal Pachymetry 51253 ELENA SIBLEY OPHTHALMIC ULTRASOUND, ECHOGRAPHY, DIAGNOSTIC; CORNEAL PACHYMETRY, UNILATERAL OR BILATERAL (DETERMINATION OF CORNEAL THICKNESS) 022 [facility] FITTING OF SPECTACLES, EXCEPT FOR APHAKIA; MONOFOCAL 021 [facility] No data available for this section Ambulato [...] Plan No data available for this section 11/24/2024 Ambulatory Pharmacy Functional Status Combined list of recent functional and cognitive assessments recorded at Department of Defense and Veterans Affairs (VA).VA Functional Crenshaw Measurement (FIM) Scale: 1 = Total Assistance (Subject = 0% +), 2 = Maximal Assistance (Subject = 25% +), 3 = Moderate Assistance (Subject = 50% +), 4 = Minimal Assistance (Subject = 75% +), 5 = Supervision, 6 = Modified Crenshaw (Device), 7 = Complete Crenshaw (Timely, Safely). Assessment Date/Time Source Assessment Type Assessment Skill Assessment Score Assessment Details No data available for this section
[2024-11-24 13:14] VITALS: BMI 35.2
--- NOTE | 2024-11-24 13:14 | A.OFFVIS_ITS ---
Vital Signs 11/24/24 13:14 Height 5 ft 6 in Weight 218 lb BMI 35.2 Intake Visit Reasons: Inj-RT knee OA Durlolane inj Intake Note: Tonia is a 44 year old female who presents today for a Right Knee Durolane Injection. Allergies acetaminophen [Percocet] Allergy (Unknown, Verified 11/24/24 13:19) cant see up close oxycodone [Percocet] Allergy (Unknown, Verified 11/24/24 13:19) blurred vision oxytocin [From Pitocin] Adverse Reaction (Severe, Verified 11/24/24 13:19) Blurry Vision HPI HPI Inj-RT knee OA Durlolane inj: Details: Tonia is a 44 year old female who presents today for a Right Knee Durolane Injection. Thank you [facility] Medical History (Updated 11/24/24 @ 03:07 by Peggy Mcknight MD) Type 2 diabetes mellitus without complication, without long-term current use of insulin Family history of colon cancer Lump of skin of back Obesity (BMI 30-39.9) Arthritis of right knee Mixed dyslipidemia Left ACL tear Elevated liver enzymes Annual visit for general adult medical examination with abnormal findings History of gestational diabetes Vitamin D deficiency Hypothyroidism Jessica's disease Anti-TPO antibodies present Surgical History Hx of anterior cruciate ligament tear reconstruction Tubal ligation status Hx of section Hx of cholecystectomy Hx of knee surgery Family History Father Colon cancer Mother Breast cancer Substance use disorder Sister Substance use disorder Maternal Aunt Substance use disorder Maternal Uncle Substance use disorder Paternal Uncle Substance use disorder Social History Household Members: Children Housing: Condominium Alcohol intake: never Patient Tobacco Use Status: Never used Tobacco e-Cigarette/Vaping Use: Never Used service: Yes Current occupational status: employed 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 Site was prepped using aseptic technique. Patient tolerated the procedure well. Shoulders, Hips, Knees, Knee Large Joint Injection : Right Knee Coding Procedure code (CPT) selection complete Assessment & Plan Assessment & Plan (1) Arthritis of right knee: Code(s): M17.11 - Unilateral primary osteoarthritis, right knee Category: Medical Plan: Right knee Durolane injection. f/u 3 mo. May consider PRP Coding Level of Care Code Est Pt Level 2 (35618) Diagnoses Arthritis of right knee M17.11 CPT Codes Shoulders, Hips, Knees, - Knee Large Joint Injection : Right Knee ([id number])
== END 2024-11-24 13:25 | disposition home or self-care (01) ==
LOC: HO.HOS 13:11
PROVIDERS: PCP Internal Medicine; Visit Provider Orthopaedic Surgery
DX: M17.11 Unilateral primary osteoarthritis, right knee (principal)
CPT/HCPCS: 20610

== ENCOUNTER → 2024-11-24 13:11 | Outpatient (BNVA) | payer OTHER, SELFPAY | PROVIDERS: PCP Internal Medicine; Visit Provider Orthopaedic Surgery | DX: M17.11 Unilateral primary osteoarthritis, right knee (principal) | CPT/HCPCS: 20610; J7318 ==

== ENCOUNTER 2024-11-28 08:36 | Outpatient (REF) | payer OTHER, SELFPAY ==
--- NOTE | ~2024-11-28 | US_ITS ---
EXAMINATION: US ABDOMEN LIMITED CLINICAL INFORMATION: Abnormal labs.. COMPARISON: February 15, 2024. TECHNIQUE: Real-time ultrasound of the right upper cardiac abdomen using grayscale technique. Limited exam. FINDINGS: PANCREAS: No peripancreatic fluid collections. No main pancreatic ductal dilatation. LIVER: There are measures 17 cm. Normal echotexture. No nodular surface. No solid or cystic lesion detected by the technologist. No intrahepatic biliary ductal dilatation. GALLBLADDER: Absent/cholecystectomy. COMMON BILE DUCT: 4 mm. RIGHT KIDNEY: 12 cm. Normal echotexture. Normal renal cortical thickness. No hydronephrosis. No solid or cystic lesion detected by the technologist. . FREE FLUID: None. US/US abdomen limited IMPRESSION: Hepatomegaly. Status post cholecystectomy. No hydronephrosis, right kidney. No ascites. Electronically signed by: Pavan Garcia MD 11/28/2024 09:01 AM EDT
--- OUTSIDE RECORDS SUMMARY | 2024-11-28 08:47 | XMS_ITS | Continuity of Care Document ---
Author Name [facility] Organization [facility] Care Team Providers Care Forestry Consultant Name Role Phone [facility] Unavailable Unavailable Problems Combined list of problems from Department of Defense and Veterans Affairs facilities. It does not include entries that were removed or entered in error. Problem Status Onset Date Problem Type Date of Resolution Comments Source visit for: administrative purpose Inactive 12/22/2010 Condition DoD foot pain (soft tissue) Active Condition [facility] Brace Inactive Condition [facility] visit for: services physical accession Active Condition [...] HERRERA DIABETES, 100 ea. PACKET Cancele d [id number] : 2023 0 Pharmac y Data Transac tion Service Facilit y FREESTYLE LANCETS (lancets), 28 GAUGE, EACH, MISCELL, HERRERA DIABETES, 100 ea. PACKET Active [id number] 4 2023 100 Pharmac y Data Transac tion Service Facilit y FREESTYLE LITE TEST STRIP (blood sugar diagnostic) , STRIP, MISCELL, HERRERA DIABETES, 100 ea. BOX Cancele d [id number] : 2023 0 Pharmac y Data Transac tion Service Facilit y FREESTYLE LITE TEST STRIP (blood sugar diagnostic) , STRIP, MISCELL, HERRERA DIABETES, 100 ea. BOX Active [id number] 12/12/19 2 4 2023 100 Pharmac y [...] ORAL, AMNEAL PHARMACE, 1000 ea. BOTTLE Active [id number] 4 2023 90 Pharmac y Data Transac tion Service Facilit y LEVOTHYROXI NE SODIUM (levothyrox ine sodium), 75 MCG, TABLET, ORAL, AMNEAL PHARMACE, 1000 ea. BOTTLE Cancele d [id number] : 2023 0 Pharmac y Data Transac [...] Known Allergies Drug allergy (disorder) active 12/22/2010 [place] [address] Immunizations Combined list of available immunizations from the Department of Defense and Veterans Affairs facilities. Immunization Series Date Given Administered By Site Reaction Lot Number CVX Code Drug Inductor Tester Status Comments Source influenza virus vaccine, inactivated 2023 RANDEEWALT Cardenas tammi, left (delt oid) [id number] M86 Security, A [employer] complet ed influenza virus vaccine, inactivat ed 05/11/24 Given 8203R-1 04 MDG influenza, injectable, quadrivalent- pf 2020 [id number] 150 GlaxoSmSuncoreKli ne complet ed influenza , injectabl e, quadrival ent-pf 04/01/21 Given Ambulat ory Pharmac y Influenza, injectable, quadrivalent, preservative free 1 2020 [id number] 150 Suncore (SKB) complet ed Influenza , injectabl e, quadrival ent, preservat stuart free DoD tetanus, diphtheria, acellular pertu is 2020 [id number] sanofi pasteur complet ed tetanus, diphtheri a, acellular pertussis 03/24/21 Given Ambulat ory Pharmac y tetanus toxoid, reduced diphtheria toxoid, and acellular pertu is vaccine, adsorbed 1 2020 [id number] 115 Sanofi Pasteur (PMC) complet ed tetanus toxoid, reduced diphtheri a toxoid, and acellular pertussis vaccine, adsorbed DoD COVID Vaccine Moderna 2020 [id number] complet ed COVID Vaccine Moderna 10/16/20 Given Ambulat ory Pharmac y SARS-COV-2 (COVID-19) vaccine, mRNA, spike protein, LNP, preservative free, 100 mcg or 50 mcg dose 2 2020 [id number] 207 Moderna US, Inc. (MOD) complet ed SARS-COV- 2 (COVID-19 ) vaccine, mRNA, spike protein, LNP, preservat stuart free, 100 mcg or 50 mcg dose DoD COVID Vaccine Moderna 2020 [id number] complet ed COVID Vaccine Moderna 09/18/20 Given Ambulat ory Pharmac y SARS-COV-2 (COVID-19) vaccine, mRNA, spike protein, LNP, preservative free, 100 mcg or 50 mcg dose 1 2020 [id number] 207 Moderna US, Inc. (MOD) complet ed SARS-COV- 2 (COVID-19 ) vaccine, mRNA, spike protein, LNP, preservat stuart free, 100 mcg or 50 mcg dose DoD influenza, injectable, quadrivalent- pf 2019 [id number] 150 Seqirus complet ed influenza , injectabl e, quadrival ent-pf 06/19/20 Given Ambulat ory Pharmac y Influenza, injectable, quadrivalent, preservative free 1 2019 [id number] 077 150 Seqirus (SEQ) complet ed Influenza [...] DoD Influenza, inj, MDCK, quadrivalent- pf 2016 [id number] 171 Seqirus complet ed Influenza , inj, MDCK, quadrival ent-pf 05/13/17 Given Ambulat ory Pharmac y Influenza, injectable, Madin Milagros Canine Kidney, preservative free, quadrivalent 9 2016 [id number] 171 Seqirus (SEQ) comple t ed Influenza [...] free DoD influenza, live, intranasal,qu adrivalent 2013 [id number] 149 Medimmune Inc comple t ed influenza , live, intranasa l,quadriv alent 04/12/14 Given Ambulat ory Pharmac y influenza, live, intranasal, quadrivalent 7 2013 [id number] 149 MedIStatSims.com, Inc. (MED) complet ed influenza , live, intranasa l, quadrival ent DoD influenza, seasonal, injectable-pf 2012 140 complet ed influenza , seasonal, injectabl e-pf 04/26/13 Given Ambulat ory Pharmac y influenza, seasonal, injectable 2012 [id number] 141 Unknown complet ed influenza , seasonal, injectabl e 04/26/13 Given Ambulat ory Pharmac y Influenza, seasonal, injectable, preservative free 0 2012 140 (MVX) complet ed Influenza , seasonal, injectabl e, preservat stuart free DoD Influenza, seasonal, injectable 1 2012 [id number] 141 Unknown (UNK) comple t ed Influenza , seasonal, injectabl e DoD measles virus vaccine 0 2012 05 () Not Given measles virus vaccine DoD rubella virus vaccine 0 2012 06 () Not Given rubella virus vaccine DoD influenza, seasonal, injectable 2011 [id number] 1A 141 CSL Behring complet ed influenza [...] adult dosage 3 2011 [id number] 43 [facility] (SKB) complet ed hepatitis B vaccine, adult dosage DoD hepatitis A vaccine, adult dosage 3 2011 [id number] 52 [facility] hepatitis A vaccine, adult dosage DoD Influenza, seasonal, injectable 4 2011 [id number] 141 Phage Technologies S.A[employer] Inc. (CSL) complet ed Influenza , seasonal, injectabl e DoD influenza virus vaccine, live 2010 [id number] 111 classmarkets Inc comple t ed influenza virus vaccine, live 04/13/11 Given Ambulat ory Pharmac y influenza virus vaccine, live, attenuated, for intranasal use 1 2010 [id number] 111 [employer] Inc. (MED) complet ed influenza virus vaccine, [...] vaccine DoD tuberculin purified protein derivative 2010 [id number] 96 sanofi pasteur complet ed tuberculi n purified protein derivativ e 12/18/10 Given Ambulat ory Pharmac y influenza virus vaccine,split 2010 [id number] 15 CSL Behring complet ed influenza virus vaccine,s plit 12/15/10 Given Ambulat ory Pharmac y tetanus, diphtheria, acellular pertu is 2010 [id number] 115 GlaxoSmithKli ne complet ed tetanus, diphtheri a, acellular pertussis 12/15/10 Given Ambulat ory Pharmac y meningococcal A,C,Y,W-135 (MCV4P) 2010 [id number] 114 sanofi pasteur complet ed meningoco ccal [...] purified surface antigen)-reti red CODE 1 2010 [id number] 15 [employer] S.[employer], [employer] [place]. (CSL) complet ed influenza virus vaccine, split virus (incl. purified surface antigen)- retired CODE DoD meningococcal polysaccharid e (groups A, C, Y and W-135) diphtheria toxoid conjugate vaccine (MCV4P) 1 2010 [id number] 114 Sanofi Pasteur (PMC) complet ed meningoco ccal polysacch aride (groups A, C, Y and W-135) diphtheri a toxoid conjugate vaccine (MCV4P) DoD tetanus toxoid, reduced diphtheria toxoid, and acellular pertu is vaccine, adsorbed 1 2010 [id number] 115 [facility] (SKB) complet ed tetanus toxoid, [...] HOSPITAL Lab Guide for additional information : [email or web address]/ [email or web address] x Testing performed by [employer] pattuminaaliyah ce. 5600A-U [employer] EPILAB Miscellan eous Sendouts Repository Sample Received [...] ADM Date DC Date Status Disposition [place] [address](Opt ometry Clinic BMT [facility]) OUTPATIENT [id number] JOANN MARTINEZ 12/19 [facility] [place] [place] [address](O ptometr y Clinic BMT [facility]) [place] [address](MAS Norris) OUTPATIENT [id number] pain pack SHERWIN CLIFTON 12/21 [facility]ased w/[facility] Limitations [facility] [place] [place] [address](M Norris) [place] [address](MAS Norris) OUTPATIENT [id number] pain pack YESSENIA MIRAMONTES L 01/04 Released w/o Limitations [facility] [place] [address](M Norris) [place] [address](Ort hotic Svcs, [facility]) OUTPATIENT [id number] HERBER WOODS P 01/05 Released w/o Limitations [facility] [place] [address](O rthotic Svcs, [facility]) [place] [address](MAS Norris) OUTPATIENT [id number] Pain Pack SUSIE NUNEZ N 01/13 Released w/o Limitations [facility] [place] [address](M Norris) [place] [address](MAS Norris) OUTPATIENT [id number] pain/bl ister pack OMER PETTIT N 01/19 Released w/o Limitations [facility] [place] [address](M Norris) [place] [address](MAS Beast) OUTPATIENT [id number] Cold Pk/Pain Pk ROSE MARIE HAMILTON 01/25 Released w/o Limitations [facility] [place] [address](M Beast) [place] [address](MAS Norris) OUTPATIENT [id number] pain YESSENIA MIRAMONTES L 01/31 Released w/o Limitations [facility] [place] [address](M Norris) [place] [address](MAS Norris) OUTPATIENT [id number] pain pack SHERWIN CLIFTON 02/09 Released w/o Limitations [facility] [place] [address](M Norris) [place] [address](AFN G 104 Med Sq-FM) OUTPATIENT [id number] Notes Entered by: JUAN M GODFREY 07 Aug 2017 0823 ------- ------- ------- ------- -- DORINDA SMITHTRICE JUAN M INFANTE 08/07 Released w/o Limitations [facility] [place] [address](A FNG 104 Med Sq-FM) [facility], [facility](AFN G 104 Med Sq-FM) OUTPATIENT [id number] Notes Entered by: JUAN M GODFREY 10 Jul 2019 0847 ------- ------- ------- ------- -- JUAN M SULLIVAN 07/10 [facility]ased w/o Limitations [facility] [place] [place] [address](A FNG 104 Med Sq-FM) [facility], [place] [address](AFN G 104 Med Sq-FM) OUTPATIENT [id number] Notes Entered by: JUAN M GODFREY 25 Aug 2020 1559 ------- ------- ------- ------- -- JUAN M SULLIVAN 08/25 [facility]ased w/o Limitations [facility] [place] [place] [address](A FNG 104 Med Sq-FM) [facility](Opt ometry [place]) OUTPATIENT [id number] Pre-PRK appt ELENA SIBLEY 04/22 Released w/o Limitations [address] [place] [address](O ptometr y [place]) [facility], [place] [address](AFN G 104 Med Sq-FM) TELE CONSULT [id number] JUAN M GODFREY 05/17 [facility] [place] [address](A FNG 104 Med Sq-FM) [facility], [facility](AFN G 104 Med Sq-FM) OUTPATIENT [id number] Notes Entered by: Maurice LYON 22 Sep 2021 1607 ------- ------- ------- ------- -- SANTO MILLAN 09/22 Released w/o Limitations [facility] [place] [address](A FNG 104 Med Sq-FM) [address] [place] [address](Opt ometry [place]) OUTPATIENT [id number] PRK consult ELENA SIBLEY 11/24 Released w/o Limitations [address] [place] [address](O ptometr y [place]) [place] [address](AFN G 104 Med Sq-FM) TELE CONSULT [id number] JUAN M GODFREY 03/17 [facility] [place] [address](A FNG 104 Med Sq-FM) [place] [address](AFN G 104 Med Sq-FM) TELE CONSULT [id number] JUAN M GODFREY NOONE 05/26 [facility] [place] [address](A FNG 104 Med Sq-FM) 8203R-104 MDG Care Not Rendered [id number] 05/16 Discharge Disposition: Home or Self Care 8203R-1 04 MDG 8203R-104 MDG Care Not Rendered [id number] 06/10 Discharge Disposition: Home or Self Care 8203R-1 04 MDG 8203R-104 MDG Care Not Rendered [id number] 09/10 Discharge Disposition: Home or Self Care 8203R-1 04 MDG 8203R-104 MDG Preclinic [id number] 11/18 8203R-1 04 MDG 8203R-104 MDG Preclinic [id number] 11/19 8203R-1 04 MDG Procedures Combined list [...] OR BILATERAL (DETERMINATION OF CORNEAL THICKNESS) 022 [facility] FITTING OF SPECTACLES, EXCEPT FOR APHAKIA; MONOFOCAL 021 [facility] Physical Therapy Education Orthotics Training Initial 15 Min [address] [facility] Foot, arch support, removable, premolded, longitudinal, each [address] [facility] Screening Test Of Visual Acuity, Quantitative, Bilateral Screening Test Of Visual Acuity, Quantitative, Bilateral [id number] 011 ELONU, FRANCISCO U [facility] Spectacles Services Fitting Monofocals (Not For Aphakia) Spectacles Services Fitting Monofocals (Not For Aphakia) [id number] 011 ELONU, FRANCISCO U [facility] Ophthalmological New Patient Start Comprehensive Care Ophthalmological New Patient Start Comprehensive Care 56863 ELENA SIBLEY Determination Of Refractive State Determination Of Refractive State 43749 ELENA SIBLEY Spectacles Services Fitting Monofocals (Not For Aphakia) Spectacles Services Fitting Monofocals (Not For Aphakia) 13069 ELENA SIBLEY Ophthalmological Prior Patient Start Comprehensive Care Ophthalmological Prior Patient Start Comprehensive Care 49686 ELENA SIBLEY Computerized Corneal Topography Computerized Corneal Topography 03997 ELENA SIBLEY Corneal Pachymetry Corneal Pachymetry 80623 ELENA SIBLEY Social History Combined list of [...] Plan No data available for this section 11/28/2024 Ambulatory Pharmacy Functional Status Combined list of recent functional and cognitive assessments recorded at Department of Defense and Veterans Affairs (VA).VA Functional [place] Measurement (FIM) Scale: 1 = Total Assistance (Subject = 0% +), 2 = Maximal Assistance (Subject = 25% +), 3 = Moderate Assistance (Subject = 50% +), 4 = Minimal Assistance (Subject = 75% +), 5 = Supervision, 6 = Modified [place] (Device), 7 = Complete [place] (Timely, Safely). Assessment Date/Time Source Assessment Type Assessment Skill Assessment Score Assessment Details No data available for this section
== END 2024-11-28 08:37 | disposition home or self-care (01) ==
LOC: HO.US 08:36
PROVIDERS: PCP Internal Medicine; Visit Provider Nurse Practitioner Family
DX: R79.89 Other specified abnormal findings of blood chemistry (principal)
CPT/HCPCS: 76705

== ENCOUNTER → 2024-11-28 08:39 | Outpatient (BNV) | payer OTHER, SELFPAY | PROVIDERS: PCP Internal Medicine; Visit Provider Radiology Diagnostic Radiology | DX: R16.0 Hepatomegaly, not elsewhere classified (principal) | CPT/HCPCS: 76705; 76981 ==

== ENCOUNTER → 2024-12-15 09:34 | Outpatient (BNVA) | payer OTHER, SELFPAY | PROVIDERS: PCP Internal Medicine; Visit Provider Dietitian, Registered ==

== ENCOUNTER 2024-12-22 15:28 | Outpatient (REF) | payer OTHER, SELFPAY | END 2024-12-22 15:29 | disposition home or self-care (01) | LOC: HO.MAMMO 15:28 | PROVIDERS: PCP Internal Medicine; Visit Provider Internal Medicine | DX: Z12.31 Encounter for screening mammogram for malignant neoplasm of breast (principal) | CPT/HCPCS: 77063; 77067 ==

== ENCOUNTER → 2024-12-22 15:30 | Outpatient (BNV) | payer OTHER, SELFPAY | PROVIDERS: PCP Internal Medicine; Visit Provider Internal Medicine | DX: Z12.31 Encounter for screening mammogram for malignant neoplasm of breast (principal) | CPT/HCPCS: 77063; 77067 ==

== ENCOUNTER 2025-01-27 11:26 | Outpatient (AMB) | payer OTHER, SELFPAY ==
[2025-01-27 11:34] VITALS: BMI 34.6
--- NOTE | 2025-01-27 11:36 | A.OFFVIS_ITS ---
VS Expanded 01/27/25 11:34 Height 5 ft 6 in Weight 214 lb 4.629 oz BMI 34.6 Intake Visit Reasons: Diabetes Type 2 Allergies acetaminophen (Percocet) Allergy (Unknown, Verified 11/24/24 13:19) cant see up close oxycodone (Percocet) Allergy (Unknown, Verified 11/24/24 13:19) blurred vision oxytocin (From Pitocin) Adverse Reaction (Severe, Verified 11/24/24 13:19) Blurry Vision Nutrition Presentation Details: Pt presents for MNT f/u for T2DM working on diet modifications for self and fam , reducing empty warner foods Feeling well, motivated PFSH Medical History (Updated 11/24/24 @ 03:07 by Peggy Mcknight MD) Type 2 diabetes mellitus without complication, without long-term current use of insulin Family history of colon cancer Lump of skin of back Obesity (BMI 30-39.9) Arthritis of right knee Mixed dyslipidemia Left ACL tear Elevated liver enzymes Annual visit for general adult medical examination with abnormal findings History of gestational diabetes Vitamin D deficiency Hypothyroidism Jessica's disease Anti-TPO antibodies present Surgical History Hx of anterior cruciate ligament tear reconstruction Tubal ligation status Hx of section Hx of cholecystectomy Hx of knee surgery Family History Father Colon cancer Mother Breast cancer Substance use disorder Sister Substance use disorder Maternal Aunt Substance use disorder Maternal Uncle Substance use disorder Paternal Uncle Substance use disorder Social History Household Members: Children Housing: Condominium Alcohol intake: never Patient Tobacco Use Status: Never used Tobacco e-Cigarette/Vaping Use: Never Used service: Yes Current occupational status: employed 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 Cognitive needs: No Hearing needs: No Vision needs: Yes Assessment & Plan Assessment & Plan (1) Diabetes mellitus with hyperglycemia, without long-term current use of insulin: Code(s): E11.65 - Type 2 diabetes mellitus with hyperglycemia Category: Medical Qualifiers: Diabetes mellitus type: type 2 Qualified Code(s): E11.65 - Type 2 diabetes mellitus with hyperglycemia Plan: Wt: 104 Kg (06/01 ), 100 kg (07/2024), 97 kg(01/30) Est kcal needs as per MSJ: 2100 (40% carb, 30% protein/fat) Est fluid needs as per 25-30 ml/d: 3100 Est prot per day as per 1 g/kg bw: 104 Recommend fiber intake : 8-10 g per day and gradually increase to 25-28 g per day for women and 35-38 g for men or as tolerated Recommend sodium intake per day : less than 2300 mg Educated patient on: ( R = reviewed V = verbalizes understanding N/R = needs review N/A = not applicable * Food sources of carbohydrate, adequate serving sizes and its role in various health conditions: R * Differences between complex carbohydrates a simple carbohydrates, role of fiber in diet: R * Lean protein sources of foods: R V NR * Differences between types of fats and role in diet (mono on saturated fat fatty acids, saturated fatty acids, trans fats): R * Food sources of sodium in salt and healthy modifications for heart health in kidney health: R V R/V * Healthy plate method concept: R * Physical activity: Benefits a precaution: R * Hypoglycemia protocol (rule of 15): R * Dietary prevention of Hyperglycemia: R Patient Instructions: Monitor blood sugar 2 hours after the meal in the evening Continue working on modifications intotal carb 45-60 g or less at dinner, choosing fiber rich foods and lean protein keep physically active as able, goal 150 min per week Coding Level of Care Code Nutr Indiv Subseq (53701) Diagnoses Type 2 diabetes mellitus with hyperglycemia, without long-term current use of insulin E11.65 Diabetes mellitus type: type 2 Time Spent (min) 25
--- OUTSIDE RECORDS SUMMARY | 2025-01-27 12:43 | XMS_ITS | Continuity of Care Document ---
Author Name [facility] Organization [facility] Care Team Providers Care Advisory Software Engineer Name Role Phone [facility] Unavailable Unavailable Problems Combined list of problems [...] HERRERA DIABETES, 100 ea. PACKET Cancele d [id number] : 2023 0 Pharmac y Data Transac tion Service Facilit y FREESTYLE LANCETS (lancets), 28 GAUGE, EACH, MISCELL, HERRERA DIABETES, 100 ea. PACKET Active [id number] 4 2023 100 Pharmac y Data Transac tion Service Facilit y FREESTYLE LITE TEST STRIP (blood sugar diagnostic) , STRIP, MISCELL, HERRERA DIABETES, 100 ea. BOX Cancele d [id number] : 2023 0 Pharmac y Data Transac tion Service Facilit y FREESTYLE LITE TEST STRIP (blood sugar diagnostic) , STRIP, MISCELL, HERRERA DIABETES, 100 ea. BOX Active [id number] 12/12/19 2 4 2023 100 Pharmac y [...] ORAL, AMNEAL PHARMACE, 1000 ea. BOTTLE Active [id number] 2023 90 Pharmac y Data Transac tion Service Facilit y LEVOTHYROXI NE SODIUM (levothyrox ine sodium), 75 MCG, TABLET, ORAL, AMNEAL PHARMACE, 1000 ea. BOTTLE Cancele d [id number] : 2023 0 Pharmac y Data Transac [...] Known Allergies Drug allergy (disorder) active 12/22/2010 [place] [address] Immunizations Combined list of available immunizations from the Department of Defense and Veterans Affairs facilities. Immunization Series Date Given Administered By Site Reaction Lot Number CVX Code Drug Scale Operator Status Comments Source influenza virus vaccine, inactivated 2023 RANDEEWALT Cardenas tammi, left (delt oid) [id number] [employer], A Novadiol complet ed influenza virus vaccine, inactivat ed 05/11/24 Given 8203R-1 04 MDG influenza, injectable, quadrivalent- pf 2020 [id number] 150 GlaxoSmFashion & YouKli ne complet ed influenza , injectabl e, quadrival ent-pf 04/01/21 Given Ambulat ory Pharmac y Influenza, injectable, quadrivalent, preservative free 1 2020 [id number] 150 The N[employer] (SKB) complet ed Influenza , injectabl e, quadrival ent, preservat stuart free DoD tetanus, diphtheria, acellular pertu is 2020 [id number] 115 sanofi pasteur complet ed tetanus, diphtheri a, acellular pertussis 03/24/21 Given Ambulat ory Pharmac y tetanus toxoid, reduced diphtheria toxoid, and acellular pertu is vaccine, adsorbed 1 2020 [id number] 115 Sanofi Pasteur (PMC) complet ed tetanus toxoid, reduced diphtheri a toxoid, and acellular pertussis vaccine, adsorbed DoD COVID Vaccine Moderna 2020 [id number] complet ed COVID Vaccine Moderna 10/16/20 Given Ambulat ory Pharmac y SARS-COV-2 (COVID-19) vaccine, mRNA, spike protein, LNP, preservative free, 100 mcg or 50 mcg dose 2 2020 [id number] 207 Moderna US, Inc. (MOD) complet ed SARS-COV- 2 (COVID-19 ) vaccine, mRNA, spike protein, LNP, preservat stuart free, 100 mcg or 50 mcg dose DoD COVID Vaccine Moderna 2020 [id number] complet ed COVID Vaccine Moderna 09/18/20 Given Ambulat ory Pharmac y SARS-COV-2 (COVID-19) vaccine, mRNA, spike protein, LNP, preservative free, 100 mcg or 50 mcg dose 1 2020 [id number] 207 Moderna US, Inc. (MOD) complet ed SARS-COV- 2 (COVID-19 ) vaccine, mRNA, spike protein, LNP, preservat stuart free, 100 mcg or 50 mcg dose DoD influenza, injectable, quadrivalent- pf 2019 [id number] 150 Seqirus complet ed influenza , injectabl e, quadrival ent-pf 06/19/20 Given Ambulat ory Pharmac y Influenza, injectable, quadrivalent, preservative free 1 2019 [id number] 077 150 Seqirus (SEQ) complet ed Influenza [...] DoD Influenza, inj, MDCK, quadrivalent- pf 2016 [id number] 171 Seqirus complet ed Influenza , inj, MDCK, quadrival ent-pf 05/13/17 Given Ambulat ory Pharmac y Influenza, injectable, [place]in [place] Canine Kidney, preservative free, quadrivalent 9 2016 [id number] 171 Seqirus (SEQ) comple t ed Influenza [...] free DoD influenza, live, intranasal,qu adrivalent 2013 [id number] Medimmune Inc comple t ed influenza , live, intranasa l,quadriv alent 04/12/14 Given Ambulat ory Pharmac y influenza, live, intranasal, quadrivalent 7 2013 [id number] 149 Med[employer], Inc. (MED) complet ed influenza , live, intranasa l, quadrival ent DoD influenza, seasonal, injectable-pf 2012 140 complet ed influenza , seasonal, injectabl e-pf 04/26/13 Given Ambulat ory Pharmac y influenza, seasonal, injectable 2012 [id number] 141 Unknown complet ed influenza , seasonal, injectabl e 04/26/13 Given Ambulat ory Pharmac y Influenza, seasonal, injectable, preservative free 0 2012 140 (MVX) complet ed Influenza , seasonal, injectabl e, preservat stuart free DoD Influenza, seasonal, injectable 1 2012 [id number] 141 Unknown (UNK) comple t ed Influenza , seasonal, injectabl e DoD measles virus vaccine 0 2012 05 () Not Given measles virus vaccine DoD rubella virus vaccine 0 2012 06 () Not Given rubella virus vaccine DoD influenza, seasonal, injectable 2011 [id number] 1A 141 CSL Behring complet ed influenza [...] adult dosage 3 2011 [id number] 43 [facility] (SKB) complet ed hepatitis B vaccine, adult dosage DoD hepatitis A vaccine, adult dosage 3 2011 [id number] 52 [facility] ([facility]) complet ed hepatitis A vaccine, adult dosage DoD Influenza, seasonal, injectable 4 2011 [id number] 141 JNJ [employer], Inc. (CSL) complet ed Influenza , seasonal, injectabl e DoD influenza virus vaccine, live 2010 [id number] 111 Prime[employer] Corporation Inc comple t ed influenza virus vaccine, live 04/13/11 Given Ambulat ory Pharmac y influenza virus vaccine, live, attenuated, for intranasal use 1 2010 [id number] 111 [employer], Inc. (MED) complet ed influenza virus vaccine, [...] vaccine DoD tuberculin purified protein derivative 2010 [id number] 96 sanofi pasteur complet ed tuberculi n purified protein derivativ e 12/18/10 Given Ambulat ory Pharmac y influenza virus vaccine,split 2010 [id number] 15 CSL Behring complet ed influenza virus vaccine,s plit 12/15/10 Given Ambulat ory Pharmac y tetanus, diphtheria, acellular pertu is 2010 [id number] 115 GlaxoSmithKli ne complet ed tetanus, diphtheri a, acellular pertussis 12/15/10 Given Ambulat ory Pharmac y meningococcal A,C,Y,W-135 (MCV4P) 2010 [id number] 114 sanofi pasteur complet ed meningoco ccal [...] purified surface antigen)-reti red CODE 1 2010 [id number] 15 JNJ Mobile, [employer]. (CSL) complet ed influenza virus vaccine, split virus (incl. purified surface antigen)- retired CODE DoD meningococcal polysaccharid e (groups A, C, Y and W-135) diphtheria toxoid conjugate vaccine (MCV4P) 1 2010 [id number] 114 Sanofi Pasteur (PMC) complet ed meningoco ccal polysacch aride (groups A, C, Y and W-135) diphtheri a toxoid conjugate vaccine (MCV4P) DoD tetanus toxoid, reduced diphtheria toxoid, and acellular pertu is vaccine, adsorbed 1 2010 [id number] [address] [facility] (SKB) complet ed tetanus toxoid, reduced [...] Prevention' s HIV diagnostic algorithm. Refer to [facility] Lab Guide for additional information : [email or web address]. [email or web address]/ [email or web address] x Testing performed by [employer] pattuminaaliyah ce. 5600A-U doxoSAM EPILAB Miscellan eous Sendouts Repository Sample Received [...] ADM Date DC Date Status Disposition [place] [address](Opt ometry Clinic [facility]) OUTPATIENT [id number] JOANN MARTINEZ 12/19 Released w[facility] Limitations [facility] [place] [address](O ptometr y Clinic [facility]) [place] [address](MAS Norris) OUTPATIENT [id number] pain pack SHERWIN CLIFTON 12/21 Released w/o Limitations [facility] [place] [address](M Norris) [place] [address](MAS Norris) OUTPATIENT [id number] pain pack YESSENIA MIRAMONTES L 01/04 Released w/o Limitations [facility] [place] [address](M Norris) [place] [address](Ort hotic Svcs, [facility]) OUTPATIENT [id number] HERBER WOODS P 01/05 Released w/o Limitations [facility] [place] [address](O rthotic Svcs, [facility]) [place] [address](MAS Norris) OUTPATIENT [id number] Pain Pack SUSIE NUNEZ N 01/13 Released w/o Limitations [facility] [place] [address](M Norris) [place] [address](MAS Norris) OUTPATIENT [id number] pain/bl ister pack OMER PETTIT N 01/19 Released w/o Limitations [facility] [place] [address](M Norris) [place] [address](MAS Beast) OUTPATIENT [id number] Cold Pk/Pain Pk ROSE MARIE HAMILTON 01/25 Released w/o Limitations [facility] [place] [address](M Beast) [place] [address](MAS Norris) OUTPATIENT [id number] pain YESSENIA MIRAMONTES L 01/31 Released w/o Limitations [facility] [place] [address](M Norris) [place] [address](MAS Norris) OUTPATIENT [id number] pain pack SHERWIN CLIFTON 02/09 Released w/o Limitations [facility] [place] [address](M Norris) [place] [address](AFN G 104 Med Sq-FM) OUTPATIENT [id number] Notes Entered by: JUAN M GODFREY 07 Aug 2017 0823 ------- ------- ------- ------- -- DORINDA SMITHTRICE JUAN M INFANTE 08/07 Released w/o Limitations [facility] [place] [address](A FNG 104 Med Sq-FM) [facility], [facility](AFN G 104 Med Sq-FM) OUTPATIENT [id number] Notes Entered by: JUAN M GODFREY 10 Jul 2019 0847 ------- ------- ------- ------- -- JUAN M SULLIVAN 07/10 Released w/o Limitations [facility] [place] [address](A FNG 104 Med Sq-FM) [facility], [place] [address](AFN G 104 Med Sq-FM) OUTPATIENT [id number] Notes Entered by: JUAN M GODFREY 25 Aug 2020 1559 ------- ------- ------- ------- -- JUAN M SULLIVAN 08/25 Released w/o Limitations [facility] [place] [address](A FNG 104 Med Sq-FM) [facility](Opt ometry [facility] [place]) OUTPATIENT [id number] Pre-PRK appt ELENA SIBLEY 04/22 Released w/o Limitations [address] [place] [address](O ptometr y [facility] [place]) [facility], [place] [address](AFN G 104 Med Sq-FM) TELE CONSULT [id number] JUAN M GODFREY 05/17 [facility] [place] [address](A FNG 104 Med Sq-FM) [facility], [facility](AFN G 104 Med Sq-FM) OUTPATIENT [id number] Notes Entered by: Maurice LYON 22 Sep 2021 1607 ------- ------- ------- ------- -- SANTO MILLAN 09/22 [facility] Limitations [facility] [place] [place] [address](A FNG 104 Med Sq-FM) [address] [place] [address](Opt ometry [facility] [place]) OUTPATIENT [id number] PRK consult ELENA SIBLEY 11/24 Released w/o Limitations [address] [place] [address](O ptometr y [facility] [place]) [place] [address](AFN G 104 Med Sq-FM) TELE CONSULT [id number] JUAN M GODFREY 03/17 [facility] [place] [place] [address](A FNG 104 Med Sq-FM) [place] [address](AFN G 104 Med Sq-FM) TELE CONSULT [id number] JUAN M GODFREY NOONE 05/26 [facility] [place] [place] [address](A FNG 104 Med Sq-FM) 8203R-104 MDG Care Not Rendered [id number] 05/16 Discharge Disposition: Home or Self Care 8203R-1 04 MDG 8203R-104 MDG Care Not Rendered [id number] 06/10 Discharge Disposition: Home or Self Care 8203R-1 04 MDG 8203R-104 MDG Care Not Rendered [id number] 09/10 Discharge Disposition: Home or Self Care 8203R-1 04 MDG 8203R-104 MDG Care Not Rendered [id number] 11/18 Discharge Disposition: Home or Self Care 8203R-1 04 MDG 8203R-104 MDG Care Not Rendered [id number] 11/19 Discharge Disposition: Home or Self Care 8203R-1 04 MDG Procedures Combined list of: 1) Procedures from Department of Veterans Affairs facilities going back up to thelast 18 months, not all VA non-surgical procedures are included; 2) All procedures from the Department of Defense facilities. Procedure Procedure Type Code Date Perfkristi Preciado [facility] e No data available for this section Ambulato ry Pharmacy OPHTHALMIC ULTRASOUND, ECHOGRAPHY, DIAGNOSTIC; CORNEAL PACHYMETRY, UNILATERAL OR BILATERAL (DETERMINATION OF CORNEAL THICKNESS) 022 [facility] FITTING OF SPECTACLES, EXCEPT FOR APHAKIA; MONOFOCAL 021 [facility] Physical Therapy Education Orthotics Training Initial 15 Min 011 HERBER WOODS [facility] Foot, arch support, removable, premolded, longitudinal, each 011 HERBER WOODS [facility] Screening Test Of Visual Acuity, Quantitative, Bilateral Screening Test Of Visual Acuity, Quantitative, Bilateral 14111 011 ELONU, FRANCISCO U [facility] Spectacles Services Fitting Monofocals (Not For Aphakia) Spectacles Services Fitting Monofocals (Not For Aphakia) [id number] ELONU, FRANCISCO U [facility] Ophthalmological New Patient Start Comprehensive Care Ophthalmological New Patient Start Comprehensive Care [address]69 ELENA SIBLEY Determination Of Refractive State Determination Of Refractive State [address] ELENA SIBLEY Spectacles Services Fitting Monofocals (Not For Aphakia) Spectacles Services Fitting Monofocals (Not For Aphakia) [address] ELENA SIBLEY. Lydia Ophthalmological Prior Patient Start Comprehensive Care Ophthalmological Prior Patient Start Comprehensive Care [address] ELENA SIBLEY Computerized Corneal Topography Computerized Corneal Topography 77001 ELENA SIBLEY Corneal Pachymetry Corneal Pachymetry 30130 ELENA SIBLEY Social History Combined list of available smoking, tobacco, and other social history from Department of Defense and Veterans Affairs facilities. Social History Type Response Date Comment [facility] e This section is an empty social [...] Plan No data available for this section 01/27/2025 Ambulatory Pharmacy Functional Status Combined list of recent functional and cognitive assessments recorded at Department of Defense and Veterans Affairs (VA).VA Functional Castine Measurement (FIM) Scale: 1 = Total Assistance (Subject = 0% +), 2 = Maximal Assistance (Subject = 25% +), 3 = Moderate Assistance (Subject = 50% +), 4 = Minimal Assistance (Subject = 75% +), 5 = Supervision, 6 = Modified Castine (Device), 7 = Complete Castine (Timely, Safely). Assessment Date/Time Source Assessment Type Assessment Skill Assessment Score Assessment Details No data available for this section
== END 2025-01-27 12:28 | disposition home or self-care (01) ==
LOC: HO.ENCR 11:26
PROVIDERS: PCP Internal Medicine; Visit Provider Dietitian, Registered
DX: E11.65 Type 2 diabetes mellitus with hyperglycemia (principal)

== ENCOUNTER → 2025-01-27 11:26 | Outpatient (BNVA) | payer OTHER, SELFPAY | PROVIDERS: PCP Internal Medicine; Visit Provider Dietitian, Registered | DX: E11.65 Type 2 diabetes mellitus with hyperglycemia (principal); Z71.3 Dietary counseling and surveillance | CPT/HCPCS: 97803 ==

== ENCOUNTER 2025-02-23 13:18 | Outpatient (AMB) | payer OTHER, SELFPAY ==
[2025-02-23 13:22] VITALS: BP 120/80; PULSE 62; RESP 16; TEMP 36.8; O2SAT 98; BMI 34.4
--- NOTE | 2025-02-23 13:22 | MHC.PC.OV ---
Vital Signs 02/23/25 13:22 Height 5 ft 6 in Weight 213 lb BMI 34.4 BP 120/80 Blood Pressure Location Lt brachial Position Sitting Respiration 16 Pulse 62 Pulse Source Pulse Oximeter Temp 98.2 F Temp Source Oral Pulse Oximetry (%) 98 Oxygen Delivery Method Room Air Intake Visit Reasons: med management/ADHD Intake Note: Pt is here today wants to discuss medication for ADHD Allergies acetaminophen (Percocet) Allergy (Unknown, Verified 02/23/25 13:40) cant see up close oxycodone (Percocet) Allergy (Unknown, Verified 02/23/25 13:40) blurred vision oxytocin (From Pitocin) Adverse Reaction (Severe, Verified 02/23/25 13:40) Blurry Vision Medication List - Last Reconciled 02/23/25 by Peggy Mcknight MD atorvastatin 40 mg PO BEDTIME bisacodyl (Dulcolax (bisacodyl)) 20 mg (4 x 5 mg) PO ONCE 1 day blood sugar diagnostic (FreeStyle Lite Strips) Test blood sugar once per day blood-glucose meter (FreeStyle Lite Meter kit) Check blood sugar daily diclofenac sodium 1% (Arthritis Pain (diclofenac)) 2 grams topical QID dulaglutide (Trulicity) 1.5 mg (0.5 mL) subcut QWEEK FreeStyle Karl 3 Plus Sensor (blood-glucose sensor) Check blood sugar 3 times per day, change sensor every 14 days NS FreeStyle Karl 3 [place] (blood-glucose,publications designer,cont) As directed NS [Knee cooling device As directed Breg: Vpulse with Knee Pad Prod numbers #[id number], #[id number]] lancets (FreeStyle Lancets) Test blood sugar once per day levothyroxine 75 mcg PO DAILY 30 days metformin ER 500 mg PO BID polyethylene glycol 3350 (Miralax) 238 grams PO ONCE Tobacco use date assessed: 02/23/25 Dental Screening Dental Screen Date: 02/23/25 Did you have a dental visit in the last 12 months?: Yes Did you have a dental problem in the last 6 months where you did not have access to dental care?: No Was dental information given to patient?: Patient has dentist HPI med management/ADHD HPI Details - The patient is a 44-year-old female presenting for a follow up on her diabetes mellitus and evaluated for possible Attention Deficit Hyperactivity Disorder (ADHD). - Diabetes Mellitus: The patient is on Trulicity and metformin, with some weight loss since December of the previous year. Her A1c is controlled at 5%, currently on Trulicity 1.5 mg once a week and metformin ER 500 mg 1 tablet twice a day. - Attention Deficit Hyperactivity Disorder (ADHD): The patient has not been formally diagnosed but has been advised by her therapist to seek evaluation for ADHD due to difficulties with attention and task completion. She reports a history of compensating for these difficulties, but they are now affecting her work performance, leading to missed opportunities. Family history includes a brother recently diagnosed with ADHD. [facility] Medical History (Updated 02/23/25 @ 13:48 by Peggy Mcknight MD) Family history of attention deficit hyperactivity disorder Difficulty concentrating Type 2 diabetes mellitus without complication, without long-term current use of insulin Family history of colon cancer Lump of skin of back Obesity (BMI 30-39.9) Arthritis of right knee Mixed dyslipidemia Left ACL tear Elevated liver enzymes Annual visit for general adult medical examination with abnormal findings History of gestational diabetes Vitamin D deficiency Hypothyroidism Jessica's disease Anti-TPO antibodies present Surgical History Hx of anterior cruciate ligament tear reconstruction Tubal ligation status Hx of section Hx of cholecystectomy Hx of knee surgery Family History Father Colon cancer Mother Breast cancer Substance use disorder Sister Substance use disorder Maternal Aunt Substance use disorder Maternal Uncle Substance use disorder Paternal Uncle Substance use disorder Social History Household Members: Children Housing: Condominium Alcohol intake: never Patient Tobacco Use Status: Never used Tobacco e-Cigarette/Vaping Use: Never Used service: Yes Current occupational status: employed 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 Cognitive needs: No Hearing needs: No Vision needs: Yes Questionnaire Thrive Questionnaire Date Thrive assessed: 11/17/24 I am a: Patient What is your living situation today?: I have a steady place to live Within the past 12 months, did the food you bought not last and you didn't have the money to get more?: Never true Within the past 12 months, did you worry whether your food would run out before you got money to buy more?: Never true Do you have trouble paying for medicines?: No Do you have trouble getting transportation to medical appointments?: No Do you have trouble paying your heating and electricity bill?: No Do you have trouble taking care of your child, family member or friend?: No Do you have trouble with day-to-day activities such as bathing, preparing meals, shopping, managing finances, etc.?: No Are you currently unemployed and looking for a job?: No Are you interested in more education?: No Please select the resources that you would like help with: None Currently or been in a relationship where the following occur: I choose not to answer THRIVE Score: 0 AUDIT C Alcohol Use Questionnaire (AUDIT-C) 2. How many drinks containing alcohol do you have on a typical day when you are drinking?: 1 or 2 3. How often do you have six or more drinks on one occasion?: Never Total Score: 0 KANCHAN-7 AMB Questionnaire KANCHAN-7 Date KANCHAN - 7 assessed: 11/17/24 Source: Developed by Drs. Blayne Wilks, Maddi Laws, Tom Hobson and colleagues, with an educational erika from [employer]. Review of Systems Const Reports no additional complaints Eyes Reports no additional complaints ENT Reports no additional complaints Card Reports no additional complaints Resp Reports no additional complaints GI Denies abdominal pain, Denies belching, Denies melena, Denies change in bowel habits and Denies heartburn Reports no additional complaints Musc Reports no additional complaints Neuro Reports no additional complaints Psych Reports as per HPI Endo Reports no additional complaints Brian/Lymph Reports no additional complaints Aller/Immun Reports no additional complaints Physical exam (Primary Care) Vital Signs: Last Vital Signs Temp 98.2 F 02/23/25 13:22 Pulse 62 02/23/25 13:22 Resp 16 02/23/25 13:22 BP 120/80 02/23/25 13:22 Pulse Ox 98 02/23/25 13:22 Oxygen Delivery Method Room Air 02/23/25 13:22 BMI result Body Mass Index 34.4 Tobacco/Smoking Status: Tobacco use Status Tobacco use date assessed 02/23/25 02/23/25 13:23 Patient Tobacco Use Status Never used Tobacco 02/23/25 13:23 e-Cigarette/Vaping Use Never Used 02/23/25 13:23 Thrive Assessment: Date of Thrive Assessment Date Thrive assessed 11/17/24 02/23/25 13:23 Currently or been in a relationship where the following occur: I choose not to answer Const Other: Alert oriented x3, no acute cardiorespiratory distress noted ambulatory with normal gait HENMT Head: Yes normocephalic Face and sinus: Yes face symmetric Mouth: Normal oral and palatal mucosa present and moist mucous membranes Eyes General: appearance normal, both eyes and all related structures Pupils: Equal, round and reactive pupils present EOM: EOMs intact bilaterally Neck Neck: Yes full ROM, Yes no lymphadenopathy, Yes no meningeal signs and Yes supple Resp Auscultation: clear to auscultation bilaterally Cardio Other: S1-S2 present regular rate and rhythm GI Palpation (GI): Soft to palpation, nontender, no guarding and no masses Auscultation: normal bowel sounds Back/Spine/Pelvis Back: No back tenderness Skin General skin exam: no rashes or lesions noted Neuro General: gait normal, moves all extremities, Normal light touch and pain sensation, no meningeal signs, no focal motor deficits and CN's II-XI intact bilaterally Cranial nerves: Yes Equal, round and reactive pupils present Gait exam (Neuro): Normal gait present Extrem General: Yes full ROM, Yes no joint enlargement, Yes no clubbing, cyanosis or edema, Yes no calf tenderness and Yes normal gait Psych Appearance: grossly normal and well kempt Mental Status: mental status grossly normal Speech and movement: Normal speech and movement present Affect: normal affect Coding Level of Care Code Est Pt Level 4 (53307) Diagnoses Difficulty concentrating R41.840 Inattention R41.840 Assessment & Plan Assessment & Plan (1) Difficulty concentrating: Code(s): R41.840 - Attention and concentration deficit Category: Medical (2) Inattention: Code(s): R41.840 - Attention and concentration deficit Plan The patient will be referred to a psychiatrist for formal evaluation and management of possible Attention Deficit Hyperactivity Disorder ADHD). A referral has been made to Kristina Ayers. continued on her current diabetes management regimen with Trulicity and metformin, as her A1c is well-controlled at 5%. Patient was informed and verbally consented to the use of an ambient scribe for clinic note documentation during this visit. Orders: Referrals Psychiatry Referral R41.840 - Attention and concentration deficit, Z81.8 - Family history of other mental and behavioral disorders
--- OUTSIDE RECORDS SUMMARY | 2025-02-23 14:09 | XMS_ITS | Continuity of Care Document ---
Author Name [facility] Organization [facility] Care Team Providers Care Churn Tender Name Role Phone [facility] Unavailable Unavailable Problems Combined list of problems from Department of Defense and Veterans Affairs facilities. It does not include entries that were removed or entered in error. Problem Status Onset Date Problem Type Date of Resolution Comments Source visit for: administrative purpose Inactive 12/22/2010 Condition DoD foot pain (soft tissue) Active Condition [facility] Brace Inactive Condition [facility] visit for: services physical accession Active [...] HERRERA DIABETES, 100 ea. PACKET Cancele d [id number] : 2023 0 Pharmac y Data Transac tion Service Facilit y FREESTYLE LANCETS (lancets), 28 GAUGE, EACH, MISCELL, HERRERA DIABETES, 100 ea. PACKET Active [id number] 4 2023 100 Pharmac y Data Transac tion Service Facilit y FREESTYLE LITE TEST STRIP (blood sugar diagnostic) , STRIP, MISCELL, HERRERA DIABETES, 100 ea. BOX Cancele d [id number] : 2023 0 Pharmac y Data Transac tion Service Facilit y FREESTYLE LITE TEST STRIP (blood sugar diagnostic) , STRIP, MISCELL, HERRERA DIABETES, 100 ea. BOX Active [id number] 12/12/19 2 4 2023 100 Pharmac y [...] ORAL, AMNEAL PHARMACE, 1000 ea. BOTTLE Active [id number] 4 2023 90 Pharmac y Data Transac tion Service Facilit y LEVOTHYROXI NE SODIUM (levothyrox ine sodium), 75 MCG, TABLET, ORAL, AMNEAL PHARMACE, 1000 ea. BOTTLE Cancele d [id number] : 2023 0 Pharmac y Data Transac [...] Known Allergies Drug allergy (disorder) active 12/22/2010 [place] [address] Immunizations Combined list of available immunizations from the Department of Defense and Veterans Affairs facilities. Immunization Series Date Given Administered By Site Reaction Lot Number CVX Code Drug Steward/Stewardess Room Status Comments Source influenza virus vaccine, inactivated 2023 RANDEEWALT Cardenas tammi, left (delt oid) [id number] [employer], [employer] complet ed influenza virus vaccine, inactivat ed 05/11/24 Given 8203R-1 04 MDG influenza, injectable, quadrivalent- pf 2020 [id number] 150 GlaxoSmHolographic Projection for [employer] ne complet ed influenza , injectabl e, quadrival ent-pf 04/01/21 Given Ambulat ory Pharmac y Influenza, injectable, quadrivalent, preservative free 1 2020 [id number] 150 [employer] (SKB) complet ed Influenza , injectabl e, quadrival ent, preservat stuart free DoD tetanus, diphtheria, acellular pertu is 2020 [id number] 115 sanofi pasteur complet ed tetanus, diphtheri a, acellular pertussis 03/24/21 Given Ambulat ory Pharmac y tetanus toxoid, reduced diphtheria toxoid, and acellular pertu is vaccine, adsorbed 1 2020 [id number] 115 Sanofi Pasteur (PMC) complet ed tetanus toxoid, reduced diphtheri a toxoid, and acellular pertussis vaccine, adsorbed DoD COVID Vaccine Moderna 2020 [id number] complet ed COVID Vaccine Moderna 10/16/20 Given Ambulat ory Pharmac y SARS-COV-2 (COVID-19) vaccine, mRNA, spike protein, LNP, preservative free, 100 mcg or 50 mcg dose 2 2020 [id number] 207 Moderna US, Inc. (MOD) complet ed SARS-COV- 2 (COVID-19 ) vaccine, mRNA, spike protein, LNP, preservat stuart free, 100 mcg or 50 mcg dose DoD COVID Vaccine Moderna 2020 [id number] complet ed COVID Vaccine Moderna 09/18/20 Given Ambulat ory Pharmac y SARS-COV-2 (COVID-19) vaccine, mRNA, spike protein, LNP, preservative free, 100 mcg or 50 mcg dose 1 2020 [id number] 207 Moderna US, Inc. (MOD) complet ed SARS-COV- 2 (COVID-19 ) vaccine, mRNA, spike protein, LNP, preservat stuart free, 100 mcg or 50 mcg dose DoD influenza, injectable, quadrivalent- pf 2019 [id number] 150 Seqirus complet ed influenza , injectabl e, quadrival ent-pf 06/19/20 Given Ambulat ory Pharmac y Influenza, injectable, quadrivalent, preservative free 1 2019 [id number] 077 150 Seqirus (SEQ) complet ed Influenza [...] DoD Influenza, inj, MDCK, quadrivalent- pf 2016 [id number] 171 [employer] complet ed Influenza , inj, MDCK, quadrival ent-pf 05/13/17 Given Ambulat ory Pharmac y Influenza, injectable, Madin Milagros Canine Kidney, preservative free, quadrivalent 9 2016 [id number] 171 Seqirus (SEQ) comple t ed Influenza [...] free DoD influenza, live, intranasal,qu adrivalent 2013 [id number] Medimmune Inc comple t ed influenza , live, intranasa l,quadriv alent 04/12/14 Given Ambulat ory Pharmac y influenza, live, intranasal, quadrivalent 7 2013 [id number] 149 MedINeomend, Inc. (MED) complet ed influenza , live, intranasa l, quadrival ent DoD influenza, seasonal, injectable-pf 2012 140 complet ed influenza , seasonal, injectabl e-pf 04/26/13 Given Ambulat ory Pharmac y influenza, seasonal, injectable 2012 [id number] 141 Unknown complet ed influenza , seasonal, injectabl e 04/26/13 Given Ambulat ory Pharmac y Influenza, seasonal, injectable, preservative free 0 2012 140 (MVX) complet ed Influenza , seasonal, injectabl e, preservat stuart free DoD Influenza, seasonal, injectable 1 2012 [id number] 141 Unknown (UNK) comple t ed Influenza , seasonal, injectabl e DoD measles virus vaccine 0 2012 05 () Not Given measles virus vaccine DoD rubella virus vaccine 0 2012 06 () Not Given rubella virus vaccine DoD influenza, seasonal, injectable 2011 [id number] 141 CSL Behring complet ed influenza [...] adult dosage 3 2011 [id number] 43 [facility] (SKB) complet ed hepatitis B vaccine, adult dosage DoD hepatitis A vaccine, adult dosage 3 2011 [id number] 52 [facility] ([facility] ed hepatitis A vaccine, adult dosage DoD Influenza, seasonal, injectable 4 2011 [id number] 141 [employer] Inc. (CSL) complet ed Influenza , seasonal, injectabl e DoD influenza virus vaccine, live 2010 [id number] [address] [employer] comple t ed influenza virus vaccine, live 04/13/11 Given Ambulat ory Pharmac y influenza virus vaccine, live, attenuated, for intranasal use 1 2010 [id number] 111 Practo Technologies Pvt. Ltd, Inc. (MED) complet ed influenza virus vaccine, [...] vaccine DoD tuberculin purified protein derivative 2010 [id number] 96 sanofi pasteur complet ed tuberculi n purified protein derivativ e 12/18/10 Given Ambulat ory Pharmac y influenza virus vaccine,split 2010 [id number] 15 CSL Behring complet ed influenza virus vaccine,s plit 12/15/10 Given Ambulat ory Pharmac y tetanus, diphtheria, acellular pertu is 2010 [id number] 115 GlaxoSmithKli ne complet ed tetanus, diphtheri a, acellular pertussis 12/15/10 Given Ambulat ory Pharmac y meningococcal A,C,Y,W-135 (MCV4P) 2010 [id number] 114 sanofi pasteur complet ed meningoco ccal [...] purified surface antigen)-reti red CODE 1 2010 [id number] 15 [employer], [employer]. (CSL) complet ed influenza virus vaccine, split virus (incl. purified surface antigen)- retired CODE DoD meningococcal polysaccharid e (groups A, C, Y and W-135) diphtheria toxoid conjugate vaccine (MCV4P) 1 2010 [id number] 114 Sanofi Pasteur (PMC) complet ed meningoco ccal polysacch aride (groups A, C, Y and W-135) diphtheri a toxoid conjugate vaccine (MCV4P) DoD tetanus toxoid, reduced diphtheria toxoid, and acellular pertu is vaccine, adsorbed 1 2010 [id number] [facility] ([facility] complet ed tetanus toxoid, reduced [...] Prevention' s HIV diagnostic algorithm. Refer to [facility] Lab Guide for additional information : [email or web address]/ [email or web address] x Testing performed by [employer] pattuminaaliyah ce. 5600A-U [employer] EPILAB Miscellan eous Sendouts Repository Sample Received [...] ADM Date DC Date Status Disposition [place] [address](Opt ometry Clinic [facility]) OUTPATIENT [id number] JOANN MARTINEZ 12/19 [facility] w[facility] [place] [place] [address](O ptometr y Clinic [facility]) [place] [address](MAS Norris) OUTPATIENT [id number] pain pack SHERWIN CLIFTON 12/21 Released w/o Limitations [facility] [place] [address](M Norris) [place] [address](MAS Norris) OUTPATIENT [id number] pain pack YESSENIA MIRAMONTES L 01/04 Released w/o Limitations [facility] [place] [address](M Norris) [place] [address](Ort hotic Svcs, [facility]) OUTPATIENT [id number] HERBER WOODS P 01/05 Released w/o Limitations [facility] [address](O rthotic Svcs, [facility]) [place] [address](MAS Norris) OUTPATIENT [id number] Pain Pack SUSIE NUNEZ N 01/13 Released w/o Limitations [facility] [place] [address](M Norris) [place] [address](MAS Norris) OUTPATIENT [id number] pain/bl ister pack OMER PETTIT N 01/19 Released w/o Limitations [facility] [place] [address](M Norris) [place] [address](MAS Beast) OUTPATIENT [id number] Cold Pk/Pain Pk ROSE MARIE HAMILTON 01/25 Released w/o Limitations [facility] [place] [address](M Beast) [place] [address](MAS Nroris) OUTPATIENT [id number] pain YESSENIA MIRAMONTES L 01/31 Released w/o Limitations [facility] [place] [address](M Norris) [place] [address](MAS Norris) OUTPATIENT [id number] pain pack SHERWIN CLIFTON 02/09 Released w/o Limitations [facility] [place] [address](M Norris) [place] [address](AFN G 104 Med Sq-FM) OUTPATIENT [id number] Notes Entered by: JUAN M GODFREY 07 Aug 2017 0823 ------- ------- ------- ------- -- DORINDA SMITHTRICE JUAN M INFANTE 08/07 Released w/o Limitations [facility] [place] [address](A FNG 104 Med Sq-FM) [facility], [facility](AFN G 104 Med Sq-FM) OUTPATIENT [id number] Notes Entered by: JUAN M GODFREY 10 Jul 2019 0847 ------- ------- ------- ------- -- JUAN M SULLIVAN 07/10 Released w/o Limitations [facility] [place] [address](A FNG 104 Med Sq-FM) [facility], [place] [address](AFN G 104 Med Sq-FM) OUTPATIENT [id number] Notes Entered by: UJAN M GODFREY 25 Aug 2020 1559 ------- ------- ------- ------- -- JUAN M SULLIVAN 08/25 Released w/o Limitations [facility] [place] [address](A FNG 104 Med Sq-FM) [facility](Opt ometry [facility] [place]) OUTPATIENT [id number] Pre-PRK appt ELENA SIBLEY 04/22 Released w/o Limitations [address] [place] [address](O ptometr y [facility] [place]) [facility], [place] [address](AFN G 104 Med Sq-FM) TELE CONSULT [id number] JUAN M GODFREY 05/17 [facility] [place] [address](A FNG 104 Med Sq-FM) [facility], [facility](AFN G 104 Med Sq-FM) OUTPATIENT [id number] Notes Entered by: Maurice LYON 22 Sep 2021 1607 ------- ------- ------- ------- -- SANTO MILLAN 09/22 Released w/o Limitations [facility] [place] [address](A FNG 104 Med Sq-FM) [address] [place] [address](Opt ometry [facility] [place]) OUTPATIENT [id number] PRK consult ELENA SIBLEY 11/24 Released w/o Limitations [address] [place] [address](O ptometr y [facility] [place]) [place] [address](AFN G 104 Med Sq-FM) TELE CONSULT [id number] JUAN M GODFREY 03/17 [facility] [place] [address](A FNG 104 Med Sq-FM) [place] [address](AFN G 104 Med Sq-FM) TELE CONSULT [id number] JUAN M GODFREY NOONE 05/26 [facility] [place] [address](A FNG 104 Med Sq-FM) 8203R-104 MDG Care Not Rendered [id number] 05/16 Discharge Disposition: Home or Self Care 8203R-1 04 MDG 8203R-104 MDG Care Not Rendered [id number] 06/10 Discharge Disposition: Home or Self Care 8203R-1 04 MDG 8203R-104 MDG Care Not Rendered [id number] 09/10 Discharge Disposition: Home or Self Care 8203R-1 04 MDG 8203R-104 MDG Care Not Rendered [id number] 11/18 Discharge Disposition: Home or Self Care 8203R-1 04 MDG 8203R-104 MDG Care Not Rendered [id number] 11/19 Discharge Disposition: Home or Self Care 8203R-1 04 MDG Procedures Combined list of: 1) Procedures from Department of Veterans Affairs facilities going back up to thelast 18 months, not all VA non-surgical procedures are included; 2) All procedures from the Department of Defense facilities. Procedure Procedure Type Code Date Perfkristi Preciado [facility] No data available for this section Ambulato ry Pharmacy Physical Therapy Education Orthotics Training Initial 15 Min HERBER WOODS [facility] Foot, arch support, removable, premolded, longitudinal, each 011 HERBER WOODS [facility] Screening Test Of Visual Acuity, Quantitative, Bilateral Screening Test Of Visual Acuity, Quantitative, Bilateral 00760 011 ELONU, FRANCISCO U [facility] Spectacles Services Fitting Monofocals (Not For Aphakia) Spectacles Services Fitting Monofocals (Not For Aphakia) 30102 011 ELONU, FRANCISCO U [facility] Ophthalmological New Patient Start Comprehensive Care Ophthalmological New Patient Start Comprehensive Care 69368 ELENA SIBLEY Determination Of Refractive State Determination Of Refractive State 23965 ELENA SIBLEY Spectacles Services Fitting Monofocals (Not For Aphakia) Spectacles Services Fitting Monofocals (Not For Aphakia) 58815 ELENA SIBLEY Ophthalmological Prior Patient Start Comprehensive Care Ophthalmological Prior Patient Start Comprehensive Care 46419 ELENA SIBLEY Computerized Corneal Topography Computerized Corneal Topography 49400 ELENA SIBLEY Corneal Pachymetry Corneal Pachymetry 26893 ELENA SIBLEY OPHTHALMIC ULTRASOUND, ECHOGRAPHY, DIAGNOSTIC; CORNEAL PACHYMETRY, UNILATERAL OR BILATERAL (DETERMINATION OF CORNEAL THICKNESS) 022 [facility] FITTING OF SPECTACLES, EXCEPT FOR APHAKIA; MONOFOCAL 021 [facility] ORTHOTIC(S) MANAGEMENT AND TRAINING (INCLUDING ASSESSMENT AND FITTING WHEN NOT OTHERWISE REPORTED),UPPER EXTREMITY(IES),LOWER EXTREMITY(IES) AND/OR TRUNK,INITIAL ORTHOTIC(S) ENCOUNTER,EACH 15 MINUTES 011 [facility] THERAPEUTIC, PROPHYLACTIC, OR DIAGNOSTIC INJECTION (SPECIFY SUBSTANCE OR DRUG); SUBCUTANEOUS OR INTRAMUSCULAR 011 [facility] SCREENING TEST OF VISUAL ACUITY, QUANTITATIVE, BILATERAL 011 [facility] Social History Combined list of available smoking, tobacco, and other social history from Department of Defense and Veterans Affairs facilities. Social History Type Response Date Comment [facility] e This section is an empty social history section. [facility] Assessment and Plan Combined list of future care activities from Department of Defense and Veterans Affairs facilities (e.g., assessment and plan notes, appointments, orders, and referrals). Additional future care activities may be listed in the Plan of Care section. Result Assessment and Plan Date Source Assessment and Plan No data available for this section 02/23/2025 Ambulatory Pharmacy Functional Status Combined list of recent functional and cognitive assessments recorded at Department of Defense and Veterans Affairs (VA).VA Functional Raven Measurement (FIM) Scale: 1 = Total Assistance (Subject = 0% +), 2 = Maximal Assistance (Subject = 25% +), 3 = Moderate Assistance (Subject = 50% +), 4 = Minimal Assistance (Subject = 75% +), 5 = Supervision, 6 = Modified Raven (Device), 7 = Complete Raven (Timely, Safely). Assessment Date/Time Source Assessment Type Assessment Skill Assessment Score Assessment Details No data available for this section
== END 2025-02-23 14:33 | disposition home or self-care (01) ==
LOC: HO.HMCC 13:19
PROVIDERS: PCP Internal Medicine; Visit Provider Internal Medicine
DX: R41.840 Attention and concentration deficit (principal)

== ENCOUNTER → 2025-02-23 13:18 | Outpatient (BNVA) | payer OTHER, SELFPAY | PROVIDERS: PCP Internal Medicine; Visit Provider Internal Medicine | DX: R41.840 Attention and concentration deficit (principal); Z79.899 Other long term (current) drug therapy | CPT/HCPCS: 99212 ==

== ENCOUNTER 2025-02-26 11:16 | Outpatient (AMB) | payer OTHER, SELFPAY ==
--- NOTE | 2025-02-26 11:20 | A.OFFVIS_ITS ---
Intake Visit Reasons: OV - Right Knee OA - s/p Durolane 11/24/24 Intake Note: Tonia is a 44 year old female who presents today for a follow up of her Right Knee OA. Hx of Durolane Injection 11/24/24, we also discussed possible PRP. Patient reports an initial increase of pain after the gel injection, but this improved over time and feels that she has mild-moderate relief with the gel injection. Recently she had to run while at work which caused an increase of pain. After a week with rest the pain has improved. Currently she describes mild pain and would like to discuss repeat Durolane. Allergies acetaminophen (Percocet) Allergy (Unknown, Verified 02/23/25 13:40) cant see up close oxycodone (Percocet) Allergy (Unknown, Verified 02/23/25 13:40) blurred vision oxytocin (From Pitocin) Adverse Reaction (Severe, Verified 02/23/25 13:40) Blurry Vision HPI HPI OV - Right Knee OA - s/p Durolane 11/24/24: Details: Tonia is a 44 year old female who presents today for a follow up of her Right Knee OA. Hx of Durolane Injection 11/24/24, we also discussed possible PRP. Patient reports an initial increase of pain after the gel injection, but this improved over time and feels that she has mild-moderate relief with the gel injection. Recently she had to run while at work which caused an increase of pain. After a week with rest the pain has improved. Currently she describes mild pain and would like to discuss repeat Durolane. [facility] Medical History (Updated 02/23/25 @ 13:48 by Peggy Mcknight MD) Family history of attention deficit hyperactivity disorder Difficulty concentrating Type 2 diabetes mellitus without complication, without long-term current use of insulin Family history of colon cancer Lump of skin of back Obesity (BMI 30-39.9) Arthritis of right knee Mixed dyslipidemia Left ACL tear Elevated liver enzymes Annual visit for general adult medical examination with abnormal findings History of gestational diabetes Vitamin D deficiency Hypothyroidism Jessica's disease Anti-TPO antibodies present Surgical History Hx of anterior cruciate ligament tear reconstruction Tubal ligation status Hx of section Hx of cholecystectomy Hx of knee surgery Family History Father Colon cancer Mother Breast cancer Substance use disorder Sister Substance use disorder Maternal Aunt Substance use disorder Maternal Uncle Substance use disorder Paternal Uncle Substance use disorder Social History Household Members: [facility] Alcohol intake: never Patient Tobacco Use Status: Never used Tobacco e-Cigarette/Vaping Use: Never Used service: Yes Current occupational status: employed 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 Site was prepped using aseptic technique. Patient tolerated the procedure well. Shoulders, Hips, Knees, Knee Large Joint Injection : Right Knee Coding Procedure code (CPT) selection complete Assessment & Plan Assessment & Plan (1) Arthritis of right knee: Code(s): M17.11 - Unilateral primary osteoarthritis, right knee Category: Medical Plan: I injected her right knee today with steroids. She can not get Durolene for a 3 months and it was mildly helpful. She can see me back in 3 months. May continue activity as tolerated. (2) Type 2 diabetes mellitus without complication, without long-term current use of insulin: Code(s): E11.9 - Type 2 diabetes mellitus without complications Category: Medical Plan: I explained the hyperglycemic effects of steroids. Coding Level of Care Code Est Pt Level 4 (60028) Diagnoses Arthritis of right knee M17.11 Type 2 diabetes mellitus without complication, without long-term current use of insulin E11.9 CPT Codes Shoulders, Hips, Knees, - Knee Large Joint Injection : Right Knee ([id number])
--- OUTSIDE RECORDS SUMMARY | 2025-02-26 12:59 | XMS_ITS | Continuity of Care Document ---
Author Name [facility] Organization 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 Unavailable Unavailable Problems Combined list of problems from Department of Defense and Veterans Affairs facilities. It does not include entries that were removed or entered in error. Problem Status Onset Date Problem Type Date of Resolution Comments Source visit for: administrative purpose Inactive 12/22/2010 Condition DoD foot pain (soft tissue) Active Condition [facility] Brace Inactive Condition [facility] visit for: services physical accession Active [...] HERRERA DIABETES, 100 ea. PACKET Cancele d [id number] : 2023 0 Pharmac y Data Transac tion Service Facilit y FREESTYLE LANCETS (lancets), 28 GAUGE, EACH, MISCELL, HERRERA DIABETES, 100 ea. PACKET Active [id number] 4 2023 100 Pharmac y Data Transac tion Service Facilit y FREESTYLE LITE TEST STRIP (blood sugar diagnostic) , STRIP, MISCELL, HERRERA DIABETES, 100 ea. BOX Cancele d [id number] : 2023 0 Pharmac y Data Transac tion Service Facilit y FREESTYLE LITE TEST STRIP (blood sugar diagnostic) , STRIP, MISCELL, HERRERA DIABETES, 100 ea. BOX Active [id number] 12/12/19 2 4 2023 100 Pharmac y [...] ORAL, AMNEAL PHARMACE, 1000 ea. BOTTLE Active [id number] 4 2023 90 Pharmac y Data Transac tion Service Facilit y LEVOTHYROXI NE SODIUM (levothyrox ine sodium), 75 MCG, TABLET, ORAL, AMNEAL PHARMACE, 1000 ea. BOTTLE Cancele d [id number] : 2023 0 Pharmac y Data Transac [...] Known Allergies Drug allergy (disorder) active 12/22/2010 [place] [address] Immunizations Combined list of available immunizations from the Department of Defense and Veterans Affairs facilities. Immunization Series Date Given Administered By Site Reaction Lot Number CVX Code Drug Staff Readiness Officer Status Comments Source influenza virus vaccine, inactivated 2023 RANDEEWALT Cardenas tammi, left (delt oid) [id number] [employer], [employer] Quipper complet ed influenza virus vaccine, inactivat ed 05/11/24 Given 8203R-1 04 MDG influenza, injectable, quadrivalent- pf 2020 [id number] 150 GlaxoSmProFounderKli ne complet ed influenza , injectabl e, quadrival ent-pf 04/01/21 Given Ambulat ory Pharmac y Influenza, injectable, quadrivalent, preservative free 1 2020 [id number] 150 Ardelyx (SKB) complet ed Influenza , injectabl e, quadrival ent, preservat stuart free DoD tetanus, diphtheria, acellular pertu is 2020 [id number] 115 sanofi pasteur complet ed tetanus, diphtheri a, acellular pertussis 03/24/21 Given Ambulat ory Pharmac y tetanus toxoid, reduced diphtheria toxoid, and acellular pertu is vaccine, adsorbed 1 2020 [id number] 115 Sanofi Pasteur (PMC) complet ed tetanus toxoid, reduced diphtheri a toxoid, and acellular pertussis vaccine, adsorbed DoD COVID Vaccine Moderna 2020 [id number] 207 complet ed COVID Vaccine Moderna 10/16/20 Given Ambulat ory Pharmac y SARS-COV-2 (COVID-19) vaccine, mRNA, spike protein, LNP, preservative free, 100 mcg or 50 mcg dose 2 2020 [id number] 207 Moderna US, Inc. (MOD) complet ed SARS-COV- 2 (COVID-19 ) vaccine, mRNA, spike protein, LNP, preservat stuart free, 100 mcg or 50 mcg dose DoD COVID Vaccine Moderna 2020 [id number] complet ed COVID Vaccine Moderna 09/18/20 Given Ambulat ory Pharmac y SARS-COV-2 (COVID-19) vaccine, mRNA, spike protein, LNP, preservative free, 100 mcg or 50 mcg dose 1 2020 [id number] 207 Moderna US, Inc. (MOD) complet ed SARS-COV- 2 (COVID-19 ) vaccine, mRNA, spike protein, LNP, preservat stuart free, 100 mcg or 50 mcg dose DoD influenza, injectable, quadrivalent- pf 2019 [id number] 150 Seqirus complet ed influenza , injectabl e, quadrival ent-pf 06/19/20 Given Ambulat ory Pharmac y Influenza, injectable, quadrivalent, preservative free 1 2019 [id number] 077 150 Seqirus (SEQ) complet ed Influenza [...] DoD Influenza, inj, MDCK, quadrivalent- pf 2016 [id number] 171 Seqirus complet ed Influenza , inj, MDCK, quadrival ent-pf 05/13/17 Given Ambulat ory Pharmac y Influenza, injectable, Madin Milagros Canine Kidney, preservative free, quadrivalent 9 2016 [id number] 171 Seqirus (SEQ) comple t ed Influenza [...] free DoD influenza, live, intranasal,qu adrivalent 2013 [id number] 149 Medimmune Inc comple t ed influenza , live, intranasa l,quadriv alent 04/12/14 Given Ambulat ory Pharmac y influenza, live, intranasal, quadrivalent 7 2013 [id number] 149 MedIScholaroo, Inc. (MED) complet ed influenza , live, intranasa l, quadrival ent DoD influenza, seasonal, injectable-pf 2012 140 complet ed influenza , seasonal, injectabl e-pf 04/26/13 Given Ambulat ory Pharmac y influenza, seasonal, injectable 2012 [id number] 141 Unknown complet ed influenza , seasonal, injectabl e 04/26/13 Given Ambulat ory Pharmac y Influenza, seasonal, injectable, preservative free 0 2012 140 (MVX) complet ed Influenza , seasonal, injectabl e, preservat stuart free DoD Influenza, seasonal, injectable 1 2012 [id number] 141 Unknown (UNK) comple t ed Influenza , seasonal, injectabl e DoD measles virus vaccine 0 2012 05 () Not Given measles virus vaccine DoD rubella virus vaccine 0 2012 06 () Not Given rubella virus vaccine DoD influenza, seasonal, injectable 2011 [id number] 141 CSL Behring complet ed influenza [...] adult dosage 3 2011 [id number] 43 [facility] (SKB) complet ed hepatitis B vaccine, adult dosage DoD hepatitis A vaccine, adult dosage 3 2011 [id number] 52 [facility] hepatitis A vaccine, adult dosage DoD Influenza, seasonal, injectable 4 2011 [id number] 141 Rewalon, Inc. (CSL) complet ed Influenza , seasonal, injectabl e DoD influenza virus vaccine, live 2010 [id number] 111 Directly Inc comple t ed influenza virus vaccine, live 04/13/11 Given Ambulat ory Pharmac y influenza virus vaccine, live, attenuated, for intranasal use 1 2010 [id number] 111 Array [employer], Inc. (MED) complet ed influenza virus vaccine, [...] vaccine DoD tuberculin purified protein derivative 2010 [id number] 96 sanofi pasteur complet ed tuberculi n purified protein derivativ e 12/18/10 Given Ambulat ory Pharmac y influenza virus vaccine,split 2010 [id number] 15 CSL Behring complet ed influenza virus vaccine,s plit 12/15/10 Given Ambulat ory Pharmac y tetanus, diphtheria, acellular pertu is 2010 [id number] 115 GlaxoSmithKli ne complet ed tetanus, diphtheri a, acellular pertussis 12/15/10 Given Ambulat ory Pharmac y meningococcal A,C,Y,W-135 (MCV4P) 2010 [id number] 114 sanofi pasteur complet ed meningoco ccal [...] purified surface antigen)-reti red CODE 1 2010 [id number] 15 Rewalon, [employer]. (CSL) complet ed influenza virus vaccine, split virus (incl. purified surface antigen)- retired CODE DoD meningococcal polysaccharid e (groups A, C, Y and W-135) diphtheria toxoid conjugate vaccine (MCV4P) 1 2010 [id number] 114 Sanofi Pasteur (PMC) complet ed meningoco ccal polysacch aride (groups A, C, Y and W-135) diphtheri a toxoid conjugate vaccine (MCV4P) DoD tetanus toxoid, reduced diphtheria toxoid, and acellular pertu is vaccine, adsorbed 1 2010 [id number] 115 [facility] (SKB) complet ed tetanus toxoid, [...] Prevention' s HIV diagnostic algorithm. Refer to [facility] Lab Guide for additional information : [email or web address] x Testing performed by [employer] pattuminaaliyah ce. 5600A-U SynerscopeSAM EPILAB Miscellan eous Sendouts Repository Sample Received [...] ADM Date DC Date Status [place] [address](Opt ometry Clinic BMT [facility]) OUTPATIENT [id number] JOANN MARTINEZ 12/19 [facility] w[facility] [place] [place] [address](O ptometr y Clinic BMT [facility]) [place] [address](MAS Norris) OUTPATIENT [id number] pain pack SHERWIN CLIFTON 12/21 Released w/o Limitations [facility] [place] [address](M Norris) [place] [address](MAS Norris) OUTPATIENT [id number] pain pack YESSENIA MIRAMONTES L 01/04 Released w/o Limitations [facility] [place] [address](M Norris) [place] [address](Ort hotic Svcs, [facility]) OUTPATIENT [id number] HERBER WOODS P 01/05 Released w/o Limitations [facility] [address](O rthotic Svcs, [facility]) [place] [address](MAS Norris) OUTPATIENT [id number] Pain Pack SUSIE NUNEZ N 01/13 Released w/o Limitations [facility] [place] [address](M Norris) [place] [address](MAS Norris) OUTPATIENT [id number] pain/bl ister pack OMER PETTIT N 01/19 Released w/o Limitations [facility] [place] [address](M Norris) [place] [address](MAS Beast) OUTPATIENT [id number] Cold Pk/Pain Pk ROSE MARIE HAMILTON 01/25 Released w/o Limitations [facility] [place] [address](M Beast) [place] [address](MAS Norris) OUTPATIENT [id number] pain YESSENIA MIRAMONTES L 01/31 Released w/o Limitations [facility] [place] [address](M Norris) [place] [address](MAS Norris) OUTPATIENT [id number] pain pack SHERWIN CLIFTON 02/09 Released w/o Limitations [facility] [place] [address](M Norris) [place] [address](AFN G 104 Med Sq-FM) OUTPATIENT [id number] Notes Entered by: JUAN M GODFREY 07 Aug 2017 0823 ------- ------- ------- ------- -- DORINDA SMITHTRICE JUAN M INFANTE 08/07 Released w/o Limitations [facility] [place] [address](A FNG 104 Med Sq-FM) [facility], [facility](AFN G 104 Med Sq-FM) OUTPATIENT [id number] Notes Entered by: JUAN M GODFREY 10 Jul 2019 0847 ------- ------- ------- ------- -- JUAN M SULLIVAN 07/10 Released w/o Limitations [facility] [place] [address](A FNG 104 Med Sq-FM) [facility], [place] [address](AFN G 104 Med Sq-FM) OUTPATIENT [id number] Notes Entered by: JUAN M GODFREY 25 Aug 2020 1559 ------- ------- ------- ------- -- JUAN M SULLIVAN 08/25 Released w/o Limitations [facility] [place] [address](A FNG 104 Med Sq-FM) [facility](Opt ometry [facility] [place]) OUTPATIENT [id number] Pre-PRK appt ELENA SIBLEY 04/22 Released w/o Limitations [address] [place] [address](O ptometr y [facility] [place]) [facility], [place] [address](AFN G 104 Med Sq-FM) TELE CONSULT [id number] JUAN M GODFREY 05/17 [facility] [place] [address](A FNG 104 Med Sq-FM) [facility], [facility](AFN G 104 Med Sq-FM) OUTPATIENT [id number] Notes Entered by: Maurice LYON 22 Sep 2021 1607 ------- ------- ------- ------- -- SANTO MILLAN 09/22 [facility]ased w[facility] Limitations [facility] [place] [address](A FNG 104 Med Sq-FM) [address] [place] [address](Opt ometry [facility] [place]) OUTPATIENT [id number] PRK consult ELENA SIBLEY 11/24 Released w/o Limitations [address] [place] [address](O ptometr y [facility] [place]) [place] [address](AFN G 104 Med Sq-FM) TELE CONSULT [id number] JUAN M GODFREY 03/17 [facility] [place] [place] [address](A FNG 104 Med Sq-FM) [place] [address](AFN G 104 Med Sq-FM) TELE CONSULT [id number] JUAN M GODFREY NOONE 05/26 [facility] [place] [place] [address](A FNG 104 Med Sq-FM) 8203R-104 MDG Care Not Rendered [id number] 05/16 Discharge Disposition: Home or Self Care 8203R-1 04 MDG 8203R-104 MDG Care Not Rendered [id number] 06/10 Discharge Disposition: Home or Self Care 8203R-1 04 MDG 8203R-104 MDG Care Not Rendered [id number] 09/10 Discharge Disposition: Home or Self Care 8203R-1 04 MDG 8203R-104 MDG Care Not Rendered [id number] 11/18 Discharge Disposition: Home or Self Care 8203R-1 04 MDG 8203R-104 MDG Care Not Rendered [id number] 11/19 Discharge Disposition: Home or Self Care 8203R-1 04 MDG Procedures Combined list of: 1) Procedures from Department of Veterans Affairs facilities going back up to thelast 18 months, not all VA non-surgical procedures are included; 2) All procedures from the Department of Defense facilities. Procedure Procedure Type Code Date Perfkristi [facility] No data available for this section [facility]acy ORTHOTIC(S) MANAGEMENT AND TRAINING (INCLUDING ASSESSMENT AND FITTING WHEN NOT OTHERWISE REPORTED),UPPER EXTREMITY(IES),LOWER EXTREMITY(IES) AND/OR TRUNK,INITIAL ORTHOTIC(S) ENCOUNTER,EACH 15 MINUTES 011 [facility] THERAPEUTIC, PROPHYLACTIC, OR DIAGNOSTIC INJECTION (SPECIFY SUBSTANCE OR DRUG); SUBCUTANEOUS OR INTRAMUSCULAR 011 [facility] SCREENING TEST OF VISUAL ACUITY, QUANTITATIVE, BILATERAL 011 [facility] OPHTHALMIC ULTRASOUND, ECHOGRAPHY, DIAGNOSTIC; CORNEAL PACHYMETRY, UNILATERAL OR BILATERAL (DETERMINATION OF CORNEAL THICKNESS) 022 [facility] FITTING OF SPECTACLES, EXCEPT FOR APHAKIA; MONOFOCAL 021 [facility] Physical Therapy Education Orthotics Training Initial 15 Min 011 HERBER WOODS [facility] Foot, arch support, removable, premolded, longitudinal, each 011 HERBER WOODS Screening Test Of Visual Acuity, Quantitative, Bilateral Screening Test Of Visual Acuity, Quantitative, Bilateral [id number] 011 ELONURFANCISCO U [facility] Spectacles Services Fitting Monofocals (Not For Aphakia) Spectacles Services Fitting Monofocals (Not For Aphakia) 31831 011 ELONUFRANCISCO U [facility] Ophthalmological New Patient Start Comprehensive Care Ophthalmological New Patient Start Comprehensive Care 18261 ELENA SIBLEY Determination Of Refractive State Determination Of Refractive State [address] ELENA SIBLEY Spectacles Services Fitting Monofocals (Not For Aphakia) Spectacles Services Fitting Monofocals (Not For Aphakia) 76392 ELENA SIBLEY Ophthalmological Prior Patient Start Comprehensive Care Ophthalmological Prior Patient Start Comprehensive Care 05288 ELENA SIBLEY Computerized Corneal Topography Computerized Corneal Topography 27058 ELENA SIBLEY Corneal Pachymetry Corneal Pachymetry 22894 ELENA SIBLEY Social History Combined list of [...] Plan No data available for this section 02/26/2025 Ambulatory Pharmacy Functional Status Combined list of recent functional and cognitive assessments recorded at Department of Defense and Veterans Affairs (VA).VA Functional Mart Measurement (FIM) Scale: 1 = Total Assistance (Subject = 0% +), 2 = Maximal Assistance (Subject = 25% +), 3 = Moderate Assistance (Subject = 50% +), 4 = Minimal Assistance (Subject = 75% +), 5 = Supervision, 6 = Modified Mart (Device), 7 = Complete Mart (Timely, Safely). Assessment Date/Time Source Assessment Type Assessment Skill Assessment Score Assessment Details No data available for this section
== END 2025-02-26 11:44 | disposition home or self-care (01) ==
LOC: HO.HOS 11:17
PROVIDERS: PCP Internal Medicine; Visit Provider Orthopaedic Surgery
DX: M17.11 Unilateral primary osteoarthritis, right knee (principal); E11.9 Type 2 diabetes mellitus without complications
CPT/HCPCS: 20610; 99214

== ENCOUNTER → 2025-02-26 11:16 | Outpatient (BNVA) | payer OTHER, SELFPAY | PROVIDERS: PCP Internal Medicine; Visit Provider Orthopaedic Surgery | DX: M17.11 Unilateral primary osteoarthritis, right knee (principal); E11.9 Type 2 diabetes mellitus without complications | CPT/HCPCS: 20610; 99212; J0665; J1100; J2003 ==

== ENCOUNTER 2025-03-05 15:12 | Outpatient (AMB) | payer OTHER, SELFPAY ==
--- NOTE | 2025-03-05 15:33 | A.OFFPSYCH_ITS ---
Intake Intake Visit Reasons: consultation Intake Note: PHQ-9 6 KANCHAN-7 0 Diamond Sizer Required: No Allergies acetaminophen (Percocet) Allergy (Unknown, Verified 02/23/25 13:40) cant see up close oxycodone (Percocet) Allergy (Unknown, Verified 02/23/25 13:40) blurred vision oxytocin (From Pitocin) Adverse Reaction (Severe, Verified 02/23/25 13:40) Blurry Vision Medication List - Last Reconciled 03/05/25 by Erinn Huang APRN atorvastatin 40 mg PO BEDTIME blood sugar diagnostic (FreeStyle Lite Strips) Test blood sugar once per day blood-glucose meter (FreeStyle Lite Meter kit) Check blood sugar daily diclofenac sodium 1% (Arthritis Pain (diclofenac)) 2 grams topical QID dulaglutide (Trulicity) 1.5 mg (0.5 mL) subcut QWEEK FreeStyle Karl 3 Plus Sensor (blood-glucose sensor) Check blood sugar 3 times per day, change sensor every 14 days NS FreeStyle Karl 3 [place] (blood-glucose,tank truck milk receiver,cont) As directed NS [Knee cooling device As directed Breg: Vpulse with Knee Pad Prod numbers #[id number], #[id number]] lancets (FreeStyle Lancets) Test blood sugar once per day levothyroxine 75 mcg PO DAILY 30 days metformin ER 500 mg PO BID HPI- Psychiatric Chief Complaint: consultation HPI Narrative: Reports a long wait . Describes ADHD sx since childhood- given the message to try to manage sx without help. Attempted a referral without success. Feels she was more effected this year. Trying to manage 3.5 positions within her company- reports she tries to be organized, however with the stress and pressure feels this is weakened. Brother recently evaluated for ADHD and is being treated as well. Pt works with the and needs precision, organization and to be exact. 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 She is also managing a new diagnosis of DM and thyroid issues (Jessica's). She reports she has adopted skills over time however main sx are distraction, weak organization, decreased attention. She has lost opportunities due to poor sx mgt. Past Psychiatric History: IP: Denies OP: Counselor-sees for skill mgt Has seen Lillie Deal a few times SI: No hx of attempts, ideation Meds: No trials History of Present Illness Reports hx a few years ago Subjective Subjective Subjective Medication Compliance: Yes Side effects from medications: No Review of Systems Medical Review of Systems: unchanged Review of Systems Review of Systems denies Mental Status Exam Mental Status Exam Patient Appearance: Appropriate Patient Orientation: Person, Place, Time and Situation Level of Consciousness: Alert Patient Behavior: Talkative and Good Eye Contact Mood Description: Appropriate Affect Description: Appropriate Patient Cognition Impaired: No Ability to Follow Directions: Good Speech Pattern: Spontaneous Speech Memory Description: Intact Hallucinations: None Delusions: Not Present Thought Process: Distracted Judgement: Good Assessment and Plan Assessment & Plan (1) ADHD: Status: Acute Code(s): F90.9 - Attention-deficit hyperactivity disorder, unspecified type Plan 44 yo female, reports hx of untreated ADHD. Will trial Adderall XR 10 mg x7 d to assess efficacy. Medications: New dextroamphetamine-amphetamine 10 mg ER (Adderall XR) Partial Fill upon patient request. 10 mg PO DAILY 7 caps 0RF Counseling and coordination of Care Medication management counseling: Effectiveness, Side effects, Dosing range, Duration, Drug interaction and Adherence Diagnosis and Prognosis Counseling: Impact of diagnosis on life functions and Adequacy of current interventions Details: I spent [] minutes reviewing the record, seeing the patient and documenting in the medical record. Counseling provided to the patient/caregiver as outlined below. Addressed patient/caregiver concerns regarding current medication regime including effective adherence. Addressed patient/caregiver concerns regarding diagnosis and prognosis including accuracy of diagnosis, prognosis over time, impact of diagnosis. Addressed patient/caregiver concerns regarding impact of recent stressors. [facility] Medical History (Updated 03/23/25 @ 17:09 by Erinn Huang APRN) ADHD Family history of attention deficit hyperactivity disorder Difficulty concentrating Type 2 diabetes mellitus without complication, without long-term current use of insulin Family history of colon cancer Lump of skin of back Obesity (BMI 30-39.9) Arthritis of right knee Mixed dyslipidemia Left ACL tear Elevated liver enzymes Annual visit for general adult medical examination with abnormal findings History of gestational diabetes Vitamin D deficiency Hypothyroidism Jessica's disease Anti-TPO antibodies present Surgical History Hx of anterior cruciate ligament tear reconstruction Tubal ligation status Hx of section Hx of cholecystectomy Hx of knee surgery Family History Father Colon cancer Mother Breast cancer Substance use disorder Sister Substance use disorder Maternal Aunt Substance use disorder Maternal Uncle Substance use disorder Paternal Uncle Substance use disorder Social History Household Members: Children Housing: Condominium Alcohol intake: never Patient Tobacco Use Status: Never used Tobacco e-Cigarette/Vaping Use: Never Used service: Yes Current occupational status: employed 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 Step dad present since she was age 1. One older brother, one older sister. Family still in [place]. Close to mother and step father, father had cancer. School was a struggle. Pt achieved a BA and 2 AD's. 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 Learning issues always present. Has a daughter 12, son 9 who are amazing . , describes a good co-parenting relationship. Ex has remarried and has a 3 yo. Coding Level of Care Code Psych Diag Eval w/Med (54509) Diagnoses ADHD F90.9
== END 2025-03-05 17:55 | disposition home or self-care (01) ==
LOC: HO.HOP 15:12
PROVIDERS: PCP Internal Medicine; Visit Provider Clinical Nurse Specialist Psychiatric/Mental Health, Adult
DX: F90.9 Attention-deficit hyperactivity disorder, unspecified type (principal)
CPT/HCPCS: 90792

== ENCOUNTER → 2025-03-05 15:12 | Outpatient (BNVA) | payer OTHER, SELFPAY | PROVIDERS: PCP Internal Medicine; Visit Provider Clinical Nurse Specialist Psychiatric/Mental Health, Adult | DX: F90.9 Attention-deficit hyperactivity disorder, unspecified type (principal) | CPT/HCPCS: 90792 ==

== ENCOUNTER 2025-04-17 10:13 | Outpatient (AMB) | payer OTHER, SELFPAY ==
[2025-04-17 10:17] VITALS: BP 116/64; PULSE 69; TEMP 36.7; O2SAT 98; BMI 34.7
--- NOTE | 2025-04-17 10:17 | AM.OFFWIN_ITS ---
Intake Vital Signs 3 04/17/25 10:17 Height 5 ft 6 in Weight 215 lb BMI 34.7 BP 116/64 Blood Pressure Location Lt brachial Position Sitting Pulse 69 Pulse Source Pulse Oximeter Temp 98.1 F Temp Source Oral Pulse Oximetry (%) 98 Oxygen Delivery Method Room Air Intake Visit Reasons: EP Cat bite on right hand Patient Tobacco Use Status: Never used Tobacco Allergies acetaminophen (Percocet) Allergy (Unknown, Verified 04/17/25 10:20) cant see up close oxycodone (Percocet) Allergy (Unknown, Verified 04/17/25 10:20) blurred vision oxytocin (From Pitocin) Adverse Reaction (Severe, Verified 04/17/25 10:20) Blurry Vision Medication List - Last Reconciled 04/17/25 by Kristopher Garza MD albuterol sulfate 90 mcg/actuation 2 puffs inhalation Q6H atorvastatin 40 mg PO BEDTIME blood sugar diagnostic (FreeStyle Lite Strips) Test blood sugar once per day blood-glucose meter (FreeStyle Lite Meter kit) Check blood sugar daily dextroamphetamine-amphetamine 10 mg ER (Adderall XR) 10 mg PO DAILY diclofenac sodium 1% (Arthritis Pain (diclofenac)) 2 grams topical QID dulaglutide (Trulicity) 1.5 mg (0.5 mL) subcut QWEEK FreeStyle Karl 3 Plus Sensor (blood-glucose sensor) Check blood sugar 3 times per day, change sensor every 14 days NS FreeStyle Karl 3 [place] (blood-glucose,qualification engineer,cont) As directed NS [Knee cooling device As directed Breg: Vpulse with Knee Pad Prod numbers #[id number], #[id number]] lancets (FreeStyle Lancets) Test blood sugar once per day levothyroxine 75 mcg PO DAILY 30 days metformin ER 500 mg PO BID Do you need a note to return to daycare/school/sports/work: No HPI EP Cat bite on right hand 2 HPI0 Details History of Present Illness The patient is a 44 year old female presenting with cat bite right hand and tetanus vaccination update. Cat Bite: - Occurred last night at approximately 8 :30 PM. - Incident involved a neighbor?s cat gregory t entered the patient's home and was chased by the patient's daughter. - The cat became agitated when being jaylyn sed, leading to the bite. Patient attempted to restrain the cat with a towel, resulting in the bite. - The patient reports applying alcohol r ubbing wipes on the wound post-incident. Several scratches were sustained along on forearm Cat is immunized against Rabies , patient states Tetanus Immunization: - Last confirmed tetanus vaccine receive d in 2014. - Acknowledges adherence to routine vacc inations due to occupational requirements in the . Medical History: - Diabetes mellitus Problem List - Cat bite right hand - Diabetes mellitus Plan - Administer tetanus booster since the l ast vaccination was in 2015 - Prescribe Augmentin, an antibiotic, to prevent infection in the cat bite wound considering the high infection risk associated with cat bites. - Advisement to keep the wound clean and covered with a bandage to minimize contamination. - Instruction to monitor for signs of in fection, such as discharge or increased swelling, and to seek further medical evaluation if symptoms occur despite antibiotic therapy. - Engine Assembler patient to elevate the affecte d area to reduce swelling. Review of Systems - General: No fever no chills - Neurological: No headaches no dizziness - Ear nose throat: No sore throat no hearing difficulty no ear pain - Cardiovascular: No syncope, no chest pain, no palpitations - Gastrointestinal: No nausea vomiting or diarrhea Physical Exam General: No acute distress HEENT: No acute findings Neck: Supple Respiratory system: Able to talk in full sentences, no audible wheeze Extremities: Right hand Medical aspect with cat bite chance with mild erythema and minimal swelling, several scratches on forearm , patient able to move all fingers without pain, Neuro vascular intact CONTRACTS [place]: Alert awake oriented x3 motor intact PFSH Medical History ADHD Family history of attention deficit hyperactivity disorder Difficulty concentrating Type 2 diabetes mellitus without complication, without long-term current use of insulin Family history of colon cancer Lump of skin of back Obesity (BMI 30-39.9) Arthritis of right knee Mixed dyslipidemia Left ACL tear Elevated liver enzymes Annual visit for general adult medical examination with abnormal findings History of gestational diabetes Vitamin D deficiency Hypothyroidism Jessica's disease Anti-TPO antibodies present Surgical History Hx of anterior cruciate ligament tear reconstruction Tubal ligation status Hx of section Hx of cholecystectomy Hx of knee surgery Family History Father Colon cancer Mother Breast cancer Substance use disorder Sister Substance use disorder Maternal Aunt Substance use disorder Maternal Uncle Substance use disorder Paternal Uncle Substance use disorder Social History Household Members: Children Housing: Condominium Alcohol intake: never Patient Tobacco Use Status: Never used Tobacco e-Cigarette/Vaping Use: Never Used service: Yes Current occupational status: employed 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 site of bite 2. site of bite Immunizations Boostrix Tdap 2.5 Lf unit-8 mcg-5 Lf/0.5 mL intramuscular syringe Performing Provider: Kristopher Garza MD Performing Location: [facility] Administered by: Linda Arevalo CMA on 04/17/25 10:46 2 Dose Route Admin Location Dispensed Lot Number Expiration Date NDC Data Quality Consultant 0.5 mL IM Right Deltoid 0.5 mL [id number] 08/29/26 11960-771-72 [employer] 2 Total Dispensed Waste 0.5 mL 0 % 2 VIS Given Date VIS Provided VIS Publication Date 04/17/25 Single Vaccine 21 Eligibility Eligibility Date Funding Source Not [facility] Eligible 04/17/25 Private Assessment & Plan Assessment & Plan (1) Cat bite of hand: Code(s): S61.459A - Open bite of unspecified hand, initial encounter; W55.01XA - Bitten by cat, initial encounter Qualifiers: Encounter type: initial encounter Laterality: right Qualified Code(s): S61.451A - Open bite of right hand, initial encounter; W55.01XA - Bitten by cat, initial encounter Plan History of Present Illness The patient is a 44 year old female presenting with cat bite right hand and tetanus vaccination update. Cat Bite: - Occurred last night at approximately 8:30 PM. - Incident involved a neighbor?s cat that entered the patient's home and was chased by the patient's daughter. - The cat became agitated when being chased, leading to the bite. Patient attempted to restrain the cat with a towel, resulting in the bite. - The patient reports applying alcohol rubbing wipes on the wound post-incident. Several scratches were sustained along on forearm Tetanus Immunization: - Last confirmed tetanus vaccine received in 2014. - Acknowledges adherence to routine vaccinations due to occupational requirements in the . Medical History: - Diabetes mellitus Problem List - Cat bite right hand - Diabetes mellitus Plan - Administer tetanus booster since the last vaccination was in 2015 - Prescribe Augmentin, an antibiotic, to prevent infection in the cat bite wound considering the high infection risk associated with cat bites. - Advisement to keep the wound clean and covered with a bandage to minimize contamination. - Instruction to monitor for signs of infection, such as discharge or increased swelling, and to seek further medical evaluation if symptoms occur despite antibiotic therapy. - Engine Assembler patient to elevate the affected area to reduce swelling. Orders: Orders 2 TDaP Immunization Today Z23 - Encounter for immunization Medications: New 2 amoxicillin-pot clavulanate 875-125 mg 1 tab PO BID 20 tabs 0RF 10 days Coding Level of Care Code Est Pt Level 3 (34593) Diagnoses Cat bite of right hand, initial encounter S61.451A; W55.01XA Encounter type: initial encounter Laterality: right
== END 2025-04-17 11:00 | disposition home or self-care (01) ==
PROVIDERS: PCP Internal Medicine; Visit Provider Internal Medicine
DX: S61.451A Open bite of right hand, initial encounter (principal); W55.01XA Bitten by cat, initial encounter; Z23 Encounter for immunization

== ENCOUNTER → 2025-04-17 10:13 | Outpatient (BNVA) | payer OTHER, SELFPAY | PROVIDERS: PCP Internal Medicine; Visit Provider Internal Medicine | DX: S61.451A Open bite of right hand, initial encounter (principal); Z23 Encounter for immunization; W55.01XA Bitten by cat, initial encounter; Y93.9 Activity, unspecified; Y92.9 Unspecified place or not applicable; Y99.9 Unspecified external cause status | CPT/HCPCS: 90471; 90715; 99212 ==

== ENCOUNTER 2025-05-08 09:05 | Outpatient (REF) | payer OTHER, SELFPAY ==
[2025-05-09 14:09] LABS: Bacterial Vaginosis PCR NEGATIVE (Negative); Candida Group PCR NOT DETECTED (Not Detect); Candida glab krusei PCR NOT DETECTED (Not Detect); Trichomonas vaginalis PCR NOT DETECTED (Not Detect)
[2025-05-09 14:41] LABS: CT PCR NOT DETECTED (Not Detect.); NG PCR NOT DETECTED (Not Detect.)
== END 2025-05-08 09:06 | disposition home or self-care (01) ==
LOC: HO.LNP 09:05
PROVIDERS: PCP Internal Medicine; Visit Provider Advanced Practice Midwife
DX: Z01.419 Encounter for gynecological examination (general) (routine) without abnormal findings (principal); E11.9 Type 2 diabetes mellitus without complications; E66.9 Obesity, unspecified; Z20.2 Contact with and (suspected) exposure to infections with a predominantly sexual mode of transmission; Z11.51 Encounter for screening for human papillomavirus (HPV); Z68.34 Body mass index [BMI] 34.0-34.9, adult
CPT/HCPCS: 81515; 87491; 87591; 87626; 88175

== ENCOUNTER 2025-05-08 09:05 | Outpatient (AMB) | payer OTHER, SELFPAY ==
--- NOTE | 2025-05-08 09:10 | MHC.OFFVIS ---
Vital Signs 05/08/25 09:23 Height 5 ft 6 in Weight 215 lb BMI 34.7 BP 126/72 Intake Visit Reasons: New patient irregular menses Nurse Leader: Nurse Leader Present (Arlen) Accompanied by: Self / Same As Patient Allergies acetaminophen (Percocet) Allergy (Unknown, Verified 05/08/25 09:21) cant see up close oxycodone (Percocet) Allergy (Unknown, Verified 05/08/25 09:21) blurred vision oxytocin (From Pitocin) Adverse Reaction (Severe, Verified 05/08/25 09:21) Blurry Vision Medication List - Last Reconciled 05/08/25 by La Nena Kenyon CNM albuterol sulfate 90 mcg/actuation 2 puffs inhalation Q6H atorvastatin 40 mg PO BEDTIME blood sugar diagnostic (FreeStyle Lite Strips) Test blood sugar once per day blood-glucose meter (FreeStyle Lite Meter kit) Check blood sugar daily dextroamphetamine-amphetamine 25 mg ER (Adderall XR) 25 mg PO DAILY diclofenac sodium 1% (Arthritis Pain (diclofenac)) 2 grams topical QID dulaglutide (Trulicity) 1.5 mg (0.5 mL) subcut QWEEK FreeStyle Karl 3 Plus Sensor (blood-glucose sensor) Check blood sugar 3 times per day, change sensor every 14 days NS FreeStyle Karl 3 [place] (blood-glucose,coating inspector,cont) As directed NS [Knee cooling device As directed Breg: Vpulse with Knee Pad Prod numbers #[id number], #[id number]] lancets (FreeStyle Lancets) Test blood sugar once per day levothyroxine 75 mcg PO DAILY 30 days metformin ER 500 mg PO BID HPI HPI New patient irregular menses: Details: Patient is here is a new patient for a special collections librarian visit. She thought that she is actually just having irregular annual exam she is not really having any thing particular going on with the irregular menses it is trickling on a little bit in that she thought it was done and there was a little bit of left over menses today . She is not sexually active and has not been since awhile back she is interested in getting full testing just to be sure. She is a single mother she is a 12-year-old daughter and a 9-year-old son. She works in the at [employer] and has lots of responsibilities and full-time parenting. She has had some orthopedic injuries that the resulted in weight gain during the recovery and it has been hard to lose it but she has lost a lot by working out very vigorously in running every day and trying to eat well. She is diabetic she is currently on Trulicity and metformin and her hemoglobin A1c has come down. She is contemplating having a conversation with the demolition engineer about adding other weight loss medications because she is doing her best and it is still hard. She has a history of bladder surgery she was told she had dense breasts and she is going to be asking her primary care provider about follow-up for that, and she has had an appointment with somebody at Gastroenterology and has received prep items for the colonoscopy but it has not been scheduled yet [facility] Medical History ADHD Family history of attention deficit hyperactivity disorder Difficulty concentrating Type 2 diabetes mellitus without complication, without long-term current use of insulin Family history of colon cancer Lump of skin of back Obesity (BMI 30-39.9) Arthritis of right knee Mixed dyslipidemia Left ACL tear Elevated liver enzymes Annual visit for general adult medical examination with abnormal findings History of gestational diabetes Vitamin D deficiency Hypothyroidism Jessica's disease Anti-TPO antibodies present Surgical History Hx of anterior cruciate ligament tear reconstruction Tubal ligation status Hx of section Hx of cholecystectomy Hx of knee surgery Family History Father Colon cancer Mother Breast cancer Substance use disorder Sister Substance use disorder Maternal Aunt Substance use disorder Maternal Uncle Substance use disorder Paternal Uncle Substance use disorder Social History Household Members: Children Housing: Condominium Alcohol intake: never Patient Tobacco Use Status: Never used Tobacco e-Cigarette/Vaping Use: Never Used service: Yes Current occupational status: employed 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 Cognitive needs: No Hearing needs: No Vision needs: Yes Female Reproductive History Menstrual Age of Menarche: 12 Duration of menses: 3-5 days Date of last menstrual period: 05/04/25 control method: none Total pregnancies: 2 Full term: 2 History of abnormal pap smear: No Date of Mammogram: 12/22/24 (Bi rad 0 ) Physical Exam Const General: healthy appearing, comfortable, no acute distress, well developed and alert Nutritional Appearance: average body habitus Orientation/consciousness: patient oriented x3 Limitations: no limitations HEENT Head: Yes normocephalic Neck Neck: Yes normal visual inspection Chest Chest palpation & inspection: normal inspection of the chest Breast/axilla inspection: normal inspection of the breasts and normal inspection of the axillae Breast/axilla palpation: normal palpation of the breasts and normal palpation of the axillae Resp Effort & Inspection: normal respiratory effort GI Inspection: Yes normal to inspection, No Abdominal wall edema and No distended Palpation (GI): Soft to palpation and nontender Other: Normal external exam vagina is pink and moist cervix is multiparous pink healthy appearing end of menses noted. Cervix long close thick mobile nontender uterus midposition to anteverted mobile nontender adnexa nontender good tone with Kegel. General: Yes bladder normal to palpation External Female Exam: normal external appearance and normal appearance of the urethra Speculum Exam - Vagina: normal appearance of the vagina, normal palpation and normal vaginal discharge Speculum Exam - Cervix: normal appearance of the cervix, normal palpation and nontender Bimanual exam- vagina & uterus: normal bimanual exam, normal palpation, uterine size normal, bladder normal to palpation, consistency normal, normal palpation, uterine mobility normal, uterine shape normal, No Cervical tenderness present, non-tender and no cervical motion tenderness Bimanual Exam- Adnexa, other: normal adnexae, no masses, normal and No adnexal tenderness Neuro General: patient oriented x3 Assessment & Plan Assessment & Plan (1) Screen for sexually transmitted diseases: Code(s): Z11.3 - Encounter for screening for infections with a predominantly sexual mode of transmission Category: Medical (2) Type 2 diabetes mellitus without complication, without long-term current use of insulin: Code(s): E11.9 - Type 2 diabetes mellitus without complications Category: Medical (3) Obesity (BMI 30-39.9): Code(s): E66.9 - Obesity, unspecified Category: Medical (4) Well woman exam with routine gynecological exam: Code(s): Z01.419 - Encounter for gynecological examination (general) (routine) without abnormal findings Category: Medical (5) Cervical cancer screening: Code(s): Z12.4 - Encounter for screening for malignant neoplasm of cervix Category: Medical Plan -----Discussed in this visit the following: healthy balanced diet, regular and consistent exercise, getting recommended health screens, doing the best she can for her particular health concerns, kegel exercises, pap smear screening and followup recommendations, mammography screening and SBE, normal changes in cycles in her life stage--- . Please see HPI for summary of some of the many topics we discussed today. She will be in communication with her primary care about mammogram follow-up and with Gastroenterology about colonoscopies scheduling and if she has any concerns about bladder functioning I recommend following up with genitourinary folks who did her repair. For now she is fine she did want full screening for STIs and all was ordered she will be getting lab work for her demolition engineer coming up soon so I recommend getting it all done together. Encouraged to keep up her good work with self-care and taking care of herself and her family with healthy eating and exercise and it might be worth having a conversation about whether not she would be a candidate for any of the GLP ones to aid in her efforts. Orders: Orders Hepatitis B Surface Antigen Today Z11.3 - Encounter for screening for infections with a predominantly sexual mode of transmission Syphilis Screen Today Z11.3 - Encounter for screening for infections with a predominantly sexual mode of transmission Hepatitis C Antibody Today Z11.3 - Encounter for screening for infections with a predominantly sexual mode of transmission HIV Ab/Ag Today Z11.3 - Encounter for screening for infections with a predominantly sexual mode of transmission Coding Level of Care Code New Pt Prev Care 40-64y(37156) Diagnoses Screen for sexually transmitted diseases Z11.3 Type 2 diabetes mellitus without complication, without long-term current use of insulin E11.9 Obesity (BMI 30-39.9) E66.9 Well woman exam with routine gynecological exam Z01.419 Cervical cancer screening Z12.4
[2025-05-08 09:23] VITALS: BP 126/72; BMI 34.7
== END 2025-05-08 10:11 | disposition home or self-care (01) ==
LOC: HO.HWS 09:05
PROVIDERS: PCP Internal Medicine; Visit Provider Advanced Practice Midwife
DX: Z01.419 Encounter for gynecological examination (general) (routine) without abnormal findings (principal); E11.9 Type 2 diabetes mellitus without complications; E66.9 Obesity, unspecified; Z68.34 Body mass index [BMI] 34.0-34.9, adult; Z11.3 Encounter for screening for infections with a predominantly sexual mode of transmission
CPT/HCPCS: 99386; 99459

== ENCOUNTER 2025-05-19 11:03 | Outpatient (REF) | payer OTHER, SELFPAY ==
[2025-05-19 11:43] LABS: Hemoglobin A1C 76.2451 umol/L
[2025-05-19 12:23] LABS: Syphilis Screen Nonreactive (Nonreactive)
[2025-05-19 12:28] LABS: Microalbum/Creatinine Ratio Ur 8.5 ug/mg cr (<30)
[2025-05-19 12:39] LABS: HBsAGNum1 0.38 S/CO (0.00-0.99); HIV Num 1 0.05 S/CO (0.00-0.99); Hepatitis B Surface Antigen Negative (Negative); ~HepC Num1 1.28 S/CO (0.00-0.79); ~Hepatitis C Antibody Reactive (Nonreactive)
[2025-05-19 12:41] LABS: Alanine Aminotransferase 23 U/L (0-31); Albumin Level 4.9 g/dL (3.5-5.0); Alkaline Phosphatase 71 U/L (39-117); Anion Gap 13 (12-20); Aspartate Amino Transferase 26 U/L (5-31); Blood Urea Nitrogen 15 mg/dL (9-16); Calcium 9.7 mg/dL (8.4-10.2); Carbon Dioxide 26 mmol/L (22-29); Chloride 102 mmol/L (96-108); Cholesterol 185 mg/dL (<200); Estimated Glomerular Filt Rate > 60; HDL Cholesterol 47 mg/dL (>40); Potassium 4.5 mmol/L (3.3-5.1); Sodium 136 mmol/L (135-145); Total Protein 8.3 g/dL (6.5-8.0); Triglycerides 203 mg/dL (<150)
[2025-05-19 12:55] LABS: Free T4 (Free Thyroxine) 1.13 ng/dL (0.71-1.85); Thyroid Stimulating Hormone 1.44 uIU/mL (0.32-4.0)
== END 2025-05-19 11:04 | disposition home or self-care (01) ==
LOC: HO.LAB 11:03
PROVIDERS: Absent Provider Student in an Organized Health Care Education/Training Program; PCP Internal Medicine; Visit Provider Advanced Practice Midwife
DX: Z11.4 Encounter for screening for human immunodeficiency virus [HIV] (principal); Z20.2 Contact with and (suspected) exposure to infections with a predominantly sexual mode of transmission; Z20.6 Contact with and (suspected) exposure to human immunodeficiency virus [HIV]; E11.65 Type 2 diabetes mellitus with hyperglycemia; E78.2 Mixed hyperlipidemia; E66.9 Obesity, unspecified; E03.9 Hypothyroidism, unspecified
CPT/HCPCS: 36415; 80053; 80061; 82043; 82570; 83036; 84439; 84443; 86780; 86803; 87340; 87389

== ENCOUNTER 2025-05-21 09:04 | Outpatient (AMB) | payer OTHER, SELFPAY ==
--- NOTE | 2025-05-21 09:09 | A.OFFVIS_ITS ---
Vital Signs 05/21/25 09:11 Height 5 ft 6 in Weight 205 lb 0.478 oz BMI 33.1 BP 120/68 Blood Pressure Location Rt brachial Position Sitting Pulse 93 Pulse Source Pulse Oximeter Pulse Oximetry (%) 96 Oxygen Delivery Method Room Air Intake Visit Reasons: Hypothyroidism, T2DM, autoimmune thyroiditis Intake Note: Patient presents here today for a follow-up on Type 2 Diabetes Mellitus Hypothyroidism Autoimmune Thyroiditis: Comprehensive Met. 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 Classification Interviewer Most recent HbA1c: 5.0%, 05/19/2025 Random Glucose: 113 mg/dL Mobile Web Application Developer Required: No Accompanied by: Self / Same As Patient Allergies acetaminophen (Percocet) Allergy (Unknown, Verified 05/21/25 09:16) cant see up close oxycodone (Percocet) Allergy (Unknown, Verified 05/21/25 09:16) blurred vision oxytocin (From Pitocin) Adverse Reaction (Severe, Verified 05/21/25 09:16) Blurry Vision Medication List - Last Reconciled 05/21/25 by Gayle Ayers MD albuterol sulfate 90 mcg/actuation 2 puffs inhalation Q6H atorvastatin 40 mg PO BEDTIME blood sugar diagnostic (FreeStyle Lite Strips) Test blood sugar once per day blood-glucose meter (FreeStyle Lite Meter kit) Check blood sugar daily dextroamphetamine-amphetamine 25 mg ER (Adderall XR) 25 mg PO DAILY diclofenac sodium 1% (Arthritis Pain (diclofenac)) 2 grams topical QID dulaglutide (Trulicity) 3 mg (0.5 mL) subcut QWEEK FreeStyle Karl 3 Plus Sensor (blood-glucose sensor) Check blood sugar 3 times per day, change sensor every 14 days NS FreeStyle Karl 3 Mabel (blood-glucose,chiseler head,cont) As directed NS [Knee cooling device As directed Breg: Vpulse with Knee Pad Prod numbers #[id number], #[id number]] lancets (FreeStyle Lancets) Test blood sugar once per day levothyroxine 75 mcg PO DAILY 30 days metformin ER 500 mg PO BID HPI Comments Details: 43-year-old female coming in today for follow up of type 2 diabetes mellitus and hypothyroidism/Jessica's thyroiditis. Type 2 diabetes mellitus History of diabetes 2 pregnancies 2012 and 2015 both had GDM controlled with diet A1c 7 % Aug 2022 diagnosed with DM type 2 Prior therapy: none Current regimen: metformin 500 BID Trulicity 0.75 mg weekly Denies any symptoms of hyperglycemia including polyphagia, polyuria, polydipsia. Denies any hypoglycemic symptoms. HgA1c: 7.2% 04/26/24 HgA1C: 6.0% 07/17/24 hba1c: 5.3% 11/10/24 SMBGs Checks bg occasionally if she feels low Maternal side : lots of relatives uncles and aunts had Type 1 DM Paternal aunt had type 2 DM Complications Last Diabetic Eye exam: 01/2024, no retinopathy Last Podiatry Visit: Doesn't have one, neuropathy : none Kidney disease: no history of kidney disease Macrovascular complications: No history of macrovascular complications. Statin: atorvastatin 40 mg daily started May 2024, tolerating it better FRIDA/ARB: none Exercise: walks 3 or 4 times a week , 40 mins to 1 hr brisk walking , at a desk otherwise Diet control: eats from outside on days she is working too much s/p cholecystectomy no episodes of pancreatitis, no alcohol use No family history of thyroid cancer has never had any hospitalizations for hyperglycemia/hypoglycemia. Hypothyroidism diagnosed with hypothyroidism during her and was on Levothyroxine during her pregnancies and continued on this for a few months , but then this was stopped. She then remained off levothyroxine for approximately 3 years. She had labs checked by her PCP 05/01/2020 which revealed a TSH high normal, and positive TPO antibodies. She was subsequently referred to Endocrinology. Labs were repeated, confirming Jessica's hypothyroidism with elevated TPO antibodies and elevated TSH. She was started on Levothyroxine again, and is on Levothyroxine 75 mcg PO daily at this time. She takes this correctly and reports good compliance. She does report persistent fatigue. She did have a tubal-ligation. She does mention fatigue. She denies any swelling in the neck or difficulty swallowing. 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 Paternal aunt has thyroid disease but no family history of thyroid cancer. Interval history: She reports some dietary transgressions Using Merforming 500 BID and Trulicity 1.5 mg weekly. Currently tolerating medi cations well, but she experienced mild abdominal pain after trulicity was last increased. She has had a lot of stress Has lost about 13 lbs since last visit Reports taking levothyroxine 75 mcg Reports sometimes feeling cold but overall OK Reports regular periods No Constipation or diarrhea Physical exam Laboratory Tests Laboratory Tests 05/19/25 05/21/25 11:21 09:15 Glucose (Clinic) 113 Hemoglobin A1c % 5.0 05/19/25 11:21 Creatinine 0.81 Estimated GFR > 60 Triglycerides 203 H Cholesterol 185 LDL Cholesterol, Calc 98 HDL Cholesterol 47 TSH 1.44 Free T4 1.13 07/17/24 05/19/25 10:27 11:13 Microalb/Creat Ratio 10.8 8.5 Imaging Thyroid US: 07/22/2020 Right Thyroid Lobe: 4.7 x 2.1 x 1.8 cm, volume 9.3 mL. Parenchyma: The gland echotexture is heterogeneous. Thyroid vascularity is mildly increased. Left Thyroid Lobe: 4.6 x 1.4 x 1.5 cm, volume 5.1 mL. Parenchyma: The gland echotexture is heterogeneous. Thyroid vascularity is normal. Isthmus: 0.5 cm in maximum AP dimension. RIGHT THYROID LOBE: No nodules. ISTHMUS: No nodules. LEFT THYROID LOBE: No nodules. NODES: Right neck lymph node measures 0.8 x 1.8 x 0.4 cm. Left neck lymph node measures 0.7 x 0.9 x 0.4 cm. [facility] Medical History ADHD Family history of attention deficit hyperactivity disorder Difficulty concentrating Type 2 diabetes mellitus without complication, without long-term current use of insulin Family history of colon cancer Lump of skin of back Obesity (BMI 30-39.9) Arthritis of right knee Mixed dyslipidemia Left ACL tear Elevated liver enzymes Annual visit for general adult medical examination with abnormal findings History of gestational diabetes Vitamin D deficiency Hypothyroidism Jessica's disease Anti-TPO antibodies present Surgical History Hx of anterior cruciate ligament tear reconstruction Tubal ligation status Hx of section Hx of cholecystectomy Hx of knee surgery Family History Father Colon cancer Mother Breast cancer Substance use disorder Sister Substance use disorder Maternal Aunt Substance use disorder Maternal Uncle Substance use disorder Paternal Uncle Substance use disorder Social History Household Members: Children Housing: Condominium Alcohol intake: never Patient Tobacco Use Status: Never used Tobacco e-Cigarette/Vaping Use: Never Used service: Yes Current occupational status: employed 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 Cognitive needs: No Hearing needs: No Vision needs: Yes Female Reproductive History Menstrual Age of Menarche: 12 Physical Exam Vital Signs: Last Vital Signs Pulse 93 05/21/25 09:11 BP 120/68 05/21/25 09:11 Pulse Ox 96 05/21/25 09:11 Oxygen Delivery Method Room Air 05/21/25 09:11 BMI result Body Mass Index 33.1 Results Reviewed Results Reviewed: Laboratory Last Values Glucose (Clinic) 113 mg/dL (60-115) 05/21/25 09:15 Assessment & Plan Assessment & Plan (1) Hypothyroidism: Code(s): E03.9 - Hypothyroidism, unspecified Category: Medical Qualifiers: Hypothyroidism type: unspecified Qualified Code(s): E03.9 - Hy pothyroidism, unspecified Plan: Patient with a history of hypothyroidism due to Jessica;s thyroiditis Most recent TFTs: TSH: 1.44, Free T4: 1.13. Clinically euthyroid Plan: -continue levothyroxine 75 mcg -TSH and free T4 to be done prior to follow up in 6 months (2) Diabetes mellitus with hyperglycemia, without long-term current use of insulin: Code(s): E11.65 - Type 2 diabetes mellitus with hyperglycemia Category: Medical Qualifiers: Diabetes mellitus type: type 2 Qualified Code(s): E11.65 - Type 2 diabetes mellitus with hyperglycemia Plan: Patient diagnosed with type 2 diabetes in November of 2022, Her A1c was at 9.9% from November 2023, now down to 5.3% in November 2024 and was 6 % August 2024, she did not bring her meter, however fasting glucose today was 90. I am pretty happy with her numbers and her diabetic control. I encouraged her to continue working out with her hop strainer. Her BMI is still 35.8 kg per m2 and she has not lost any weight despite starting the Trulicity. I am going to increase her Trulicity to help with weight management and NAFLD. In addition to diabetes. A1c in office today 5.0. No episodes of hypoglycemia. She has not lost a lot of weight. We discussed increasing her Trulicity. She is made aware of side effects of Trulicity, she will call if she has any side effects. Plan: -continue metformin 500 mg b.i.d. -increase Trulicity to 3 mg weekly -monitor blood sugars fasting 2 to 3 times a week -up-to-date with eye visit, no history of retinopathy -lifestyle modification advised with 150 minutes of exercise in a week, 500 calorie deficit daily -follow up in 3 months with repeat labs (3) Mixed dyslipidemia: Code(s): E78.2 - Mixed hyperlipidemia Category: Medical Plan: LDL down to 56 in July 2024 from 119 mg/dL. At goal Goal LDL less than 90 mg/dL . LDL up 98 from 56 in , she did admit to some dietary transgressions. Repeat in 6 months. Plan: -continue atorvastatin 40 mg daily (4) Obesity (BMI 30-39.9): Code(s): E66.9 - Obesity, unspecified Category: Medical Plan: BMI 35. 8 kg per m2. She had lost 10 lb over the past year due to lifestyle modification. However now her weight remained static at 221 lb despite being on Trulicity 0.75 mg weekly. She is working out 3 to 4 times a week with a personal secretary, and focusing on her macros and nutritional components, however her weight still remains very high. Plan: -lifestyle modification advised -increase Trulicity to 3 mg weekly (5) Type 2 diabetes mellitus without complication, without long-term current use of insulin: Code(s): E11.9 - Type 2 diabetes mellitus without complications Category: Medical Plan I spent 30 minutes in reviewing the record, seeing the patient and documenting in the medical record. Medications: New dulaglutide (Trulicity) 3 mg (0.5 mL) subcut QWEEK 2 mL 3RF Discontinued dulaglutide (Trulicity) Discontinued Reason: Doctor's Order 1.5 mg (0.5 mL) subcut QWEEK 6 mL 3RF Coding Level of Care Code Est Pt Level 4 (58222) Diagnoses Hypothyroidism, unspecified type E03.9 Hypothyroidism type: unspecified Type 2 diabetes mellitus with hyperglycemia, without long-term current use of insulin E11.65 Diabetes mellitus type: type 2 Mixed dyslipidemia E78.2 Obesity (BMI 30-39.9) E66.9 Type 2 diabetes mellitus without complication, without long-term current use of insulin E11.9
[2025-05-21 09:11] VITALS: BP 120/68; PULSE 93; O2SAT 96; BMI 33.1
[2025-05-21 09:20] LABS: Glucose, Whole Blood 113 mg/dL (60-115)
== END 2025-05-21 09:44 | disposition home or self-care (01) ==
LOC: HO.ENCR 09:05
PROVIDERS: PCP Internal Medicine; Visit Provider Student in an Organized Health Care Education/Training Program
DX: E03.9 Hypothyroidism, unspecified (principal); E11.65 Type 2 diabetes mellitus with hyperglycemia; E78.2 Mixed hyperlipidemia; E66.9 Obesity, unspecified; E11.9 Type 2 diabetes mellitus without complications
CPT/HCPCS: 99214

== ENCOUNTER → 2025-05-21 09:04 | Outpatient (BNVA) | payer OTHER, SELFPAY | PROVIDERS: PCP Internal Medicine; Visit Provider Student in an Organized Health Care Education/Training Program | DX: E03.9 Hypothyroidism, unspecified (principal); E11.65 Type 2 diabetes mellitus with hyperglycemia; E78.2 Mixed hyperlipidemia; E66.9 Obesity, unspecified; Z68.33 Body mass index [BMI] 33.0-33.9, adult; Z79.85 Long-term (current) use of injectable non-insulin antidiabetic drugs; Z79.4 Long term (current) use of insulin | CPT/HCPCS: 82947; 99212 ==

== ENCOUNTER → 2025-06-18 13:30 | Outpatient (BNV) | payer OTHER, SELFPAY | PROVIDERS: PCP Internal Medicine; Visit Provider Internal Medicine | DX: N60.02 Solitary cyst of left breast (principal) | CPT/HCPCS: 76642; 77061; 77065 ==

== ENCOUNTER 2025-06-18 13:31 | Outpatient (REF) | payer OTHER, SELFPAY ==
--- NOTE | ~2025-06-18 | US_ITS ---
EXAMINATION: MM DIAGNOSTIC DIGITAL BREAST TOMOSYNTHESIS, LEFT Left Limited ultrasound. CLINICAL INFORMATION: Call back from screening for oval mass in the upper inner left breast middle to posterior depth. COMPARISON: Mammography: Prior's on PACS. TECHNIQUE: Digital breast tomosynthesis is performed in both the craniocaudal and mediolateral oblique views along with computer-aided detection (CAD). Synthesized 2D images are generated from the tomosynthesis. FINDINGS: The breasts are heterogeneously dense, which may obscure small masses. Circumscribed oval mass persists in the upper inner breast middle to posterior depth. No suspicious calcifications or other abnormal findings. Targeted color Doppler ultrasound scanning in the upper inner breast demonstrates a simple to minimally complicated cyst at 10:00 8 cm from the nipple measuring 15 x 12 x 5 mm which correlates with the circumscribed oval mass and is benign. US/US Breast LT Limited Mamm Only IMPRESSION: Left Simple to minimally complicated cyst on ultrasound. Benign. ASSESSMENT: BI-RADS Category 2: Benign RECOMMENDATION: 1 year F/U Results were provided to the patient at time of visit by the technologist. This patient's information was entered into a reminder system with a target due date for their next mammogram. Electronically signed by: Sheila Ford DO 06/18/2025 02:09 PM [facility]
== END 2025-06-18 13:32 | disposition home or self-care (01) ==
LOC: HO.MAMMO 13:31
PROVIDERS: PCP Internal Medicine; Visit Provider Internal Medicine
DX: N64.89 Other specified disorders of breast (principal)
CPT/HCPCS: 76642; 77061; 77065